=== PATIENT | female | born 1940 | race Caucasian/White ===

== ENCOUNTER 2022-12-08 15:44 | Outpatient (REF) | payer OTHER, SELFPAY ==
[2022-12-08 16:48] LABS: Percent Iron Saturation 8.2 %
[2022-12-08 16:51] LABS: Anion Gap 8.8; BUN Creatinine Ratio 16.9; Calcium 8.9 mg/dL (8.5-10.1); Carbon Dioxide 30.7 mmol/L (21.0-32.0); Chloride 104 mmol/L (98-107); Estimated GFR (African America 48 (>=60); Estimated GFR (Non-African Ame 39 (>=60); Glucose 118 mg/dL (74-106); Potassium 4.5 mmol/L (3.5-5.1); Sodium 139 mmol/L (136-145)
== END 2022-12-08 15:45 | disposition home or self-care (01) ==
LOC: LAB 15:44
PROVIDERS: PCP Family Medicine; Visit Provider Family Medicine
DX: D64.9 Anemia, unspecified (principal); D75.89 Other specified diseases of blood and blood-forming organs; I50.9 Heart failure, unspecified
CPT/HCPCS: 36415; 80048; 82607; 82728; 82746; 83540; 83550; 83880

== ENCOUNTER 2024-01-16 13:39 | Outpatient (REF) | payer OTHER, SELFPAY ==
[2024-01-16 14:14] LABS: Hematocrit 34.1 % (36.0-48.0); Hemoglobin 9.8 g/dL (12.0-16.0)
[2024-01-16 15:00] LABS: Anion Gap 9.5; BUN Creatinine Ratio 18.5; Calcium 8.8 mg/dL (8.5-10.1); Chloride 101 mmol/L (98-107); Estimated GFR (African America 35 (>=60); Estimated GFR (Non-African Ame 29 (>=60); Glucose 113 mg/dL (74-106); Potassium 4.5 mmol/L (3.5-5.1); Sodium 141 mmol/L (136-145)
== END 2024-01-16 13:40 | disposition home or self-care (01) ==
LOC: LAB 13:39
PROVIDERS: PCP Family Medicine; Visit Provider Family Medicine
DX: Z79.899 Other long term (current) drug therapy (principal); D64.9 Anemia, unspecified
CPT/HCPCS: 36415; 80048; 85014; 85018

== ENCOUNTER 2025-04-17 14:32 | Outpatient (REF) | payer OTHER, SELFPAY ==
[2025-04-17 15:18] LABS: Glucose Urine UA NEGATIVE (NEGATIVE)
--- OUTSIDE RECORDS SUMMARY | 2025-04-17 17:32 | XMS_ITS | CCD ---
Author Organization [facility] Inform ion [facility] Care Team Providers Care Assistive Technology Trainer Name Role Phone Justyna Hanson Primary Care Provider Ayse Morton Attending Provider Montana Tobar Attending Provider Justyna Hanson Attending Provider [phone] Justyna Hanson Unavailable Unavailable Unavailable Unavailable Aliza Funes Unavailable Justyna Hanson Unavailable Montana Tobar Unavailable Tori Wheatley Unavailable Justyna Hanson Unavailable DO Jusytna Hanson Primary Care Provider MD Tori Wheatley Attending Provider DR FLORENTIN LARIOS Consulting Unavailable ALIZA FUNES Admitting Unavailable ALIZA FUNES Attending Unavailable DR JUSTYNA HANSON Primary Care Unavailable ALIZA FUNES Consulting Unavailable DO Justyna Hanson Primary Care Provider DO Justyna Hanson Attending Provider Margarito Allen Unavailable Dr. Tressa Jackson Attending Martha Jackson, Dr. Allan Referring Martha Hanson, Dr. Justyna Randolph Primary Care Martha Jackson, Dr. Allan Attending Alycea sean Jackson, Dr. Allan Referring Alycea sean Hanson, Dr. Justyna Randolph Primary Care UnavailDO Margarito Cardoso Attending Provider [phone] DO Justyna Hanson Primary Care Provider DO Justyna Hanson Attending Provider [phone] NON STAFF Primary Care Provider UnavailJustyna Tai DO Primary Care Provider [phone] NON STAFF Primary Care Provider Unavailrupesh e DO Justyna Hanson Attending Provider DO Justyna Hanson Primary Care Provider DO Justyna Hanson Primary Care Provider [phone] DO Justyna Hanson Attending Provider TRESSA JACKSON Referring Unavailable JUSTYNA HANSON Primary Care Unavailable DO Myrna Silverman Attending Provider NO FAMILY, PHYSICIAN Primary Care Provider Unava ilable Justyna Hanson DO Primary Care Provider Justyna Hanson DO Attending Provider Justyna Hanson DO Attending Provider Justyna Hanson DO Primary Care Provider Randall Dalal PA-C Emergency Provider Marin Whitman DO Admit Provider [phone] Marin Whitman DO Attending Provider [phone] Justyna Hanson DO Primary Care Provider Justyna Hanson DO Primary Care Provider TRESSA JACKSON Attending Unavailable TRESSA JACKSON Referring Unavailable JUSTYNA HANSON Primary Care Unavailable TRESSA JACKSON Attending Unavailable TRESSA JACKSON Referring Unavailable JUSTYNA HANSON Primary Care Unavailable Justyna Hanson DO Primary Care Provider [phone] Clarisa Rashid Attending Provider Justyna Hanson DO Attending Provider [phone] Georgette SANDY, [place] Unavailable [phone] Justyna Hanson Primary Care Unavailable Justyna Hanson Attending Unavailable Justyna Hanson Admitting Unavailable Justyna Hanson Primary Care Unavailable Marin Whitman Admitting Unavailable Marin Whitman Attending Unavailable Justyna Hanson Attending Unavailable Girasif, Justyna Admitting Unavailable Girasif, Justyna Admitting Unavailable Girvin, Justyna Primary Care Unavailable Girasif, Justyna Attending Unavailable Girasif, Justyna Admitting Unavailable Girvin, Justyna Attending Unavailable Girvin, Justyna Primary Care Unavailable Girvin, Justyna Attending Unavailable Girvin, Justyna Admitting Unavailable Girvin, Justyna Primary Care Unavailable Girvin, Justyna Attending Unavailable Girvin, Justyna Admitting Unavailable Girvin Justyna HOOVER Primary Care Provider Kevin GÓMEZCClarisa Attending Provider [phone] CLARISA GARY Referring Unavailable GIRVIN, JUSTYNA Gomez Primary Care Unavailable CLARISA GARY Referring Unavailable GIRVIN, JUSTYNA Gomez Primary Care Unavailable LAKESHA KIM Attending Unavailable CLARISA GARY Referring Unavailable GIRVIN, JUSTYNA Gomez Primary Care Unavailable CLARISA GARY Referring Unavailable GIRVIN, JUSTYNA Gomez Primary Care Unavailable LAKESHA KIM Attending Unavailable CLARISA GARY Referring Unavailable GIRVIN, JUSTYNA Gomez Primary Care Unavailable GIRASIF, JUSTYNA C Referring Unavailable GIRVIN, JUSTYNA C Primary Care Unavailable KEYON PALOMINO Attending Unavailable GIRVIN, JUSTYNA C Referring Unavailable GIRVIN, JUSTYNA C Primary Care Unavailable KEYON PALOMINO Referring Unavailable GIRVIN, JUSTYNA C Primary Care Unavailable CLARISA GARY Referring Unavailable GIRVIN, JUSTYNA Gomez Primary Care Unavailable CLARISA GARY Referring Unavailable GIRVIN, JUSTYNA Gomez Primary Care Unavailable CLARISA GARY Referring Unavailable GIRVIN, JUSTYNA Gomez Primary Care Unavailable CLARISA GARY Attending Unavailable CLARISA GARY Referring Unavailable GIRVIN, JUSTYNA Gomez Primary Care Unavailable CLARISA GARY Referring Unavailable GIRVIN, JUSTYNA Gomez Primary Care Unavailable Unavailable Unavailable Unavailable Allergies Allergy ClassificationReported Allergen(s)Allergy TypeDate of OnsetReaction(s) Facility (20 sources)Ibuprofen; Translations: [ibuprofen]Drug Kccfkta47-64-0606WjvfeOur Lady Of Mercy Hospital (20 sources)Simvastatin; Translations: [simvastatin]Drug Aoeyqkw64-80-9067 FluMercy Health Perrysburg HospitalComment on above:nausea and flushing (20 sources)Iodinated Contrast Media; Translations: [IODINATED CONTRAST MEDIA] Allergy to vbybhlgzv56-15-6812KnfiwxijexaKassqtpqe [facility] (4 sources)Contrast mediaAllergy to substance (finding)[facility] 600 DO Work Phone: (4 sources)Ibuprofen; Translations: [Ibuprofen TABS]Drug AllergyCass [facility] 600 DO Work Phone: (8 sources)Niacin; Translations: [Niaspan TBCR]Drug Xxainam44-97-0572CpirdBDSt. Elizabeths Medical Center 600 DO Work Phone: (20 sources)Contrast mediaPropensity to adverse reactionsshock/deathMulticare Auburn Medical Center SeroMatch Other (20 sources)FenofibrateDrug Bxdctio97-21-5209fekdbtoOhioHealth Hardin Memorial Hospital (20 sources)IbprofenPropensity to adverse reactionsMetroHealth Main Campus Medical Center SeroMatch Other (3 sources)Hmg-Coa Reductase Inhibitors (Statins); Translations: [Statins] Allergy to drug (finding)Hives, FlushingWinona Community [facility]-Farzad 250 DO Work Phone: (1 source)FenofibrateDrug AllergyThe [facility] (1 source)Iodine (And Iodine Containting Drugs)Drug allergy (disorder)[facility] (6 sources)HMG-CoA reductase inhibitor; Translations: [MUJDIGP-GFK-FPY REDUCTASE INHIBITORS]Drug Xqwknbbtwhd80-07-6242FioknLicking Memorial Hospital Work Phone: (2 sources)Niacin; Translations: [NIACIN]Drug Thvcumi44-58-6822[facility] (15 sources)Contrast media; Translations: [CONTRAST DYE]Drug Apzntaz40-71-4031 Other: See CommentsHolzer Health System (15 sources)Fenofibrate; Translations: [FENOFIBRATE MICRONIZED]Drug Allergy 60-35-7388Vpucz: See [facility] (5 sources)Doxycycline; Translations: [doxycycline]Drug Eruumtq24-24-6051DxgfThe Metrohealth SystemComment on above:possibly related to Doxycycline, see workload message from 11/22/24 (1 source)FenofibrateDrug Auvwdlq82-64-9104RgfqvkzwfOhiohealth Southeastern Medical Center Repository Medications Current Medications MedicationDrug Class(es)DatesSig (Normalized)Sig (Original)25 g x 1 needle (9 sources)Start: g x 1 needle Active 0 .Route .MEDSUPPLY 4 0 June 12, 2024 1:00am As directedStart: g x 1 needle Active 0 .ROUTE .MEDSUPPLY 4 June 12, 2024 1:00am As directed3 ml syringe (9 sources)Start: ml syringe Active 0 .Route .MEDSUPPLY June 12, 2024 1:00am8 hr acetaminophen 650 mg extended release oral tablet (8 sources)Start: 02-32-3839Lfuqzcoggpkkq (Arthritis Pain Relief (Acetam)) 650 mg tablet extended release Active 1300 MG PO Bedtime August 28, 2024 12:00am Complies with drug therapyacetaminophen 325 mg / oxyCODONE hydrochloride 5 mg oral tablet (15 sources)Opioid AgonistStart: 99-92-7857pwib 1 tablet by mouth every four hours as neededPercocet 5-325 MG 1 tablet as needed Orally up to every 4 hrs for 7 days Feb, ActiveStart: 50-31-8359vmggalpen 0.83 mg/ml inhalation solution (20 sources)beta2-Adrenergic AgonistStart: 09-19-2023 End: 89-90-1143quxi 1 puff(s) by inhalation every four hours as needed for wheezingAlbuterol Sulfate (Proair Hfa) 90 mcg/actuation HFA aerosol inhaler Active 2 PUFF INHALATION Every 4 hours as needed for Shortness Of Breath Or Wheezing 8.5 11 December 19, 2023 2:10pm Complies with drug therapyStart: 01-16-2020 End: 04-12-9804amkl 1 dose by inhalation three times daily as needed for wheezingAlbuterol Sulfate 2.5 mg /3 mL (0.083 %) solution for nebulization Active 2.5 MG INHALATION Three times daily as needed for shortness of breath or wheezing 75 11 June 12, 2024 2:09pm USE 1 VIAL IN NEBULIZER THREE TIMES DAILY Complies with drug therapyStart: 08-30-2282idwi 1 puff(s) by inhalation every four to six hoursAlbuterol Sulfate (Proair Hfa) 90 mcg/actuation Hfa Aerosol Inhaler Active 1 PUFF INHALATION EVERY 4-6 HOURS October 04, 2017 6:54am Start: 10-04-2017 End: 62-70-2660uwhj 1 puff(s) by inhalation every four to six hours as needed for wheezingAlbuterol Sulfate (Proair Hfa) 90 mcg/actuation Hfa Aerosol Inhaler Discontinued 1 PUFF INHALATION EVERY 4-6 HOURS as needed for Shortness Of Breath Or Wheezing October 04, 2017 12:00am September 19, 2023 11:37amalbuterol HFA (PROAIR HFA) 90 mcg/actuation inhaler Inhale 2 Puffs as instructed. Activetake 3 mL by inhalation every four to six hours as needed for wheezingalbuterol 2.5 mg /3 mL (0.083 %) nebulizer solution Inhale 3 mL (2.5 mg). EVERY 4-6 HOURS NEEDEDFOR WHEEZING Activealbuterol (ProAir HFA) 90 mcg/actuation inhaler Inhale if needed. ActiveAlbuterol Sulfate (2.5 MG/3ML) 0.083% 1 vial per nebulizer qid Active Albuterol Sulfate (2.5 MG/3ML) 0.083% 1 vial per nebulizer qid ActiveAlbuterol Sulfate (2.5 MG/3ML) 0.083% Inhalation Nebulization Solution USE 1 UNIT DOSE EVERY 4-6 HOURS NEEDED FOR WHEEZING . Quantity: 0 Refills: 0 Ordered: 19-Feb-2021 DO ActiveProAir HFA 108 (90 Base) MCG/ACT AERS INHALE PUFFS PRN Quantity: 0 Refills: 0 Ordered: 19-Feb-2021 DO ActiveAlbuterol Sulfate (2.5 MG/3ML) 0.083% USE 1 VIAL IN NEBULIZER THREE TIMES DAILY ActiveProAir HFA 108 (90 Base) MCG/ACT 2 inhalations Inhalation every 4 hrs PRN ActiveBalsam Sandrita- Deridder Oil (Venelex) ointment (6 sources)Start: 98-05-2448Nggrrb Melber-Deridder Oil (Venelex) ointment Active 1 APPLIC TOPICAL Twice daily as needed for wound healing 60 1 September 07, 2024 12:00am a prior auth will not be done for this medication, pt will need topay amaral if ins does not cover Complies with drug therapyStart: 53-02-8886Ogova: 04-70-1143Oiqzzx Sandrita-Deridder Oil (Venelex) ointment Active 1 APPLIC TOPICAL Twice daily as needed for wound healing September 07, 2024 12:00am a prior auth will not be done for this medication, pt will need to pay amaral if ins does not coverCalcium 500 + D3 500-15 MG-MCG (9 sources)Start: 87-49-7656grxi 1 tablet by mouth twice dailyStart: 12-01-2022 take 1 tablet by mouth twice dailyCalcium 500 + D3 500-15 MG-MCG 1 tablet Orally Twice a day for 30 days Nov, Activecalcium carbonate 1500 mg / cholecalciferol 800 unt oral tablet (20 sources)Vitamin DStart: 46-80-8497esly 1 tablet by mouth once dailyCalcium Carbonate-Vitamin D3 600 mg-20 mcg (800 unit) tablet Active 1 TAB PO Daily December 19, 2023 1:55pm Complies with drug therapyStart: 09-19-2023 End: 28-57-7775drbp 1 tablet by mouth every twelve hoursCalcium Carbonate- Vitamin D3 600 mg-20 mcg (800 unit) tablet Discontinued 1 TAB PO Every 12 hours September 19, 2023 12:00am December 19, 2023 1:58pmStart: 25-95-0794vwzr 1 tablet by mouth every twelve hoursCaltrate 600+D 600-400 MG-UNIT (14 sources)Start: 20-94-2959cwjw 1 tablet by mouth every twelve hoursStart: 07-06-0458mthy 1 tablet by mouth every twelve hoursCaltrate 600+D 600-400 MG- UNIT 1 tablet Orally every 12 hrs for 30 days *corrected calcium/vit d script Nov, Activecefdinir 300 mg oral capsule (2 sources)Cephalosporin AntibacterialStart: 11-93-0527gxlu 2 capsules by mouth once daily at mealtimeCefdinir 300 MG 2 capsules Orally qd with food for 10 days May, ActiveCyanocobalamin 1000 MCG/ML (20 sources)Start: 41-42-1150uxqc 1 mL by mouth every monthStart: 10-81-1560yrhp 1 mL by mouth every monthCyanocobalamin 1000 MCG/ML 1 ml Orally once a month for 30 day(s) Oct, ActiveStart: 99-36-1892Msxwc: 08-49-0471xqct 1 mL by mouth every monthCyanocobalamin 1000 MCG/ML 1 ml Orally once a month Oct, Activedabigatran etexilate 75 mg oral capsule (20 sources)Start: 10-04-2017 End: 93-89-3933ieps 1 capsule by mouth twice dailyDabigatran Etexilate (Pradaxa) 75 mg capsule Active 75 MG PO Twice daily January 16, 2020 12:00am Complies with drug therapydexamethasone 1 mg oral tablet (7 sources)CorticosteroidStart: 07-86-2950Naflmangpdvwb 1 MG 1 tablet Orally as directed Apr, Activedocusate sodium 100 mg oral capsule (15 sources)Start: 58-89-9215rcdl 1 capsule by mouth every twenty-four hours Colace 100 MG 1 capsule Orally Once a day for 30 day(s) prn Apr, Active enalapril maleate 10 mg / hydroCHLOROthiazide 25 mg oral tablet (14 sources)Thiazide Diuretic, Angiotensin Converting Enzyme Inhibitortake 1 tablet by mouth once dailyenalapril-hydrochlorothiazide (VASERETIC) 10-25 mg per tablet Take 1 tablet by mouth once daily. Activeergocalciferol 1.25 mg oral capsule (20 sources)Provitamin D2 CompoundStart: 34-62-2572tiwa 1 capsule by mouth every weekErgocalciferol 58599 UNIT 1 capsule Orally Once a Week for 90 day(s) Mar, Activetake 1 capsule by mouth every week, then take 1 capsule by mouth two times weeklyergocalciferol, vitamin D2, (VITAMIN D) 50,000 unit capsule Take 50,000 Units by mouth once each week. 2 times per week Activeferrous sulfate 325 mg oral tablet (20 sources)Start: 29-83-4701barn 1 tablet by mouth every other dayFerrous Sulfate 325 mg (65 mg iron) tablet Active 325 MG PO .QOD December 19, 2023 2:35pm Complies with drug therapyStart: 09-19-2023 End: 52-63-9059Xelelkq Sulfate 325 mg (65 mg iron) tablet Discontinued 325 MG PO Every 48 hours September 19, 2023 12:00am December 19, 2023 2:36pm FStart: 50-63-3241qgca 1 tablet by mouth every other dayFerrous Sulfate 325 (65 Fe) MG 1 tablet Orally QOD Jan, ActiveStart: 03-69-6636uudq 1 tablet by mouth every other dayFerrous Sulfate 325 (65 Fe) MG 1 tablet Orally QOD Jan, ActiveStart: 15-17-5473cdnv 1 tablet by mouth twice dailyferrous sulfate 325 mg (65 mg iron) tablet Take 1 tablet by mouth twice daily. 60 tablet 0 11/26/2014 Activetake 1 tablet by mouth every other dayFerrous Sulfate 325 (65 Fe) MG 1 tablet Orally QOD for 30 days Activetake 1 tablet by mouth every other day Ferrous Sulfate 325 (65 Fe) MG 1 tablet Orally QOD Active Nkzbuyetqqc-Lojipzpwz-Dwxqsihs (20 sources)Anticholinergic, Corticosteroid, beta2-Adrenergic AgonistStart: 98-87-4088sqym 1 puff(s) by mouth once fmvfiMoshcrbdzew-Ouzohpjdp-Cypfnjes (Trelegy Ellipta) 100-62.5-25 mcg blister with device Active 1 INH INHALATION Daily January 16, 2020 1:27pm INHALE 1 PUFF ONCE DAILY. RINSE MOUTH AFTER EACH USEStart: 01-16-2020 End: 96-60-5950odpl 1 puff(s) by mouth once yofqgYdchbjknjki-Pbabljtnp-Wvpykuxg (Trelegy Ellipta) 100-62.5-25 mcg blister with device Discontinued 1INH INHALATION Daily January 16, 2020 12:00am December 01, 2020 6:48am INHALE 1 PUFF ONCE DAILY. RINSE MOUTH AFTER EACH USEStart: 01-16-2020 End: 41-11-5761wakn 1 puff(s) by mouth once kwvzvEwmfhletnei-Rhgxhtyga-Dvhnljib (Trelegy Ellipta) 100-62.5-25 mcg blister with device Discontinued 1INH INHALATION Daily January 15, 2020 11:00pm December 01, 2020 5:48am INHALE 1 PUFF ONCE DAILY. RINSE MOUTH AFTER EACH USEStart: 11-30-2019 End: 29-94-0567Dnenwtdkyzh-Umeclidin-Vilanter (Trelegy Ellipta) 100-62.5-25 mcg Blister With Device Discontinued 1INH INHALATION Daily November 30, 2019 12:20pm January 16, 2020 1:28pmStart: 11-30-2019 End: 62-16-1112Yrtexdkjwbm-Umeclidin-Vilanter (Trelegy Ellipta) 100-62.5-25 mcg Blister With Device Discontinued 1INH INHALATION Daily November 30, 2019 12:00am January 16, 2020 2:28pmStart: 11-30-2019 End: 66-33-8519Cxdyrruwbin-Umeclidin-Vilanter (Trelegy Ellipta) 100-62.5-25 mcg Blister With Device Discontinued 1INH INHALATION Daily November 29, 2019 11:00pm January 16, 2020 1:28pmStart: 87-86-0599wlhi 1 puff(s) by inhalation once dailyTrelegy Ellipta 100-62.5-25 MCG/INH 1 puff Inhalation Once a day Apr, Not-TakingStart: 66-69-9778xctfyzltrg 40 mg oral tablet (20 sources)Loop DiureticStart: 04-03-2024 End: 37-25-5246oftj 1 tablet by mouth twice dailyFurosemide (Lasix) 40 mg tablet Active 40 MG PO Twice daily 60 30 2 February 25, 2025 2:24pm Complies with drug therapyStart: 09-19-2023 End: 01-11-1741Uzanihgeym (Lasix) 40 mg tablet Discontinued 40 MG PO .COMPLEX as needed September 19, 2023 1:51pm December 19, 2023 2:36pm 40 mg orally 2 tablet in am 1 at night; PRN;Start: 05-13-2021 End: 41-61-2903Pyzluuvwin (Lasix) 40 mg tablet Discontinued 40 MG PO .COMPLEX September 19, 2023 1:51pm December 19, 2023 2:36pm 40 mg orally 2 tablet in am 1 at night; PRN;Start: 01-23-2020 End: 78-94-7394zotl 1 tablet by mouth once daily in the morningFurosemide 80 mg Tablet Discontinued 80 MG PO Every morning 30 30 0 January 23, 2020 12:00am December 01, 2020 6:51amStart: 01-16-2020 End: 58-62-6655rxel 1 tablet by mouth once dailyFurosemide (Lasix) 40 mg tablet Discontinued 40 MG PO Daily December 19, 2023 2:34pm March 12:05pm Start: 96-61-4530Rzelg 40 MG 2 tablet in am 1 at night Orally Jan, ActiveStart: 11-30-2019 End: 32-72-1249golk 1 tablet by mouth twice dailyFurosemide (Lasix) 40 mg Tablet Discontinued 40 MG PO Twice daily November 30, 2019 12:00am 2019 12:49pmStart: 10-04-2017 End: 58-36-7516lplc 10 mg by mouth once daily as needed for edemaFurosemide 20 mg Tablet Discontinued 10 MG PO Daily as needed for Edema October 04, 2017 12:00am 2019 1:21pmStart: 10-04-2017 End: 32-18-9402rndk 10 mg by mouth once dailyFurosemide Discontinued 10 MG PO Daily October 04, 2017 12:00am November 30, 2019 1:21pmhydroCHLOROthiazide 50 mg oral tablet (14 sources)Thiazide Diuretictake 1 tablet by mouth once daily hydrochlorothiazide (HYDRODIURIL, ESIDRIX) 50 mg tablet Take 50 mg by mouth once daily. ActivehydroCHLOROthiazide 50 mg / triamterene 75 mg oral tablet (20 sources)Potassium-sparing Diuretic, Thiazide DiureticStart: 37-13-9007pnbd 1 tablet by mouth once dailyTriamterene-Hydrochlorothiazid 75-50 mg Tablet Active 1 TAB PO Daily December 01, 2020 12:00am Complies with drug therapyStart: 01-16-2020 End: 68-66-0359amtw 1 tablet by mouth once dailyTriamterene-Hydrochlorothiazid (Maxzide) 75-50 mg tablet Discontinued 1 TAB PO Daily January 12:00am January 23, 2020 12:49pmStart: 10-04-2017 End: 27-32-5060ydoz 1 tablet by mouth once daily in the morningTriamterene- Hydrochlorothiazid 75-50 mg Tablet Discontinued 1 TAB PO Every morning October 04, 2017 12:00am November 30, 2019 1:23pminositol 100 mg / niacin 400 mg oral capsule (4 sources)Nicotinic AcidStart: 46-07-9987Blhwmk (Inositol Niacinate) (Niacin Flush Free) 400 mg niacin (500 mg) capsule Active CAP PO September 19, 2023 12:00am2 ml iron-dextran complex 50 mg/ml injection (1 source)iron dextran complex (Infed) 50 mg/mL injection Infuse 2 mL (100 mg) into a venous catheter 1 (one)time per week. Activelevothyroxine sodium 0.025 mg oral tablet (20 sources)l-ThyroxineStart: 60-46-1336ymwn 1 tablet by mouth once daily Levothyroxine (Synthroid) 25 mcg tablet Active 25 MCG PO Daily June 12, 2024 1:55pm Complies with drug therapyStart: 04-30-2024 End: 38-78-0678Dumltgwaohwty (Synthroid) 25 mcg tablet Discontinued 0 .ROUTE .COMPLEX 90 3 April 30, 2024 9:08am June 12, 2024 1:55pm TAKE 1 TABLET DAILYStart: 12-19-2023 End: 53-46-2370lvck 1 tablet by mouth once dailyLevothyroxine (Synthroid) 25 mcg tablet Discontinued 25 MCG PO Daily December 19, 2023 2:10pm April 30, 2024 9:08amStart: 06-23-2023 End: 59-80-0424Jmqqrgiwndwtx (Synthroid) 25 mcg tablet Discontinued 0 .ROUTE .COMPLEX 90 3 June 23, 2023 11:07am December 19, 2023 2:12pm TAKE 1 TABLET DAILYStart: 11-30-2019 End: 08-56-8128vbzp 1 tablet by mouth once dailyLevothyroxine (Synthroid) 25 mcg Tablet Discontinued 25 MCG PO Daily November 30, 2019 12:00am June 23, 2023 11:08amSynthroid 25 MCG TAKE 1 TABLET DAILY ActiveMagnesium (20 sources)Start: 43-29-7207hyhy 2 tablets by mouth once dailyMagnesium 250 mg Tablet Active 500 MG PO Daily December 01, 2020 12:00am Complies with drug therapy Start: 40-73-9670uely 2 tablets by mouth once dailyStart: 34-28-9509gqne 2 tablets by mouth once dailyMagnesium 250 mg Tablet Active 500 MG PO Daily December 01, 2020 12:00amStart: 60-87-0071ziuf 2 tablets by mouth once dailyMagnesium 250 mg Tablet Active 500 MG PO Daily November 30, 2020 11:00pmStart: 12-01-2020 take 500 mg by mouth once dailyMagnesium Active 500 MG PO Daily December 01, 2020 12:00amStart: 08-79-5756wzry 500 mg by mouth once dailyMagnesium Active 500 MG PO Daily November 30, 2020 11:00pm24 hr metoprolol succinate 50 mg extended release oral tablet (20 sources)beta-Adrenergic BlockerStart: 09-19-2023 End: 90-21-8445gwga 1 tablet by mouth once dailyMetoprolol Succinate 50 mg tablet extended release 24 hr Active 50 MG PO Daily 90 July 03, 2024 3:15pm Complies with drug therapyStart: 37-83-9921qwgx 1 tablet by mouth every twenty-four hoursMetoprolol Succinate ER 50 MG 1 tablet Orally Once a day Feb, ActiveStart: 01-16-2020 End: 08-64-7533gkrq 1 tablet by mouth once dailyMetoprolol Succinate (Toprol Xl) 25 mg tablet extended release 24 hr Discontinued 25 MG PO Daily January 16, 2020 12:00am September 19, 2023 11:36am TAKE 1 TABLET BY MOUTH ONCE DAILYStart: 12-03-2019 End: 84-72-9445ipqv 1 capsule by mouth once dailyMetoprolol Succinate 25 mg capsule,sprinkle,ER 24hr Discontinued 25 MG PO Daily 30 December 03, 2019 12:00am January 16, 2020 2:30pmStart: 10-04-2017 End: 48-48-5377Vdmixgmkwp Tartrate 25 mg Tablet Discontinued 12.5 MG PO Twice daily October 04, 2017 12:00am November 30, 2019 1:22pmStart: 10-04-2017 End: 23-71-5230kosf 12.5 mg by mouth twice dailyMetoprolol Tartrate Discontinued 12.5 MG PO Twice daily October 04, 2017 12:00am November 30, 2019 1:22pmtake 1 tablet by mouth twice dailymetoprolol tartrate, short acting, (LOPRESSOR) 100 mg tablet Take 100 mg by mouth twice daily. Activetake 1 tablet by mouth once dailymetoprolol tartrate (Lopressor) 25 mg tablet Take 1 tablet (25 mg) by mouth once daily. MsmklpVinsbvbm-Vuc-Ub-Lycopen-Lutein (Complete Mv Adult 50 Plus) 0.4 mg-300 mcg- 250 mcg tablet (10 sources)Start: 85-20-5162ltkm 1 tablet by mouth once daily Kviymkhg-Bzc-Ly-Lycopen-Lutein (Complete Mv Adult 50 Plus) 0.4 mg-300 mcg- 250 mcg tablet Active 1 TAB PO Daily June 12, 2024 1:00am Complies with drug therapyStart: 40-96-7104tvvs 1 tablet by mouth once dailyStart: 98-12-0992vmpr 1 tablet by mouth once xpknfIrvykpnf-Cnd-Gy-Lycopen-Lutein (Complete Mv Adult 50 Plus) 0.4 mg-300 mcg- 250 mcg tablet Active 1 TAB PO Daily June 12, 2024 1:00amStart: 93-33-1997mksc 1 tablet by mouth once daily Qryeqyhr-Kmh-Cx-Lycopen-Lutein (Complete Mv Adult 50 Plus) 0.4 mg-300 mcg- 250 mcg tablet Active 1 TAB PO Daily June 12, 2024 12:00amMULTIVITAMIN ORAL (13 sources)MULTIVITAMIN ORAL Take by mouth. ActiveNebulizer - (20 sources)Start: 02-06-3121Lzqub: 89-37-0895Gxlwp: 06-81-0891Plbbgqxug - as directed Aug, Activeniacin 500 mg oral tablet (20 sources)Nicotinic AcidStart: 80-42-4303rvbo 1 tablet by mouth once daily at bedtimeNiacin 500 mg tablet Active 500 MG PO Daily at bedtime December 27, 2023 12:00am Complies with drugtherapyStart: 12-01-2020 End: 55-28-9445Aemzrc 500 mg Tablet Discontinued 250 MG PO Daily December 01, 2020 12:00am September 19, 2023 11:39amStart: 12-01-2020 End: 62-44-2280udvw 250 mg by mouth once dailyNiacin Discontinued 250 MG PO Daily December 01, 2020 12:00am September 19, 2023 11:39amStart: 01-16-2020 End: 67-89-1681Psztxp 50 mg Tablet Discontinued 0 MG PO Daily January 16, 2020 12:00am December 01, 2020 6:44amStart: 73-99-8492btes 1 capsule by mouth once daily at bedtimeNiacin Flush Free 500 MG 1 capsule Orally qhs Oct, Activetake 1 tablet by mouth once dailyniacin 500 mg ER tablet Take 1 tablet (500 mg) by mouth once daily. ActiveNIACIN ORAL Take by mouth. Activetake 1 tablet by mouth once dailyNiacin ER 500 MG Oral Tablet Extended Release Take 1 tablet daily Quantity: 0 Refills: 0 Ordered: 19-Feb-2021 DO ActiveNiacin Flush Free 500 MG (20 sources)Start: 02-63-2145csoy 1 capsule by mouth once daily at bedtimeStart: 22-71-5799Cpeel: 44-90-2816rnrz 1 capsule by mouth once daily at bedtimeNiacin Flush Free 500 MG 1 capsule Orally qhs Oct, Activeomeprazole 40 mg delayed release oral capsule (20 sources)Proton Pump InhibitorStart: 82-53-1377icnb 1 capsule by mouth once daily 30 minutes before mealtimeOmeprazole 40 mg capsule,delayed release(DR/EC) Active 40 MG PO .COMPLEX February 25, 2025 2:06pm 40 mg orally TAKE 1 CAPSULE DAILY 30 MINUTES BEFORE A MEAL; Complies with drug therapyStart: 10-05-2024 End: 40-91-4014Ihlkyivite 40 mg capsule,delayed release(DR/EC) Discontinued 0 .ROUTE .COMPLEX 90 October 05, 2024 11:20am February 25, 2025 2:07pm TAKE 1 CAPSULE DAILY 30 MINUTES BEFORE A MEALStart: 12-19-2023 End: 72-06-9122rqym 1 capsule by mouth once daily 30 minutes before mealtime Omeprazole 40 mg capsule,delayed release(DR/EC) Discontinued 40 MG PO .COMPLEX December 19, 2023 2:11pm October 05, 2024 11:20am 40 mg orally TAKE 1 CAPSULE DAILY 30 MINUTES BEFORE A MEAL;Start: 12-01-2023 End: 28-59-8433Foubowshqi 40 mg capsule,delayed release(DR/EC) Discontinued 0 .ROUTE .COMPLEX 90 3 November 3048:16am December 19, 2023 2:12pm TAKE 1 CAPSULE DAILY 30 MINUTES BEFORE A MEALStart: 10-04-2017 End: 49-85-2914jggy 1 capsule by mouth once dailyOmeprazole 40 mg Capsule,Delayed Release(Dr/Ec) Discontinued 40 MG PO Daily October 04, 2017 12:00am December 01, 2023 8:16amOxygen 2 liters (20 sources)Start: 26-40-8579Ogudh: 82-27-3014Imnxz: 56-67-2869Dcvaqs 2 liters as night only Feb, Activemicroencapsulated potassium chloride 20 meq extended release oral tablet (20 sources)Start: 30-81-6838Eickipyks Chloride (Klor-Con M20) 20 mEq tablet,ER particles/crystals Active 20 MEQ PO Daily February 25, 2025 2:07pm Complies with drug therapyStart: 01-01-2025 End: 55-62-8533Bkoyzaxki Chloride (Klor-Con M20) 20 mEq tablet,ER particles/crystals Discontinued 0 .ROUTE .COMPLEX 90 3 January 01, 2025 12:43pm February 25, 2025 2:08pm TAKE 1 TABLET DAILYStart: 08-28-2024 End: 49-19-0662Jijahapco Chloride (Klor-Con M20) 20 mEq tablet,ER particles/crystals Discontinued 20 MEQ PO Daily August 28, 2024 12:00am January 01, 2025 12:43pmStart: 08-22-2024 End: 64-71-8604Uscdunngp Chloride (Klor-Con M20) 20 mEq tablet,ER particles/crystals Discontinued 20 MEQ PO Twice daily 30 0 August 22, 2024 4:20pm August 28, 2024 5:10pmStart: 29-98-1207jshz 1 tablet by mouth every twenty-four hoursPotassium Chloride ER 20 MEQ 1 tablet with food Orally Once a day Jan, ActiveStart: 01-16-2020 End: 44-11-9032zidw 1 tablet by mouth once dailyPotassium Chloride (Klor-Con M20) 20 mEq tablet,ER particles/crystals Discontinued 20 MEQ PO Daily 30 0 August 12, 2023 9:36am August 22, 2024 4:22pm TAKE 1 TABLET BY MOUTH ONCE DAILY Start: 12-03-2019 End: 01-05-4556phts 1 tablet by mouth once dailyPotassium Chloride 20 mEq tablet extended release Discontinued 20 MEQ PO Daily 30 4 December 03, 201912:00am January 16, 2020 2:31pmPradaxa [address] Jackson (20 sources)take 1 capsule by mouth twice dailytake 1 capsule by mouth twice dailyPradaxa [address] Jackson 1 capsules Orally Twice a day ActiveProAir HFA 108 (90 Base) MCG/ACT (20 sources)ProAir HFA 108 (90 Base) MCG/ACT 2 inhalations Inhalation every 4 hrs PRN Activepsyllium 3400 mg powder for oral suspension (7 sources)Start: 89-11-3503Slnrdein Husk (Metamucil Fiber Singles) 3.4 gram Powder In Packet Active 1 PACKET PO Daily 30 30 0 August 31, 2024 12:00am Complies with drug therapysertraline 100 mg oral tablet (20 sources)Serotonin Reuptake InhibitorStart: 06-12-2024 End: 13-66-6469cqal 1 tablet by mouth once dailySertraline 100 mg tablet Active 100 MG PO Daily 90 3 July 03, 2024 3:15pm Complies with drug therapyStart: 03-27-2024 End: 91-43-5625Hjmmyeotof 100 mg tablet Discontinued 0 .ROUTE .COMPLEX 90 March 27, 2024 9:51am June 12, 2024 1:55pm TAKE 1 TABLET DAILYStart: 09-19-2023 End: 21-48-5542hgzt 1 tablet by mouth once dailySertraline 100 mg tablet Discontinued 100 MG PO Daily September 19, 2023 12:00am March 27, 2024 9:52am Start: 57-80-0368Fhzocaeiwh HCl - 50 MG Oral Tablet Quantity: 90 Refills: 0 Ordered: 23-Jan-2022 DO Start : 23-Jan-2022 ActiveStart: 01-23-2020 End: 98-85-1293isah 1 tablet by mouth once daily in the morningSertraline 25 mg Tablet Discontinued 25 MG PO Every morning 30 30 0 January 23, 2020 12:00am September 19, 2023 11:35amtake 1 tablet by mouth once dailysertraline (Zoloft) 50 mg tablet Take 1 tablet (50 mg) by mouth once daily. Activetake 1 tablet by mouth every twenty-four hoursSertraline HCl 100 MG 1 tablet Orally Once a day Active Sertraline HCl 50 MG TAKE 1 TABLET DAILY for 90 ActiveSertraline HCl 50 MG TAKE 1 TABLET DAILY ActiveSertraline HCl 50 MG TAKE 1 TABLET DAILY for 90 days Active Sertraline HCl 25 MG TAKE 1 TABLET DAILY for 90 Activespironolactone 25 mg oral tablet (20 sources)Aldosterone AntagonistStart: 06-12-2024 End: 46-88-2184fvih 1 tablet by mouth twice dailySpironolactone 25 mg tablet Active 25 MG PO Twice daily 180 3 July 03, 2024 3:15pm Complies with drug therapyStart: 03-27-2024 End: 70-80-8608Yxvqvjvavhzblb 25 mg tablet Discontinued 0 .ROUTE .COMPLEX 180 1 March 27, 2024 1:56pm June 12, 2024 1:55pm TAKE 1 TABLET TWICE A DAY Start: 01-23-2020 End: 95-37-1246wreo 1 tablet by mouth twice dailySpironolactone 25 mg Tablet Discontinued 25 MG PO Twice daily 60 30 0 January 23, 2020 12:00am March 27, 2024 1:58pmStart: 10-04-2017 End: 18-94-6872fwhb 1 tablet by mouth once dailySpironolactone 25 mg Tablet Discontinued 25 MG PO Daily October 04, 2017 12:00am January 16, 2020 2:34pm Syringe 22G X 1 3 ML (20 sources)Start: 82-14-1343Tbunv: 37-22-7646Odurwgk 22G X 1 3 ML as directed Syringe and Needle for B12 Oct, ActiveStart: 09-95-8264Ewslx: 10-31-2019 Syringe 22G X 1 3 ML as directed Oct, Activevitamin b12 1 mg/ml injectable solution (20 sources)Vitamin J67Rsqxp: 01-16-2020 End: 06-05-3254vpdtkd 1 mL by intramuscular injection every monthCyanocobalamin (Vitamin B-12) 1,000 mcg/mL solution Active 1000 MCG IM every month 1 June 12, 2024 2:12pm INJECT 1 ML ONCE EVERY MONTH Complies with drug therapyStart: 38-36-5834bratht 1 mL by intramuscular injection every monthCyanocobalamin (Vitamin B-12) Active 1000 MCG IM every month January 16, 2020 12:00am INJECT 1 ML ONCE EVERY MONTH Completed/Discontinued Medications MedicationDrug Class(es)DatesSig (Normalized)Sig (Original)albuterol 0.833 mg/ml / ipratropium bromide 0.167 mg/ml inhalation solution (20 sources)Anticholinergic, beta2-Adrenergic AgonistStart: 09-19-2023 End: 26-48-9214zbgw 1 mL by inhalation four times daily as needed for wheezing Ipratropium-Albuterol 0.5 mg-3 mg(2.5 mg base)/3 mL solution for nebulization Discontinued 3 ML INHALATION Four times daily as needed for shortness of breath or wheezing 90 11 June 12, 2024 2:09pm August 01, 2024 11:51amStart: 17-16-2683urbg 3 mL by inhalation four times daily as neededIpratropium- Albuterol 0.5-2.5 (3) MG/3ML 3 ml Inhalation qid May, Not-Taking/PRN Start: 46-66-1315Xcyounklq Sulfate (Proair Hfa) 90 mcg/actuation Hfa Aerosol Inhaler (20 sources)Start: 10-04-2017 End: 88-12-3954eyrq 1 puff(s) by inhalation every four to six hours as needed for wheezingAlbuterol Sulfate (Proair Hfa) 90 mcg/actuation Hfa Aerosol Inhaler Discontinued 1 PUFF INHALATION EVERY 4-6 HOURS as needed for Shortness Of Breath Or Wheezing October 04, 2017 12:00am September 19, 2023 11:37amStart: 10-04-2017 End: 93-60-0408rmam 1 puff(s) by inhalation every four to six hours as needed for wheezingAlbuterol Sulfate (Proair Hfa) 90 mcg/actuation Hfa Aerosol Inhaler Discontinued 1 PUFF INHALATION EVERY 4-6 HOURS as needed for Shortness Of Breath Or Wheezing October 03, 2017 11:00pm September 19, 2023 10:37amStart: 10-04-2017 End: 99-75-2146yoae 1 puff(s) by inhalation every four to six hoursAlbuterol Sulfate (Proair Hfa) 90 mcg/actuation Hfa Aerosol Inhaler Discontinued 1 PUFF INHALATION EVERY 4-6 HOURS October 04, 2017 12:00am September 19, 2023 11:37amStart: 75-02-3748klsl 1 puff(s) by inhalation every four to six hoursAlbuterol Sulfate (Proair Hfa) 90 mcg/actuation Hfa Aerosol Inhaler Active 1 PUFF INHALATION EVERY 4-6 HOURS October 04, 2017 12:00amStart: 01-84-1221cfln 1 puff(s) by inhalation every four to six hoursAlbuterol Sulfate (Proair Hfa) 90 mcg/actuation Hfa Aerosol Inhaler Active 1 PUFF INHALATION EVERY 4-6 HOURS October 03, 2017 11:00pm allopurinol 300 mg oral tablet (20 sources)Xanthine Oxidase InhibitorStart: 01-16-2020 End: 81-97-8050lnmt 1 tablet by mouth once dailyAllopurinol 300 mg Tablet Discontinued 300 MG PO Daily December 01, 2020 12:00am August 12, 2023 9:35am Start: 10-04-2017 End: 33-82-2588mrjx 1 tablet by mouth once dailyAllopurinol 100 mg Tablet Discontinued 100 MG PO Daily October 04, 2017 12:00am January 16, 2020 2:24pm amiodarone hydrochloride 200 mg oral tablet (20 sources)AntiarrhythmicStart: 10-04-2017 End: 42-00-1047Hupmscxpey (Pacerone) 200 mg Tablet Discontinued 100 MG PO Daily October 04, 2017 12:00am September 19, 2023 1:50pmStart: 06-60-8740cfij 1 tablet by mouth every twenty-four hoursAmiodarone HCl 200 MG 1 tablet Orally Once a day Mar, Activeamoxicillin 500 mg / clavulanate 125 mg oral tablet (20 sources)Penicillin-class AntibacterialStart: 08-31-2024 End: 79-17-5151oltl 1 tablet by mouth twice dailyAmoxicillin-Pot Clavulanate (Augmentin) 500-125 mg tablet Discontinued 1 TAB PO Twice daily 8 0 August 31, 2024 12:00am September 12, 2024 2:12pmStart: 01-16-2020 End: 91-50-9089jlmt 1 tablet by mouth every twelve hoursAmoxicillin-Pot Clavulanate (Augmentin) 875-125 mg tablet Discontinued 1 TAB PO Q12H January 12:00am January 23, 2020 12:49pm TAKE 1 TABLET BY MOUTH EVERY 12 HOURSazithromycin 250 mg oral tablet (4 sources)Macrolide AntimicrobialStart: 12-07-2024 End: 27-80-0965Exxhkohjymas 250 mg tablet Discontinued 0 PO .COMPLEX 6 0 December 07, 2024 12:00am January 11, 2025 10:11am For 250 mg dose pack: take 500 mg today (day 1), then 250 mg for 4 days (days 2-5) POcefTRIAXone (20 sources)Cephalosporin AntibacterialStart: 21-28-4279Rqear: 04-19-2014 Rocephin 500 mg Apr, 1 grmcephalexin 500 mg oral capsule (20 sources)Cephalosporin AntibacterialStart: 11-16-2023 End: 78-87-9848pcdl 1 capsule by mouth three times dailyCephalexin 500 mg capsule Discontinued 500 MG PO Three times daily 21 7 0 November 16, 2023 4:20pm December 09, 2023 10:10amStart: 37-73-9036otuk 1 capsule by mouth every eight hoursCephalexin 500 MG 1 capsule Orally tid for 7 days Feb, Not-Taking Start: 01-16-2020 End: 94-77-3245vuea 1 capsule by mouth three times dailyCephalexin (Keflex) 500 mg capsule Discontinued 500 MG PO Three times daily January 16, 2020 12:00am January 23, 2020 12:49pm TAKE 1 CAPSULE BY MOUTH THREE TIMES DAILY FOR 7 DAYSStart: 20-00-9588ttso 1 capsule by mouth three times dailyKeflex 500 MG 1 capsule Orally tid for 10 days Dec, ActiveStart: 14-96-7861aadkxjhuvhhe 10 mg oral lozenge (9 sources)Azole AntifungalStart: 08-22-2024 End: 21-13-1029mibi 10 mg by mouth five times dailyClotrimazole 10 mg bonilla Discontinued 10 MG PO Five times daily 35 7 1 August 22, 2024 12:00am August 28, 2024 5:08pmdoxycycline hyclate 100 mg oral capsule (20 sources)Tetracycline-class DrugStart: 09-26-2024 End: 48-58-9024jplb 1 capsule by mouth twice dailyDoxycycline Hyclate 100 mg capsule Discontinued 100 MG PO Twice daily 20 10 0 November 15, 2024 12:39pm November 27, 2024 10:50amStart: 04-23-2024 End: 42-45-3655tqwa 1 capsule by mouth twice dailyDoxycycline Hyclate 100 mg capsule Discontinued 100 MG PO Twice daily 20 10 0 August 01, 2024 11:50am August 28, 2024 5:08pmStart: 01-16-2024 End: 26-86-8158sets 1 capsule by mouth twice dailyDoxycycline Hyclate 100 mg capsule Discontinued 100 MG PO Twice daily 20 10 0 February 17, 2024 11:15am March 09, 2024 9:32amStart: 12-09-2023 End: 46-74-4810evmo 1 capsule by mouth twice dailyDoxycycline Hyclate 100 mg capsule Discontinued 100 MG PO Twice daily 20 10 December 09, 2023 10:11am December 27, 2023 9:35amStart: 12-12-2020 End: 57-90-9954oykt 1 capsule by mouth twice dailyDoxycycline Hyclate 100 mg capsule Discontinued 100 MG PO Twice daily 20 10 December 22, 2020 12:00am September 02, 2023 9:50amStart: 01-16-2020 End: 82-55-3336glof 1 capsule by mouth twice dailyDoxycycline Hyclate (Vibramycin) 100 mg capsule Discontinued 100 MG PO Twice daily January 15 12:00am January 23, 2020 12:49pm TAKE 1 CAPSULE BY MOUTH TWICE DAILY FOR 10 DAYSdronedarone 400 mg oral tablet (2 sources)Antiarrhythmic End: 77-58-0769bhql 1 tablet by mouth twice daily at mealtimedronedarone (MULTAQ) 400 mg tab Take 400 mg by mouth twice daily with meals. 09/20/2024 Discontinued (Discontinued by another Health Care Provider)Fluticasone Propion-Salmeterol (20 sources)Corticosteroid, beta2-Adrenergic AgonistStart: 10-04-2017 End: 95-82-2850Ehwnjwblavn Propion-Salmeterol (Advair Diskus) 250-50 mcg/dose Blister With Device Discontinued 1 INH INHALATION Q12H October 04, 2017 6:54am November 30, 2019 12:21pmStart: 10-04-2017 End: 56-28-5195Sdckhgaphgd Propion-Salmeterol (Advair Diskus) 250-50 mcg/dose Blister With Device Discontinued 1 INH INHALATION Q12H October 04, 2017 12:00am November 30, 2019 1:21pmStart: 10-04-2017 End: 29-17-9856Qxohycyveug Propion-Salmeterol (Advair Diskus) 250-50 mcg/dose Blister With Device Discontinued 1 INH INHALATION Q12H October 03, 2017 11:00pm November 30, 2019 12:21pmtake 1 puff(s) by inhalation twice dailyfluticasone- salmeterol (ADVAIR DISKUS) 250-50 mcg/dose dsdv Inhale 1 Puff as instructed twice daily. Active5 ml iron sucrose 20 mg/ml injection (5 sources)Parenteral Iron ReplacementStart: 11-12-2024 End: 78-87-9984402 mg, INTRAVENOUS, ONCE, 1 dose, On Tue11/12/24 at 1230, Please conduct a 30 minute post dose observation.Start: 11-01-2024 End: 93-03-9285784 mg, INTRAVENOUS, ONCE, 1 dose, On Catrina 11/01/24 at 1430, Please conduct a 30 minute post dose observation.Start: 10-18-2024 End: 47-14-1863096 mg, INTRAVENOUS, ONCE, 1 dose, On Catrina 10/18/24 at 1530, Please conduct a 30 minute post dose observation.Start: 10-11-2024 End: 98-83-2389466 mg, INTRAVENOUS, ONCE, 1 dose, On Tue10/11/24 at 1500, Please conduct a 30 minute post dose observation.Start: 10-05-2024 End: 15-22-5195755 mg, INTRAVENOUS, ONCE, 1 dose, On Tue10/05/24 at 1400, Please conduct a 30 minute post dose observation.levoFLOXacin 750 mg oral tablet (20 sources)Quinolone AntimicrobialStart: 12-31-2024 End: 66-32-4308anzt 1 tablet by mouth every other dayLevofloxacin 750 mg tablet Discontinued 750 MG PO .COMPLEX 5 10 0 January 11, 2025 10:14am February 25, 2025 2:17pm 750 mg orally every other day;Start: 26-25-6336dvdf 1 tablet by mouth every twenty-four hoursLevaquin 500 MG 1 tablet Orally Once a day Apr, ActiveStart: 01-23-2020 End: 95-94-2541Fwqrnjhdwptq 750 mg Tablet Discontinued 750 MG PO Every 48 hours 3 5 0 January 23, 2020 12:00amJuly 2020 6:44amLORazepam 0.5 mg oral tablet (20 sources)BenzodiazepineStart: 77-57-7590Zujhi: 02-25-2017 End: 54-12-2158ghkf 1 tablet by mouth once daily as needed for anxietyLorazepam (Ativan) 0.5 mg tablet Discontinued 0.5 MG PO Daily as needed for Anxiety 30 30 0 September 19, 2023 2:11pm December 19, 2023 2:36pm Anxiety Anxiety disorder, unspecified TAKE 1 TABLET BY MOUTHONCE DAILYStart: 45-19-8839Xlcach 0.5 MG 1 tablet Orally one to two times a day as needed for anxiety Feb, Active magnesium gluconate 550 mg oral tablet (20 sources)Start: 01-16-2020 End: 80-32-3722Rvmchdusa 30 mg Tablet Discontinued 0 MG PO Daily January 16, 2020 12:00am December 01, 2020 6:40ammagnesium oxide 400 mg oral tablet (20 sources)Start: 10-04-2017 End: 55-98-9793xdcm 2 tablets by mouth twice dailyMagnesium Oxide 400 mg Tablet Discontinued 800 MG PO Twice daily October 04, 2017 12:00am January 16, 2020 2:34pmStart: 10-04-2017 End: 37-45-3021uycl 800 mg by mouth twice dailyMagnesium Oxide Discontinued 800 MG PO Twice daily October 04, 2017 12:00am January 16, 2020 2:34pmtake 1 capsule by mouth once dailymagnesium oxide 500 mg capsule Take 1 capsule (500 mg) by mouth once daily. Activetake 1 tablet by mouth once daily in the morning Magnesium Oxide 400 MG 1 tablet by mouth qd am ActivemethylPREDNISolone (20 sources)CorticosteroidStart: 28-35-8401Uoacm: 33-39-8233GQNU-MEDROL 41 - 125 mg Apr, 125 mgStart: 58-34-9259Gwqnv: 37-32-7526EBDW-MEDROL 41 - 125 mg Apr, 125 mgnystatin 100 unt/mg topical powder (20 sources)Polyene AntifungalStart: 01-16-2020 End: 41-88-3618Rntnvgxt (Nystop) 100,000 unit/gram powder Discontinued 1 APPLIC TOPICAL Twice daily 60 1 December 19, 2023 2:11pm December 27, 2023 9:40am USE TWICE DAILY EXTERNALLYStart: 51-68-4559Qcxtaegw 205583 UNIT/GM 1 application Externally Twice a day Dec, ActiveStart: 11-83-8258kltprtethl protein A microsphere (Optison) injection 0.7 mL (2 sources)Start: 03-11-2023 End: 35-74-9157fbxayhrtee protein A microsphere (Optison) injection 0.7 mL predniSONE 20 mg oral tablet (20 sources)Start: 12-07-2024 End: 66-80-3705npog 1 tablet by mouth once daily at mealtimePrednisone 20 mg tablet Discontinued 0 PO Daily 18 9 0 December 07, 2024 12:37pm January 110:12am 20 MG 3 a day x3 days, then take 2 a day x3 days and then 1 a day x3 days with food or milk. orally daily;Start: 04-23-2024 End: 02-07-1197xguu 1 tablet by mouth once daily at mealtimePrednisone 20 mg tablet Discontinued 0 PO Daily 18 9 0 April 23, 2024 11:49am June 12, 2024 1:43pm 20 MG 3 a day x3 days, then take 2 a day x3 days and then 1 a day x3 days with food or milk. orally daily;Start: 01-16-2024 End: 18-76-4965velv 1 tablet by mouth once daily at mealtimePrednisone 20 mg tablet Discontinued 0 PO Daily 18 9 0 February 17, 2024 11:15am March 09, 2024 9:33am 20 MG 3 a day x3 days, then take 2 a day x3 days and then 1 a day x3 days with food or milk. orally daily;Start: 12-09-2023 End: 60-47-1914sfhk 1 tablet by mouth once daily at mealtimePrednisone 20 mg tablet Discontinued 0 PO Daily 18 9 0 December 09, 2023 10:11am December 19, 2023 1:57pm 20 MG 3 a day x3 days, then take 2 a day x3 days and then 1 a day x3 days with food or milk. orally daily;Start: 09-02-2023 End: 69-08-6308zqox 1 tablet by mouth once daily at mealtimePrednisone 20 mg tablet Discontinued 0 PO Daily 18 9 0 September 02, 2023 12:00am September 19, 2023 1:53pm 20 MG 3 a day x3 days, then take 2 a day x3 days and then 1 a day x3 days with food or milk. orally daily;Start: 26-48-0316Cgoec: 11-30-2019 End: 52-94-4537Rezlmnqpsr 20 mg Tablet Discontinued 20 MG PO As Directed November 30, 2019 12:00am January 16, 2020 2:32pmStart: 33-13-1677mjqhsvRCCF 20 MG take 3 tablets Orally x3 days, then 2 tabs x3 days then 1 tab a day x3 days with food or milk for 9 days Dec, Activesemaglutide (5 sources)Start: 09-12-2024 End: 71-45-8783xmmdpa 1 mL by subcutaneous injection every weeksemaglutide Discontinued 0.25 ML SUBCUT .once weekly September 12, 2024 12:00am February 25, 2025 1:56pmStart: 02-70-8849nysohv 1 mL by subcutaneous injection every week Start: 93-47-8772botznu 1 mL by subcutaneous injection every weeksemaglutide Active 0.25 ML SUBCUT .once weekly September 12, 2024 12:00amtraMADol hydrochloride 50 mg oral tablet (20 sources)Opioid AgonistStart: 11-30-2019 End: 99-15-3415ltkc 1 tablet by mouth twice dailyTramadol 50 mg Tablet Discontinued 50 MG PO Twice daily November 30, 2019 12:00am January 16, 2020 2:32pmTriamcinolone (20 sources)CorticosteroidStart: 70-14-2999Tpgsb: 39-98-6427Blssfxc -40 mg Dec, 40 mgVitamin D 14135 UNIT (20 sources)take 1 capsule by mouth onceVitamin D 30500 UNIT 1 capsule Orally Not-Takingtake 1 capsule by mouth onceVitamin D 86084 UNIT 1 capsule Orally Active Problems Active Problems Problem ClassificationProblemDateDocumented DateEpisodic/Chronic Administrative/social admission (20 sources)Advance directive discussed with patient; Translations: [Other specified counseling]59-00-3293SwpsekydZsdoodp disorders (20 sources)Anxiety; Translations: [Anxiety disorder, unspecified]Onset: 11-10-2021 Resolved: 42-35-5177TosvcpkNdtigc (20 sources)Asthma; Translations: [Unspecified asthma, uncomplicated]Onset: 11-10-2021 Resolved: 95-13-0821HaxuwjfQicpefc dysrhythmias (20 sources)Paroxysmal atrial fibrillation; Translations: [Permanent atrial fibrillation]Onset: 04-29-2021 Resolved: 35-11-9441DovewnlAebtczm kidney disease (20 sources)Chronic kidney disease stage 4; Translations: [Chronic kidney disease stage 3A ]Onset: 04-28-2021 Resolved: 47-10-4255EjbevyjElnekms kidney disease (15 sources)Chronic kidney disease; Translations: [Chronic kidney disease, stage 3b]Onset: 04-29-2021 Resolved: 97-67-8430Aqlapst obstructive pulmonary disease and bronchiectasis (20 sources)Chronic obstructive lung disease; Translations: [Chronic obstructive pulmonary disease, unspecified]20-16-0653AppdsaaHrfppsh ulcer of skin (15 sources)Pressure ulcer of unspecified site, unspecified stage; Translations: [Pressure injury of skin]Onset: 393992-27-8726QdvmfaeWsvmuhuexa heart failure; nonhypertensive (20 sources)Acute right-sided heart failure; Translations: [Congestive heart failure]Onset: 971941-99-9080TcvuaaoAcgwdkxhtp and other anemia (20 sources)Anemia; Translations: [Anemia in chronic kidney disease]Chronic Deficiency and other anemia (6 sources)Anemia in chronic kidney diseaseOnset: 04-29-2021 Resolved: 08-13-2527JqlwwtmIrvwpcofzr and other anemia (20 sources)Iron deficiency anemia; Translations: [Iron deficiency anemia, unspecified]87-11-9066JibvxfznHqpriivxry and other anemia (20 sources)Anemia; Translations: [Anemia, unspecified]Onset: 11-12-2014 58-58-2100OuybybquKvyirzgwgl and other anemia (8 sources)Chronic anemia; Translations: [Anemia, unspecified]11-93-3091Smwrndcn Diabetes mellitus without complication (20 sources)Hyperglycemia, unspecified; Translations: [Hyperglycemia]Onset: 11-10-2021 Resolved: 23-82-7489KxcezwwyHjulvzdtq of lipid metabolism (20 sources)Hyperlipidemia; Translations: [Hyperlipidemia, unspecified]Onset: 11-10-2021 Resolved: 67-07-0634AufzhzdB Codes: Fall (14 sources)Fall; Translations: [Unspecified fall, initial encounter]06-12-2024 EpisodicEsophageal disorders (20 sources)Gastroesophageal reflux disease; Translations: [Gastro-esophageal reflux disease without esophagitis]Onset: 11-10-2021 Resolved: 25-51-9590GufpdxaBiuqdvbsu hypertension (20 sources)Benign essential hypertension; Translations: [Benign essential hypertension]Onset: 449511-87-5917LpaxfptSlwdf and electrolyte disorders (20 sources)Hypokalemia; Translations: [Hypervolemia]Onset: 04-29-2021 Resolved: 04-42-0204NlckxwimAojnorsn of lower limb (3 sources)Displaced bicondylar fracture of right tibia, initial encounter for closed fracture; Translations: [Displaced bicondylar fracture of right tibia, subsequent encounter for closed fracture with routinehealing]Episodic Gastrointestinal hemorrhage (1 source)Acute gastrointestinal hemorrhage; Translations: [Hemorrhage of gastrointestinal tract, unspecified]EpisodicGenitourinary symptoms and ill- defined conditions (20 sources)Incontinence; Translations: [Unspecified urinary incontinence]Onset: 11-10-2021 Resolved: 56-60-9602JoicdkmJryyokldubwhg symptoms and ill-defined conditions (3 sources)Unspecified abnormal findings in urine; Translations: [Hematuria, unspecified]EpisodicGout and other crystal arthropathies (20 sources)Gout; Translations: [Gout, unspecified]Onset: 11-10-2021 Resolved: 13-66-2803QovtonqYrzqwrxirlqc with complications and secondary hypertension (20 sources)Chronic kidney disease due to hypertension; Translations: [Hypertensive chronic kidney disease withstage 1 through stage 4 chronic kidney disease, or unspecified chronic kidney disease]ChronicImmunizations and screening for infectious disease (20 sources)Patient encounter status; Translations: [Other specified vaccination]25-45-0269UuggnvfdKjhdonp and fatigue (5 sources)Fatigue; Translations: [Other malaise and fatigue]Onset: 04-28-2021 Resolved: 64-48-7614VlwymjsvRuhe disorders (20 sources)Depressive disorder; Translations: [Major depressive disorder, single episode, unspecified]ChronicMycoses (3 sources)Dermatophytosis; Translations: [Dermatophytosis, unspecified]Onset: 605657-31-2403NiwntmgjYzxywahcwpk deficiencies (20 sources)Vitamin D deficiency; Translations: [Vitamin D deficiency, unspecified]Onset: 11-03-2021 Resolved: 67-47-9573LcgeudeTrlbqubdhld deficiencies (14 sources)Iron deficiency; Translations: [Iron deficiency]Onset: 08-28-2024 24-31-3905YpcfsjbdCvnc wounds of extremities (19 sources)Laceration without foreign body, right lower leg, initial encounter; Translations: [Laceration without foreign body, right lower leg, subsequent encounter]EpisodicOsteoarthritis (20 sources)Arthritis; Translations: [Unspecified osteoarthritis, unspecified site]ChronicOther aftercare (9 sources)Drug therapy finding; Translations: [Long-term (current) use of other medications]Onset: 914114-27-2442AtjfogrdNanim aftercare (3 sources)Other skilled nursing (current) drug therapy; Translations: [Other skilled nursing (current) drug therapy]Onset: 77-28-8411BwvmctbcGumyg and unspecified benign neoplasm (1 source)Melanocytic nevi, unspecifiedEpisodicOther diseases of kidney and ureters (1 source)Anemia of renal disease; Translations: [Anemia of renal disease] ChronicOther diseases of kidney and ureters (20 sources)Hyperparathyroidism due to renal insufficiency; Translations: [Secondary hyperparathyroidism of renal origin]ChronicOther diseases of kidney and ureters (3 sources)Secondary hyperparathyroidism of renal originOnset: 04-29-2021 Resolved: 43-05-7692FsopffoJsblr diseases of veins and lymphatics (20 sources)Peripheral venous insufficiency; Translations: [Venous insufficiency (chronic) (peripheral)]EpisodicOther gastrointestinal disorders (20 sources)Constipation; Translations: [Constipation, unspecified]EpisodicOther gastrointestinal disorders (20 sources)Dysphagia; Translations: [Dysphagia, unspecified]86-76-8627Eugfbvrv Other gastrointestinal disorders (5 sources)Dysphagia, unspecified; Translations: [Dysphagia, unspecified] 26-63-2354PnggjhdeHsdqi hematologic conditions (20 sources)Macrocytosis; Translations: [Other specified diseases of blood and blood-forming organs]09-40-2452GwarsvuEdwwd hematologic conditions (16 sources)Other specified diseases of blood and blood-forming organs; Translations: [Other specified diseasesof blood and blood-forming organs]Onset: 07-09-2021 Resolved: 70-99-1515XmsoopyLliaz injuries and conditions due to external causes (9 sources)Injury of lower extremity; Translations: [Unspecified open wound, right lower leg, initial encounter]79-43-3264FxsiaxfpLlmdu injuries and conditions due to external causes (2 sources)At risk for falls ; Translations: [History of falling]Onset: 107910-69-8536WnqfpdmrKmhmu injuries and conditions due to external causes (2 sources)History of falling; Translations: [History of falling]Onset: 84-97-8245ByonprmtHbrnd lower respiratory disease (20 sources)Dyspnea; Translations: [Shortness of breath]Onset: 03-11-2023 13-71-3759LfvghmqrDnaxt lower respiratory disease (10 sources)Difficulty breathing; Translations: [Other respiratory abnormalities]Onset: 903781-70-8513OqimqtupSsroz lower respiratory disease (6 sources)Shortness of breath; Translations: [Shortness of breath]Onset: 524920-41-6992AxjvbxmvHpvzz lower respiratory disease (2 sources)Cough; Translations: [Acute cough]54-60-7808LnwcgcysXipfs nervous system disorders (8 sources)Neuropathy; Translations: [Polyneuropathy, unspecified]ChronicOther nervous system disorders (1 source)Polyneuropathy, unspecifiedChronicOther non-traumatic joint disorders (1 source)Pain in left kneeEpisodicOther non-traumatic joint disorders (2 sources)Pain in right kneeEpisodicOther non-traumatic joint disorders (2 sources)Pain in unspecified jointEpisodicOther non-traumatic joint disorders (15 sources)Multiple joint pain; Translations: [Pain in unspecified joint] 56-73-9633TsrztvhdKuaty nutritional; endocrine; and metabolic disorders (20 sources)Morbid obesity; Translations: [Morbid obesity]95-57-6101EutpkboPmmll nutritional; endocrine; and metabolic disorders (15 sources)Body mass index 40+ - severely obese; Translations: [Body Mass Index 50.0-59.9, adult]Onset: 565536-77-6513MvgtfipQaxci nutritional; endocrine; and metabolic disorders (3 sources)Body mass index (BMI) 50.0-59.9, adult; Translations: [Body Mass Index 50.0-59.9, adult]Onset: 964225-91-8028DvbgwcoLclxl nutritional; endocrine; and metabolic disorders (2 sources)Body mass index (BMI) 45.0-49.9, adult; Translations: [Body mass index (BMI) 45.0-49.9, adult (Multi)]Onset: 28-84-5579NbnfgmkRtztw nutritional; endocrine; and metabolic disorders (2 sources)Morbid (severe) obesity due to excess calories; Translations: [Morbid (severe) obesity due to excess calories (Multi)]Onset: 53-54-1962QacmqpkXqetk nutritional; endocrine; and metabolic disorders (1 source)Abnormal weight gainEpisodicOther skin disorders (6 sources)Other seborrheic keratosis; Translations: [Other seborrheic keratosis]EpisodicOther skin disorders (15 sources)Seborrheic keratosis; Translations: [Other seborrheic keratosis] 89-82-9022MmjyfgxoMlkht skin disorders (15 sources)Cutaneous horn; Translations: [Other specified epidermal thickening] 14-82-7154PofutsonIzkmarg on above:right handOther skin disorders (5 sources)Other specified epidermal thickening; Translations: [Other specified dermatoses]64-46-6921VdpoqlcvXoqghslcak and visceral atherosclerosis (20 sources)Peripheral vascular disease; Translations: [Peripheral vascular disease, unspecified]68-12-2363BqadesxDprqlzfje heart disease (20 sources)Pulmonary hypertension; Translations: [Other chronic pulmonary heart diseases]Onset: 04-29-2021 Resolved: 72-50-4972UombcbpAencbtjp codes; unclassified (20 sources)Obstructive sleep apnea syndrome; Translations: [Obstructive sleep apnea (adult) (pediatric)]10-23-8137AdgwegnGhuefaji codes; unclassified (20 sources)Sleep apnea; Translations: [Unspecified sleep apnea]Onset: 625635-30-4763BbtfalwGghcnblh codes; unclassified (20 sources)Idiopathic sleep related non-obstructive alveolar hypoventilation; Translations: [Idiopathic sleep related nonobstructive alveolar hypoventilation] ChronicResidual codes; unclassified (2 sources)Obstructive sleep apnea (adult) (pediatric); Translations: [Obstructive sleep apnea (adult) (pediatric)]Onset: 01-95-3201OwqzcjjFmwitfzd codes; unclassified (13 sources)Edema; Translations: [Edema]65-29-5871AyzmjfkyMjymljgt codes; unclassified (6 sources)Edema, unspecified; Translations: [Edema]46-11-5871UnqggjvzOtbflcmof and history of mental health and substance abuse codes (8 sources)Ex-smoker; Translations: [Personal history of tobacco use]Onset: 172303-18-2144LptjrukwRlhzxem on above:quit 1985 1 ppd;Skin and subcutaneous tissue infections (20 sources)Cellulitis of lower limb; Translations: [Erysipelas]01-16-2020 EpisodicComment on above:right lower limbThyroid disorders (20 sources)Hypothyroidism; Translations: [Hypothyroidism, unspecified]Onset: 11-10-2021 Resolved: 92-80-2732EvmqbloBdychpcdldor (3 sources)A [facility] screening has identified you as FRAIL or AT RISK FOR FRAILTY. This puts you at a higher risk for infection, illness, falls, and other injuries. Here are four ways to help you reduce your risk of frailty: 1. IDENTIFY EARLY SIGNS OF FRAILTY Discuss contributing factors and concerns with your doctor 2. BE ACTIVE Walking and light strengthening exercises will help reduce weakness 3. EAT WELL Aim for three healthy meals a day that are high in protein 4. THINK POSITIVE Keep your mind active by being sociable and continuing to learn References: Stay Strong: Four Ways to Beat the Frailty Risk https://www.[facility].org/health/pnnyyxht-mca-hgngpxhiqi/digw-lbmkpz-liit- hqiy-pp-xcad-the-fra yuwo-mkdp14-41ycaf21-16-0756Ycrgdrrqkaxm (1 source)Drug therapy icqbocq89-59-3776Rxrxgxhmarlk (2 sources)Permanent atrial fibrillation; Translations: [Permanent atrial fibrillation (Multi)]Onset: 72-48-0049Jzbkxpn tract infections (5 sources)Cystitis; Translations: [Cystitis, unspecified without hematuria] Onset: 999680-93-1184Nszbanbp Past or Other Problems Problem ClassificationProblemDateDocumented DateEpisodic/ChronicDeficiency and other anemia (11 sources)Anemia, unspecified; Translations: [Anemia, unspecified]Onset: 04-28-2021 Resolved: 08-49-3393TuufahtgSclvjdydcf and other anemia (5 sources)Iron deficiency anemia, unspecified; Translations: [Iron deficiency anemia, unspecified iron deficiency anemia type]Onset: 11-12-2014 Resolved: 73-39-2526SxvsdamhMtlrxgyrnr and other anemia (1 source)Other iron deficiency anemias; Translations: [Other iron deficiency anemia]Onset: 78-03-6160LefdhyadRhnqreqe of upper limb (7 sources)Unspecified fracture of the lower end of left radius, initial encounter for closed fracture; Translations: [Unspecified fracture of the lower end of left radius, subsequent encounter for closed fracture with routine healing]Onset: 03-05-2021 Resolved: 18-90-2828FjqtwnduGvslw aftercare (2 sources)manager terminal (current) use of anticoagulants; Translations: [manager terminal (current) use of anticoagulants]Onset: 81-24-6831IadigchwQcqld gastrointestinal disorders (1 source)Change in bowel habitOnset: 11-10-2021 Resolved: 82-59-2476XbyvvlekNaazt lower respiratory disease (1 source)WheezingOnset: 11-10-2021 Resolved: 89-47-1367HoiigcegMozja lower respiratory disease (1 source)Dyspnea on exertion; Translations: [Other forms of dyspnea]11-23-2023 EpisodicOther lower respiratory disease (2 sources)Other abnormalities of breathing; Translations: [Other abnormalities of breathing]Onset: 68-52-1389XavcvhyiPthar lower respiratory disease (2 sources)Other forms of dyspnea; Translations: [Other forms of dyspnea]Onset: 63-00-6616ZklzkcurTzmmr non-traumatic joint disorders (1 source)Pain in left wrist; Translations: [Acute pain of left wrist M25.532] Onset: 03-05-2021 Resolved: 12-79-7800FczkryyxKnecdjdze (except that caused by tuberculosis or sexually transmitted disease) (1 source)Pneumonia, unspecified organismOnset: 04-28-2021 Resolved: 46-79-1925MsfefqhzApcsrlbmwsgu (6 sources)Cough R05.9Onset: 04-13-2021 Resolved: 13-15-6271Gesdykhkqedb (2 sources)Chronic cough R05.3Unclassified (2 sources)Onset: 11-23-2023 Resolved: Viral infection (1 source)COVID-19Onset: 04-28-2021 Resolved: 04-28-2021 Results Test NameValueInterpretationReference RangeFacilityCBC W Auto Differential panel (Bld)on 31-67-3779Dwlqjwfuh (Bld) [#/Vol]0.05 10*3/uLNormal<0.11CBlanchard [facility] HospitalComment on above:Order Comment: Specimen Type: BLOOD SPECIMENOrdering Facility: [facility] Address:[address] [place], [place] [address]Performed By: #### 65002-0 ####[facility] LABCLIA [id number] [place], [place] [address]Begpflpjd/100 WBC (Bld)0.4 % NormalSelect Medical [facility] Rehabilitation [facility] on above:Order Comment: Specimen Type: BLOOD SPECIMENOrdering Facility: [facility] Address:[address] [place], [place] [address]Performed By: #### 00619-6 ####[facility] LABCLIA [id number] [place] [address] Differential cell count method Nom (Bld)AutoNormalCBlanchard Valley Health System [facility] Comment on above:Order Comment: Specimen Type: BLOOD SPECIMENOrdering Facility: [facility] Address:[address] [place] [address] Performed By: #### 82927-3 ####[facility] LABIA [id number] [place], [place] [address]Auedqtximnl (Bld) [#/Vol]0.20 10*3/uLNormal<0.46[facility] on above:Order Comment: Specimen Type: BLOOD SPECIMENOrdering Facility: [facility] Address:[address] [place], [place] [address]Performed By: #### 35556-7 ####[facility] LABIA [id number] [place], [place] [address]Ttizbwwxlod/100 WBC (Bld)1.6 %NormalSelect Medical [facility] Rehabilitation Hospital on above:Order Comment: Specimen Type: BLOOD SPECIMENOrdering Facility: [facility] Address:[address] [place], [place] [address]Performed By: #### 30757-8 ####[facility] LABIA [id number] [place], [place] [address]Akuslbfjoxn distribution width (RBC) [Ratio]16.9 %High11.5-15.0[facility] on above:Order Comment: Specimen Type: BLOOD SPECIMENOrdering Facility: [facility] Address:[address] [place], [place] [address]Performed By: #### 00007- 8 ####[facility] LABIA [id number] [place], [place] [address]Pgxqpuunzj (Bld) [Volume fraction]37.8 %Iqzrvz65.0-46.0 [facility] on above:Order Comment: Specimen Type: BLOOD SPECIMENOrdering Facility: [facility] Address:[address] [place], [place] [address]Performed By: #### 64588-8 ####[facility] LABIA [id number] [place], [place] [address]Tmsgkkejiq (Bld) [Mass/Vol]11.4 g/dLLow11.5-15.5CChillicothe Hospital on above:Order Comment: Specimen Type: BLOOD SPECIMENOrdering Facility: [facility] Address:[address] [place], [place] [address]Performed By: #### 17153- 8 ####[facility] LABCLIA [id number] [place], [place] [address]Dplakgvv granulocytes (Bld) [#/Vol]0.09 10*3/uLNormal <0.10[facility] on above:Order Comment: Specimen Type: BLOOD SPECIMENOrdering Facility: [facility] Address:[address] [place], [place] [address]Performed By: #### 75969-1 ####[facility] LABCLIA [id number] [place], [place] [address]Tzvyjssn granulocytes/100 WBC (Bld)0.7 %[facility] on above: Order Comment: Specimen Type: BLOOD SPECIMENOrdering Facility: [facility] Address:[address] [place], [place] [address]Performed By: #### 10486- 8 ####[facility] LABCLIA [id number] [place], [place] [address]Wzmywaufquw (Bld) [#/Vol]3.38 10*3/uLNormal1.00-4.00 [facility] on above:Order Comment: Specimen Type: BLOOD SPECIMENOrdering Facility: [facility] Address:[address] [place], [place] [address]Performed By: #### 91181-7 ####[facility] LABIA [id number] [place], [place] [address]Wdhtjdeoets/100 WBC (Bld)27.2 %NormalSelect Medical [facility] Rehabilitation Hospital on above:Order Comment: Specimen Type: BLOOD SPECIMENOrdering Facility: [facility] Address:[address] [place], [place] [address]Performed By: #### 25528-6 ####[facility] LABCLIA [id number] [place], [place] [address]ZDT (RBC) [Entitic mass]31.0 rkVwftez93.0-34.0[facility] on above:Order Comment: Specimen Type: BLOOD SPECIMENOrdering Facility: [facility] Address:[address] [place], [place] [address]Performed By: #### 67272-4 ####[facility] LABCLIA [id number] [place], [place] [address]VODW (RBC) [Mass/Vol]30.2 g/dLLow30.5-36.0[facility] on above:Order Comment: Specimen Type: BLOOD SPECIMENOrdering Facility: [facility] Address:[address] [place], [place] [address]Performed By: #### 81827- 8 ####[facility] LABCLIA [id number] [place], [place] [address]OCW (RBC) [Entitic vol]102.7 vTYjwj53.0-100.0[facility] on above:Order Comment: Specimen Type: BLOOD SPECIMENOrdering Facility: [facility] Address:[address] [place], [place] [address]Performed By: #### 47359-6 ####[facility] LABIA [id number] [place], [place] [address]Ymleqgqjo (Bld) [#/Vol]0.95 10*3/uLHigh<0.87[facility] on above:Order Comment: Specimen Type: BLOOD SPECIMENOrdering Facility: [facility] Address:[address] [place], [place] [address]Performed By: #### 91462- 8 ####[facility] LABIA [id number] [place], [place] [address]Gwnfipfmj/100 WBC (Bld)7.7 %NormalSelect Medical [facility] on above:Order Comment: Specimen Type: BLOOD SPECIMENOrdering Facility: [facility] Address:[address] [place], [place] [address]Performed By: #### 59562-7 ####[facility] LABCLIA [id number] [place], [place] [address]Rkolbxdhkfg (Bld) [#/Vol]7.74 10*3/uLHigh1.45-7.50[facility] on above:Order Comment: Specimen Type: BLOOD SPECIMENOrdering Facility: [facility] Address:[address] [place], [place] [address]Performed By: #### 61656-6 ####[facility] LABCLIA [id number] [place], [place] [address]Dbjikdcppcm/100 WBC (Bld)62.4 %NormalSelect Medical [facility] Rehabilitation Hospital on above:Order Comment: Specimen Type: BLOOD SPECIMENOrdering Facility: [facility] Address:[address] [place], [place] [address]Performed By: #### 48365-4 ####[facility] LABCLIA [id number] [place], [place] [address]Rthimcnoi RBC (Bld) [#/Vol] 10*3/uLNormal<0.01[facility] on above:Order Comment: Specimen Type: BLOOD SPECIMENOrdering Facility: [facility] Address:[address] [place], [place] [address]Performed By: #### 10968-1 ####[facility] LABCLIA [id number] [place], [place] [address]Mqsopfdsp RBC/100 WBC (Bld) [Ratio]0.0 /100 WBCNormal [facility] on above:Order Comment: Specimen Type: BLOOD SPECIMENOrdering Facility: [facility] Address:[address] [place], [place] [address]Performed By: #### 11241-0 ####[facility] LABCLIA [id number] [place], [place] [address]Vxqvzqug mean volume (Bld) [Entitic vol]9.3 fLNormal9.0-12.7CChillicothe Hospital on above:Order Comment: Specimen Type: BLOOD SPECIMENOrdering Facility: [facility] Address:[address] [place] [address] Performed By: #### 45784-8 ####[facility] LABCLIA [id number] [place], [place] [address]Oxpgwwtkj (Bld) [#/Vol]209 10*3/uPJncnhw557-039TpswtbvvcSelect Medical [facility] Rehabilitation Hospital on above:Order Comment: Specimen Type: BLOOD SPECIMENOrdering Facility: [facility] Address:[address] [place], [place] [address]Performed By: #### 42524-1 ####[facility] LABCLIA [id number] [place], [place] [address]WCG (Bld) [#/Vol]3.68 10*6/uLLow3.90-5.20[facility] on above:Order Comment: Specimen Type: BLOOD SPECIMENOrdering Facility: [facility] Address:[address] [place], [place] [address]Performed By: #### 03897-9 ####[facility] LABCLIA [id number] [place], [place] [address]WUF (Bld) [#/Vol]12.41 10*3/uL High3.70-11.00[facility] on above:Order Comment: Specimen Type: BLOOD SPECIMENOrdering Facility: [facility] Address:[address] [place], [place] [address]Performed By: #### 05012-0 ####[facility] LABCLIA [id number] [place] [address] CNOVSPon [id number] (SP) Office ([place]) SHANTA FERRER ([id number]) 1940 F Date Time Provider Department 03/11/25 1:00 PM LAKESHA KIM During your visit today, we recorded the following information about you: Temperature Pulse Respiration Blood pressure 97 degrees 96/minute 18/minute 111/80 Lakesha Kim APRN.OPERATIONS STAFF SPECIALIST SECURITY 03/11/2025 2:25 PM Signed PATIENT NAME: Shanta Ferrer CLINIC NO.: [id number] ATTENDING PHYSICIAN: Keyon Palomino MD DATE OF SERVICE: March 11, 2025 (Lopez) Some of the elements of this note have been copied from the previous progress note dated: January 09, 2025 (Lopez). All the information has been reviewed carefully. CHIEF COMPLAINT: Anemia HPI: Shanta Ferrer is a 84 year old year old female with PMH of CKD, A,fib, COPD, Depression, CHF, venous stasis referred to us for anemia. FOBT- negative (08/28/24) Lives at home with daughter. Recently hospitalized with hemorrhoidal bleeding in first week of September 2024. Recd 2 units PRBC and 3 iron infusions. Light brown colored stools. EGD/colonoscopy- 5 yrs ago. Doing well. C/o fatigue. Not taking PO iron. Intolerant to PO iron. Constipation and sick stomach. Stopped iron supplements 2-3 weeks ago. 10/18/2024: Patient with a history of iron deficiency anemia, currently managed with iron infusions, presents for follow-up. She is currently undergoing a series of five iron infusions and has completed two so far. She reports that the infusions initially improve her energy levels, but she experiences fatigue by the end of the week. Her hemoglobin has improved to 10.3 g/dL. She denies any known bleeding. She reports mild constipation, which she manages by drinking prune juice daily. She denies any blood in her stools. - Doing well. - Started IV iron and tolerating infusions well. - Received Venofor 200 mg on 10/05/2024 and 10/11/2024 12/26/24: -finished 5 doses of IV venofer on 11/12/24. 01/09/25: She received an iron infusion in November, approximately eight weeks ago. Recent labs show an increase in hemoglobin from 10.3 g/dL to 11.3 g/dL. MCV remains slightly elevated. Serum creatinine is 1.76 mg/dL, a slight increase from previous labs on October 18. Patient reports a slight improvement in energy levels post-infusion, with no increase in dyspnea. She experiences variable days of well-being, which may be influenced by her COPD. She is currently experiencing nausea, attributed to not eating and being rushed prior to the appointment. She recently completed a course of strong antibiotics. Updated Visit, March 11, 2025: The patient is an 84-year-old female with iron deficiency anemia presenting for routine follow-up. Since her last visit, the patient was treated for a urinary tract infection by her PCP, Dr. De La O. She completed a course of antibiotics, which she took every other day as prescribed, but continues to experience persistent lower abdominal pain. She reports a history of frequent antibiotic use. She also reports a yeast infection with symptoms of pruritus and irritation in the perineal area. She denies fever, chills, hematuria, gastrointestinal bleeding, or changes in appetite or bowel habits. Denies fatigue and sob. Current Outpatient Medications Medication Sig MULTIVITAMIN ORAL Take by mouth. NIACIN ORAL Take by mouth. ferrous sulfate 325 mg (65 mg iron) tablet Take 1 tablet by mouth twice daily. ergocalciferol, vitamin D2, (VITAMIN D) 50,000 unit capsule Take 50,000 Units by mouth once each week. 2 times per week albuterol HFA (PROAIR HFA) 90 mcg/actuation inhaler Inhale 2 Puffs as instructed. albuterol (PROVENTIL) 2.5 mg /3 mL (0.083 %) nebulizer solution Use 2.5 mg via nebulizer three times daily. fluticasone-salmeterol (ADVAIR DISKUS) 250-50 mcg/dose dsdv Inhale 1 Puff as instructed twice daily. hydrochlorothiazide (HYDRODIURIL, ESIDRIX) 50 mg tablet Take 50 mg by mouth once daily. enalapril-hydrochlorothiazide (VASERETIC) 10-25 mg per tablet Take 1 tablet by mouth once daily. metoprolol tartrate, short acting, (LOPRESSOR) 100 mg tablet Take 100 mg by mouth twice daily. allopurinol (ZYLOPRIM) 100 mg tablet Take 100 mg by mouth once daily. dabigatran etexilate (PRADAXA) 75 mg cap Take 75 mg by mouth twice daily. Omeprazole 40 mg capsule Take 40 mg by mouth once daily. No current facility-administered medications for this visit. ALLERGIES Allergen Reactions Contrast Dye Other: See Comments shock/ Ibuprofen Hives Tricor [Fenofibrate* Other: See Comments upset stomach PAST MEDICAL HISTORY Diagnosis Date Arthritis Atrial fibrillation (HCC) CKD (chronic kidney disease) stage III GERD (gastroesophageal reflux disease) Gout Hyperglycemia Hyperlipidemia Hypertension Hypothyroidism Iron deficiency anemia Vitamin D deficiency PAST SURGICAL HISTORY Procedure Laterality Fred (more content not included)...NormalHolzer Medical Center – JacksonPNon 15-01-2003ZLAURtltbmwtl (NCCAP) SHANTA FERRER ([id number]) 1940 F Date Time Provider Department 03/11/25 LAKESHA KIM NCCAP During your visit today, we recorded the following information about you: Grace Iraheta 03/11/2025 1:26 PM Signed Radha Henning RN 03/13/2025 8:17 AM Signed Pt informed of normal Iron labs. RTC, as previously scheduled. Denies questions, needs or concerns at this time. Radha Henning RN Allergies As of Date: 03/11/2025 Noted Allergy Reaction CONTRAST DYE 11/11/2014 14 - Other: See Comments Comments: shock/ IBUPROFEN 11/11/2014 4 - Hives TRICOR (FENOFIBRATE MICRONIZED) 11/11/2014 14 - Other: See Comments Comments: upset stomach Date Reviewed: 03/11/2025 Reviewed by: Mackenzie Dahl MA - Fully Assessed Reason for Visit: Results [95] Cmt: Iron results Prescriptions as of 03/13/2025 - MULTIVITAMIN ORAL Take by mouth. - NIACIN ORAL Take by mouth. - ferrous sulfate 325 mg (65 mg iron) tablet Take 1 tablet by mouth twice daily. - ergocalciferol, vitamin D2, (VITAMIN D) 50,000 unit capsule Take 50,000 Units by mouth once each week. 2 times per week - albuterol HFA (PROAIR HFA) 90 mcg/actuation inhaler Inhale 2 Puffs as instructed. - albuterol (PROVENTIL) 2.5 mg /3 mL (0.083 %) nebulizer solution Use 2.5 mg via nebulizer three times daily. - fluticasone-salmeterol (ADVAIR DISKUS) 250-50 mcg/dose dsdv Inhale 1 Puff as instructed twice daily. - hydrochlorothiazide (HYDRODIURIL, ESIDRIX) 50 mg tablet Take 50 mg by mouth once daily. - enalapril-hydrochlorothiazide (VASERETIC) 10-25 mg per tablet Take 1 tablet by mouth once daily. - metoprolol tartrate, short acting, (LOPRESSOR) 100 mg tablet Take 100 mg by mouth twice daily. - allopurinol (ZYLOPRIM) 100 mg tablet Take 100 mg by mouth once daily. - dabigatran etexilate (PRADAXA) 75 mg cap Take 75 mg by mouth twice daily. - Omeprazole 40 mg capsule Take 40 mg by mouth once daily. Problem List As Of Date 03/11/2025 Noted Resolved Anemia [D64.9] 11/12/2014 Encounter Status:Closed by RADHA HENNING on 03/13/25NormalCBlanchard Valley Health System [facility] HospitalComprehensive metabolic 2000 panelon 91-47-8746Ehkdbax [Mass/Vol]3.3 g/dLLow3.9-4.9CChillicothe Hospital on above:Order Comment: Specimen Type: BLOOD SPECIMENOrdering Facility: [facility] Address:[address] [place], [place] [address]Performed By: #### 13175-4 ####[facility] LABCLIA [id number] [place] [address] ALP [Catalytic activity/Vol]106 U/VJtafrg66-185GhlauegvqSelect Medical [facility] on above:Order Comment: Specimen Type: BLOOD SPECIMENOrdering Facility: [facility] Address:[address] [place], [place] [address] Performed By: #### 90657-1 ####[facility] LABCLIA [id number] [place], [place] [address]ZSE [Catalytic activity/Vol]13 U/LNormal7-38[facility] on above:Order Comment: Specimen Type: BLOOD SPECIMENOrdering Facility: [facility] Address:[address] [place], [place] [address]Performed By: #### 62735-1 ####[facility] LABCLIA [id number] [place] [address] Anion gap [Moles/Vol]17 mmol/LHigh8-15[facility] on above:Order Comment: Specimen Type: BLOOD SPECIMENOrdering Facility: [facility] Address:[address] [place], [place] [address]Performed By: #### 96443-3 ####[facility] LABCLIA [id number] [place], [place] [address]KVU [Catalytic activity/Vol]15 U/GWsfrqc29-28 [facility] on above:Order Comment: Specimen Type: BLOOD SPECIMENOrdering Facility: [facility] Address:[address] [place], [place] [address]Performed By: #### 37197-4 ####[facility] LABIA [id number] [place], [place] [address]Desdbjycv [Mass/Vol]0.5 mg/dLNormal0.2-1.3CChillicothe Hospital on above:Order Comment: Specimen Type: BLOOD SPECIMENOrdering Facility: [facility] Address:[address] [place], [place] [address]Performed By: #### 78247- 8 ####[facility] LABCLIA [id number] [place], [place] [address]Xreeslr [Mass/Vol]9.4 mg/dLNormal8.5-10.2CChillicothe Hospital on above:Order Comment: Specimen Type: BLOOD SPECIMENOrdering Facility: [facility] Address:[address] [place], [place] [address]Performed By: #### 70461-7 ####[facility] LABCLIA [id number] [place], [place] [address]Ywinbyed [Moles/Vol]97 mmol/L Cev89-973HorwewmpySelect Medical OhioHealth Rehabilitation Hospital on above:Order Comment: Specimen Type: BLOOD SPECIMENOrdering Facility: [facility] Address:[address] [place], [place] [address]Performed By: #### 62686-5 ####[facility] LABCLIA [id number] [place] [address] CO2 [Moles/Vol]25 mmol/UVxtatn99-04DmtibctmdSelect Medical [facility] Rehabilitation Hospital on above: Order Comment: Specimen Type: BLOOD SPECIMENOrdering Facility: [facility] Address:[address] [place], [place] [address]Performed By: #### 48340- 8 ####[facility] LABCLIA [id number] [place], [place] [address]Ewxybaglqe [Mass/Vol]1.59 mg/dLHigh0.58-0.96[facility] on above:Order Comment: Specimen Type: BLOOD SPECIMENOrdering Facility: [facility] Address:[address] [place], [place] [address]Performed By: #### 58056-8 ####[facility] LABCLIA [id number] [place], [place] [address]tDXUnf SerPlBld CKD-EPI 625715 mL/min/1.73m???Low>=60[facility] on above: Order Comment: Specimen Type: BLOOD SPECIMENOrdering Facility: [facility] Address:[address] [facility] CENTERKhari [place], [place] [address]Nkkcva Comment: Estimated Glomerular Filtration Rate (eGFR) is calculated using the 2020 CKD-EPI cre atinine equation. This equation utilizes serum creatinine, sex, and age as parameters. The creatinine assay has traceable calibration to isotope dilution- mass spectrometry. Refer to KDIGO guidelines for clinical interpretation. In patients with unstable renal function, e.g. those with acute kidney injury, the eGFR may not accurately reflect actual GFR.Performed By: #### 24940-5 ####[facility] LABCLIA [id number] [place], [place] [address]Empzgqr [Mass/Vol]122 mg/kMChpk64-54WphuymwfgSelect Medical [facility] Rehabilitation Hospital on above:Order Comment: Specimen Type: BLOOD SPECIMENOrdering Facility: [facility] Address:[address] [place] [address]Tzqoyl Comment: The [place] Diabetes Association (ADA) provides guidance for cutoff values for fasting glucose and random glucose. The ADA defines fasting as no caloric intake for at least 8 hours. Fasting plasma glucose results between 100 to 125 mg/dL indicate increased risk for diabetes (prediab etes). Fasting plasma glucose results greater than or equal to 126 mg/dL meet the criteria for diagnosis of diabetes. In the absence of unequivocal hyperglycemia, results should be confirmed by repeat testing. In a patient with classic symptoms of hyperglycemia or hyperglycemic crisis, random plasma glucose results greater than or equal to 200 mg/dL meet the criteria for diagnosis of diabetes. Reference: Standards of Medical Care in Diabetes 2016, [place] Diabetes Association. Diabetes Care. 2016.39(Suppl 1).Performed By: #### 88715-9 ####[facility] LABCLIA [id number] [place], [place] [address]Ukebtaxkd [Moles/Vol]4.2 mmol/LNormal3.7-5.1CChillicothe Hospital on above:Order Comment: Specimen Type: BLOOD SPECIMENOrdering Facility: [facility] Address:[address] [place], [place] [address]Dmzxivdgl By: #### 97071-6 ####[facility] LABCLIA [id number] [place], [place] [address]Jdvtfjl [Mass/Vol]6.8 g/dLNormal6.3-8.0[facility] on above:Order Comment: Specimen Type: BLOOD SPECIMENOrdering Facility: [facility] Address:[address] [place], [place] [address]Performed By: #### 57407- 8 ####[facility] LABCLIA [id number] [place], [place] [address]Jnmvci [Moles/Vol]139 mmol/EXmawmh698-347KkezgthmwSelect Medical [facility]Health Rehabilitation Hospital on above:Order Comment: Specimen Type: BLOOD SPECIMENOrdering Facility: [facility] Address:[address] [place], [place] [address]Performed By: #### 94025-3 ####[facility] LABCLIA [id number] [place], [place] [address]Qgxy nitrogen [Mass/Vol]29 mg/dLHigh7-21[facility] on above:Order Comment: Specimen Type: BLOOD SPECIMENOrdering Facility: [facility] Address:[address] [place], [place] [address]Performed By: #### 38932-3 ####[facility] LABCLIA [id number] [place] [address] Ferritin SerPl-mCncon 48-92-3122Jglfggcp [Mass/Vol]192.0 ng/xOJwpmdm93.7-205.1 [facility] on above:Order Comment: Specimen Type: BLOOD SPECIMENOrdering Facility: [facility] Address:[address] [place], [place] [address]Performed By: #### 2132-9, 54161-5, 2284-8, 2276-4 ####[facility] LABCLIA [id number] [address] OF AMERICAFolate SerPl-mCncon 35-66-3335Jaqspn [Mass/Vol]ng/mL Normal>4.7CChillicothe Hospital on above:Order Comment: Specimen Type: BLOOD SPECIMENOrdering Facility: [facility] Address:[address] [place], [place] [address]Result Comment: A result of > 20 ng/mL is not necessarily indicative of a pathologic or treatable condition: it reflects a limitation of the test methodology. Assay reference range: 4.8 to 24.2 ng/mL. Suitable for detection of folate deficiency. Reference: Folate III (Folate III) [package insert V 1.0 [place]]. [facility], [place], [place]: March 2015.Performed By: #### 2132-9, 75182-7, 4-8, 6-4 ####[facility] LABCLIA [id number] [address] [place] AMERICAIron and Iron binding capacity panelon 31-93-0962Xwle [Mass/Vol]57 ug/mLCpbwwd46-529CaijkazdgSelect Medical [facility]Health Rehabilitation Hospital on above:Order Comment: Specimen Type: BLOOD SPECIMENOrdering Facility: [facility] Address:[address] [place] [address] Performed By: #### 2132-9, 97730-8, 4-8, 2275-4 ####[facility] LABCLIA [id number] VILLE [id number] [place] Iron binding capacity [Mass/Vol]285 ug/aBPcfguf697-215XunhxhicgGalion Community Hospital Comment on above:Order Comment: Specimen Type: BLOOD SPECIMENOrdering Facility: [facility] Address:[address] [place] [address] Performed By: #### 2132-9, 09578-6, 4-8, 6-4 ####[facility] LABCLIA [id number] VIL[place] [address] [place] Iron/TIBC [Molar ratio]20.0 %Ulyhts00.0-57.0[facility] on above:Order Comment: Specimen Type: BLOOD SPECIMENOrdering Facility: [facility] Address:[address] [place], [place] [address]Performed By: #### 2132-9, 75925-6, 2284-8, 2276-4 ####[facility] LABCLIA [id number] [address] JOSEPH'S HEALTHVit B12 SerPl-mCncon 95-20-8562Ljlongjqf (Vitamin B12) [Mass/Vol]1114 pg/sSHmjprn715-4966Xffritcyx Clinic ClevelandComment on above:Order Comment: Specimen Type: BLOOD SPECIMENOrdering Facility: [facility] Address:[address] [place], [place] [address]Performed By: #### 2132-9, 26549-7, 2284-8, 2276-4 ####[facility] LABCLIA [id number] [address] OF [facility] GLENBEIGHCNPNon 98-12-0290BNQWNtbwbcfmt (HEMASA) SHANTA FERRER ([id number]) 1940 F Date Time Provider Department 03/04/25 RADHA HENNING HEMASA During your visit today, we recorded the following information about you: Radha Henning RN 03/04/2025 9:42 AM Signed Labs pended for RTC : please review and delete, if some are not needed at this time. Radha Henning RN Allergies As of Date: 03/04/2025 Noted Allergy Reaction CONTRAST DYE 11/11/2014 14 - Other: See Comments Comments: shock/ IBUPROFEN 11/11/2014 4 - Hives TRICOR (FENOFIBRATE MICRONIZED) 11/11/2014 14 - Other: See Comments Comments: upset stomach Date Reviewed: 11/12/2024 Reviewed by: Delia Alfaro RN - Fully Assessed Reason for Visit: Lab Orders [1688] Primary Visit Diagnosis:Other iron deficiency anemia [D50.8] Order(s):COMPLETE BLOOD COUNT AND DIFFERENTIAL [SQCBCDIF] Order #: [id number] FUTURE COMPREHENSIVE METABOLIC PANEL [SQCMP] Order #: [id number] FUTURE IRON AND TIBC [SQIRON] Order #: [id number] FUTURE FERRITIN [SQFERR] Order #: [id number] FUTURE VITAMIN B12 [SQB12] Order #: [id number] FUTURE FOLATE, SERUM [SQSERFOL] Order #: [id number] FUTURE Prescriptions as of 03/04/2025 - MULTIVITAMIN ORAL Take by mouth. - NIACIN ORAL Take by mouth. - ferrous sulfate 325 mg (65 mg iron) tablet Take 1 tablet by mouth twice daily. - ergocalciferol, vitamin D2, (VITAMIN D) 50,000 unit capsule Take 50,000 Units by mouth once each week. 2 times per week - albuterol HFA (PROAIR HFA) 90 mcg/actuation inhaler Inhale 2 Puffs as instructed. - albuterol (PROVENTIL) 2.5 mg /3 mL (0.083 %) nebulizer solution Use 2.5 mg via nebulizer three times daily. - fluticasone-salmeterol (ADVAIR DISKUS) 250-50 mcg/dose dsdv Inhale 1 Puff as instructed twice daily. - hydrochlorothiazide (HYDRODIURIL, ESIDRIX) 50 mg tablet Take 50 mg by mouth once daily. - enalapril-hydrochlorothiazide (VASERETIC) 10-25 mg per tablet Take 1 tablet by mouth once daily. - metoprolol tartrate, short acting, (LOPRESSOR) 100 mg tablet Take 100 mg by mouth twice daily. - allopurinol (ZYLOPRIM) 100 mg tablet Take 100 mg by mouth once daily. - dabigatran etexilate (PRADAXA) 75 mg cap Take 75 mg by mouth twice daily. - Omeprazole 40 mg capsule Take 40 mg by mouth once daily. Problem List As Of Date 03/04/2025 Noted Resolved Anemia [D64.9] 11/12/2014 Encounter Status:Closed by LAKESHA KIM on 03/04/25NoUniversity Hospitals [facility] Metabolic Panelon 55-21-0055HSR/1.73 sq M.predicted MDRD (S/P/Bld) [Vol rate/Area]26.211 mL/min/{1.73_m2}NormalThe Bets[facility] Hospital Physician GroupComment on above:Performed By: #### PACO DE JESUSNO, BMP #### [facility] [address] [place] [address] USACalcium [Mass/volume] in Serum or PlasmaOrdered By: Justyna Hanson on 17-36-8864Akmsxwl [Mass/Vol]8.6 mg/dL8.6-10.3FClinton Memorial HospitalComment on above:Result Comment: PERFORMED BY: [place] [address] PATHOLOGIST FOREST AIDE JORGE BURGESS M.D.Performed By: #### PACO DE JESUSNO, BMP #### [facility] [address] [place] [address] USACarbon dioxide, total [Moles/volume] in Serum or Plasma Ordered By: Justyna Hanson on 45-92-6061US0 [Moles/Vol]33.2 mmol/LHigh21.0-31.0 [facility] CenterComment on above:Performed By: #### MGMONICA, BMP #### [facility] [address] [place] [address] USAChloride [Moles/volume] in Serum or PlasmaOrdered By: Justyna Hanson on 44-73-9874Esddhnzd [Moles/Vol]99 mmol/L93-777PjoqoevfuOhiohealth Southeastern Medical CenterComment on above:Performed By: #### MG, CBCNO, BMP #### [facility] [address] [place] [id number] USACreatinine [Mass/volume] in Serum or PlasmaOrdered By: Justyna Hanson on 45-65-8347Wwqruvdocc [Mass/Vol]1.87 mg/dLHigh0.60-1.20[facility] Medical CenterComment on above:Performed By: #### MG, CBCNO, BMP #### [facility] [address] [place] [address] USAGlomerular filtration rate [Volume Rate/Area] in Serum, Plasma or Blood by CreatinineOrdered By: Justyna Hanson on 04-42-3240Tdxpaljjsh filtration rate [Volume Rate/Area] in Serum, Plasma or Blood by Vbzbfcsznh59.211 mL/MinOhiohealth Southeastern Medical CenterGlucose [Mass/volume] in Serum or Plasma Ordered By: Justyna Hanson on 36-16-0580Xjzibef [Mass/Vol]123 mg/gTKxqi43-457 [facility] CenterComment on above:ADA recommended reference rangeRandom Glucose Reference Range is dependent on time and content of last meal. Glucose of more than 200 mg/dL in a nonstressed, ambulatory subject supports the diagnosisof Diabetes Mellitus.Result Comment: Random Glucose Reference Range is dependent on time and content of last meal. Glucose of more than 200 mg/dL in a nonstressed, ambulatory subject supports the diagnosis of Diabetes Mellitus. ADA recommended reference rangePerformed By: #### MONICA DE JESUS, BMP #### [facility] [address] [place] [address] USANo Panel InformationOrdered By: Justyna Hanson on 01-14-2025 Pharmacy Creatinine Clearance (ChemN/[facility] HospitalPotassium [Moles/volume] in Serum or PlasmaOrdered By: Justyna Hanson on 01-14-2025 Potassium [Moles/Vol]4.6 mmol/L3.5-5.1FClinton Memorial HospitalComment on above:Performed By: #### MONICA DE JESUS, BMP #### [place] [id number] USASerum or plasma anion gap determinationOrdered By: Justyna Hanson on 07-35-4703Mltgp gap [Moles/Vol]11.4 mmol/L6.0-15.0[facility] Medical CenterComment on above:Performed By: #### MONICA DE JESUS, BMP #### [facility] [address] [place] [address] USASodium [Moles/volume] in Serum or PlasmaOrdered By: Justyna Hanson on 26-87-2288Degoyh [Moles/Vol]139 mmol/L874-178ApxfdivmsOhiohealth Southeastern Medical CenterComment on above:Performed By: #### MONICA DE JESUS, BMP #### [facility] [address] [place] [address] USAUrea nitrogen [Mass/volume] in Serum or PlasmaOrdered By: Justyna Hanson on 48-25-2737Kxhk nitrogen [Mass/Vol]33 mg/dLHigh7-25[facility] Medical CenterComment on above:Performed By: #### MG, CBCNO, BMP #### [facility] [address] [place] [id number] USAAppearance of UrineOrdered By: Justyna Hanson on 01-09-2025 Appearance (U)ClearCleKettering Health DaytonComment on above:Order Comment: Name Collection Type:: VoidedPerformed By: #### MG, CBCNO, BMP #### [facility] [address] [place] [address] USABacteria [Presence] in Urine by AutomatedOrdered By: Justyna Hanson on 68-52-9351Ccxbaeqb Auto Ql (U)Rare [HPF]None SeenOhiohealth Southeastern Medical CenterBasophils Auto (Bld) [#/Vol]Ordered By: Clarisa Gary on 20-20-0837Hsrkblyla (Bld) [#/Vol]0.03 10*3/uL<0.11[facility] Medical CenterBasophils/100 WBC Auto (Bld)Ordered By: Clarisa Gary on 01-09-2025 Basophils/100 WBC (Bld)0.5 %[facility] Medical CenterBilirubin Test strip Ql (U)Ordered By: Justyna Hanson on 05-03-7038Myvnnckfu Ql (U)Negative NegativeOhiohealth Southeastern Medical CenterBlood manual differential comment interpretation narrativeOrdered By: Clarisa Gary on 35-18-0026Yhdnla differential comment Dale (Bld) [Interp]AutoOhiohealth Southeastern Medical CenterCBC W Auto Differential panel (Bld)on 44-48-6859Kewdqherm (Bld) [#/Vol]0.03 10*3/uL Normal<0.11CChillicothe Hospital on above:Order Comment: Specimen Type: BLOOD SPECIMENOrdering Facility: [facility] Address:[address] [place] [address]Imsplefwi By: #### 87629-5 ####[facility] LABCLIA [id number] [place] [address] Basophils/100 WBC (Bld)0.5 %NormalSelect Medical [facility]Health Rehabilitation Hospital on above: Order Comment: Specimen Type: BLOOD SPECIMENOrdering Facility: [facility] Address:[address] [place], [place] [address]Performed By: #### 92173- 8 ####[facility] LABCLIA [id number] [place], [place] [address]Cmxyrhtpvlvo cell count method Nom (Bld)AutoNormal [facility] on above:Order Comment: Specimen Type: BLOOD SPECIMENOrdering Facility: [facility] Address:[address] [place], [place] [address]Performed By: #### 37069-0 ####[facility] LABCLIA [id number] [place], [place] [address]Hmhnmtaelzf (Bld) [#/Vol]0.10 10*3/uLNormal<0.46[facility] on above: Order Comment: Specimen Type: BLOOD SPECIMENOrdering Facility: [facility] Address:[address] [place], [place] [address]Performed By: #### 92280- 8 ####[facility] LABCLIA [id number] [place], [place] [address]Rnhwqksgzgd/100 WBC (Bld)1.5 %NormalSelect Medical [facility]Health Rehabilitation Hospital on above:Order Comment: Specimen Type: BLOOD SPECIMENOrdering Facility: [facility] Address:[address] [place], [place] [address]Performed By: #### 40421-0 ####[facility] LABIA [id number] [place], [place] [address]Kqbrimbhixt distribution width (RBC) [Ratio]16.3 %High11.5-15.0[facility] on above:Order Comment: Specimen Type: BLOOD SPECIMENOrdering Facility: [facility] Address:[address] [place], [place] [address]Performed By: #### 77123- 8 ####[facility] LABCLIA [id number] [place], [place] [address]Ffkwrlsctb (Bld) [Volume fraction]36.4 %Fhknmj55.0-46.0 [facility] on above:Order Comment: Specimen Type: BLOOD SPECIMENOrdering Facility: [facility] Address:[address] [place], [place] [address]Performed By: #### 02734-8 ####[facility] LABCLIA [id number] [place], [place] [address]Cjntrluauo (Bld) [Mass/Vol]11.3 g/dLLow11.5-15.5CChillicothe Hospital on above:Order Comment: Specimen Type: BLOOD SPECIMENOrdering Facility: [facility] Address:[address] [place], [place] [address]Performed By: #### 26656- 8 ####[facility] LABCLIA [id number] [place], [place] [address]Lbsaylqa granulocytes (Bld) [#/Vol]0.03 10*3/uLNormal <0.10[facility] on above:Order Comment: Specimen Type: BLOOD SPECIMENOrdering Facility: [facility] Address:[address] [place], [place] [address]Performed By: #### 76977-7 ####[facility] LABCLIA [id number] [place], [place] [address]Hmlqffoe granulocytes/100 WBC (Bld)0.5 %NormalSelect Medical [facility]Health Rehabilitation Hospital on above: Order Comment: Specimen Type: BLOOD SPECIMENOrdering Facility: [facility] Address:[address] [place], [place] [address]Performed By: #### 21924- 8 ####[facility] LABCLIA [id number] [place], [place] [address]Avcdlpnhtjf (Bld) [#/Vol]1.98 10*3/uLNormal1.00-4.00 [facility] on above:Order Comment: Specimen Type: BLOOD SPECIMENOrdering Facility: [facility] Address:[address] [place], [place] [address]Performed By: #### 20584-3 ####[facility] LABCLIA [id number] [place], [place] [address]Splrxqybycf/100 WBC (Bld)29.8 %NormalSelect Medical [facility]Health Rehabilitation Hospital on above:Order Comment: Specimen Type: BLOOD SPECIMENOrdering Facility: [facility] Address:[address] [place], [place] [address]Performed By: #### 34587-5 ####[facility] LABCLIA [id number] [place], [place] [address]PLH (RBC) [Entitic mass]31.2 gtBgnwtk67.0-34.0[facility] on above:Order Comment: Specimen Type: BLOOD SPECIMENOrdering Facility: [facility] Address:[address] [place], [place] [address]Performed By: #### 85650-2 ####[facility] LABCLIA [id number] [place], [place] [address]WZAH (RBC) [Mass/Vol]31.0 g/dOKoxxok33.5-36.0[facility] on above: Order Comment: Specimen Type: BLOOD SPECIMENOrdering Facility: [facility] Address:[address] [place], [place] [address]Performed By: #### 80654- 8 ####[facility] LABCLIA [id number] [place], [place] [address]VRT (RBC) [Entitic vol]100.6 aESvoj76.0-100.0[facility] Medical [facility] on above:Order Comment: Specimen Type: BLOOD SPECIMENOrdering Facility: [facility] Address:[address] [place], [place] [address]Performed By: #### 27368-3 ####[facility] LABCLIA [id number] [place], [place] [address]Xvhfscflm (Bld) [#/Vol]0.61 10*3/uLNormal<0.87[facility] on above:Order Comment: Specimen Type: BLOOD SPECIMENOrdering Facility: [facility] Address:[address] [place], [place] [address]Performed By: #### 12661- 8 ####[facility] LABCLIA [id number] [place], [place] [address]Tgfbjlmwl/100 WBC (Bld)9.2 %NormalSelect Medical [facility] on above:Order Comment: Specimen Type: BLOOD SPECIMENOrdering Facility: [facility] Address:[address] [place], [place] [address]Performed By: #### 87491-7 ####[facility] LABIA [id number] [place], [place] [address]Saexrmhulvm (Bld) [#/Vol]3.89 10*3/uLNormal1.45-7.50[facility] on above:Order Comment: Specimen Type: BLOOD SPECIMENOrdering Facility: [facility] Address:[address] [place], [place] [address]Performed By: #### 33105-1 ####[facility] LABCLIA [id number] [place], [place] [address]Ibbjyjuykbk/100 WBC (Bld)58.5 %NormalSelect Medical [facility] on above:Order Comment: Specimen Type: BLOOD SPECIMENOrdering Facility: [facility] Address:[address] [place], [place] [address]Performed By: #### 45118-2 ####[facility] LABIA [id number] [place], [place] [address]Iihvyihct RBC (Bld) [#/Vol]0.03 10*3/uLHigh<0.01[facility] on above:Order Comment: Specimen Type: BLOOD SPECIMENOrdering Facility: [facility] Address:[address] [place], [place] [address]Performed By: #### 43362-6 ####[facility] LABCLIA [id number] [place], [place] [address]Cezmfxvyl RBC/100 WBC (Bld) [Ratio]0.5 /100 WBCNormal [facility] on above:Order Comment: Specimen Type: BLOOD SPECIMENOrdering Facility: [facility] Address:[address] [place], [place] [address]Performed By: #### 76500-6 ####[facility] LABCLIA [id number] [place], [place] [address]Onqwoqbp mean volume (Bld) [Entitic vol]8.5 fLLow9.0-12.7CChillicothe Hospital on above:Order Comment: Specimen Type: BLOOD SPECIMENOrdering Facility: [facility] Address:[address] [place], [place] [address]Performed By: #### 75794-5 ####[facility] LABCLIA [id number] [place], [place] [address]Sjsycornr (Bld) [#/Vol]153 10*3/nAFcvpgv672-487WnaxnwazwSelect Medical [facility] on above:Order Comment: Specimen Type: BLOOD SPECIMENOrdering Facility: [facility] Address:[address] [place], [place] [address]Performed By: #### 20687-8 ####[facility] LABCLIA [id number] [place], [place] [address]NGT (Bld) [#/Vol]3.62 10*6/uLLow3.90-5.20[facility] on above:Order Comment: Specimen Type: BLOOD SPECIMENOrdering Facility: [facility] Address:[address] [place], [place] [address]Bdnfbwqsr By: #### 64984- 8 ####[facility] LABCLIA [id number] [place], [place] [address]XNM (Bld) [#/Vol]6.64 10*3/uLNormal3.70-11.00Galion Community HospitalComment on above:Order Comment: Specimen Type: BLOOD SPECIMENOrdering Facility: [facility] Address:[address] [place], [place] [address]Tkscngdyq By: #### 32023-4 ####[facility] LABCLIA [id number] [place], [place] [address]VEHEKGlx 01-83-2478PKFQWINaylz (SP) Office (HEMASA) SHANTA FERRER ([id number]) 1940 F Date Time Provider Department 01/09/25 3:00 PM LAKESHA KIM During your visit today, we recorded the following information about you: Temperature Pulse Respiration Blood pressure 97.7 degrees 101/minute 16/minute 112/55 Height 1.6 m Lakesha Kim APRN.OPERATIONS STAFF SPECIALIST SECURITY 01/09/2025 4:26 PM Signed PATIENT NAME: Shanta Ferrre CLINIC NO.: [id number] ATTENDING PHYSICIAN: Keyon Palomino MD DATE OF SERVICE: January 09, 2025 (Lopez) Some of the elements of this note have been copied from the previous progress note dated December 26, 2024. All the information has been reviewed carefully. CHIEF COMPLAINT: Anemia HPI: Shanta Ferrer is a 84 year old year old female with PMH of CKD, A,fib, COPD, Depression, CHF, venous stasis referred to us for anemia. FOBT- negative (08/28/24) Lives at home with daughter. Recently hospitalized with hemorrhoidal bleeding in first week of September 2024. Recd 2 units PRBC and 3 iron infusions. Light brown colored stools. EGD/colonoscopy- 5 yrs ago. Doing well. C/o fatigue. Not taking PO iron. Intolerant to PO iron. Constipation and sick stomach. Stopped iron supplements 2-3 weeks ago. 10/18/2024: Patient with a history of iron deficiency anemia, currently managed with iron infusions, presents for follow-up. She is currently undergoing a series of five iron infusions and has completed two so far. She reports that the infusions initially improve her energy levels, but she experiences fatigue by the end of the week. Her hemoglobin has improved to 10.3 g/dL. She denies any known bleeding. She reports mild constipation, which she manages by drinking prune juice daily. She denies any blood in her stools. - Doing well. - Started IV iron and tolerating infusions well. - Received Venofor 200 mg on 10/05/2024 and 10/11/2024 12/26/24: -finished 5 doses of IV venofer on 11/12/24. 01/09/25: She received an iron infusion in November, approximately eight weeks ago. Recent labs show an increase in hemoglobin from 10.3 g/dL to 11.3 g/dL. MCV remains slightly elevated. Serum creatinine is 1.76 mg/dL, a slight increase from previous labs on October 18. Patient reports a slight improvement in energy levels post-infusion, with no increase in dyspnea. She experiences variable days of well-being, which may be influenced by her COPD. She is currently experiencing nausea, attributed to not eating and being rushed prior to the appointment. She recently completed a course of strong antibiotics. Current Outpatient Medications Medication Sig MULTIVITAMIN ORAL Take by mouth. NIACIN ORAL Take by mouth. ferrous sulfate 325 mg (65 mg iron) tablet Take 1 tablet by mouth twice daily. ergocalciferol, vitamin D2, (VITAMIN D) 50,000 unit capsule Take 50,000 Units by mouth once each week. 2 times per week albuterol HFA (PROAIR HFA) 90 mcg/actuation inhaler Inhale 2 Puffs as instructed. albuterol (PROVENTIL) 2.5 mg /3 mL (0.083 %) nebulizer solution Use 2.5 mg via nebulizer three times daily. fluticasone-salmeterol (ADVAIR DISKUS) 250-50 mcg/dose dsdv Inhale 1 Puff as instructed twice daily. hydrochlorothiazide (HYDRODIURIL, ESIDRIX) 50 mg tablet Take 50 mg by mouth once daily. enalapril-hydrochlorothiazide (VASERETIC) 10-25 mg per tablet Take 1 tablet by mouth once daily. metoprolol tartrate, short acting, (LOPRESSOR) 100 mg tablet Take 100 mg by mouth twice daily. allopurinol (ZYLOPRIM) 100 mg tablet Take 100 mg by mouth once daily. dabigatran etexilate (PRADAXA) 75 mg cap Take 75 mg by mouth twice daily. Omeprazole 40 mg capsule Take 40 mg by mouth once daily. No current facility-administered medications for this visit. ALLERGIES Allergen Reactions Contrast Dye Other: See Comments shock/ Ibuprofen Hives Tricor [Fenofibrate* Other: See Comments upset stomach PAST MEDICAL HISTORY Diagnosis Date Arthritis Atrial fibrillation (HCC) CKD (chronic kidney disease) stage III GERD (gastroesophageal reflux disease) Gout Hyperglycemia Hyperlipidemia Hypertension Hypothyroidism Iron deficiency anemia Vitamin D deficiency PAST SURGICAL HISTORY Procedure Laterality Date COLONOSCOPY HYSTERECTOMY HX KNEE SURGERY HX TONSILLECTOMY HX FAMILY HISTORY Problem Relation Age of Onset Heart Mother Heart Father Stroke Mother Cancer Father Social History Tobacco Use Smoking status: Former Current packs/day: 0.00 Types: Cigarettes Quit date: 07/22/2004 Years since quittin.4 Smokeless tobacco: Never Substance Use Topics Alcohol use: No Drug use: No REVIEW OF SYSTEMS General: No weight loss, malaise or fevers. No night sweats. HEENT: Negative for headaches, No changes in hearing or vision, no nose bleeds or other nasal problems. Respiratory: Negative for cough, wheezing and shortness (more content not included)...NormalGalion Community HospitalCNPNon 40-16-5153SHIDTkgdnisuk ([facility]) SHANTA FERRER ([id number]) 1940 F Date Time Provider Department 01/09/25 LAKESHA KIM During your visit today, we recorded the following information about you: Yoan Rivera 01/09/2025 3:08 PM Signed Radha Henning RN 01/11/2025 8:34 AM Signed JR: Please review and advise RTC KVNG Selby Jaimee, APRN.OPERATIONS STAFF SPECIALIST SECURITY 01/11/2025 8:53 AM Signed Hi, iron studies are normal, no iron needed at this time. Please have patient come back in 8 weeks for office visit and labs. Thanks Radha Henning RN 01/11/2025 8:58 AM Signed VM left with results and need to schedule 8 week lab/RTC. Encouraged to call to schedule. PSS: Please verify pt calls to schedule KVNG Selby Jodi 01/14/2025 11:06 AM Signed Spoke to patient and scheduled labs 1245, Lakesha 1pm and possible treatment 130 on TuesdayMarch 11 Allergies As of Date: 01/09/2025 Noted Allergy Reaction CONTRAST DYE 11/11/2014 14 - Other: See Comments Comments: shock/ IBUPROFEN 11/11/2014 4 - Hives TRICOR (FENOFIBRATE MICRONIZED) 11/11/2014 14 - Other: See Comments Comments: upset stomach Date Reviewed: 11/12/2024 Reviewed by: Delia Alfaro, RN - Fully Assessed Reason for Visit: Results [95] Prescriptions as of 01/15/2025 - MULTIVITAMIN ORAL Take by mouth. - NIACIN ORAL Take by mouth. - ferrous sulfate 325 mg (65 mg iron) tablet Take 1 tablet by mouth twice daily. - ergocalciferol, vitamin D2, (VITAMIN D) 50,000 unit capsule Take 50,000 Units by mouth once each week. 2 times per week - albuterol HFA (PROAIR HFA) 90 mcg/actuation inhaler Inhale 2 Puffs as instructed. - albuterol (PROVENTIL) 2.5 mg /3 mL (0.083 %) nebulizer solution Use 2.5 mg via nebulizer three times daily. - fluticasone-salmeterol (ADVAIR DISKUS) 250-50 mcg/dose dsdv Inhale 1 Puff as instructed twice daily. - hydrochlorothiazide (HYDRODIURIL, ESIDRIX) 50 mg tablet Take 50 mg by mouth once daily. - enalapril-hydrochlorothiazide (VASERETIC) 10-25 mg per tablet Take 1 tablet by mouth once daily. - metoprolol tartrate, short acting, (LOPRESSOR) 100 mg tablet Take 100 mg by mouth twice daily. - allopurinol (ZYLOPRIM) 100 mg tablet Take 100 mg by mouth once daily. - dabigatran etexilate (PRADAXA) 75 mg cap Take 75 mg by mouth twice daily. - Omeprazole 40 mg capsule Take 40 mg by mouth once daily. Problem List As Of Date 01/09/2025 Noted Resolved Anemia [D64.9] 11/12/2014 Encounter Status:Closed by MAGALYS LOPEZ on 01/15/25NormalCBlanchard Valley Health System Blanchard Valley HospitalColor of Urine by AutoOrdered By: Justyna Hanson on 12-61-7628Gwqcv (U) [facility] HospitalComment on above:Order Comment: Name Collection Type:: VoidedPerformed By: #### MG, CBCNO, BMP #### [facility] [address] [place] [address] USAComprehensive metabolic 2000 panelon 01-75-9484Zapyygv [Mass/Vol]3.4 g/dLLow3.9-4.9CBlanchard Valley Health System Blanchard Valley HospitalCommunson healthcare [facility] on above:Order Comment: Specimen Type: BLOOD SPECIMENOrdering Facility: [facility] Address:[address] [place], [place] [address]Performed By: #### 09702- 8 ####[facility] LABCLIA [id number] [place], [place] [address]TJI [Catalytic activity/Vol]119 U/IEdyeqy01-277KirxrmfejGalion Community HospitalCommunson healthcare manistee hospital on above:Order Comment: Specimen Type: BLOOD SPECIMENOrdering Facility: [facility] Address:[address] [place] [address]Xqbrccreg By: #### 23569-7 ####[facility] LABCLIA [id number] [facility]ENTERIVESVETERANS HEALTH [facility]MINIST[facility]ATION [facility] [place], [place] [address]WAA [Catalytic activity/Vol]8 U/LNormal7-38[facility] on above:Order Comment: Specimen Type: BLOOD SPECIMENOrdering Facility: [facility] Address:[address] [place], [place] [address]Performed By: #### 59744- 8 ####[facility] LABCLIA [id number] [facility] RICHELLE CHANDLERVETERANS HEALTH ADMINISTRATION [facility] [place], [place] [address]Weclf gap [Moles/Vol]12 mmol/LNormal8-15[facility] on above:Order Comment: Specimen Type: BLOOD SPECIMENOrdering Facility: [facility] Address:[address] [place], [place] [address]Performed By: #### 36771-4 ####[facility] LABCLIA [id number] [facility] CENTEROSCARVETERANS HEALTH ADMINISTRATION [facility] [place], [place] [address]MKT [Catalytic activity/Vol]17 U/MVgdjwx15-02BzsteqtrkSelect Medical [facility] on above:Order Comment: Specimen Type: BLOOD SPECIMENOrdering Facility: [facility] Address:[address] [place], [place] [address]Performed By: #### 06714-8 ####[facility] LABCLIA [id number] [facility] CENTEROSCARVETERANS HEALTH ADMINISTRATION [facility] [place] [address] Bilirubin [Mass/Vol]0.5 mg/dLNormal0.2-1.3CChillicothe Hospital on above:Order Comment: Specimen Type: BLOOD SPECIMENOrdering Facility: [facility] Address:[address] [place], [place] [address]Performed By: #### 06253-8 ####[facility] LABCLIA [id number] [facility] CENTEROSCARVETERANS HEALTH ADMINISTRATION [facility] [place], [place] [address]Mxavmdq [Mass/Vol]9.2 mg/dLNormal8.5-10.2CChillicothe Hospital on above:Order Comment: Specimen Type: BLOOD SPECIMENOrdering Facility: [facility] Address:[address] [place], [place] [address]Performed By: #### 67567-7 ####[facility] LABCLIA [id number] [place], [place] [address]Ufwvuxfx [Moles/Vol]99 mmol/XCnxznk34-079DwzypmkwzSelect Medical [facility] on above:Order Comment: Specimen Type: BLOOD SPECIMENOrdering Facility: [facility] Address:[address] [place], [place] [address]Performed By: #### 77408- 8 ####[facility] LABCLIA [id number] [place], [place] [address]KR8 [Moles/Vol]29 mmol/FNijxqg78-58BolufiahrGalion Community HospitalCommunson healthcare [facility]istee hospital on above:Order Comment: Specimen Type: BLOOD SPECIMENOrdering Facility: [facility] Address:[address] [place], [place] [address]Performed By: #### 15313-0 ####[facility] LABCLIA [id number] [place], [place] [address]Ximncsoumv [Mass/Vol]1.76 mg/dL High0.58-0.96[facility] on above:Order Comment: Specimen Type: BLOOD SPECIMENOrdering Facility: [facility] Address:[address] [place], [place] [address]Performed By: #### 99480-4 ####[facility] LABIA [id number] [place] [address] eGFRcr SerPlBld CKD-EPI 665243 mL/min/1.73m???Low>=60[facility] Comment on above:Order Comment: Specimen Type: BLOOD SPECIMENOrdering Facility: [facility] Address:[address] [place], [place] [address]Result Comment: Estimated Glomerular Filtration Rate (eGFR) is calculated using the 2020 CKD-EPI creatinine equation. This equation utilizes serum creatinine, sex, and age as parameters. The creatinine assay has traceable calibration to isotope dilution-mass spectrometry. Refer to KDIGO guidelines for clinical interpretation. In patients with unstable renal function, e.g. those with acute kidney injury, the eGFR may not accurately reflect actual GFR.Performed By: #### 90490-4 ####[facility] LABIA [id number] [place], [place] [address]Kzohpsf [Mass/Vol]121 mg/jVTotb82-43ZrefduprjSelect Medical [facility] on above:Order Comment: Specimen Type: BLOOD SPECIMENOrdering Facility: [facility] Address:[address] [place], [place] [address]Result Comment: The [place] Diabetes Association (ADA) provides guidance for cutoff values for fasting glucose and random glucose. The ADA defines fasting as no caloric intake for at least 8 hours. Fasting plasma glucose results between 100 to 125 mg/dL indicate increased risk for diabetes (prediab etes). Fasting plasma glucose results greater than or equal to 126 mg/dL meet the criteria for diagnosis of diabetes. In the absence of unequivocal hyperglycemia, results should be confirmed by repeat testing. In a patient with classic symptoms of hyperglycemia or hyperglycemic crisis, random plasma glucose results greater than or equal to 200 mg/dL meet the criteria for diagnosis of diabetes. Reference: Standards of Medical Care in Diabetes 2016, [place] Diabetes Association. Diabetes Care. 2016.39(Suppl 1).Performed By: #### 86426-7 ####[facility] LABCLIA [id number] [place], [place] [address]Vfmblhmvo [Moles/Vol]4.6 mmol/LNormal3.7-5.1CChillicothe Hospital on above:Order Comment: Specimen Type: BLOOD SPECIMENOrdering Facility: [facility] Address:[address] [place], [place] [address]Performed By: #### 39779-6 ####[facility] LABCLIA [id number] [place], [place] [address]Mcjfdsr [Mass/Vol]6.2 g/dLLow6.3-8.0[facility] on above:Order Comment: Specimen Type: BLOOD SPECIMENOrdering Facility: [facility] Address:[address] [place], [place] [address]Performed By: #### 45214- 8 ####[facility] LABCLIA [id number] [place], [place] [address]Ruvvrx [Moles/Vol]140 mmol/FEuwfpv893-852XsfgucsgvGalion Community HospitalComment on above:Order Comment: Specimen Type: BLOOD SPECIMENOrdering Facility: [facility] Address:[address] [place], [place] [address]Performed By: #### 71287-9 ####[facility] LABCLIA [id number] [place], [place] [address]Ktlm nitrogen [Mass/Vol]25 mg/dLHigh7-21Galion Community HospitalComment on above:Order Comment: Specimen Type: BLOOD SPECIMENOrdering Facility: [facility] Address:[address] [place], [place] [address]Performed By: #### 42488-6 ####[facility] LABCLIA [id number] [place] [address] Dipstick and Microscopicon 55-65-7291Bcjaasnl,UrineRareNormalNone SeenThe [facility] Physician GroupComment on above:Order Comment: Name Collection Type:: VoidedPerformed By: #### MG, CBCNO, BMP #### [place] [address] USABilirubin,UrineNegativeNormalNegativeThe [facility] Physician GroupComment on above:Order Comment: Name Collection Type:: Voided Performed By: #### MG, CBCNO, BMP #### [place] [address] USABudding Yeast,UrineRareNormalNone SeenThe [facility] Physician GroupComment on above:Order Comment: Name Collection Type:: Voided Result Comment: PERFORMED BY: [place] [address] PATHOLOGIST FOREST AIDE JORGE BURGESS M.D.Performed By: #### MG, CBCNO, BMP #### [place] [address] USAGlucose Ql (U)NormalNormalNormBrown Memorial HospitalSt. [facility] Physician GroupComment on above:Order Comment: Name Collection Type:: VoidedPerformed By: #### MG, CBCNO, BMP #### [place] [address] USAHyaline Casts,Pemld95-79Qbgkdu2-2Vok [facility] Physician GroupComment on above:Order Comment: Name Collection Type:: VoidedPerformed By: #### MG, CBCNO, BMP #### [place] [address] USAMucus,UrineRareNormalTampa General Hospital Physician GroupComment on above:Order Comment: Name Collection Type:: VoidedPerformed By: #### MG, CBCNO, BMP #### [place] [address] USANitrite,UrineNegativeNormalNegativeTampa General Hospital Physician GroupComment on above:Order Comment: Name Collection Type:: VoidedPerformed By: #### MG, CBCNO, BMP #### [place] [address] USAOccult Blood,UrineNegativeNormalNegativeTampa General Hospital Physician GroupComment on above:Order Comment: Name Collection Type:: Voided Result Comment: PERFORMED BY: [place] [address] PATHOLOGIST FOREST AIDE JORGE BURGESS M.D.Performed By: #### MG, CBCNO, BMP #### [place] [address] USAProtein,UrineNegativeNormalNegativeTampa General Hospital Physician GroupComment on above:Order Comment: Name Collection Type:: VoidedPerformed By: #### MG, CBCNO, BMP #### [place] [address] USARBC,Iizkm6-0Mztphz5-7Vwb [facility] Physician GroupComment on above:Order Comment: Name Collection Type:: VoidedPerformed By: #### MG, CBCNO, BMP #### [place] [address] USASpecificy Putnam,Urine1.083Mvrnge6.001-1.030The [facility] Physician GroupComment on above:Order Comment: Name Collection Type:: Voided Performed By: #### MG, CBCNO, BMP #### [facility] [address] [place] [address] USASquamous Epithelial Cell,Ogglx4-5Lgzbpp1-3Ghy [facility] Physician GroupComment on above:Order Comment: Name Collection Type:: Voided Performed By: #### MG, CBCNO, BMP #### [facility] [address] [place] [address] USAUrobilinogen,UrineNormalNormalNormalThe [facility] Physician GroupComment on above:Order Comment: Name Collection Type:: Voided Performed By: #### MG, CBCNO, BMP #### [facility] [address] [place] [address] USAWBC,Qvyjb4-3Rinxcz3-3Bmd [facility] Physician GroupComment on above:Order Comment: Name Collection Type:: VoidedPerformed By: #### MG, CBCNO, BMP #### [facility] [address] [place] [address] USAEosinophils/100 WBC Auto (Bld)Ordered By: Clarisa Gary on 64-18-1649Rordnxuwzmc/100 WBC (Bld)1.5 %[facility] Epithelial cells.squamous [#/area] in Urine sediment by Automated countOrdered By: Justyna Hanson on 98-27-1594Afvdfcbdnf cells.squamous Auto (Urine sed) [#/Area]3-4 [HPF]High0-2FClinton Memorial HospitalErythrocyte distribution width Auto (RBC) [Ratio]Ordered By: Clarisa Gary on 01-09-2025 Erythrocyte distribution width (RBC) [Ratio]16.3 %High11.5-15.0[facility] Medical CenterErythrocytes [#/area] in Urine sediment by Automated countOrdered By: Justyna Hanson on 64-55-1421WXM Auto (Urine sed) [#/Area]1-2 [HPF]0-4FClinton Memorial HospitalFerritin SerPl-mCncon 01-09-2025 Ferritin [Mass/Vol]160.0 ng/pZFoxifv45.7-205.1CBlanchard Valley Health System [facility] HospitalCommunson healthcare [facility] on above:Order Comment: Specimen Type: BLOOD SPECIMENOrdering Facility: [facility] Address:[address] [place] [address] Performed By: #### 59192-7, 2276-4 ####[facility] LABCLIA [id number] DAVID BYRNE [id number] [place] [address] [place] Glomerular filtration rate [Volume Rate/Area] in Serum, Plasma or Blood by CreatinineOrdered By: Clarisa Gary on 04-72-4025Zhuqzjrakc filtration rate [Volume Rate/Area] in Serum, Plasma or Blood by Xmuwdwwbcw44 mL/min/1.73m???Low >=60[facility] Medical CenterComment on above:Estimated Glomerular Filtration Rate (eGFR) is calculated using the 2020 CKD-EPI creatinine equation. This equation utilizes serum creatinine, sex, and age as parameters. The creatinine assay has traceable calibration to isotope dilution-mass spectrometry. Refer to KDIGO guidelines for clinical interpretation. In patients with unstable renal function, e.g. those with acute kidney injury, the eGFRmay not accurately reflect actual GFR.Glucose [Mass/volume] in Urine by Test strip Ordered By: Justyna Hanson on 02-29-2561Fofhuqq Test strip (U) [Mass/Vol]Normal mg/dLNormalOhiohealth Southeastern Medical CenterHematocrit Auto (Bld) [Volume fraction]Ordered By: Clarisa Gary on 31-73-0608Iowddwrekh (Bld) [Volume fraction]36.4 %36.0-46.0[facility] Medical CenterHemoglobin Test strip Ql (U)Ordered By: Justyna Hanson on 63-65-0961Enarzirtiw Ql (U)NegativeNegative [facility] Medical CenterHemoglobin [Mass/volume] in BloodOrdered By: Clarisa Gary on 78-40-9864Cyirfqywya (Bld) [Mass/Vol]11.3 g/dLLow11.5-15.5 [facility] Medical CenterHyaline casts [#/area] in Urine sediment by Automated countOrdered By: Justyna Hanson on 47-99-2312Jqazlmp casts Auto (Urine sed) [#/Area]20-49 [LPF]High0-8[facility] Medical CenterIron and Iron binding capacity panelon 07-30-5543Qgmk [Mass/Vol]53 ug/mDDpdevs08-113CxysvpnvhSelect Medical [facility] on above:Order Comment: Specimen Type: BLOOD SPECIMENOrdering Facility: [facility] Address:[address] [place], [place] [address]Performed By: #### 57952-5, 6-4 ####[facility] LABCLIA [id number] [place] [address] [place] [facility] GLENBEIGHIron binding capacity [Mass/Vol]247 ug/wIXttljf620-540YwalmwxovSelect Medical [facility]Health Rehabilitation Hospital on above:Order Comment: Specimen Type: BLOOD SPECIMENOrdering Facility: [facility] Address:[address] [place], [place] [address]Performed By: #### 22819-4, 6-4 ####[facility] LABCLIA [id number] [place] [address] [place] AMERICAIron/TIBC [Molar ratio]21.5 %Ossdsm43.0-57.0[facility] on above:Order Comment: Specimen Type: BLOOD SPECIMENOrdering Facility: [facility] Address:[address] [place], [place] [address]Performed By: #### 89525-0, 6-4 ####[facility] LABIA [id number] [place] [address] [place] Iron binding capacity [Mass/volume] in Serum or PlasmaOrdered By: Clarisa Gary on 95-22-0700Wcps binding capacity [Mass/Vol]247 ug/vI882-526ScklodqlcOhiohealth Southeastern Medical CenterIron saturation [Mass Fraction] in Serum or PlasmaOrdered By: Clarisa Gary on 28-12-7973Vrsj saturation [Mass fraction]21.5 %15.0-57.0 [facility] CenterKetones [Presence] in Urine by Test strip Ordered By: Justyna Hanson on 67-81-3050Pymbssy Ql (U)NegativeNegativeOhiohealth Southeastern Medical CenterComment on above:Order Comment: Name Collection Type:: VoidedPerformed By: #### MG, CBCNO, BMP #### [facility] [address] [id number] USALaboratory - Chemistry and Chemistry - challengeOrdered By: Clarisa Gary on 44-84-6951Fkljxgs [Mass/Vol]3.4 g/dLLow3.9-4.9[facility] Medical CenterALP [Catalytic activity/Vol]119 U/E42-271VzvmjztkmOhiohealth Southeastern Medical CenterALT [Catalytic activity/Vol]8 U/L7-38[facility] CenterAST [Catalytic activity/Vol]17 U/P41-55PsfqufvmmOhiohealth Southeastern Medical CenterBilirubin [Mass/Vol]0.5 mg/dL0.2-1.3FClinton Memorial Hospital Calcium [Mass/Vol]9.2 mg/dL8.5-10.2FClinton Memorial HospitalChloride [Moles/Vol]99 mmol/V87-154WwqnvtmtgOhiohealth Southeastern Medical CenterCO2 [Moles/Vol]29 mmol/U05-21GcjvzkkuoOhiohealth Southeastern Medical CenterCreatinine [Mass/Vol]1.76 mg/dLHigh 0.58-0.96[facility] Medical CenterFerritin [Mass/Vol]160.0 ng/mL 14.7-205.1FClinton Memorial HospitalGlucose [Mass/Vol]121 mg/uITray34-73 [facility] CenterComment on above:The [place] Diabetes Association (ADA) provides guidance for cutoff values for fasting glucose and random glucose. The ADA defines fasting as no caloric intake for at least 8 hours. Fasting plasma glucose results between 100 to 125 mg/dL indicate increased risk for diabetes (prediabetes).Fasting plasma glucose results greater than or equal to 126 mg/dL meet the criteria for diagnosis of diabetes. In the absence of unequivocal hyperglycemia, results should be confirmed by repeat testing. In a patient with classic symptoms of hyperglycemia or hyperglycemic crisis, random plasma glucose resultsgreater than or equal to 200 mg/dL meet the criteria for diagnosis of diabetes.Reference: Standardsof Medical Care in Diabetes 2016, [place] Diabetes Association. Diabetes Care. 2016.39(Suppl 1). Iron [Mass/Vol]53 ug/kL15-179XevkcnbnwOhiohealth Southeastern Medical CenterPotassium [Moles/Vol]4.6 mmol/L3.7-5.1FUniversity Hospitals Geneva Medical Centerodium [Moles/Vol] 140 mmol/D075-999FgpxkrpkpOhiohealth Southeastern Medical CenterUrea nitrogen [Mass/Vol]25 mg/dLHigh7-21[facility] CenterLaboratory - Hematology and Cell countsOrdered By: Clarisa Gary on 30-92-6589Sowvbdxywmn (Bld) [#/Vol]0.10 10*3/uL<0.46[facility] Medical CenterImmature granulocytes (Bld) [#/Vol] 0.03 10*3/uL<0.10[facility] Medical CenterImalture granulocytes/100 WBC (Bld)0.5 %[facility] CenterLeukocyte esterase [Presence] in Urine by Test stripOrdered By: Justyna Hanson on 74-72-6505Wuqaxdkyx esterase Test strip Ql (U)2+HighNegativeOhiohealth Southeastern Medical CenterComment on above: Order Comment: Name Collection Type:: VoidedPerformed By: #### MG, CBCNO, BMP #### [facility] [address] [place] [address] USALeukocytes [#/area] in Urine sediment by Automated count Ordered By: Justyna Hanson on 49-50-7892YZO Auto (Urine sed) [#/Area]3-4 [HPF]0-4 [facility] CenterLeukocytes [#/volume] corrected for nucleated erythrocytes in Blood by Automated counOrdered By: Clarisa Gary on 01-09-2025 WBC corrected for nucl RBC Auto (Bld) [#/Vol]6.64 k/uL3.70-11.00[facility] Medical CenterLymphocytes Auto (Bld) [#/Vol]Ordered By: Clarisa Gary on 36-99-9304Gfhacjpirtk (Bld) [#/Vol]1.98 10*3/uL1.00-4.00[facility] Medical CenterLymphocytes/100 WBC Auto (Bld)Ordered By: Clarisa Gary on 91-64-5560Uyvsmufduxf/100 WBC (Bld)29.8 %[facility] Auto (RBC) [Entitic mass]Ordered By: Clarisa Gary on 40-24-8911UZH (RBC) [Entitic mass]31.2 pg26.0-34.0[facility] DaytonHC Auto (RBC) [Mass/Vol]Ordered By: Clarisa Gary on 60-14-2493VYNZ (RBC) [Mass/Vol]31.0 g/dL 30.5-36.0[facility] Medical CenterMCV Auto (RBC) [Entitic vol]Ordered By: Clarisa Gary on 03-88-0559VDF (RBC) [Entitic vol]100.6 lBSpay90.0-100.0 [facility] CenterMonocytes Auto (Bld) [#/Vol]Ordered By: Clarisa Gary on 30-58-0257Uajruqwtj (Bld) [#/Vol]0.61 10*3/uL<0.87[facility] Medical CenterMonocytes/100 WBC Auto (Bld)Ordered By: Clarisa Gary on 16-31-6938Dyncspajk/100 WBC (Bld)9.2 %[facility] CenterMucus [Presence] in Urine by AutomatedOrdered By: Justyna Hanson on 02-65-8461Ibsxi Auto Ql (U)Rare [LPF][facility] Medical CenterNeutrophils Auto (Bld) [#/Vol] Ordered By: Clarisa Gary on 21-94-3470Dmlekcjkooj (Bld) [#/Vol]3.89 10*3/uL 1.45-7.50[facility] Medical CenterNeutrophils/100 WBC Auto (Bld)Ordered By: Clarisa Gary on 54-48-8752Rrymwwffque/100 WBC (Bld)58.5 %[facility] Medical CenterNitrite Test strip Ql (U)Ordered By: Justyna Hanson on 51-66-8761Zlyqyhs Ql (U)NegativeNegativeOhiohealth Southeastern Medical Center Nucleated RBC Auto (Bld) [#/Vol]Ordered By: Clarisa Gary on 01-09-2025 Nucleated RBC (Bld) [#/Vol]0.03 10*3/uLHigh<0.01[facility] Medical CenterNucleated erythrocytes [Presence] in Blood by Automated countOrdered By: Clarisa Gary on 80-03-8658Rsczidlga RBC Auto Ql (Bld)0.5 /100{WBC}[facility] Medical CenterPlatelet mean volume Auto (Bld) [Entitic vol]Ordered By: Clarisa Gary on 52-54-0820Ortrzvan mean volume (Bld) [Entitic vol]8.5 fLLow 9.0-12.7FClinton Memorial HospitalPlatelets Auto (Bld) [#/Vol]Ordered By: Clarisa Gary on 51-74-2143Zwznoliwp (Bld) [#/Vol]153 10*3/cO784-015OfsxawsmyOhiohealth Southeastern Medical CenterProtein Test strip (U) [Mass/Vol]Ordered By: Justyna Hanson on 89-93-0240Egzfvbj (U) [Mass/Vol]NegativeNegativeOhiohealth Southeastern Medical CenterProtein [Mass/volume] in Serum or PlasmaOrdered By: Clarisa Gary on 63-66-6234Alllhzm [Mass/Vol]6.2 g/dLLow6.3-8.0[facility] RBC Auto (Bld) [#/Vol]Ordered By: Clarisa Gary on 15-02-5962WNE (Bld) [#/Vol] 3.62 10*6/uLLow3.90-5.20Mercy Memorial Hospitalerum or plasma anion gap determinationOrdered By: Clarisa Gary on 46-49-1693Ztzpb gap [Moles/Vol]12 mmol/L8-15Mercy Memorial Hospitalpecific gravity Test strip (U) [Rel density]Ordered By: Justyna Hanson on 85-83-2001Zzfrmdoq gravity (U) [Rel density]1.0151.001-1.030[facility] Medical CenterUrine Cultureon 45-26-6692Ujzdswhv identified Cx Nom (U)50,000 colonies/ml mixed bacterial skin contaminants 2 Days PERFORMED BY: [facility] [address] [place] [address] PATHOLOGIST FOREST AIDE JORGE BURGESS M.D.NormalThe [facility] Physician GroupComment on above: Performed By: #### MG, CBCNO, BMP #### [facility] [address] [place] [address] USAUrine cultureOrdered By: Justyna Hanson on 01-09-2025 Bacteria identified Cx Nom (U)2 DaysOhiohealth Southeastern Medical Center Urobilinogen Test strip (U) [Mass/Vol]Ordered By: Justyna Hanson on 01-09-2025 Urobilinogen (U) [Mass/Vol]Normal mg/dLNormalOhiohealth Southeastern Medical Center Yeast.budding [Presence] in Urine by Computer assisted methodOrdered By: Justyna Hanson on 79-55-8930Uiasx.budding Computer assisted Ql (U)Rare [HPF][facility] HospitalpH of Urine by Test stripOrdered By: Justyna Hanson on 98-32-1504gN (U)5.5 [pH]5.0-9.0[facility] Comment on above:Order Comment: Name Collection Type:: VoidedPerformed By: #### MG, CBCNO, BMP #### [facility] [address] [place] [address] USAAppearance of UrineOrdered By: Justyna Hanson on 12-28-2024 Appearance (U)CloudyAbnormalCleKettering Health DaytonComment on above:Order Comment: Name Collection Type:: VoidedPerformed By: #### CUU, ADDONUAPLUS #### [facility] [address] [id number] USABacteria [Presence] in Urine by AutomatedOrdered By: Justyna Hanson on 03-72-1423Ajzuhnww Auto Ql (U)1+ [HPF][facility] HospitalBilirubin Test strip Ql (U)Ordered By: Justyna Hanson on 12-28-2024 Bilirubin Ql (U)NegativeNegativeOhiohealth Southeastern Medical CenterColor of Urine by AutoOrdered By: Justyna Hanson on 23-73-8784Niwhr (U)Light-yellowYellow [facility] Medical CenterComment on above:Order Comment: Name Collection Type:: VoidedPerformed By: #### CUU, ADDONUAPLUS #### [facility] [address] [id number] USADipstick and Microscopicon 93-88-0881Tnvohtxu,Urine1+ [HPF]NormalNone SeenThe [facility] Physician GroupComment on above:Order Comment: Name Collection Type:: VoidedPerformed By: #### CUU, ADDONUAPLUS #### [place] [address] USABilirubin,UrineNegativeNormalNegativeThe [facility] Physician GroupComment on above:Order Comment: Name Collection Type:: Voided Performed By: #### CUU, ADDONUAPLUS #### [place] [address] USAGlucose Ql (U)NormalNormalNormalThe [facility] Physician GroupComment on above:Order Comment: Name Collection Type:: VoidedPerformed By: #### CUU, ADDONUAPLUS #### [place] [address] USAHyaline Casts,Onhhb4-38Aqpuut7-9Vcb [facility] Physician GroupComment on above:Order Comment: Name Collection Type:: VoidedPerformed By: #### CUU, ADDONUAPLUS #### [place] [address] USAMucus,UrineRareNormalThe [facility] Physician GroupComment on above:Order Comment: Name Collection Type:: VoidedResult Comment: PERFORMED BY: [place] [address] PATHOLOGIST FOREST AIDE JORGE BURGESS M.D.Performed By: #### CUU, ADDONUAPLUS #### [place] [address] USANitrite,UrinePositiveNormalNegativeThe [facility] Physician GroupComment on above:Order Comment: Name Collection Type:: VoidedPerformed By: #### CUU, ADDONUAPLUS #### [place] [address] USAOccult Blood,UrineTraceNormalNegativeThe [facility] Physician GroupComment on above:Order Comment: Name Collection Type:: Voided Result Comment: PERFORMED BY: [place] [address] PATHOLOGIST FOREST AIDE JORGE BURGESS M.D.Performed By: #### CUU, ADDONUAPLUS #### [place] [address] USAProtein,UrineNegativeNormalNegativeTampa General Hospital Physician GroupComment on above:Order Comment: Name Collection Type:: VoidedPerformed By: #### CUU, ADDONUAPLUS #### [place] [address] USARBC,Uqneu9-7Ellfkv8-8Yjh [facility] Physician GroupComment on above:Order Comment: Name Collection Type:: VoidedPerformed By: #### CUU, ADDONUAPLUS #### [place] [address] USARenal Epithelial Cells,Aknfo9-6Egleim5-4Tru [facility] Physician GroupComment on above:Order Comment: Name Collection Type:: Voided Performed By: #### CUU, ADDONUAPLUS #### [place] [address] USASpecificy [place],Urine1.542Wllysc7.001-1.030The [facility] Physician GroupComment on above:Order Comment: Name Collection Type:: Voided Performed By: #### CUU, ADDONUAPLUS #### [place] [address] USASquamous Epithelial Cell,Zyxnm7-1Coxgfu6-0Alz [facility] Physician GroupComment on above:Order Comment: Name Collection Type:: Voided Performed By: #### CUU, ADDONUAPLUS #### [place] [address] USAUrobilinogen,UrineNormalNormalNormalThe [facility] Physician GroupComment on above:Order Comment: Name Collection Type:: Voided Performed By: #### CUU, ADDONUAPLUS #### [place] [address] USAWBC CLUMP, UrineManyNormalNone SeenThe [facility] Physician GroupComment on above:Order Comment: Name Collection Type:: VoidedPerformed By: #### CUU, ADDONUAPLUS #### [facility] [address] [place] [address] USAWBC,UrineInnumerableNormal0-4The [facility] Physician Group Comment on above:Order Comment: Name Collection Type:: VoidedPerformed By: #### CUU, ADDONUAPLUS #### [facility] [address] [id number] USAEpithelial cells.renal [#/area] in Urine by Computer assisted methodOrdered By: Justyna Hanson on 20-15-2920Ekkhkumlil cells.renal Computer assisted (U) [#/Area]1-2 [HPF]High0-1FClinton Memorial Hospital Epithelial cells.squamous [#/area] in Urine sediment by Automated countOrdered By: Justyna Hanson on 80-64-4193Cqyitvypst cells.squamous Auto (Urine sed) [#/Area]3-4 [HPF]High0-2FClinton Memorial HospitalErythrocytes [#/area] in Urine sediment by Automated countOrdered By: Justyna Hanson on 86-14-5013RTT Auto (Urine sed) [#/Area]5-9 [HPF]High04FClinton Memorial Hospital Glucose [Mass/volume] in Urine by Test stripOrdered By: Justyna Hanson on 74-85-1260Syothjh Test strip (U) [Mass/Vol]Normal mg/dLNormAvita Health System Bucyrus HospitalHemoglobin Test strip Ql (U)Ordered By: Justyna Hanson on 12-28-2024 Hemoglobin Ql (U)TraceHighNegDelaware County HospitalHyaline casts [#/area] in Urine sediment by Automated countOrdered By: Justyna Hanson on 00-91-7057Nsjzhgr casts Auto (Urine sed) [#/Area]9-19 [LPF]High08[facility] Medical CenterKetones [Presence] in Urine by Test stripOrdered By: Justyna Hanson on 26-54-4682Kxglqsn Ql (U)NegativeNegDelaware County HospitalComment on above:Order Comment: Name Collection Type:: Voided Performed By: #### CUU, ADDONUAPLUS #### [facility] [address] [id number] USALeukocyte clumps [Presence] in Urine by AutomatedOrdered By: Justyna Hanson on 45-68-0465Sgkvbzdnq clumps Auto Ql (U)Many [LPF]HighNone SeenOhiohealth Southeastern Medical CenterLeukocyte esterase [Presence] in Urine by Test stripOrdered By: Justyna Hanson on 26-47-1361Yvqoypfah esterase Test strip Ql (U)4+HighNegDelaware County HospitalComment on above:Order Comment: Name Collection Type:: VoidedPerformed By: #### CUU, ADDONUAPLUS #### [facility] [address] [id number] USALeukocytes [#/area] in Urine sediment by Automated count Ordered By: Justyna Hanson on 45-35-7373OPG Auto (Urine sed) [#/Area]Innumerable [HPF]High0-4FClinton Memorial HospitalMucus [Presence] in Urine by AutomatedOrdered By: Justyna Hanson on 44-67-1313Xnbrc Auto Ql (U)Rare [LPF] [facility] Medical CenterNitrite Test strip Ql (U)Ordered By: Justyna Hanson on 26-61-2437Zykwmfb Ql (U)PositiveHighNegDelaware County HospitalProtein Test strip (U) [Mass/Vol]Ordered By: Justyna Hanson on 12-28-2024 Protein (U) [Mass/Vol]NegativeNegMercy Health Springfield Regional Medical Centerpecific gravity Test strip (U) [Rel density]Ordered By: Justyna Hanson on 12-28-2024 Specific gravity (U) [Rel density]1.0111.001-1.030[facility] Medical CenterUrine Cultureon 40-76-5908Bozvhasl identified Cx Nom (U)ORGANISM: Pseudomonas aeruginosa (O:PSEAER) [place] Count >100,000 ORGANISM: Escherichia coli (O:ESCCOL) [place] Count 30,000 Aerobic HARSHAD Charge (NMIC56) SUSCEPTIBILITY ORGANISM: O:PSEAER ANTIBIOTIC INTERPRETATION HARSHAD Amikacin S <16 Aztreonam I <4 Cefepime S <2 Ceftazidime I 4 Ceftazidime/Avibactam S <4 Ceftolozane/Tazobactam S <2 Ciprofloxacin I 1 Gentamicin S <2 Levofloxacin I 2 Meropenem S <1 Piperacillin/Tazobactam I <8 Tobramycin S <2 Aerobic HARSHAD Charge (NMIC56) SUSCEPTIBILITY ORGANISM: O:ESCCOL ANTIBIOTIC INTERPRETATION HARSHAD Amikacin S <16 Amoxacillin/K Clavulanate S <8 Ampicillin S <8 Ampicillin/Sulbactam S <4 Aztreonam S <4 Cefazolin S <2 Cefepime S <2 Ceftazidime S <1 Ceftazidime/Avibactam S <4 Ceftolozane/Tazobactam S <2 Ceftriaxone S <1 Cefuroxime S <4 Ciprofloxacin S <0.25 Ertapenem S <0.5 Gentamicin S <2 Levofloxacin S <0.5 Meropenem S <1 Meropenem/Vaborbactam S <2 Nitrofurantoin S <32 Piperacillin/Tazobactam S <8 Tetracycline S <4 Tigecycline S <2 Tobramycin S <2 Trimethoprim/Sulfamethoxazole S <0.5 S = SUSCEPTIBLE I = INTERMEDIATE R = RESISTANT BLANK = DATA NOT AVAILABLE, OR DRUG NOT ADVISABLE OR TESTED R* = RESISTANCE DUE TO EXTENDED SPECTRUM BETA-LACTAMASES ESBL = EXTENDED SPECTRUM BETA-LACTAMASE TFG = THYMIDINE-DEPENDENT STRAIN KUN = BETA-LACTAMASE POSITIVE IB = INDUCIBLE BETA-LACTAMASE. APPEARS IN PLACE OF 'S' WITH SPECIES KNOWN TO POSSESS INDUCIBLE BETA-LACTAMASES. POTENTIALLY THEY MAY BECOME RESISTANT TO ALL B-LACTAM DRUGS. PERFORMED BY: [facility] [address] [place] [address] PATHOLOGIST FOREST AIDE JORGE BURGESS M.D.[facility] Physician GroupComment on above: Performed By: #### SITA DÍAZ #### [facility] [address] [place] [address] USAUrine cultureOrdered By: Justyna Hanson on 12-28-2024 Bacteria identified Cx Nom (U)Pseudomonas aeruginosaAbnoGreene Memorial HospitalBacteria identified Cx Nom (U)Escherichia coliAbnoGreene Memorial HospitalUrobilinogen Test strip (U) [Mass/Vol]Ordered By: Justyna Hanson on 50-92-9101Kgzngvdehqgt (U) [Mass/Vol]Normal mg/dLNormAvita Health System Bucyrus HospitalpH of Urine by Test stripOrdered By: Justyna Hanson on 09-32-8477uH (U)6.5 [pH]5.0-9.0[facility] Medical CenterComment on above:Order Comment: Name Collection Type:: VoidedPerformed By: #### CUU, ADDONUAPLUS #### [facility] [address] [place] [address] USABasophils Auto (Bld) [#/Vol]on 67-25-1054Ypgpyzjio (Bld) [#/Vol]10*3/uL<0.11[facility] Medical CenterBasophils/100 WBC Auto (Bld) on 44-50-1576Iyqcvnrbr/100 WBC (Bld)0.3 %[facility] Medical CenterBlood manual differential comment interpretation narrativeon 34-89-9407Vpdcwv differential comment Dale (Bld) [Interp]AutoOhiohealth Southeastern Medical CenterCB W Auto Differential panel (Bld)on 64-40-7234Doebozstr (Bld) [#/Vol]10*3/uLNormal <0.11CChillicothe Hospital on above:Order Comment: Specimen Type: BLOOD SPECIMENOrdering Facility: [facility] Address:[address] [place], [place] [address]Performed By: #### 09505-8 ####[facility] LABCLIA [id number] [place] [address] Basophils/100 WBC (Bld)0.3 %NormalGalion Community HospitalCommunson healthcare manistee hospital on above: Order Comment: Specimen Type: BLOOD SPECIMENOrdering Facility: [facility] Address:[address] [place], [place] [address]Performed By: #### 42110- 8 ####[facility] LABCLIA [id number] [place], [place] [address]Bckxoytkxrjc cell count method Nom (Bld)AutoNormal [facility] on above:Order Comment: Specimen Type: BLOOD SPECIMENOrdering Facility: [facility] Address:[address] [place], [place] [address]Performed By: #### 84695-4 ####[facility] LABIA [id number] [place], [place] [address]Kzducxnqchz (Bld) [#/Vol]0.19 10*3/uLNormal<0.46[facility] on above: Order Comment: Specimen Type: BLOOD SPECIMENOrdering Facility: [facility] Address:[address] [place], [place] [address]Performed By: #### 30366- 8 ####[facility] LABIA [id number] [place], [place] [address]Lwqtfknnzlr/100 WBC (Bld)2.6 %NormalSelect Medical [facility]Health Rehabilitation Hospital on above:Order Comment: Specimen Type: BLOOD SPECIMENOrdering Facility: [facility] Address:[address] [place], [place] [address]Performed By: #### 26223-9 ####[facility] LABIA [id number] [place], [place] [address]Togkseszcju distribution width (RBC) [Ratio]21.9 %High11.5-15.0[facility] on above:Order Comment: Specimen Type: BLOOD SPECIMENOrdering Facility: [facility] Address:[address] [place], [place] [address]Performed By: #### 88818- 8 ####[facility] LABIA [id number] [place], [place] [address]Xxbflhfzgs (Bld) [Volume fraction]34.1 %Low36.0-46.0 [facility] on above:Order Comment: Specimen Type: BLOOD SPECIMENOrdering Facility: [facility] Address:[address] [place], [place] [address]Performed By: #### 04883-7 ####[facility] LABIA [id number] [place], [place] [address]Vbwomqwxld (Bld) [Mass/Vol]10.3 g/dLLow11.5-15.5CChillicothe Hospital on above:Order Comment: Specimen Type: BLOOD SPECIMENOrdering Facility: [facility] Address:[address] [place], [place] [address]Performed By: #### 17768- 8 ####[facility] LABIA [id number] [place], [place] [address]Uhgluino granulocytes (Bld) [#/Vol]0.03 10*3/uLNormal <0.10[facility] on above:Order Comment: Specimen Type: BLOOD SPECIMENOrdering Facility: [facility] Address:[address] [place], [place] [address]Performed By: #### 57796-7 ####[facility] LABIA [id number] [place], [place] [address]Wpsfxwer granulocytes/100 WBC (Bld)0.4 %NormalSelect Medical [facility]Health Rehabilitation Hospital on above: Order Comment: Specimen Type: BLOOD SPECIMENOrdering Facility: [facility] Address:[address] [place], [place] [address]Performed By: #### 94845- 8 ####[facility] LABIA [id number] [place], [place] [address]Eyciybsjlkm (Bld) [#/Vol]1.87 10*3/uLNormal1.00-4.00 [facility] on above:Order Comment: Specimen Type: BLOOD SPECIMENOrdering Facility: [facility] Address:[address] [place], [place] [address]Performed By: #### 17811-6 ####[facility] LABIA [id number] [place], [place] [address]Naooygtcrpf/100 WBC (Bld)26.0 %NormalSelect Medical [facility]Health Rehabilitation Hospital on above:Order Comment: Specimen Type: BLOOD SPECIMENOrdering Facility: [facility] Address:[address] [place], [place] [address]Performed By: #### 26131-3 ####[facility] LABCLIA [id number] [place], [place] [address]CAV (RBC) [Entitic mass]27.3 ijHgxxux54.0-34.0[facility] on above:Order Comment: Specimen Type: BLOOD SPECIMENOrdering Facility: [facility] Address:[address] [place], [place] [address]Performed By: #### 26381-3 ####[facility] LABIA [id number] [place], [place] [address]PRPG (RBC) [Mass/Vol]30.2 g/dLLow30.5-36.0[facility] on above:Order Comment: Specimen Type: BLOOD SPECIMENOrdering Facility: [facility] Address:[address] [place], [place] [address]Performed By: #### 18194- 8 ####[facility] LABIA [id number] [place], [place] [address]IIW (RBC) [Entitic vol]90.5 iALkvuly81.0-100.0[facility] on above:Order Comment: Specimen Type: BLOOD SPECIMENOrdering Facility: [facility] Address:[address] [place], [place] [address]Performed By: #### 57123-5 ####[facility] LABIA [id number] [place], [place] [address]Bkarqxyox (Bld) [#/Vol]0.54 10*3/uLNormal<0.87[facility] on above:Order Comment: Specimen Type: BLOOD SPECIMENOrdering Facility: [facility] Address:[address] [place], [place] [address]Performed By: #### 61458- 8 ####[facility] LABCLIA [id number] [place], [place] [address]Aqpfxumro/100 WBC (Bld)7.5 %NormalSelect Medical [facility] on above:Order Comment: Specimen Type: BLOOD SPECIMENOrdering Facility: [facility] Address:[address] [place], [place] [address]Performed By: #### 85998-1 ####[facility] LABCLIA [id number] [place], [place] [address]Tomsikbbemw (Bld) [#/Vol]4.53 10*3/uLNormal1.45-7.50[facility] on above:Order Comment: Specimen Type: BLOOD SPECIMENOrdering Facility: [facility] Address:[address] [place], [place] [address]Performed By: #### 83440-4 ####[facility] LABCLIA [id number] [place], [place] [address]Tpkjzssngup/100 WBC (Bld)63.2 %NormalSelect Medical [facility] on above:Order Comment: Specimen Type: BLOOD SPECIMENOrdering Facility: [facility] Address:[address] [place], [place] [address]Performed By: #### 82661-4 ####[facility] LABCLIA [id number] [place], [place] [address]Lthfgjifq RBC (Bld) [#/Vol] 10*3/uLNormal<0.01[facility] on above:Order Comment: Specimen Type: BLOOD SPECIMENOrdering Facility: [facility] Address:[address] [place], [place] [address]Performed By: #### 82510-2 ####[facility] LABCLIA [id number] [place], [place] [address]Lffmbyxvl RBC/100 WBC (Bld) [Ratio]0.0 /100 WBCNormal [facility] on above:Order Comment: Specimen Type: BLOOD SPECIMENOrdering Facility: [facility] Address:[address] [place], [place] [address]Performed By: #### 25192-8 ####[facility] LABCLIA [id number] [place], [place] [address]Nyknnbbs mean volume (Bld) [Entitic vol]9.0 fLNormal9.0-12.7CChillicothe Hospital on above:Order Comment: Specimen Type: BLOOD SPECIMENOrdering Facility: [facility] Address:[address] [place] [address] Performed By: #### 15091-6 ####[facility] LABCLIA [id number] [place], [place] [address]Ydkvddden (Bld) [#/Vol]182 10*3/jGYkjimw666-170HgobjnxwzSelect Medical [facility] on above:Order Comment: Specimen Type: BLOOD SPECIMENOrdering Facility: [facility] Address:[address] [place], [place] [address]Performed By: #### 84065-9 ####[facility] LABCLIA [id number] [place], [place] [address]DYF (Bld) [#/Vol]3.77 10*6/uLLow3.90-5.20[facility] on above:Order Comment: Specimen Type: BLOOD SPECIMENOrdering Facility: [facility] Address:[address] [place], [place] [address]Performed By: #### 54357-5 ####[facility] LABCLIA [id number] [place], [place] [address]YOM (Bld) [#/Vol]7.18 10*3/uL Normal3.70-11.00[facility] on above:Order Comment: Specimen Type: BLOOD SPECIMENOrdering Facility: [facility] Address:[address] [place], [place] [address]Vqpfwvpsw By: #### 72337-4 ####[facility] LABCLIA [id number] [place], [place] [address]GKYESXpm 24-20-3161QVLZLLJrugp (SP) Office (HEMASA) SHANTA FERRER ([id number]) 1940 F Date Time Provider Department 10/18/24 4:00 PM CLARISA GARY During your visit today, we recorded the following information about you: Temperature Pulse Respiration Blood pressure 97.6 degrees 74/minute 18/minute 109/69 Weight 123.7 kg Clarisa Gary APRN.OPERATIONS STAFF SPECIALIST SECURITY 10/18/2024 8:28 PM Signed PATIENT NAME: Shanta Ferrer CLINIC NO.: [id number] ATTENDING PHYSICIAN: Keyon Palomino MD DATE OF SERVICE: October 18, [address] Justyna Hanson [address] [facility] [phone] thank you for referring Shanta Ferrer for an opinion regarding Anemia. Some of the elements of this note have been copied from the previous progress note dated 09/20/2024. All the information has been reviewed carefully. CHIEF COMPLAINT: Anemia HPI: Shanta Ferrer is a 84 year old year old female with PMH of CKD, A,fib, COPD, Depression, CHF, venous stasis referred to us for anemia. FOBT- negative (08/28/24) Lives at home with daughter. Recently hospitalized with hemorrhoidal bleeding in first week of September 2024. Recd 2 units PRBC and 3 iron infusions. Light brown colored stools. EGD/colonoscopy- 5 yrs ago. Doing well. C/o fatigue. Not taking PO iron. Intolerant to PO iron. Constipation and sick stomach. Stopped iron supplements 2-3 weeks ago. 10/18/2024: Patient with a history of iron deficiency anemia, currently managed with iron infusions, presents for follow-up. She is currently undergoing a series of five iron infusions and has completed two so far. She reports that the infusions initially improve her energy levels, but she experiences fatigue by the end of the week. Her hemoglobin has improved to 10.3 g/dL. She denies any known bleeding. She reports mild constipation, which she manages by drinking prune juice daily. She denies any blood in her stools. - Doing well. - Started IV iron and tolerating infusions well. - Received Venofor 200 mg on 10/05/2024 and 10/11/2024 Current Outpatient Medications Medication Sig MULTIVITAMIN ORAL Take by mouth. NIACIN ORAL Take by mouth. ferrous sulfate 325 mg (65 mg iron) tablet Take 1 tablet by mouth twice daily. ergocalciferol, vitamin D2, (VITAMIN D) 50,000 unit capsule Take 50,000 Units by mouth once each week. 2 times per week albuterol HFA (PROAIR HFA) 90 mcg/actuation inhaler Inhale 2 Puffs as instructed. albuterol (PROVENTIL) 2.5 mg /3 mL (0.083 %) nebulizer solution Use 2.5 mg via nebulizer three times daily. fluticasone-salmeterol (ADVAIR DISKUS) 250-50 mcg/dose dsdv Inhale 1 Puff as instructed twice daily. hydrochlorothiazide (HYDRODIURIL, ESIDRIX) 50 mg tablet Take 50 mg by mouth once daily. enalapril-hydrochlorothiazide (VASERETIC) 10-25 mg per tablet Take 1 tablet by mouth once daily. metoprolol tartrate, short acting, (LOPRESSOR) 100 mg tablet Take 100 mg by mouth twice daily. allopurinol (ZYLOPRIM) 100 mg tablet Take 100 mg by mouth once daily. dabigatran etexilate (PRADAXA) 75 mg cap Take 75 mg by mouth twice daily. Omeprazole 40 mg capsule Take 40 mg by mouth once daily. No current facility-administered medications for this visit. ALLERGIES Allergen Reactions Contrast Dye Other: See Comments shock/ Ibuprofen Hives Tricor [Fenofibrate* Other: See Comments upset stomach PAST MEDICAL HISTORY Diagnosis Date Arthritis Atrial fibrillation (HCC) CKD (chronic kidney disease) stage III GERD (gastroesophageal reflux disease) Gout Hyperglycemia Hyperlipidemia Hypertension Hypothyroidism Iron deficiency anemia Vitamin D deficiency PAST SURGICAL HISTORY Procedure Laterality Date COLONOSCOPY HYSTERECTOMY HX KNEE SURGERY HX TONSILLECTOMY HX FAMILY HISTORY Problem Relation Age of Onset Heart Mother Heart Father Stroke Mother Cancer Father Social History Tobacco Use Smoking status: Former Current packs/day: 0.00 Types: Cigarettes Quit date: 07/22/2004 Years since quittin.2 Smokeless tobacco: Never Substance Use Topics Alcohol use: No Drug use: No REVIEW OF SYSTEMS General: No weight loss, malaise or fevers. No night sweats. HEENT: Negative for headaches, No changes in hearing or vision, no nose bleeds or other nasal problems. Respiratory: Negative for cough, wheezing and shortness of breath. Cardiovascular: Negative for chest pain, leg swelling and palpitations. GI: Negative for abdominal discomfort, blood in stools or black stools and change in bowel habits. : Negative for dysuria, frequency and incontinence. Musculoskeletal: Negative for joint pain or swelling, back pain, and muscle pain. Skin: Negative for lesions, rash, and itching. Hematology/Lymphology: Negative for prolonged bleeding, bruising easily, and swollen nodes. Neuro: Negative for numbness or tingling of hands/feet. (more content not included)...NormalGalion Community HospitalComprehensive metabolic 2000 panelon 50-87-9513Jrqczcw [Mass/Vol]3.3 g/dLLow3.9-4.9CChillicothe Hospital on above:Order Comment: Specimen Type: BLOOD SPECIMENOrdering Facility: [facility] Address:[address] [place] [address] Performed By: #### 52633-0 ####[facility] LABCLIA [id number] [place], [place] [address]KHQ [Catalytic activity/Vol]130 U/LIckx71-838RqqmnbjnpSelect Medical [facility] on above:Order Comment: Specimen Type: BLOOD SPECIMENOrdering Facility: [facility] Address:[address] [address]Performed By: #### 68201-9 ####[facility] LABCLIA [id number] [place] [address] ALT [Catalytic activity/Vol]5 U/LLow7-38[facility] on above:Order Comment: Specimen Type: BLOOD SPECIMENOrdering Facility: [facility] Address:[address] [place], [place] [address]Performed By: #### 01359-1 ####[facility] LABCLIA [id number] [place], [place] [address]Fvhcn gap [Moles/Vol]11 mmol/LNormal8-15[facility] on above:Order Comment: Specimen Type: BLOOD SPECIMENOrdering Facility: [facility] Address:[address] [place], [place] [address]Performed By: #### 67341-2 ####[facility] LABCLIA [id number] [place], [place] [address]YNI [Catalytic activity/Vol]14 U/SGhqjay20-39VoyjxndsuSelect Medical [facility] on above:Order Comment: Specimen Type: BLOOD SPECIMENOrdering Facility: [facility] Address:[address] [place], [place] [address]Performed By: #### 61584-6 ####[facility] LABCLIA [id number] [place] [address] Bilirubin [Mass/Vol]0.4 mg/dLNormal0.2-1.3CChillicothe Hospital on above:Order Comment: Specimen Type: BLOOD SPECIMENOrdering Facility: [facility] Address:[address] [place], [place] [address]Performed By: #### 10909-4 ####[facility] LABCLIA [id number] [place], [place] [address]Prckoda [Mass/Vol]9.1 mg/dLNormal8.5-10.2CChillicothe Hospital on above:Order Comment: Specimen Type: BLOOD SPECIMENOrdering Facility: [facility] Address:[address] [place], [place] [address]Performed By: #### 61133-4 ####[facility] LABCLIA [id number] [place], [place] [address]Cpipkzhr [Moles/Vol]102 mmol/HKcwzpd53-791UxuclnwzvSelect Medical [facility] on above: Order Comment: Specimen Type: BLOOD SPECIMENOrdering Facility: [facility] Address:[address] [place], [place] [address]Performed By: #### 45266- 8 ####[facility] LABCLIA [id number] [place], [place] [address]RF3 [Moles/Vol]25 mmol/PJjrqkw68-94YnwbpgfvbSelect Medical [facility] on above:Order Comment: Specimen Type: BLOOD SPECIMENOrdering Facility: [facility] Address:[address] [place], [place] [address]Performed By: #### 18346-2 ####[facility] LABCLIA [id number] [place], [place] [address]Mfaxhlhieo [Mass/Vol]1.68 mg/dL High0.58-0.96[facility] on above:Order Comment: Specimen Type: BLOOD SPECIMENOrdering Facility: [facility] Address:[address] [place], [place] [address]Performed By: #### 69269-6 ####[facility] LABCLIA [id number] [place] [address] Creatinine and Glomerular filtration rate.predicted panel (S/P/Bld)30 mL/min/1.73m???Low>=60[facility] on above:Order Comment: Specimen Type: BLOOD SPECIMENOrdering Facility: [facility] Address:[address] [place], [place] [address]Result Comment: Estimated Glomerular Filtration Rate (eGFR) is calculated using the 2020 CKD-EPI creatinine equation. This equation utilizes serum creatinine, sex, and age as parameters. The creatinine assay has traceable calibration to isotope dilution-mass spectrometry. Refer to KDIGO guidelines for clinical interpretation. In patients with unstable renal function, e.g. those with acute kidney injury, the eGFR may not accurately reflect actual GFR.Performed By: #### 69777-6 ####[facility] LABCLIA [id number] [place] [address] Glucose [Mass/Vol]122 mg/hQSsyu51-62PyajpteleSelect Medical [facility] on above: Order Comment: Specimen Type: BLOOD SPECIMENOrdering Facility: [facility] Address:[address] [place], [place] [address]Result Comment: The [place] Diabetes Association (ADA) provides guidance for cutoff values for fast ing glucose and random glucose. The ADA defines fasting as no caloric intake for at least 8 hours. Fasting plasma glucose results between 100 to 125 mg/dL indicate increased risk for diabetes (prediabetes). Fasting plasma glucose results greater than or equal to 126 mg/dL meet the criteria for diagnosis of diabetes. In the absence of unequivocal hyperglycemia, results should be confirmed by repeat testing. In a patient with classic symptoms of hyperglycemia or hyperglycemic crisis, random plasma glucose results greater than or equal to 200 mg/dL meet the criteria for diagnosis of diabetes. Reference: Standards of Medical Care in Diabetes 2016, [place] [employer]. Diabetes Care. 2016.39(Suppl 1).Performed By: #### 86019-5 ####[facility] LABCLIA [id number] [place], [place] [address]Curoxxfpk [Moles/Vol]4.6 mmol/LNormal3.7-5.1CChillicothe Hospital on above:Order Comment: Specimen Type: BLOOD SPECIMENOrdering Facility: [facility] Address:[address] [place], [place] [address]Eqeklqboq By: #### 74481-9 ####[facility] LABIA [id number] [place], [place] [address]Ljjyxam [Mass/Vol]6.2 g/dLLow6.3-8.0[facility] on above:Order Comment: Specimen Type: BLOOD SPECIMENOrdering Facility: [facility] Address:[address] [place], [place] [address]Performed By: #### 74852- 8 ####[facility] LABCLIA [id number] [place], [place] [address]Jtrwji [Moles/Vol]138 mmol/YDqyovp254-598XpvlctgprSelect Medical [facility] on above:Order Comment: Specimen Type: BLOOD SPECIMENOrdering Facility: [facility] Address:[address] [place], [place] [address]Performed By: #### 54299-2 ####[facility] LABCLIA [id number] [place], [place] [address]Rnkd nitrogen [Mass/Vol]38 mg/dLHigh7-21[facility] on above:Order Comment: Specimen Type: BLOOD SPECIMENOrdering Facility: [facility] Address:[address] [place], [place] [address]Performed By: #### 09015-0 ####[facility] LABCLIA [id number] [place] [address] Eosinophils/100 WBC Auto (Bld)on 38-40-2664Qvhmszavtox/100 WBC (Bld)2.6 % [facility] CenterErythrocyte distribution width Auto (RBC) [Ratio]on 14-45-4289Lyqchzhytph distribution width (RBC) [Ratio]21.9 %High 11.5-15.0[facility] CenterHematocrit Auto (Bld) [Volume fraction]on 30-85-0387Ogcrzdcjcy (Bld) [Volume fraction]34.1 %Low36.0-46.0 [facility] CenterHemoglobin [Mass/volume] in Bloodon 10-18-2024 Hemoglobin (Bld) [Mass/Vol]10.3 g/dLLow11.5-15.5FClinton Memorial HospitalLaboratory - Chemistry and Chemistry - challengeon 80-66-3272Bndmpup [Mass/Vol]3.3 g/dLLow3.9-4.9[facility] CenterALP [Catalytic activity/Vol]130 U/IWvzu73-606OlvnghkfbOhiohealth Southeastern Medical CenterALT [Catalytic activity/Vol]5 U/LLow7-38[facility] CenterAST [Catalytic activity/Vol]14 U/X12-85MrwofikqeOhiohealth Southeastern Medical CenterBilirubin [Mass/Vol]0.4 mg/dL0.2-1.3FClinton Memorial HospitalCalcium [Mass/Vol]9.1 mg/dL 8.5-10.2FClinton Memorial HospitalChloride [Moles/Vol]102 mmol/L98-107 [facility] CenterCO2 [Moles/Vol]25 mmol/W72-56ZshskrvpzOhiohealth Southeastern Medical CenterCreatinine [Mass/Vol]1.68 mg/dLHigh0.58-0.96[facility] CenterGlucose [Mass/Vol]122 mg/dYXvph60-08LxwigewsgOhiohealth Southeastern Medical CenterComment on above:The [place] Diabetes Association (ADA) provides guidance for cutoff values for fasting glucose andrandom glucose. The ADA defines fasting as no caloric intake for at least 8 hours. Fasting plasma glucose results between 100 to 125 mg/dL indicate increased risk for diabetes (prediabetes).Fasting plasma glucose results greater than or equal to 126 mg/dL meet the criteria for diagnosis of diabetes. In the absence of unequivocal hyperglycemia, results should be confirmed by repeat testing. In a patient with classic symptoms of hyperglycemia or hyperglycemic crisis, random plasma glucose resultsgreater than or equal to 200 mg/dL meet the criteria for diagnosis of diabetes.Reference: Standardsof Medical Care in Diabetes 2016, [place] Diabetes Association. Diabetes Care. 2016.39(Suppl 1).Potassium [Moles/Vol]4.6 mmol/L 3.7-5.1FUniversity Hospitals Geneva Medical Centerodium [Moles/Vol]138 mmol/C191-895 [facility] CenterUrea nitrogen [Mass/Vol]38 mg/dLHigh7-21 [facility] CenterLaboratory - Hematology and Cell countson 63-40-8698Ffassloyujd (Bld) [#/Vol]0.19 10*3/uL<0.46[facility] CenterImmature granulocytes (Bld) [#/Vol]0.03 10*3/uL<0.10[facility] CenterImmature granulocytes/100 WBC (Bld)0.4 %[facility] CenterLeukocytes [#/volume] corrected for nucleated erythrocytes in Blood by Automated counon 93-84-5789RXU corrected for nucl RBC Auto (Bld) [#/Vol]7.18 k/uL3.70-11.00[facility] CenterLymphocytes Auto (Bld) [#/Vol]on 10-11-1620Rebxvrohsev (Bld) [#/Vol]1.87 10*3/uL1.00-4.00[facility] CenterLymphocytes/100 WBC Auto (Bld)on 89-76-7303Nnqnmazuwny/100 WBC (Bld)26.0 %[facility]tering [facility] DaytonH Auto (RBC) [Entitic mass]on 23-21-5925FMU (RBC) [Entitic mass]27.3 pg26.0-34.0[facility] Medical CenterMCHC Auto (RBC) [Mass/Vol]on 50-32-0565LWQQ (RBC) [Mass/Vol]30.2 g/dLLow 30.5-36.0[facility] CenterMCV Auto (RBC) [Entitic vol]on 48-13-9088IDI (RBC) [Entitic vol]90.5 fL80.0-100.0[facility] CenterMonocytes Auto (Bld) [#/Vol]on 28-23-2696Tjuronmzl (Bld) [#/Vol]0.54 10*3/uL<0.87[facility] CenterMonocytes/100 WBC Auto (Bld)on 18-97-4454Xylpfpcqd/100 WBC (Bld)7.5 %[facility] Neutrophils Auto (Bld) [#/Vol]on 83-60-6814Kvarwkprtvc (Bld) [#/Vol]4.53 10*3/uL 1.45-7.50[facility] CenterNeutrophils/100 WBC Auto (Bld)on 27-42-9662Cbljgrdnrrc/100 WBC (Bld)63.2 %[facility] CenterNo Panel Informationon 58-10-2287Hcqpivhoo GFR (CKD-EPI)30 mL/min/1.73m???Low>=60 [facility] CenterComment on above:Estimated Glomerular Filtration Rate (eGFR) is calculated using the 2020 CKD-EPI creatinine equation. This equation utilizes serum creatinine, sex, and age as parameters. The creatinine assay has traceable calibration to isotope dilution-mass spectrometry. Refer to KDIGO guidelines for clinical interpretation. In patients with unstable renal function, e.g. those with acute kidney injury, the eGFRmay not accurately reflect actual GFR.Nucleated RBC Auto (Bld) [#/Vol]on 10-18-2024 Nucleated RBC (Bld) [#/Vol]10*3/uL<0.01[facility] Nucleated erythrocytes [Presence] in Blood by Automated counton 10-18-2024 Nucleated RBC Auto Ql (Bld)0.0 /100{WBC}[facility] Platelet mean volume Auto (Bld) [Entitic vol]on 52-75-3558Czufrxeh mean volume (Bld) [Entitic vol]9.0 fL9.0-12.7FClinton Memorial HospitalPlatelets Auto (Bld) [#/Vol]on 58-62-4717Ubzrplrem (Bld) [#/Vol]182 10*3/dJ035-392DgbzsnbjkOhiohealth Southeastern Medical CenterProtein [Mass/volume] in Serum or Plasmaon 10-18-2024 Protein [Mass/Vol]6.2 g/dLLow6.3-8.0[facility] CenterRBC Auto (Bld) [#/Vol]on 37-79-1724WZE (Bld) [#/Vol]3.77 10*6/uLLow3.90-5.20[facility] Hospitalerum or plasma anion gap determinationon 53-44-9965Wpmld gap [Moles/Vol]11 mmol/L8-15[facility] Medical CenterCNPNon 10-15-2024 CNPNTelephone (HEMASA) SHANTA [id number]) 1940 F Date Time Provider Department 10/15/24 CLARISA GARY During your visit today, we recorded the following information about you: Lashell Armenta MA 10/15/2024 3:57 PM Signed Lab orders needed for 10/18. Lashell Armenta MA Allergies As of Date: 10/15/2024 Noted Allergy Reaction CONTRAST DYE 11/11/2014 14 - Other: See Comments Comments: shock/ IBUPROFEN 11/11/2014 4 - Hives TRICOR (FENOFIBRATE MICRONIZED) 11/11/2014 14 - Other: See Comments Comments: upset stomach Date Reviewed: 10/11/2024 Reviewed by: Yoan Tirado RN - Fully Assessed Reason for Visit: Lab Orders [1688] Primary Visit Diagnosis:Other iron deficiency anemia [D50.8] Order(s):COMPLETE BLOOD COUNT AND DIFFERENTIAL [SQCBCDIF] Order #: [id number] FUTURE COMPREHENSIVE METABOLIC PANEL [SQCMP] Order #: [id number] FUTURE Prescriptions as of 10/15/2024 - MULTIVITAMIN ORAL Take by mouth. - NIACIN ORAL Take by mouth. - ferrous sulfate 325 mg (65 mg iron) tablet Take 1 tablet by mouth twice daily. - ergocalciferol, vitamin D2, (VITAMIN D) 50,000 unit capsule Take 50,000 Units by mouth once each week. 2 times per week - albuterol HFA (PROAIR HFA) 90 mcg/actuation inhaler Inhale 2 Puffs as instructed. - albuterol (PROVENTIL) 2.5 mg /3 mL (0.083 %) nebulizer solution Use 2.5 mg via nebulizer three times daily. - fluticasone-salmeterol (ADVAIR DISKUS) 250-50 mcg/dose dsdv Inhale 1 Puff as instructed twice daily. - hydrochlorothiazide (HYDRODIURIL, ESIDRIX) 50 mg tablet Take 50 mg by mouth once daily. - enalapril-hydrochlorothiazide (VASERETIC) 10-25 mg per tablet Take 1 tablet by mouth once daily. - metoprolol tartrate, short acting, (LOPRESSOR) 100 mg tablet Take 100 mg by mouth twice daily. - allopurinol (ZYLOPRIM) 100 mg tablet Take 100 mg by mouth once daily. - dabigatran etexilate (PRADAXA) 75 mg cap Take 75 mg by mouth twice daily. - Omeprazole 40 mg capsule Take 40 mg by mouth once daily. Problem List As Of Date 10/15/2024 Noted Resolved Anemia [D64.9] 11/12/2014 Encounter Status:Closed by CLARISA GARY on 10/15/24NoC[facility] 27-62-5662TASIFfiwummjz (HEMASA) SHANTA FERRER ([id number]) 1940 F Date Time Provider Department 09/21/24 KEYON PALOMINO HEMASA During your visit today, we recorded the following information about you: Keyon Palomino MD 09/21/2024 11:38 AM Signed Please order iron infusion in the [place] for ANTHONY and schedule it. Thank you Glendy Cruz RPh 09/21/2024 2:17 PM Signed Venofer x 5 doses pended and routed in separate encounter. PSS please schedule accordingly Thank you Cain Cruz, LuluD, Yoan Smith 09/24/2024 11:37 AM Signed Patient has been scheduled to start Venofer on Tuesday, 10/05. She will make additional appts at this visit due to her transportation. Yoan Rivera Allergies As of Date: 09/21/2024 Noted Allergy Reaction CONTRAST DYE 11/11/2014 14 - Other: See Comments Comments: shock/ IBUPROFEN 11/11/2014 4 - Hives TRICOR (FENOFIBRATE MICRONIZED) 11/11/2014 14 - Other: See Comments Comments: upset stomach Date Reviewed: 09/20/2024 Reviewed by: Mackenzie Dahl MA - Fully Assessed Reason for Visit: Treatment Planning [881] Cmt: Venofer x 5 Prescriptions as of 09/24/2024 - MULTIVITAMIN ORAL Take by mouth. - NIACIN ORAL Take by mouth. - ferrous sulfate 325 mg (65 mg iron) tablet Take 1 tablet by mouth twice daily. - ergocalciferol, vitamin D2, (VITAMIN D) 50,000 unit capsule Take 50,000 Units by mouth once each week. 2 times per week - albuterol HFA (PROAIR HFA) 90 mcg/actuation inhaler Inhale 2 Puffs as instructed. - albuterol (PROVENTIL) 2.5 mg /3 mL (0.083 %) nebulizer solution Use 2.5 mg via nebulizer three times daily. - fluticasone-salmeterol (ADVAIR DISKUS) 250-50 mcg/dose dsdv Inhale 1 Puff as instructed twice daily. - hydrochlorothiazide (HYDRODIURIL, ESIDRIX) 50 mg tablet Take 50 mg by mouth once daily. - enalapril-hydrochlorothiazide (VASERETIC) 10-25 mg per tablet Take 1 tablet by mouth once daily. - metoprolol tartrate, short acting, (LOPRESSOR) 100 mg tablet Take 100 mg by mouth twice daily. - allopurinol (ZYLOPRIM) 100 mg tablet Take 100 mg by mouth once daily. - dabigatran etexilate (PRADAXA) 75 mg cap Take 75 mg by mouth twice daily. - Omeprazole 40 mg capsule Take 40 mg by mouth once daily. Problem List As Of Date 09/21/2024 Noted Resolved Anemia [D64.9] 11/12/2014 Encounter Status:Closed by YOAN RIVERA on 09/24/24NormalCCorey Hospital W Auto Differential panel (Bld)on 25-34-3633Vjzpmfudy (Bld) [#/Vol] 0.03 10*3/uLNIAdena Health SystemBasophils/100 WBC (Bld)0.5 %[facility] Differential cell count method Nom (Bld)AutoClevelatrium health waxhaw ClinicEosinophils (Bld) [#/Vol]0.17 10*3/uLNINFHolzer Health SystemEosinophils/100 WBC (Bld)2.8 %[facility] SystemErythrocyte distribution width (RBC) [Ratio]24.3 %High11.5 - 15.0 % [facility] SystemHematocrit (Bld) [Volume fraction]33.6 %Low36.0 - 46.0 % [facility] SystemHemoglobin (Bld) [Mass/Vol]9.3 g/dLLow11.5 - 15.5 g/dLHolzer Health SystemImmature granulocytes (Bld) [#/Vol]0.03 10*3/uLNINFHolzer Health System Immature granulocytes/100 WBC (Bld)0.5 %[facility] SystemInterpretation and review of laboratory resultsAbnormalClevelatrium health waxhaw ClinicLymphocytes (Bld) [#/Vol] 2.08 10*3/uLHolzer Health SystemLymphocytes/100 WBC (Bld)33.7 %[facility] HospitalH (RBC) [Entitic mass]24.4 pgLow26.0 - 34.0 pgCProMedica Defiance Regional HospitalHC (RBC) [Mass/Vol]27.7 g/dLLow30.5 - 36.0 g/dLFostoria City HospitalV (RBC) [Entitic vol] 88.2 fL80.0 - 100.0 fLCparkview health bryan hospital ClinicMonocytes (Bld) [#/Vol]0.54 10*3/uLNINF [facility] SystemMonocytes/100 WBC (Bld)8.8 %[facility] SystemNeutrophils (Bld) [#/Vol]3.32 10*3/uLHolzer Health SystemNeutrophils/100 WBC (Bld)53.7 %[facility] SystemNucleated RBC (Bld) [#/Vol]NINFClevelMcKitrick HospitalNucleated RBC/100 WBC (Bld) [Ratio]0 %/100 WBCHolzer Health SystemPlatelet mean volume (Bld) [Entitic vol]9.9 fL9.0 - 12.7 fLCparkview health bryan hospital ClinicPlatelets (Bld) [#/Vol]213 10*3/uLHolzer Health SystemRBC (Bld) [#/Vol]3.81 10*6/uLLow3.90 - 5.20 m/uLHolzer Health SystemWBC (Bld) [#/Vol]6.17 10*3/uLGrant Hospital ClinicBasophils (Bld) [#/Vol]0.03 10*3/uLNormal<0.11CChillicothe Hospital on above:Order Comment: Specimen Type: BLOOD SPECIMENOrdering Facility: [facility] Address:[address] [place], [place] [address]Performed By: #### 51692-8 ####[facility] LABCLIA [id number] [place], [place] [address]Adjuyuvmx/100 WBC (Bld)0.5 %NormalSelect Medical OhioHealth Rehabilitation Hospital on above:Order Comment: Specimen Type: BLOOD SPECIMENOrdering Facility: [facility] Address:[address] [place], [place] [address]Performed By: #### 26031-2 ####[facility] LABCLIA [id number] [place], [place] [address]Kirgatjnhsbt cell count method Nom (Bld)AutoNormalCChillicothe Hospital on above:Order Comment: Specimen Type: BLOOD SPECIMENOrdering Facility: [facility] Address:[address] [place], [place] [address]Performed By: #### 93871-4 ####[facility] LABCLIA [id number] [place], [place] [address]Dwtvowlixxq (Bld) [#/Vol]0.17 10*3/uLNormal<0.46[facility] on above:Order Comment: Specimen Type: BLOOD SPECIMENOrdering Facility: [facility] Address:[address] [place], [place] [address]Performed By: #### 80830-5 ####[facility] LABCLIA [id number] [place], [place] [address]Senojjnehyk/100 WBC (Bld)2.8 %NormalSelect Medical OhioHealth Rehabilitation Hospital on above:Order Comment: Specimen Type: BLOOD SPECIMENOrdering Facility: [facility] Address:[address] [place], [place] [address]Performed By: #### 50079-6 ####[facility] LABCLIA [id number] [place], [place] [address]Guiuzzmcwsf distribution width (RBC) [Ratio]24.3 %High 11.5-15.0[facility] on above:Order Comment: Specimen Type: BLOOD SPECIMENOrdering Facility: [facility] Address:[address] [place], [place] [address]Performed By: #### 14919-4 ####[facility] LABIA [id number] [place] [address] Hematocrit (Bld) [Volume fraction]33.6 %Low36.0-46.0[facility] Comment on above:Order Comment: Specimen Type: BLOOD SPECIMENOrdering Facility: [facility] Address:[address] [place] [address] Performed By: #### 46000-7 ####[facility] LABIA [id number] [place], [place] [address]Csceivdcur (Bld) [Mass/Vol]9.3 g/dLLow11.5-15.5CChillicothe Hospital on above:Order Comment: Specimen Type: BLOOD SPECIMENOrdering Facility: [facility] Address:[address] [place], [place] [address]Performed By: #### 06592-3 ####[facility] LABIA [id number] [place], [place] [address]Atpedfzi granulocytes (Bld) [#/Vol]0.03 10*3/uLNormal <0.10[facility] on above:Order Comment: Specimen Type: BLOOD SPECIMENOrdering Facility: [facility] Address:[address] [place], [place] [address]Performed By: #### 76105-8 ####[facility] LABIA [id number] [place], [place] [address]Trafedld granulocytes/100 WBC (Bld)0.5 %NormalSelect Medical OhioHealth Rehabilitation Hospital on above: Order Comment: Specimen Type: BLOOD SPECIMENOrdering Facility: [facility] Address:[address] [place], [place] [address]Performed By: #### 34171- 8 ####[facility] LABCLIA [id number] [place], [place] [address]Ckhhrbevrtg (Bld) [#/Vol]2.08 10*3/uLNormal1.00-4.00 [facility] on above:Order Comment: Specimen Type: BLOOD SPECIMENOrdering Facility: [facility] Address:[address] [place], [place] [address]Performed By: #### 81247-6 ####[facility] LABIA [id number] [place], [place] [address]Iwzgvrevqvu/100 WBC (Bld)33.7 %NormalSelect Medical OhioHealth Rehabilitation Hospital on above:Order Comment: Specimen Type: BLOOD SPECIMENOrdering Facility: [facility] Address:[address] [place], [place] [address]Performed By: #### 18058-5 ####[facility] LABIA [id number] [place], [place] [address]STM (RBC) [Entitic mass]24.4 pgLow26.0-34.0[facility] on above:Order Comment: Specimen Type: BLOOD SPECIMENOrdering Facility: [facility] Address:[address] [place], [place] [address]Performed By: #### 08570-0 ####[facility] LABIA [id number] [place], [place] [address]RVOB (RBC) [Mass/Vol]27.7 g/dLLow30.5-36.0[facility] on above:Order Comment: Specimen Type: BLOOD SPECIMENOrdering Facility: [facility] Address:[address] [place], [place] [address]Performed By: #### 49747- 8 ####[facility] LABCLIA [id number] [place], [place] [address]TCG (RBC) [Entitic vol]88.2 zGQbecfc41.0-100.0[facility] on above:Order Comment: Specimen Type: BLOOD SPECIMENOrdering Facility: [facility] Address:[address] [place], [place] [address]Performed By: #### 79065-1 ####[facility] LABCLIA [id number] [place], [place] [address]Rzqlkxotb (Bld) [#/Vol]0.54 10*3/uLNormal<0.87[facility] on above:Order Comment: Specimen Type: BLOOD SPECIMENOrdering Facility: [facility] Address:[address] [place], [place] [address]Performed By: #### 80579- 8 ####[facility] LABCLIA [id number] [place], [place] [address]Tosrdcsnc/100 WBC (Bld)8.8 %NormalSelect Medical OhioHealth Rehabilitation Hospital on above:Order Comment: Specimen Type: BLOOD SPECIMENOrdering Facility: [facility] Address:[address] [place], [place] [address]Performed By: #### 22413-1 ####[facility] LABCLIA [id number] [place], [place] [address]Mxclwbitbdb (Bld) [#/Vol]3.32 10*3/uLNormal1.45-7.50[facility] on above:Order Comment: Specimen Type: BLOOD SPECIMENOrdering Facility: [facility] Address:[address] [place], [place] [address]Performed By: #### 42416-0 ####[facility] LABCLIA [id number] [place], [place] [address]Yqqlhjptybo/100 WBC (Bld)53.7 %NormalSelect Medical OhioHealth Rehabilitation Hospital on above:Order Comment: Specimen Type: BLOOD SPECIMENOrdering Facility: [facility] Address:[address] [place], [place] [address]Performed By: #### 40496-0 ####[facility] LABCLIA [id number] [place], [place] [address]Ckpeyybma RBC (Bld) [#/Vol] 10*3/uLNormal<0.01[facility] on above:Order Comment: Specimen Type: BLOOD SPECIMENOrdering Facility: [facility] Address:[address] [place], [place] [address]Performed By: #### 00691-0 ####[facility] LABCLIA [id number] [place], [place] [address]Dgznnzqid RBC/100 WBC (Bld) [Ratio]0.0 /100 WBCNormal [facility] on above:Order Comment: Specimen Type: BLOOD SPECIMENOrdering Facility: [facility] Address:[address] [place], [place] [address]Performed By: #### 31663-5 ####[facility] LABCLIA [id number] [place], [place] [address]Kjayyriv mean volume (Bld) [Entitic vol]9.9 fLNormal9.0-12.7CChillicothe Hospital on above:Order Comment: Specimen Type: BLOOD SPECIMENOrdering Facility: [facility] Address:[address] [place] [address] Performed By: #### 17570-2 ####[facility] LABCLIA [id number] [place], [place] [address]Kkyftvxqv (Bld) [#/Vol]213 10*3/zGKjxjzb338-541QcurukfybSelect Medical [facility]Health Rehabilitation Hospital on above:Order Comment: Specimen Type: BLOOD SPECIMENOrdering Facility: [facility] Address:[address] [place], [place] [address]Performed By: #### 13660-8 ####[facility] LABCLIA [id number] [place], [place] [address]AZQ (Bld) [#/Vol]3.81 10*6/uLLow3.90-5.20[facility] on above:Order Comment: Specimen Type: BLOOD SPECIMENOrdering Facility: [facility] Address:[address] [place], [place] [address]Performed By: #### 68262-2 ####[facility] LABCLIA [id number] [place], [place] [address]JAH (Bld) [#/Vol]6.17 10*3/uL Normal3.70-11.00[facility] on above:Order Comment: Specimen Type: BLOOD SPECIMENOrdering Facility: [facility] Address:[address] [place], [place] [address]Performed By: #### 36889-1 ####[facility] LABCLIA [id number] [place], [place] [address]ZTBCWTio [id number] (SP) Office ([place]) HANNA FERRERKAYLEIGH Soni ([id number]) 1940 F Date Time Provider Department 09/20/24 11:00 AM KEYON PALOMINO During your visit today, we recorded the following information about you: Temperature Pulse Respiration Blood pressure 97.2 degrees 109/minute 18/minute 125/81 Weight 123.7 kg Keyon Palomino MD 09/20/2024 11:57 AM Signed PATIENT NAME: Shanta Ferrer CLINIC NO.: [id number] ATTENDING PHYSICIAN: Keyon Palomino MD DATE OF SERVICE: September 20, [address] Justyna Hanson [address] [facility] [id number] thank you for referring Shanta Nae Ferrer for an opinion regarding Anemia . CHIEF COMPLAINT: Anemia HPI: Shanta Ferrer is a 84 year old year old female with PMH of CKD, A,fib, COPD, Depression, CHF, venous stasis referred to us for anemia. FOBT- negative (08/28/24) Live at home with daughter. Recently hospitalized with hemorrhoidal bleeding in first week of September 2024. Recd 2 units PRBC and 3 iron infusions. Light brown colored stools. EGD/colonoscopy- 5 yrs ago. Doing well. C/o fatigue. Not taking PO iron. Intolerant to PO iron. Constipation and sick stomach. Stopped iron supplements 2-3 weeks ago. Current Outpatient Medications Medication Sig MULTIVITAMIN ORAL Take by mouth. NIACIN ORAL Take by mouth. ferrous sulfate 325 mg (65 mg iron) tablet Take 1 tablet by mouth twice daily. ergocalciferol, vitamin D2, (VITAMIN D) 50,000 unit capsule Take 50,000 Units by mouth once each week. 2 times per week albuterol HFA (PROAIR HFA) 90 mcg/actuation inhaler Inhale 2 Puffs as instructed. albuterol (PROVENTIL) 2.5 mg /3 mL (0.083 %) nebulizer solution Use 2.5 mg via nebulizer three times daily. fluticasone-salmeterol (ADVAIR DISKUS) 250-50 mcg/dose dsdv Inhale 1 Puff as instructed twice daily. hydrochlorothiazide (HYDRODIURIL, ESIDRIX) 50 mg tablet Take 50 mg by mouth once daily. enalapril-hydrochlorothiazide (VASERETIC) 10-25 mg per tablet Take 1 tablet by mouth once daily. metoprolol tartrate, short acting, (LOPRESSOR) 100 mg tablet Take 100 mg by mouth twice daily. allopurinol (ZYLOPRIM) 100 mg tablet Take 100 mg by mouth once daily. dabigatran etexilate (PRADAXA) 75 mg cap Take 75 mg by mouth twice daily. Omeprazole 40 mg capsule Take 40 mg by mouth once daily. No current facility-administered medications for this visit. ALLERGIES Allergen Reactions Contrast Dye Other: See Comments shock/ Ibuprofen Hives Tricor [Fenofibrate* Other: See Comments upset stomach PAST MEDICAL HISTORY Diagnosis Date Arthritis Atrial fibrillation (HCC) CKD (chronic kidney disease) stage III GERD (gastroesophageal reflux disease) Gout Hyperglycemia Hyperlipidemia Hypertension Hypothyroidism Iron deficiency anemia Vitamin D deficiency PAST SURGICAL HISTORY Procedure Laterality Date COLONOSCOPY HYSTERECTOMY HX KNEE SURGERY HX TONSILLECTOMY HX FAMILY HISTORY Problem Relation Age of Onset Heart Mother Heart Father Stroke Mother Cancer Father Social History Tobacco Use Smoking status: Former Current packs/day: 0.00 Types: Cigarettes Quit date: 07/22/2004 Years since quittin.1 Smokeless tobacco: Never Substance Use Topics Alcohol use: No Drug use: No REVIEW OF SYSTEMS GENERAL: No weight loss, malaise or fevers. No night sweats. HEENT: Negative for headaches, No changes in hearing or vision, no nose bleeds or other nasal problems. RESPIRATORY: Negative for cough, wheezing and shortness of breath CARDIOVASCULAR: Negative for chest pain, leg swelling and palpitations GI: Negative for abdominal discomfort, blood in stools or black stools and change in bowel habits : Negative for dysuria, frequency and incontinence MUSCULOSKELETAL: Negative for joint pain or swelling, back pain, and muscle pain. SKIN: Negative for lesions, rash, and itching. HEMATOLOGY/LYMPHOLOGY Negative for prolonged bleeding, bruising easily, and swollen nodes. NEURO: Negative for numbness or tingling of hands/feet. No weakness. PHYSICAL EXAMINATION: BP 125/81 Pulse 109 Temp 36.2 ?C (97.2 ?F) (Temporal) Resp 18 Wt 123.7 kg (272 lb 11.3 oz) SpO2 97% BMI 48.32 kg/m? There were no vitals taken for this visit. Last 3 Encounter Wt Readings: Date: Wt: 04/29/2015 143.3 kg (316 lb) 01/28/2015 149.7 kg (330 lb) 11/26/2014 151 kg (333 lb) General appearance:ECOG PERFORMANCE STATUS: 2- Ambulatory and capable of all selfcare; unable to carry out work activities. Up and about > 50% of waking hrs. Patient in NAD. Skin: Skin color, texture, turgor normal. No rashes or lesions. Eyes: Anicteric sclera. Pupils are equally round and reactive to light. Extraocular movements are intact. Breast: No palpable breast masses. No nipple change or discharge. Lymph Nodes: No cervical, supraclavicul (more content not included)...Normal [facility] Hospitalprehenformerly [facility] metabolic 2000 panelOrdered By: Hardik Lopez on [id number] [Mass/Vol]3.3 g/dLLow3.9 - 4.9 g/dLHolzer Health System ALP [Catalytic activity/Vol]144 U/LHigh34 - 123 U/LCleveland ClinicALT [Catalytic activity/Vol]6 U/LLow7 - 38 U/LCleveland ClinicAnion gap [Moles/Vol] 12 mmol/L8 - 15 mmol/LCleveland ClinicAST [Catalytic activity/Vol]15 U/L13 - 35 U/LCleveland ClinicBilirubin [Mass/Vol]0.7 mg/dL0.2 - 1.3 mg/dLHolzer Health System Calcium [Mass/Vol]9.2 mg/dL8.5 - 10.2 mg/dLHolzer Health SystemChloride [Moles/Vol] 97 mmol/LLow98 - 107 mmol/LCleveland ClinicCO2 [Moles/Vol]27 mmol/L22 - 30 mmol/LCleveland ClinicCreatinine [Mass/Vol]1.48 mg/dLHigh0.58 - 0.96 mg/dL [facility] Health SystemGFR/1.73 sq M.predicted among non-blacks MDRD (S/P/Bld) [Vol rate/Area]35 mL/min/{1.73_m2}Low- PINFCleveland ClinicComment on above:Estimated Glomerular Filtration Rate (eGFR) is calculated using the 2020 CKD-EPI creatinine equation. This equation utilizes serum creatinine, sex, and age as parameters. The creatinine assay has traceable calibration to isotope dilution- mass spectrometry. Refer to KDIGO guidelines for clinical interpretation. In patients with unstable renal function, e.g. those with acute kidney injury, the eGFRmay not accurately reflect actual GFR.Glucose [Mass/Vol]111 mg/lHJmjf87 - 99 mg/dLHolzer Health SystemComment on above:The [place] Diabetes Association (ADA) provides guidance for cutoff values for fasting glucose andrandom glucose. The ADA defines fasting as no caloric intake for at least 8 hours. Fasting plasma gl ucose results between 100 to 125 mg/dL indicate increased risk for diabetes (prediabetes). Fasting plasma glucose results greater than or equal to 126 mg/dL meet the criteria for diagnosis of diabetes. In the absence of unequivocal hyperglycemia, results should be confirmed by repeat testing. In a patient with classic symptoms of hyperglycemia or hyperglycemic crisis, random plasma glucose results greater than or equal to 200 mg/dL meet the criteria for diagnosis of diabetes. Reference: Standards of Medical Care in Diabetes 2016, [place] [employer] Association. Diabetes Care. 2016.39(Suppl 1). Interpretation and review of laboratory resultsAbnormalCleveland ClinicPotassium [Moles/Vol]4.1 mmol/L3.7 - 5.1 mmol/LCparkview health bryan hospital ClinicProtein [Mass/Vol]6.5 g/dL 6.3 - 8.0 g/dLAroma Park ClinicSodium [Moles/Vol]136 mmol/L136 - 144 mmol/L Holzer Health SystemUrea nitrogen [Mass/Vol]31 mg/dLHigh7 - 21 mg/dLCommunity Regional Medical Centerprehensive metabolic 2000 panelon 88-97-7922Hcnaqzo [Mass/Vol]3.3 g/dLLow3.9-4.9CChillicothe Hospital on above:Order Comment: Specimen Type: BLOOD SPECIMENOrdering Facility: [facility] Address:[address] [place], [place] [address]Performed By: #### 36086- 8 ####[facility] LABCLIA [id number] [place], [place] [address]CXE [Catalytic activity/Vol]144 U/ZEmpr26-478NtpnhamhlSelect Medical [facility]Health Rehabilitation Hospital on above:Order Comment: Specimen Type: BLOOD SPECIMENOrdering Facility: [facility] Address:[address] [place], [place] [address]Performed By: #### 93994-6 ####[facility] LABCLIA [id number] [place], [place] [address]QRX [Catalytic activity/Vol]6 U/LLow7-38[facility] on above:Order Comment: Specimen Type: BLOOD SPECIMENOrdering Facility: [facility] Address:[address] [place], [place] [address]Performed By: #### 45971- 8 ####[facility] LABCLIA [id number] [place], [place] [address]Jvcyc gap [Moles/Vol]12 mmol/LNormal8-15[facility] on above:Order Comment: Specimen Type: BLOOD SPECIMENOrdering Facility: [facility] Address:[address] [place], [place] [address]Performed By: #### 21580-6 ####[facility] LABCLIA [id number] [facility] RICHELLEOSCARVETERANS HEALTH ADMINISTRATION [facility] [place] [address]BFQ [Catalytic activity/Vol]15 U/VYasnyk58-69VanwrgfesSelect Medical [facility]Health Rehabilitation Hospital on above:Order Comment: Specimen Type: BLOOD SPECIMENOrdering Facility: [facility] Address:[address] [place], [place] [address]Performed By: #### 82184-8 ####[facility] LABCLIA [id number] [facility] [place] [place] [address] Bilirubin [Mass/Vol]0.7 mg/dLNormal0.2-1.3CChillicothe Hospital on above:Order Comment: Specimen Type: BLOOD SPECIMENOrdering Facility: [facility] Address:[address] [place], [place] [address]Performed By: #### 37258-9 ####[facility] LABCLIA [id number] [facility] CENTEROSCARVETERANS HEALTH ADMINISTRATION [facility] [place]JA[place], [place] [address]Ryuyxlu [Mass/Vol]9.2 mg/dLNormal8.5-10.2CChillicothe Hospital on above:Order Comment: Specimen Type: BLOOD SPECIMENOrdering Facility: [facility] Address:[address] [place], [place] [address]Performed By: #### 11834-3 ####[facility] LABCLIA [id number] [facility] CENTEROSCARGEORGIANA MEDICAL CENTERDaphneSHARPS [place], [place] [address]Zayufpcd [Moles/Vol]97 mmol/CDqo29-771EqkxvhcvaSelect Medical [facility]Health Rehabilitation Hospital on above:Order Comment: Specimen Type: BLOOD SPECIMENOrdering Facility: [facility] Address:[address] [place], [place] [address]Performed By: #### 44264- 8 ####[facility] LABCLIA [id number] [place], [place] [address]SN3 [Moles/Vol]27 mmol/JTmvosm61-07FvhlgcepzSelect Medical [facility] Rehabilitation Hospital on above:Order Comment: Specimen Type: BLOOD SPECIMENOrdering Facility: [facility] Address:[address] [place], [place] [address]Performed By: #### 88319-0 ####[facility] LABCLIA [id number] [place], [place] [address]Wyffkiorrr [Mass/Vol]1.48 mg/dL High0.58-0.96[facility] on above:Order Comment: Specimen Type: BLOOD SPECIMENOrdering Facility: [facility] Address:[address] [place], [place] [address]Performed By: #### 92715-3 ####[facility] LABCLIA [id number] [place] [address] Creatinine and Glomerular filtration rate.predicted panel (S/P/Bld)35 mL/min/1.73m???Low>=60[facility] on above:Order Comment: Specimen Type: BLOOD SPECIMENOrdering Facility: [facility] Address:[address] [place], [place] [address]Result Comment: Estimated Glomerular Filtration Rate (eGFR) is calculated using the 2020 CKD-EPI creatinine equation. This equation utilizes serum creatinine, sex, and age as parameters. The creatinine assay has traceable calibration to isotope dilution-mass spectrometry. Refer to KDIGO guidelines for clinical interpretation. In patients with unstable renal function, e.g. those with acute kidney injury, the eGFR may not accurately reflect actual GFR.Performed By: #### 21435-5 ####[facility] LABCLIA [id number] [place] [address] Glucose [Mass/Vol]111 mg/oBAkkw18-57ElvyjvugfSelect Medical [facility] Rehabilitation Hospital on above: Order Comment: Specimen Type: BLOOD SPECIMENOrdering Facility: [facility] Address:[address] [place], [place] [address]Result Comment: The [place] Diabetes Association (ADA) provides guidance for cutoff values for fast ing glucose and random glucose. The ADA defines fasting as no caloric intake for at least 8 hours. Fasting plasma glucose results between 100 to 125 mg/dL indicate increased risk for diabetes (prediabetes). Fasting plasma glucose results greater than or equal to 126 mg/dL meet the criteria for diagnosis of diabetes. In the absence of unequivocal hyperglycemia, results should be confirmed by repeat testing. In a patient with classic symptoms of hyperglycemia or hyperglycemic crisis, random plasma glucose results greater than or equal to 200 mg/dL meet the criteria for diagnosis of diabetes. Reference: Standards of Medical Care in Diabetes 2016, [place] Diabetes Association. Diabetes Care. 2016.39(Suppl 1).Performed By: #### 38859-1 ####[facility] LABCLIA [id number] [place], [place] [address]Oqsypgtsl [Moles/Vol]4.1 mmol/LNormal3.7-5.1CChillicothe Hospital on above:Order Comment: Specimen Type: BLOOD SPECIMENOrdering Facility: [facility] Address:[address] [place], [place] [address]Performed By: #### 64492-4 ####[facility] LABIA [id number] [place], [place] [address]Zdzosfq [Mass/Vol]6.5 g/dLNormal6.3-8.0[facility] on above:Order Comment: Specimen Type: BLOOD SPECIMENOrdering Facility: [facility] Address:[address] [place], [place] [address]Performed By: #### 14236- 8 ####[facility] LABCLIA [id number] [place], [place] [address]Lyaxja [Moles/Vol]136 mmol/TXciumf444-466YiniettdpSelect Medical [facility]Health Rehabilitation Hospital on above:Order Comment: Specimen Type: BLOOD SPECIMENOrdering Facility: [facility] Address:[address] [place], [place] [address]Performed By: #### 52006-8 ####[facility] LABIA [id number] [place], [place] [address]Icjw nitrogen [Mass/Vol]31 mg/dLHigh7-21[facility] on above:Order Comment: Specimen Type: BLOOD SPECIMENOrdering Facility: [facility] Address:[address] [place], [place] [address]Performed By: #### 58527-5 ####[facility] LABCLIA [id number] [place] [address] EPO SerPl-aCncon 76-82-1760Fmrzqoyfkuiuua (EPO) Qn41.5 mIU/mLHigh2.6-18.5 [facility] on above:Order Comment: Specimen Type: BLOOD SPECIMENOrdering Facility: [facility] Address:[address] [place], [place] [address]Performed By: #### 37465-5 ####[facility] LABIA [id number] [place] [address] [place] AMERICAFOLATE, SERUMon 87-11-2537Cbieec [Mass/Vol]13.3 ng/mL4.7 - PINF ng/mL [facility] SystemFerritin SerPl-mCncon 66-60-3668Nkluudtm [Mass/Vol]60.9 ng/mL Dyqyjl25.7-205.1CChillicothe Hospital on above:Order Comment: Specimen Type: BLOOD SPECIMENOrdering Facility: [facility] Address:[address] [place], [place] [address]Performed By: #### 2276-4, 19221-9, 4542-7 ####[facility] LABIA [id number] [place] [address] [place] AMERICAFolate SerPl-mCncon 09-20-2024 Folate [Mass/Vol]13.3 ng/mLNormal>4.7CChillicothe Hospital on above: Order Comment: Specimen Type: BLOOD SPECIMENOrdering Facility: [facility] Address:[address] [place], [place] [address]Performed By: #### 2132- 9, 2284-8, 2885-2 ####[facility] LABCLIA [id number] [address] [place] [address] [place] OF AMERICAHaptoglob SerPl-mCnc on 52-17-9052Yvaqeqmsuga [Mass/Vol]100 mg/jDKbitss41-358BixclmudnSelect Medical [facility] on above:Order Comment: Specimen Type: BLOOD SPECIMENOrdering Facility: [facility] Address:[address] [place], [place] [address]Performed By: #### 2276-4, 16105-1, 454-7 ####[facility] LABIA [id number] [address] [address] [place] OF AMERICAIron and Iron binding capacity panelon 96-94-6498Gpec [Mass/Vol]37 ug/pSMhw19-093PogzppihuSelect Medical [facility]Health Rehabilitation Hospital on above:Order Comment: Specimen Type: BLOOD SPECIMENOrdering Facility: [facility] Address:[address] [place], [place] [address]Performed By: #### 2276-4, 67721-4, 4541-7 ####[facility] LABIA [id number] [address] [address] [place] STATES OF AMERICAIron binding capacity [Mass/Vol] 298 ug/mJKqmpth641-208KxqjqgmywSelect Medical [facility] on above:Order Comment: Specimen Type: BLOOD SPECIMENOrdering Facility: [facility] Address:[address] [place], [place] [address]Performed By: #### 2276-4, 87346-6, 454-7 ####[facility] LABIA [id number] [address] [address] [place] OF AMERICAIron/TIBC [Molar ratio]12.4 %Low 15.0-57.0[facility] on above:Order Comment: Specimen Type: BLOOD SPECIMENOrdering Facility: [facility] Address:[address] [place], [place] [address]Performed By: #### 2276-4, 09436-3, 4542-7 ####[facility] LABIA [id number] [place] [address] [place] AMERICAKAPPA/HOPPER,FREE,SERon 09-20-2024 Immunoglobulin light chains.kappa.free (S) [Mass/Vol]75.9 mg/LHigh3.3-19.4 [facility] on above:Order Comment: Specimen Type: BLOOD SPECIMENOrdering Facility: [facility] Address:[address] [place], [place] [address]Result Comment: Rarely, increased serum free light chains levels may not be detected or accurately quantified due to prozone phenomenon or in high viscosity samples using this immunoturbidimetric assay. Correlation with other laboratory results and clinical findings is recommended. The Hooker Free Light Chain was performed using the Binding Site Optilite immunoturbidimetric method. Result obtained with different assay methods or kits cannot be used interchangeably.Performed By: #### KLFRS ####[facility] LABIA [id number] [place] [address] [place] AMERICAImmunoglobulin light chains.kappa/Immunoglobulin light chains.lambda (S) [Mass ratio]1.44Cpdg7.26-1.65[facility] on above:Order Comment: Specimen Type: BLOOD SPECIMENOrdering Facility: [facility] Address:[address] [place] [address] Performed By: #### KLFRS ####[facility] [id number] [place] [address] [place] AMERICAImmunoglobulin light chains.lambda.free [Mass/Vol]43.8 mg/LHigh5.7-26.3CChillicothe Hospital on above:Order Comment: Specimen Type: BLOOD SPECIMENOrdering Facility: [facility] Address:[address] [place], [place] [address]Result Comment: Rarely, increased serum free light chains levels may not be detected or accurately quantified due to prozone phenomenon or in high viscosity samples using this immunoturbidimetric assay. Correlation with other laboratory results and clinical findings is recommended. The Lambda Free Light Chain was performed using the Binding Site Optilite immunoturbidimetric method. Result obtained with different assay methods or kits cannot be used interchangeably.Performed By: #### KLFRS ####[facility] LABCLIA [id number] [address] Panel Informationon 86-36-4514Bhwjjpuycqiegf and review of laboratory resultsNormalCleveland Salem City HospitalPROTEIN ELECTROPHORESIS SERUM (P)on 92-90-7594Cayiaxy [Mass/Vol]2.99 g/dLLow3.43-5.41 [facility] HospitalComment on above:Order Comment: Specimen Type: BLOOD SPECIMENOrdering Facility: [facility] Address:[address] [place], [place] [address]Performed By: #### [id number] ####[facility] LABIA [id number] [address] STATES OF [facility] GLENBEIGHAlpha 1 globulin Elph [Mass/Vol]0.42 g/dLNormal0.18-0.43[facility] HospitalComment on above:Order Comment: Specimen Type: BLOOD SPECIMENOrdering Facility: [facility] Address:[address] [place], [place] [address]Performed By: #### [id number] ####[facility] LABIA [id number] [place] [address] [place] Alpha 2 globulin Elph [Mass/Vol]0.66 g/dLNormal0.42-0.98[facility] on above:Order Comment: Specimen Type: BLOOD SPECIMENOrdering Facility: [facility] Address:[address] [place], [place] [address]Performed By: #### [id number] ####[facility] LABIA [id number] [place] [address] [place] Beta globulin Elph [Mass/Vol]0.80 g/dLNormal0.61-1.17[facility] Comment on above:Order Comment: Specimen Type: BLOOD SPECIMENOrdering Facility: [facility] Address:[address] [place] [address] Performed By: #### [id number] ####[facility] LABCLIA [id number] [place] [address] [place] Gamma globulin Elph [Mass/Vol]1.14 g/dLNormal0.53-1.51[facility] Comment on above:Order Comment: Specimen Type: BLOOD SPECIMENOrdering Facility: [facility] Address:[address] [place] [address] Performed By: #### [id number] ####[facility] LABCLIA [id number] [place] [address] [place] M-PROTEIN LOCATIONNormalCBlanchard Valley Health System [facility]anchard Valley HospitalComment on above:Order Comment: Specimen Type: BLOOD SPECIMENOrdering Facility: [facility] Address:[address] [place], [place] [address]Result Comment: Not Applicable.Performed By: #### [id number] ####[facility] LABCLIA [id number] [place] [address] [place] Protein Fractions [Interp]No definitive M protein is identified on protein electrophoresis.NormalNo definitive M protein is identified on protein electrophoresis.[facility] HospitalComment on above:Order Comment: Specimen Type: BLOOD SPECIMENOrdering Facility: [facility] Address:[address] [place], [place] [address]Performed By: #### [id number] ####[facility] LABCLIA [id number] [place] [address] [place] AMERICAProtein.monoclonal Elph [Mass/Vol]0.00 g/dLNormal<=0.00[facility] HospitalCommunson healthcare [facility]ist[facility] on above:Order Comment: Specimen Type: BLOOD SPECIMENOrdering Facility: [facility] Address:[address] [place], [place] [address]Performed By: #### [id number] ####[facility] LABCLIA [id number] [place] [id number] [place] [facility] STAFF REVIEW Reviewed by Patt Salazar M.D., Ph.DNormalSelect Medical [facility] on above:Order Comment: Specimen Type: BLOOD SPECIMENOrdering Facility: [facility] Address:[address] [place] [address] Performed By: #### [id number] ####[facility] [id number] [place] [id number] [place] Prot SerPl-mCncon 08-16-5091Dbwbpte [Mass/Vol]6.0 g/dLLow6.3-8.0[facility] on above:Order Comment: Specimen Type: BLOOD SPECIMENOrdering Facility: [facility] Address:[address] [place], [place] [address]Performed By: #### 2132-9, 2284-8, 2885-2 ####[facility]ITALIA [id number] [place] [id number] [place] OF AMERICAVITAMIN B12on 41-78-0117Qniewsuug (Vitamin B12) [Mass/Vol]1059 pg/mL232 - 1245 pg/mLCAdena Pike Medical CenterVit B12 SerPl-mCncon 59-52-9772Hnuwyoman (Vitamin B12) [Mass/Vol]1059 pg/qIAdnqkx240-9855HyecgwlssChillicothe Hospital on above:Order Comment: Specimen Type: BLOOD SPECIMENOrdering Facility: [facility] Address:[address] [place], [place] [address]Performed By: #### 2132-9, 2284-8, 2885-2 ####[facility] LABIA [id number] [place] [id number] [place] AMERICAAlanine aminotransferase [Enzymatic activity/volume] in Serum or PlasmaOrdered By: Justyna Hanson on 75-44-0198AVF [Catalytic activity/Vol]Alanine aminotransferase [Enzymatic activity/volume] in Serum or Plasma7-[facility] Medical CenterAlbumin [Mass/volume] in Serum or Plasma by Bromocresol green (BCG) dye binding methoOrdered By: Justyna Hanson on 71-87-1177Lmyrnmz BCG dye [Mass/Vol] Albumin [Mass/volume] in Serum or Plasma by Bromocresol green (BCG) dye binding methoLow3.5-5.7FClinton Memorial HospitalAlkaline phosphatase [Enzymatic activity/volume] in Serum or PlasmaOrdered By: Justyna Hanson on 96-83-6375QFY [Catalytic activity/Vol]Alkaline phosphatase [Enzymatic activity/volume] in Serum or CsygvrMtjq45-581NpzogemtnOhiohealth Southeastern Medical CenterAnisocytosis LM Ql (Bld)Ordered By: Justyna Hanson on 34-90-7542Pormabwlcflx Ql (Bld)Anisocytosis [Presence] in Blood by Light microscopyOhiohealth Southeastern Medical Center Aspartate aminotransferase [Enzymatic activity/volume] in Serum or PlasmaOrdered By: Justyna Hanson on 74-06-1888KTC [Catalytic activity/Vol]Aspartate aminotransferase [Enzymatic activity/volume] in Serum or Voioar26-00RjdrtmcldOhiohealth Southeastern Medical CenterBasophils Auto (Bld) [#/Vol]Ordered By: Justyna Hanson on 83-74-1277Trrnfjmuu (Bld) [#/Vol]Automated basophil count0.0-0.2FClinton Memorial HospitalBasophils/100 WBC Auto (Bld)Ordered By: Justyna Hanson on 89-79-3171Rvhukyrlm/100 WBC (Bld)Automated basophil %.[facility] Medical CenterBilirubin.total [Mass/volume] in Serum or PlasmaOrdered By: Justyna Hanson on 73-42-0259Lgmycacyy [Mass/Vol]Bilirubin.total [Mass/volume] in Serum or Plasma0.3-1.0[facility] Medical CenterCalcium [Mass/volume] in Serum or PlasmaOrdered By: Justyna Hanson on 30-11-7290Qpihdnp [Mass/Vol]Calcium [Mass/volume] in Serum or Plasma8.6-10.3FClinton Memorial HospitalCarbon dioxide, total [Moles/volume] in Serum or PlasmaOrdered By: Justyna Hanson on 18-21-4584UF9 [Moles/Vol]Carbon dioxide, total [Moles/volume] in Serum or Plasma 21.0-31.0[facility] Medical CenterChloride [Moles/volume] in Serum or PlasmaOrdered By: Justyna Hanson on 54-41-1588Wcioegwz [Moles/Vol]Chloride [Moles/volume] in Serum or Flpiiz08-792SphbqjnobOhiohealth Southeastern Medical Center Comprehensive Metabolic Panelon 09-87-6213Fevymwn [Mass/Vol]3.2 g/dLLow3.5-5.7 [facility] Physician GroupComment on above:Performed By: #### CMP, SCAN CBC #### [facility] [address] [place] [address] USAAlbumin/Globulin [Mass ratio]1.1 {ratio}NormalThe [facility] Physician [facility] HospitalComment on above:Performed By: #### CMP, SCAN CBC #### [place] [address] USAALP [Catalytic activity/Vol]138 U/QRmmp76-865Bwo [facility] Physician GroupComment on above:Result Comment: PERFORMED BY: [place] [address] PATHOLOGIST FOREST AIDE ANNEILESE MELENDEZ M.D.Performed By: #### CMP, SCAN CBC #### [place] [address] USAALT [Catalytic activity/Vol]7 U/LNormal7-52The [facility] Physician GroupComment on above:Performed By: #### CMP, SCAN CBC #### [facility] [address] [place] [address] USAAnion gap [Moles/Vol]13.5 mmol/LNormal6.0-15.0The [facility] Physician GroupComment on above:Performed By: #### CMP, SCAN CBC #### [facility] [address] [place] [address] USAAST [Catalytic activity/Vol]13 U/RMkewwl52-73Ltn [facility] Physician GroupComment on above:Performed By: #### CMP, SCAN CBC #### [place] [address] USABilirubin [Mass/Vol]0.6 mg/dLNormal0.3-1.0The [facility] Physician GroupComment on above:Performed By: #### CMP, SCAN CBC #### [facility] [address] [place] [address] USACalcium [Mass/Vol]9.1 mg/dLNormal8.6-10.3The [facility] Physician GroupComment on above:Performed By: #### CMP, SCAN CBC #### [facility] [address] [place] [address] USAChloride [Moles/Vol]101 mmol/GQzjzpd92-257Lgo [facility] Physician GroupComment on above:Performed By: #### CMP, SCAN CBC #### [facility] [address] [place] [address] USACO2 [Moles/Vol]30.1 mmol/JPiybuj45.0-31.0The [facility] Physician GroupComment on above:Performed By: #### CMP, SCAN CBC #### [facility] [address] [place] [address] USACreatinine [Mass/Vol]1.76 mg/dLHigh0.60-1.20The [facility] Physician GroupComment on above:Performed By: #### CMP, SCAN CBC #### [facility] [address] [place] [address] USAEstimated GFR28.189 mL/MinNoAtrium Health Physician [facility] HospitalComment on above:Performed By: #### CMP, SCAN CBC #### [facility] [address] [place] [address] USAGlobulin (S) [Mass/Vol]2.8 g/dLNormHCA Florida Trinity Hospital Physician GroupComment on above:Performed By: #### CMP, SCAN CBC #### [facility] [address] [place] [address] USAGlucose [Mass/Vol]109 mg/dNVdzj84-780Tgm [facility] Physician GroupComment on above:Result Comment: Random Glucose Reference Range is dependent on time and content of last meal. Glucose of more than 200 mg/dL in a nonstressed, ambulatory subject supports the diagnosis of Diabetes Mellitus. ADA recommended reference rangePerformed By: #### CMP, SCAN CBC #### [facility] [address] [place] [id number] USAPotassium [Moles/Vol]4.6 mmol/LNormal3.5-5.1The [facility] Physician GroupComment on above:Performed By: #### CMP, SCAN CBC #### [facility] [address] [place] [address] USAProtein [Mass/Vol]6.0 g/dLLow6.4-8.9The [facility] Physician GroupComment on above:Performed By: #### CMP, SCAN CBC #### [facility] [address] [place] [address] USASodium [Moles/Vol]140 mmol/XCbyocd571-595Ugk [facility] Physician GroupComment on above:Performed By: #### CMP, SCAN CBC #### [facility] [address] [place] [address] USAUrea nitrogen [Mass/Vol]31 mg/dLHigh7-25The [facility] Physician GroupComment on above:Performed By: #### CMP, SCAN CBC #### [facility] [address] [place] [id number] USACreatinine [Mass/volume] in Serum or PlasmaOrdered By: Justyna Hanson on 84-62-1137Oceyietgpc [Mass/Vol]Creatinine [Mass/volume] in Serum or PlasmaHigh0.60-1.20[facility] Medical CenterEosinophils Auto (Bld) [#/Vol]Ordered By: Justyna Hanson on 73-02-8656Xdldzkbcgcn (Bld) [#/Vol]Automated eosinophil count0.0-0.45[facility] Medical CenterEosinophils/100 WBC Auto (Bld)Ordered By: Justyna Hanson on 08-42-1530Owvtenhufnz/100 WBC (Bld) Automated eosinophil %.[facility] Medical CenterErythrocyte distribution width Auto (RBC) [Ratio]Ordered By: Justyna Hanson on 43-05-6168Aipzalnykbx distribution width (RBC) [Ratio]Erythrocyte distribution width [Ratio] by Automated ygdiyOuif29.9-15.3FClinton Memorial HospitalErythrocyte morphology finding [Identifier] in BloodOrdered By: Justyna Hanson on 09-10-2024 RBC morphology finding Nom (Bld)RBC morphologyOhiohealth Southeastern Medical Center Globulin Calc (S) [Mass/Vol]Ordered By: Justyna Hanson on 70-43-8585Xdzoiqqj (S) [Mass/Vol]Serum globulin measurement by calculation (mass/volume)[facility] Medical CenterGlucose [Mass/volume] in Serum or PlasmaOrdered By: Justyna Hanson on 94-84-8304Xzmgxnm [Mass/Vol]Glucose [Mass/volume] in Serum or Plasma Qflw22-425KlwkvmambOhiohealth Southeastern Medical CenterComment on above:ADA recommended reference rangeRandom Glucose Reference Range is dependent on time and content of last meal. Glucose of more than 200 mg/dL in a nonstressed, ambulatory subject supports the diagnosisof Diabetes Mellitus.Hematocrit Auto (Bld) [Volume fraction]Ordered By: Justyna Hanson on 48-67-6912Utlxuftsvt (Bld) [Volume fraction]Hematocrit [Volume Fraction] of Blood by Automated roceoSjq81.0-46.4 [facility] CenterHemoglobin [Mass/volume] in BloodOrdered By: Justyna Hanson on 77-62-1915Rdmngdbgnp (Bld) [Mass/Vol]Hemoglobin [Mass/volume] in QeuphJoj23.8-15.4FClinton Memorial HospitalHypochromia LM Ql (Bld) Ordered By: Justyna Hanson on 30-70-3745Aujyvtfeqyb Ql (Bld)Hypochromia [Presence] in Blood by Light microscopyOhiohealth Southeastern Medical CenterLeukocytes [#/volume] corrected for nucleated erythrocytes in Blood by Automated coun Ordered By: Justyna Hanson on 23-93-9113XJI corrected for nucl RBC Auto (Bld) [#/Vol]Leukocytes [#/volume] corrected for nucleated erythrocytes in Blood by Automated coun3.8-11.6FClinton Memorial HospitalLymphocytes Auto (Bld) [#/Vol]Ordered By: Justyna Hanson on 92-35-8187Kktojlngfxb (Bld) [#/Vol] Lymphocytes [#/volume] in Blood by Automated count1.00-4.8[facility] Medical CenterLymphocytes/100 WBC Auto (Bld)Ordered By: Justyna Hanson on 65-47-7678Nfcfxrnwhka/100 WBC (Bld)Lymphocytes/100 leukocytes in Blood by Automated count.[facility] Medical CenterMCH Auto (RBC) [Entitic mass] Ordered By: Justyna Hanson on 66-04-2048JCP (RBC) [Entitic mass]MCH [Entitic mass] by Automated gydyeRzq22.7-34.3FClinton Memorial HospitalMCHC Auto (RBC) [Mass/Vol]Ordered By: Justyna Hanson on 33-81-5303HEAN (RBC) [Mass/Vol]MCHC [Mass/volume] by Automated xnrxzBak67.0-35.0[facility] CenterMCV Auto (RBC) [Entitic vol]Ordered By: Justyna Hanson on 09-42-4115IQE (RBC) [Entitic vol]MCV [Entitic volume] by Automated ccmsi48-695RgdskoiwiOhiohealth Southeastern Medical CenterMicrocytes LM Ql (Bld)Ordered By: Justyna Hanson on 09-10-2024 Microcytes Ql (Bld)Microcytes [Presence] in Blood by Light microscopyOhiohealth Southeastern Medical CenterMonocytes Auto (Bld) [#/Vol]Ordered By: Justyna Hanson on 06-99-8609Ssmmjcsfa (Bld) [#/Vol]Automated blood monocyte count0.0-0.8[facility] Medical CenterMonocytes/100 WBC Auto (Bld)Ordered By: Justyna Hanson on 44-86-2360Ahcalgpvk/100 WBC (Bld)Automated monocyte %.[facility] Medical CenterNeutrophils Auto (Bld) [#/Vol]Ordered By: Justyna Hanson on 09-10-2024 Neutrophils (Bld) [#/Vol]Neutrophils [#/volume] in Blood by Automated count 1.8-7.7FClinton Memorial HospitalNeutrophils/100 WBC Auto (Bld)Ordered By: Justyna Hanson on 00-65-8054Lgplrsemeox/100 WBC (Bld)Automated neutrophil %. [facility] CenterNo Panel InformationOrdered By: Justyna Hanson on 59-47-2608Qldfsheot GFR (CKD-EPI)28.189 mL/MinOhiohealth Southeastern Medical Center Pharmacy Creatinine Clearance (ChemN/AFClinton Memorial HospitalNucleated erythrocytes [Presence] in Blood by Automated countOrdered By: Justyna Hanson on 01-22-2941Zumgfavcj RBC Auto Ql (Bld)Nucleated erythrocytes [Presence] in Blood by Automated count0-0.5FClinton Memorial HospitalPlatelet adequacy [Presence] in Blood by Light microscopyOrdered By: Justyna Hanson on 09-10-2024 Platelets LM Ql (Bld)Platelet adequacy [Presence] in Blood by Light microscopy NormalOhiohealth Southeastern Medical CenterPlatelet mean volume Auto (Bld) [Entitic vol]Ordered By: Justyna Hanson on 53-39-4582Blmeneki mean volume (Bld) [Entitic vol]Platelet mean volume [Entitic volume] in Blood by Automated count6.3-10.7 [facility] Medical CenterPlatelet morphology finding [Identifier] in BloodOrdered By: Justyna Hanson on 42-55-9046Aimjtwks morphology finding Nom (Bld) Platelet morphology finding [Identifier] in BloodNormalOhiohealth Southeastern Medical CenterPlatelets Auto (Bld) [#/Vol]Ordered By: Justyna Hanson on 09-10-2024 Platelets (Bld) [#/Vol]Platelets [#/volume] in Blood by Automated pahsf240-459 [facility] Medical CenterPoikilocytosis [Presence] in Blood by Light microscopyOrdered By: Justyna Hanson on 59-58-6204Tuqlyiujwutgmd LM Ql (Bld) Poikilocytosis [Presence] in Blood by Light microscopyOhiohealth Southeastern Medical CenterPotassium [Moles/volume] in Serum or PlasmaOrdered By: Justyna Hanson on 26-57-7535Dgumwusud [Moles/Vol]Potassium [Moles/volume] in Serum or Plasma 3.5-5.1FClinton Memorial HospitalProtein [Mass/volume] in Serum or Plasma Ordered By: Justyna Hanson on 28-88-5412Hknrgux [Mass/Vol]Protein [Mass/volume] in Serum or PlasmaLow6.4-8.9[facility] Medical CenterRBC Auto (Bld) [#/Vol]Ordered By: Justyna Hanson on 00-02-8034YDA (Bld) [#/Vol]Erythrocytes [#/volume] in Blood by Automated count3.60-5.00[facility] Scan and CBCon 00-37-3697Bpxcnafuhktv Ql (Bld)MarkedNoAtrium Health Physician GroupComment on above:Performed By: #### CMP, SCAN CBC #### [facility] [address] [place] [address] USABasophils (Bld) [#/Vol]0.0 10*3/uLNormal0.0-0.2The [facility] Physician GroupComment on above:Performed By: #### CMP, SCAN CBC #### [place] [address] USABasophils/100 WBC (Bld)0.7 %Normal.The [facility] Physician GroupComment on above:Performed By: #### CMP, SCAN CBC #### [place] [address] USAEosinophils (Bld) [#/Vol]0.2 10*3/uLNormal0.0-0.45The [facility] Physician GroupComment on above:Performed By: #### CMP, SCAN CBC #### [place] [address] USAEosinophils/100 WBC (Bld)2.9 %Normal.The [facility] Physician GroupComment on above:Performed By: #### CMP, SCAN CBC #### [place] [address] USAErythrocyte distribution width (RBC) [Ratio]27.6 %High 11.9-15.3The [facility] Physician GroupComment on above:Performed By: #### CMP, SCAN CBC #### [place] [address] USAHematocrit (Bld) [Volume fraction]30.9 %Low34.0-46.4The [facility] Physician GroupComment on above:Performed By: #### CMP, SCAN CBC #### [place] [address] USAHemoglobin (Bld) [Mass/Vol]9.2 g/dLLow11.8-15.4The [facility] Physician GroupComment on above:Performed By: #### CMP, SCAN CBC #### [place] [address] USAHypochromasiaSlightBaptist Health Doctors Hospital Physician [facility] Comment on above:Performed By: #### CMP, SCAN CBC #### [facility] [address] [place] [address] USALymphocytes (Bld) [#/Vol]1.7 10*3/uLNormal1.00-4.8The [facility] Physician GroupComment on above:Performed By: #### CMP, SCAN CBC #### [place] [address] USALymphocytes/100 WBC (Bld)28.1 %Normal.The [facility] Physician GroupComment on above:Performed By: #### CMP, SCAN CBC #### [place] [address] USAMCH (RBC) [Entitic mass]24.2 pgLow24.7-34.3The [facility] Physician GroupComment on above:Performed By: #### CMP, SCAN CBC #### [place] [address] USAMCV (RBC) [Entitic vol]80.8 lKJpkibw23-586Fin [facility] Physician GroupComment on above:Performed By: #### CMP, SCAN CBC #### [place] [address] USAMean Corpuscular HGB Conc29.9 g/dLLow32.0-35.0The [facility] Physician GroupComment on above:Performed By: #### CMP, SCAN CBC #### [place] [address] USAMicrocytosisModerateNoAtrium Health Physician [facility] Comment on above:Performed By: #### CMP, SCAN CBC #### [facility] [address] [place] [address] USAMonocytes (Bld) [#/Vol]0.4 10*3/uLNormal0.0-0.8The [facility] Physician GroupComment on above:Performed By: #### CMP, SCAN CBC #### [place] [address] USAMonocytes/100 WBC (Bld)7.0 %Normal.The [facility] Physician GroupComment on above:Performed By: #### CMP, SCAN CBC #### [place] [address] USANeutrophils (Bld) [#/Vol]3.7 10*3/uLNormal1.8-7.7The [facility] Physician GroupComment on above:Performed By: #### CMP, SCAN CBC #### [place] [address] USANeutrophils/100 WBC (Bld)61.3 %Normal.The [facility] Physician GroupComment on above:Performed By: #### CMP, SCAN CBC #### [place] [address] USANRBC%0.2 /100{WBC}Normal0-0.5The [facility] Comment on above:Performed By: #### CMP, SCAN CBC #### [place] [address] USAPlatelet EstimateNormalNormalNormHCA Florida Trinity Hospital Physician GroupComment on above:Performed By: #### CMP, SCAN CBC #### [place] [address] USAPlatelet mean volume (Bld) [Entitic vol]9.0 fLNormal 6.3-10.7The [facility] Physician GroupComment on above:Performed By: #### CMP, SCAN CBC #### [place] [address] USAPlatelet MorphologyNormalNormalNormHCA Florida Trinity Hospital Physician GroupComment on above:Result Comment: PERFORMED BY: [place] [address] PATHOLOGIST FOREST AIDE ANNELIESE MELENDEZ M.D.Performed By: #### CMP, SCAN CBC #### [place] [address] USAPlatelets (Bld) [#/Vol]216 10*3/iBKpqmck347-483Zrt [facility] Physician GroupComment on above:Performed By: #### CMP, SCAN CBC #### [facility] [address] [place] [address] USAPoikilocytosisSlightNoAtrium Health Physician [facility] Comment on above:Performed By: #### CMP, SCAN CBC #### [facility] [address] [place] [address] USARBC (Bld) [#/Vol]3.83 10*6/uLNormal3.60-5.00The [facility] Physician [facility] HospitalComment on above:Performed By: #### CMP, SCAN CBC #### [facility] [address] [place] [address] USAStomatocytesModerateNoAtrium Health Physician Group Comment on above:Performed By: #### CMP, SCAN CBC #### [facility] [address] [place] [address] USAWBC (Bld) [#/Vol]6.0 10*3/uLNormal3.8-11.6The [facility] Physician [facility] HospitalComment on above:Performed By: #### CMP, SCAN CBC #### [facility] [address] [place] [address] USASerum or plasma albumin/globulin mass ratioOrdered By: Justyna Hanson on 89-84-7932Yeeowbm/Globulin [Mass ratio]Serum or plasma albumin/globulin mass ratioMercy Memorial Hospitalerum or plasma anion gap determinationOrdered By: Justyna Hanson on 08-69-7992Akcrg gap [Moles/Vol]Serum or plasma anion gap determination6.0-15.0Mercy Memorial Hospitalodium [Moles/volume] in Serum or PlasmaOrdered By: Justyna Hanson on 95-99-8647Jmznbf [Moles/Vol]Sodium [Moles/volume] in Serum or Bqdlnk958-147 [facility] Memorial Hospitaltomatocytes [Presence] in Blood by Light microscopyOrdered By: Justyna Hanson on 94-24-1395Asqihunuzrop LM Ql (Bld)Red blood cell stomatocyte detectionOhiohealth Southeastern Medical CenterUrea nitrogen [Mass/volume] in Serum or PlasmaOrdered By: Justyna Hanson on 65-79-1412Gtpt nitrogen [Mass/Vol]Urea nitrogen [Mass/volume] in Serum or PlasmaHigh7-25 [facility] Medical CenterWBC Auto (Bld) [#/Vol]Ordered By: Justyna Hanson on 10-79-0276AVS (Bld) [#/Vol]Leukocytes [#/volume] in Blood by Automated count 3.8-11.6FClinton Memorial HospitalBasic Metabolic Panelon 45-27-3965Ophpw gap [Moles/Vol]12.4 mmol/LNormal6.0-15.0The [facility] Physician GroupComment on above:Performed By: #### MG, CBCNO, BMP #### [facility] [address] [place] [address] USACalcium [Mass/Vol]8.4 mg/dLLow8.6-10.3The [facility] Physician GroupComment on above:Performed By: #### MG, CBCNO, BMP #### [facility] [address] [place] [address] USAChloride [Moles/Vol]101 mmol/OOoukwy50-550Dct [facility] Physician GroupComment on above:Performed By: #### MG, CBCNO, BMP #### [facility] [address] [place] [address] USACO2 [Moles/Vol]27.9 mmol/MGcyrid08.0-31.0The [facility] Physician GroupComment on above:Performed By: #### MG, CBCNO, BMP #### [facility] [address] [place] [address] USACreatinine [Mass/Vol]1.80 mg/dLHigh0.60-1.20The [facility] Physician GroupComment on above:Performed By: #### MG, CBCNO, BMP #### [facility] [address] [place] [address] USACreatinine Clr Calc Lunzkbjb54.96NormBrown Memorial Hospitale [facility] Physician GroupComment on above:Performed By: #### MG, CBCNO, BMP #### [facility] [address] [place] [address] USAEstimated GFR27.439 mL/MinNoPremier Health Miami Valley Hospitale [facility] Physician GroupComment on above:Performed By: #### MG, CBCNO, BMP #### [facility] [address] [place] [id number] USAGlucose [Mass/Vol]98 mg/uAQeyrdr24-491Bqi [facility] Physician GroupComment on above:Result Comment: Random Glucose Reference Range is dependent on time and content of last meal. Glucose of more than 200 mg/dL in a nonstressed, ambulatory subject supports the diagnosis of Diabetes Mellitus. ADA recommended reference rangePerformed By: #### MG CBCNO, BMP #### [facility] [address] [place] [address] USAPotassium [Moles/Vol]4.3 mmol/LNormal3.5-5.1The [facility] Physician GroupComment on above:Performed By: #### MGMONICA, BMP #### [facility] [address] [place] [address] USASodium [Moles/Vol]137 mmol/SOapoop798-435Mnd [facility] Physician GroupComment on above:Performed By: #### MGMONICA, BMP #### [facility] [address] [place] [address] USAUrea nitrogen [Mass/Vol]34 mg/dLHigh7-25The [facility] Physician GroupComment on above:Performed By: #### MGMONICA, BMP #### [facility] [address] [place] [id number] USACalcium [Mass/volume] in Serum or PlasmaOrdered By: Marin Whitman on 31-39-0099Ofdzglc [Mass/Vol]Calcium [Mass/volume] in Serum or Plasma Low8.6-10.3FClinton Memorial HospitalCarbon dioxide, total [Moles/volume] in Serum or PlasmaOrdered By: Marin Whitman on 46-59-2142EJ1 [Moles/Vol]Carbon dioxide, total [Moles/volume] in Serum or Ibxoge65.0-31.0[facility] Medical CenterChloride [Moles/volume] in Serum or PlasmaOrdered By: Marin Whitman on 09-65-6907Mtwkywau [Moles/Vol]Chloride [Moles/volume] in Serum or Plasma 98-107[facility] Medical CenterCreatinine [Mass/volume] in Serum or PlasmaOrdered By: Marin Whitman on 02-36-2602Rgqjehwsil [Mass/Vol]Creatinine [Mass/volume] in Serum or PlasmaHigh0.60-1.20[facility] Erythrocyte distribution width Auto (RBC) [Ratio]Ordered By: Marin Whitman on 10-81-3763Muovszqwdlq distribution width (RBC) [Ratio]Erythrocyte distribution width [Ratio] by Automated fgqqiDnko46.9-15.3FClinton Memorial Hospital Glucose [Mass/volume] in Serum or PlasmaOrdered By: Marin Whitman on 08-31-2024 Glucose [Mass/Vol]Glucose [Mass/volume] in Serum or Scpnik80-583LvjycfknzOhiohealth Southeastern Medical CenterComment on above:ADA recommended reference rangeRandom Glucose Reference Range is dependent on time and content of last meal. Glucose of more than 200 mg/dL in a nonstressed, ambulatory subject supports the diagnosisof Diabetes Mellitus.Hematocrit Auto (Bld) [Volume fraction]Ordered By: Marin Whitman on 45-69-4155Tqktbdxuei (Bld) [Volume fraction]Hematocrit [Volume Fraction] of Blood by Automated yjkxxRit58.0-46.4FClinton Memorial HospitalHemoglobin [Mass/volume] in BloodOrdered By: Marin Whitman on 08-31-2024 Hemoglobin (Bld) [Mass/Vol]Hemoglobin [Mass/volume] in WhmqeEfn33.8-15.4 [facility] Medical CenterHemogram CBC Without Diffon 08-31-2024 Erythrocyte distribution width (RBC) [Ratio]22.3 %High11.9-15.3The [facility] Physician GroupComment on above:Performed By: #### MG, CBCNO, BMP #### [facility] [address] [place] [id number] USAHematocrit (Bld) [Volume fraction]25.2 %Low34.0-46.4The [facility] Physician GroupComment on above:Performed By: #### MG, CBCNO, BMP #### [facility] [address] [place] [id number] USAHemoglobin (Bld) [Mass/Vol]7.7 g/dLLow11.8-15.4The [facility] Physician GroupComment on above:Performed By: #### MG, CBCNO, BMP #### [address]H (RBC) [Entitic mass]22.2 pgLow24.7-34.3The [facility] Physician GroupComment on above:Performed By: #### MG, CBCNO, BMP #### [address] (RBC) [Entitic vol]73.2 xZZib61-433Xwq [facility] Physician GroupComment on above:Performed By: #### MG, CBCNO, BMP #### [place] [address] USAMean Corpuscular HGB Conc30.3 g/dLLow32.0-35.0The [facility] Physician GroupComment on above:Performed By: #### MG, CBCNO, BMP #### [place] [address] USAPlatelet mean volume (Bld) [Entitic vol]7.5 fLNormal 6.3-10.7The [facility] Physician GroupComment on above:Result Comment: PERFORMED BY: [place] [address] PATHOLOGIST FOREST AIDE ANNELIESE MELENDEZ M.D.Performed By: #### MG, CBCNO, BMP #### [place] [address] USAPlatelets (Bld) [#/Vol]293 10*3/mMIikcco514-103Qzi [facility] Physician GroupComment on above:Performed By: #### MG, CBCNO, BMP #### [place] [address] USARBC (Bld) [#/Vol]3.45 10*6/uLLow3.60-5.00The [facility] Physician GroupComment on above:Performed By: #### MG, CBCNO, BMP #### [place] [address] USAWBC (Bld) [#/Vol]9.2 10*3/uLNormal3.8-11.6The [facility] Physician GroupComment on above:Performed By: #### MG, CBCNO, BMP #### [facility] [address] [place], [place] [address] USAIron [Mass/volume] in Serum or PlasmaOrdered By: Marin Whitman on 54-16-0948Lpcb [Mass/Vol]Iron [Mass/volume] in Serum or PlasmaLow 50-212Ohio[facility] Medical CenterIron and TIBC Profileon 08-31-2024% Iron Fruqzmwfdl94.3 %Etb10-95Ocr [facility] Physician GroupComment on above:Order Comment: Comment add onPerformed By: #### MG, CBCNO, BMP #### [facility] [address] [place] [address] USAIron [Mass/Vol]43 ug/fCIkn21-939Hwa [facility] Physician GroupComment on above:Order Comment: Comment add onPerformed By: #### MG, CBCNO, BMP #### [facility] [address] [place], [place] [address] USATotal Iron Binding Zhrgyflc750 ug/wPXyuvtt151-736Qkr [facility] Physician GroupComment on above:Order Comment: Comment add onPerformed By: #### MG, CBCNO, BMP #### [facility] [address] [place], [place] [address] USATransferrin [Mass/Vol]201 mg/qFUzp354-700Bxl [facility] Physician GroupComment on above:Order Comment: Comment add onResult Comment: PERFORMED BY: [place] [address] PATHOLOGIST FOREST AIDE ANNELIESE MELENDEZ M.D.Performed By: #### MG, CBCNO, BMP #### [facility] [address] [place] [address] USALeukocytes [#/volume] corrected for nucleated erythrocytes in Blood by Automated counOrdered By: Marin Whitman on 55-52-8890YRE corrected for nucl RBC Auto (Bld) [#/Vol]Leukocytes [#/volume] corrected for nucleated erythrocytes in Blood by Automated coun3.8-11.6FClinton Memorial Hospital MCH Auto (RBC) [Entitic mass]Ordered By: Marin Whitman on 88-13-7173CYV (RBC) [Entitic mass]MCH [Entitic mass] by Automated lfwqhBni63.7-34.3FClinton Memorial HospitalMCHC Auto (RBC) [Mass/Vol]Ordered By: Marin Whitman on 29-30-7063VQQX (RBC) [Mass/Vol]MCHC [Mass/volume] by Automated hsyowVpb73.0-35.0 [facility] CenterMCV Auto (RBC) [Entitic vol]Ordered By: Marin Whitman on 63-14-3626NMG (RBC) [Entitic vol]MCV [Entitic volume] by Automated twmtbYfa57-663HztrrulzjOhiohealth Southeastern Medical CenterMagnesiumon 01-75-2541Usndfaetr [Mass/Vol]1.7 mg/dLLow1.9-2.7The [facility] Physician GroupComment on above: Result Comment: PERFORMED BY: [place] [address] PATHOLOGIST FOREST AIDE ANNELIESE MELENDEZ M.D.Performed By: #### MG, CBCNO, BMP #### [place] [address] USAMagnesium [Mass/volume] in Serum or PlasmaOrdered By: Marin Whitman on 55-05-2209Yiqqyvsei [Mass/Vol]Magnesium [Mass/volume] in Serum or PlasmaLow1.9-2.7FClinton Memorial HospitalNo Panel InformationOrdered By: Marin Whitman on 19-27-3432Uyivvholg GFR (CKD-EPI)27.439 mL/MinOhiohealth Southeastern Medical CenterPharmacy Creatinine Clearance (Chem29.96[facility] Medical CenterPlatelet mean volume Auto (Bld) [Entitic vol]Ordered By: Marin Whitman on 18-75-6647Nzjwsztu mean volume (Bld) [Entitic vol]Platelet mean volume [Entitic volume] in Blood by Automated count6.3-10.7FClinton Memorial HospitalPlatelets Auto (Bld) [#/Vol]Ordered By: Marin Whitman on 08-31-2024 Platelets (Bld) [#/Vol]Platelets [#/volume] in Blood by Automated ctdix291-062 [facility] CenterPotassium [Moles/volume] in Serum or Plasma Ordered By: Marin Whitman on 52-73-0165Tjryykgjx [Moles/Vol]Potassium [Moles/volume] in Serum or Plasma3.5-5.1FClinton Memorial HospitalRBC Auto (Bld) [#/Vol]Ordered By: Marin Whitman on 87-24-3822TNO (Bld) [#/Vol] Erythrocytes [#/volume] in Blood by Automated countLow3.60-5.00Mercy Memorial Hospitalerum or plasma anion gap determinationOrdered By: Marin Whitman on 63-60-1856Xdwsf gap [Moles/Vol]Serum or plasma anion gap determination 6.0-15.0Mercy Memorial Hospitalerum or plasma iron binding capacity measurement (mass/volume)Ordered By: Marin Whitman on 43-26-6287Okoh binding capacity [Mass/Vol]Iron binding capacity [Mass/volume] in Serum or Uewknt339-912 [facility] Memorial Hospitalerum or plasma iron saturation measurement (mass fraction)Ordered By: Marin Whitman on 35-03-2632Majo saturation [Mass fraction]Iron saturation [Mass Fraction] in Serum or CuhhlqEed99-65VgtniutihMercy Memorial Hospitalodium [Moles/volume] in Serum or PlasmaOrdered By: Marin Whitman on 55-42-0663Fdpjqf [Moles/Vol]Sodium [Moles/volume] in Serum or Plasma 136-145Ohio[facility] Medical CenterTransferrin [Mass/volume] in Serum or PlasmaOrdered By: Marin Whitman on 34-23-7007Dmmlpphdgqk [Mass/Vol]Transferrin [Mass/volume] in Serum or XayswlYsl920-614YzmxrgufkOhiohealth Southeastern Medical CenterUrea nitrogen [Mass/volume] in Serum or PlasmaOrdered By: Marin Whitman on 08-31-2024 Urea nitrogen [Mass/Vol]Urea nitrogen [Mass/volume] in Serum or PlasmaHigh7-25 [facility] CenterBasic Metabolic Panelon 93-59-2695Cposq gap [Moles/Vol]10.9 mmol/LNormal6.0-15.0The [facility] Physician GroupComment on above:Performed By: #### MONICA DE JESUS, BMP #### [facility] [address] [place] [address] USACalcium [Mass/Vol]8.7 mg/dLNormal8.6-10.3The [facility] Physician GroupComment on above:Performed By: #### MONICA DE JESUS, BMP #### [facility] [address] [place] [address] USAChloride [Moles/Vol]101 mmol/CKlhygw47-577Rnx [facility] Physician GroupComment on above:Performed By: #### MONICA DE JESUS, BMP #### [facility] [address] [place] [address] USACO2 [Moles/Vol]28.4 mmol/ZYbmqtb44.0-31.0The [facility] Physician GroupComment on above:Performed By: #### MONICA DE JESUS, BMP #### [facility] [address] [place] [address] USACreatinine [Mass/Vol]1.57 mg/dLHigh0.60-1.20The [facility] Physician GroupComment on above:Performed By: #### MONICA DE JESUS, BMP #### [facility] [address] [place] [address] USACreatinine Clr Calc Pqerpzkw14.89NormHCA Florida Trinity Hospital Physician GroupComment on above:Performed By: #### MONICA DE JESUS, BMP #### [facility] [address] [place] [address] USAEstimated GFR32.331 mL/MinNoAtrium Health Physician GroupComment on above:Performed By: #### MONICA DE JESUS, BMP #### [facility] [address] [place] [address] USAGlucose [Mass/Vol]88 mg/cSNvgpqu72-640Oyn [facility] Physician GroupComment on above:Result Comment: Random Glucose Reference Range is dependent on time and content of last meal. Glucose of more than 200 mg/dL in a nonstressed, ambulatory subject supports the diagnosis of Diabetes Mellitus. ADA recommended reference rangePerformed By: #### MG CBCNO, BMP #### [facility] [address] [place] [address] USAPotassium [Moles/Vol]4.3 mmol/LNormal3.5-5.1The [facility] Physician GroupComment on above:Result Comment: Hemolysis is present at a level that could interfere with the result. Contact lab if redraw is requiredPerformed By: #### MG CBCNO, BMP #### [facility] [address] [place] [address] USASodium [Moles/Vol]136 mmol/SEirwib439-551Wqx [facility] Physician GroupComment on above:Performed By: #### MG CBCNO, BMP #### [place] [address] USAUrea nitrogen [Mass/Vol]36 mg/dLHigh7-25The [facility] Physician GroupComment on above:Performed By: #### MG CBCNO, BMP #### [place] [address] USAHemogram CBC Without Diffon 27-32-3605Kejvojggvto distribution width (RBC) [Ratio]21.8 %High11.9-15.3The [facility] Physician Group Comment on above:Performed By: #### MG CBCNO, BMP #### [place] [address] USAHematocrit (Bld) [Volume fraction]23.2 %Low34.0-46.4The [facility] Physician GroupComment on above:Performed By: #### MG CBCNO, BMP #### [place] [address] USAHemoglobin (Bld) [Mass/Vol]7.0 g/dLLow11.8-15.4The [facility] Physician GroupComment on above:Performed By: #### MG, CBCNO, BMP #### [place] [address] USAMCH (RBC) [Entitic mass]21.7 pgLow24.7-34.3The [facility] Physician GroupComment on above:Performed By: #### MG, CBCNO, BMP #### [place] [address] USAMCV (RBC) [Entitic vol]72.0 nEZos34-039Mmw [facility] Physician GroupComment on above:Performed By: #### MG, CBCNO, BMP #### [place] [address] USAMean Corpuscular HGB Conc30.1 g/dLLow32.0-35.0The [facility] Physician GroupComment on above:Performed By: #### MG, CBCNO, BMP #### [place] [address] USAPlatelet mean volume (Bld) [Entitic vol]7.6 fLNormal 6.3-10.7The [facility] Physician GroupComment on above:Result Comment: PERFORMED BY: [place] [address] PATHOLOGIST FOREST AIDE ANNELIESE MELENDEZ M.D.Performed By: #### MG, CBCNO, BMP #### [place] [address] USAPlatelets (Bld) [#/Vol]305 10*3/mWRzzfet954-790Ine [facility] Physician GroupComment on above:Performed By: #### MG, CBCNO, BMP #### [place] [address] USARBC (Bld) [#/Vol]3.21 10*6/uLLow3.60-5.00The [facility] Physician GroupComment on above:Performed By: #### MG, CBCNO, BMP #### [place] [address] USAWBC (Bld) [#/Vol]7.5 10*3/uLNormal3.8-11.6The [facility] Physician GroupComment on above:Performed By: #### MG, CBCNO, BMP #### [place] [address] USAMagnesiumon 87-97-6049Iuawbtezr [Mass/Vol]1.9 mg/dLNormal 1.9-2.7The [facility] Physician GroupComment on above:Result Comment: PERFORMED BY: [place] [address] PATHOLOGIST FOREST AIDE ANNELIESE MELENDEZ M.D.Performed By: #### MG, CBCNO, BMP #### [facility] [address] [place] [address] USAAppearance of UrineOrdered By: Marin Whitman on 08-29-2024 Appearance (U)Urine appearanceCleKettering Health DaytonBacteria [Presence] in Urine by AutomatedOrdered By: Marin Whitman on 89-31-5971Pjyuizbq Auto Ql (U)Bacteria [Presence] in Urine by AutomatedHighNone [facility] Medical CenterBasic Metabolic Panelon 76-69-6539Qygnj gap [Moles/Vol] 11.1 mmol/LNormal6.0-15.0The [facility] Physician GroupComment on above:Performed By: #### MG, CBCNO, BMP #### [facility] [address] [place] [address] USACalcium [Mass/Vol]8.9 mg/dLNormal8.6-10.3The [facility] Physician GroupComment on above:Performed By: #### MG, CBCNO, BMP #### [facility] [address] [place] [address] USAChloride [Moles/Vol]104 mmol/HBophsq30-177Ysk [facility] Physician GroupComment on above:Performed By: #### MG, CBCNO, BMP #### [facility] [address] [place] [address] USACO2 [Moles/Vol]26.6 mmol/NPdlcgy97.0-31.0The [facility] Physician GroupComment on above:Performed By: #### MG, CBCNO, BMP #### [facility] [address] [place] [address] USACreatinine [Mass/Vol]1.55 mg/dLHigh0.60-1.20The [facility] Physician GroupComment on above:Performed By: #### MGPACONO, BMP #### [facility] [address] [place] [address] USACreatinine Clr Calc Joidnvnf96.31NormHCA Florida Trinity Hospital Physician GroupComment on above:Performed By: #### MONICA DE JESUS, BMP #### [facility] [address] [place] [address] USAEstimated GFR32.832 mL/MinNormHCA Florida Trinity Hospital Physician GroupComment on above:Performed By: #### MGPACONO, BMP #### [place] [address] USAGlucose [Mass/Vol]98 mg/vIVucfyo23-788Olp [facility] Physician GroupComment on above:Result Comment: Random Glucose Reference Range is dependent on time and content of last meal. Glucose of more than 200 mg/dL in a nonstressed, ambulatory subject supports the diagnosis of Diabetes Mellitus. ADA recommended reference rangePerformed By: #### MONICA DE JESUS, BMP #### [place] [address] USAPotassium [Moles/Vol]4.7 mmol/LNormal3.5-5.1The [facility] Physician GroupComment on above:Performed By: #### MGMONICA, BMP #### [place] [address] USASodium [Moles/Vol]137 mmol/IDagdcc711-328Fgv [facility] Physician GroupComment on above:Performed By: #### MGMONICA, BMP #### [place] [address] USAUrea nitrogen [Mass/Vol]39 mg/dLHigh7-25The [facility] Physician GroupComment on above:Performed By: #### MGPACONO, BMP #### [place] [address] USABasophils Auto (Bld) [#/Vol]Ordered By: Marin Whitman on 40-86-7745Ooxjfydyv (Bld) [#/Vol]Automated basophil count0.0-0.2FClinton Memorial HospitalBasophils/100 WBC Auto (Bld)Ordered By: Marin Whitman on 14-55-4846Rggjsseln/100 WBC (Bld)Automated basophil %.[facility] Medical CenterBilirubin Test strip Ql (U)Ordered By: Marin Whitman on 08-29-2024 Bilirubin Ql (U)Bilirubin.total [Presence] in Urine by Test stripNegative [facility] Medical CenterColor Auto (U)Ordered By: Marin Whitman on 68-13-3015Buqam (U)Color of Urine by AutoYellowOhiohealth Southeastern Medical Center Complete Blood Count Auto Diffon 62-96-3610Hatheriac (Bld) [#/Vol]0.0 10*3/uL Normal0.0-0.2The [facility] Physician GroupComment on above:Performed By: #### MG, CBCNO, BMP #### [facility] [address] [place] [address] USABasophils/100 WBC (Bld)0.4 %Normal.The [facility] Physician GroupComment on above:Performed By: #### MG, CBCNO, BMP #### [facility] [address] [place] [address] USAEosinophils (Bld) [#/Vol]0.1 10*3/uLNormal0.0-0.45The [facility] Physician GroupComment on above:Performed By: #### MG, CBCNO, BMP #### [facility] [address] [place] [id number] USAEosinophils/100 WBC (Bld)0.6 %Normal.The [facility] Physician GroupComment on above:Performed By: #### MG, CBCNO, BMP #### [facility] [address] [place] [id number] USAErythrocyte distribution width (RBC) [Ratio]21.5 %High 11.9-15.3The [facility] Physician GroupComment on above:Performed By: #### MG, CBCNO, BMP #### [facility] [address] [place] [address] USAHematocrit (Bld) [Volume fraction]23.6 %Low34.0-46.4The [facility] Physician GroupComment on above:Performed By: #### MG, CBCNO, BMP #### [place] [address] USAHemoglobin (Bld) [Mass/Vol]7.1 g/dLLow11.8-15.4The [facility] Physician GroupComment on above:Performed By: #### MG, CBCNO, BMP #### [place] [address] USALymphocytes (Bld) [#/Vol]2.1 10*3/uLNormal1.00-4.8The [facility] Physician GroupComment on above:Performed By: #### MG, CBCNO, BMP #### [place] [address] USALymphocytes/100 WBC (Bld)20.1 %Normal.The [facility] Physician GroupComment on above:Performed By: #### MG, CBCNO, BMP #### [place] [address] USAMCH (RBC) [Entitic mass]21.7 pgLow24.7-34.3The [facility] Physician GroupComment on above:Performed By: #### MG, CBCNO, BMP #### [place] [address] USAMCV (RBC) [Entitic vol]71.6 tECst20-480Nuq [facility] Physician GroupComment on above:Performed By: #### MG, CBCNO, BMP #### [place] [address] USAMean Corpuscular HGB Conc30.2 g/dLLow32.0-35.0The [facility] Physician GroupComment on above:Performed By: #### MG, CBCNO, BMP #### [place] [address] USAMonocytes (Bld) [#/Vol]0.9 10*3/uLHigh0.0-0.8The [facility] Physician GroupComment on above:Performed By: #### MG, CBCNO, BMP #### [facility] [address] [place] [address] USAMonocytes/100 WBC (Bld)8.8 %Normal.The [facility] Physician GroupComment on above:Performed By: #### MG, CBCNO, BMP #### [facility] [address] [place] [address] USANeutrophils (Bld) [#/Vol]7.2 10*3/uLNormal1.8-7.7The [facility] Physician GroupComment on above:Performed By: #### MG, CBCNO, BMP #### [facility] [address] [place] [address] USANeutrophils/100 WBC (Bld)70.1 %Normal.The [facility] Physician GroupComment on above:Performed By: #### MG, CBCNO, BMP #### [facility] [address] [place] [address] USANRBC%0.9 /100{WBC}High0-0.5The [facility]ician Group Comment on above:Performed By: #### MG, CBCNO, BMP #### [facility] [address] [place] [address] USAPlatelet mean volume (Bld) [Entitic vol]7.4 fLNormal 6.3-10.7The [facility] Physician GroupComment on above:Performed By: #### MG, CBCNO, BMP #### [facility] [address] [place] [address] USAPlatelets (Bld) [#/Vol]350 10*3/rCQmpgjh031-384Yvx [facility] Physician GroupComment on above:Performed By: #### MG, CBCNO, BMP #### [facility] [address] [place] [address] USARBC (Bld) [#/Vol]3.29 10*6/uLLow3.60-5.00The [facility] Physician GroupComment on above:Performed By: #### MG, CBCNO, BMP #### [facility] [address] [place] [address] USAWBC (Bld) [#/Vol]10.3 10*3/uLNormal3.8-11.6The [facility] Physician GroupComment on above:Performed By: #### MG, CBCNO, BMP #### [facility] [address] [place] [address] USADipstick and Microscopicon 51-63-0530Nzftstkpfl (U)Clear NormalClearThe [facility] Physician GroupComment on above:Order Comment: Name Collection Type:: Clean-Voided MidstreamPerformed By: #### MG, CBCNO, BMP #### [facility] [address] [place] [address] USABacteria,Urine1+HighNone SeenThe [facility] Physician Group Comment on above:Order Comment: Name Collection Type:: Clean-Voided Midstream Performed By: #### MG, CBCNO, BMP #### [place] [address] USABilirubin,UrineNegativeNormalNegativeTampa General Hospital Physician GroupComment on above:Order Comment: Name Collection Type:: Clean- Voided MidstreamPerformed By: #### MG, CBCNO, BMP #### [place] [address] USAColor (U)Light-YellowNormalYellowTampa General Hospital Physician GroupComment on above:Order Comment: Name Collection Type:: Clean-Voided MidstreamPerformed By: #### MG, CBCNO, BMP #### [facility] [address] [place] [address] USAGlucose Ql (U)NormalNormalNormalThSt. Luke's Boise Medical Center Physician GroupComment on above:Order Comment: Name Collection Type:: Clean-Voided MidstreamPerformed By: #### MG, CBCNO, BMP #### [place] [address] USAHyaline Casts,Vqkav5-7Gvalzd9-9Ceq [facility] Physician GroupComment on above:Order Comment: Name Collection Type:: Clean-Voided MidstreamResult Comment: PERFORMED BY: [place] [address] PATHOLOGIST FOREST AIDE ANNELIESE MELENDEZ M.D.Performed By: #### MG, CBCNO, BMP #### [place] [address] USAKetones Ql (U)NegativeNormalNegativeThe [facility] Physician GroupComment on above:Order Comment: Name Collection Type:: Clean- Voided MidstreamPerformed By: #### MG, CBCNO, BMP #### [place] [address] USALeukocyte esterase Test strip Ql (U)4+HighNegativeThe [facility] Physician GroupComment on above:Order Comment: Name Collection Type:: Clean-Voided MidstreamPerformed By: #### MG, CBCNO, BMP #### [place] [address] USANitrite,UrinePositiveHighNegativeThe [facility] Physician GroupComment on above:Order Comment: Name Collection Type:: Clean-Voided MidstreamPerformed By: #### MG, CBCNO, BMP #### [place] [address] USAOccult Blood,UrineNegativeNormalNegativeThe [facility] Physician GroupComment on above:Order Comment: Name Collection Type:: Clean- Voided MidstreamResult Comment: PERFORMED BY: [place] [address] PATHOLOGIST FOREST AIDE ANNELIESE MELENDEZ M.D.Performed By: #### MG, CBCNO, BMP #### [place] [address] USApH (U)6.5 [pH]Normal5.0-9.0The [facility]ician [facility] Comment on above:Order Comment: Name Collection Type:: Clean-Voided Midstream Performed By: #### MG, CBCNO, BMP #### [place] [address] USAProtein,UrineNegativeNormalNegativeThe [facility] Physician GroupComment on above:Order Comment: Name Collection Type:: Clean-Voided MidstreamPerformed By: #### MG, CBCNO, BMP #### [address] [place] [address] USARBC,Eezip2-3Ejvslg5-1Egy [facility] Physician GroupComment on above:Order Comment: Name Collection Type:: Clean-Voided MidstreamPerformed By: #### MG, CBCNO, BMP #### [facility] [address] [place] [address] USASpecificy [place],Urine1.112Pwnuiq5.001-1.030The [facility] Physician GroupComment on above:Order Comment: Name Collection Type:: Clean- Voided MidstreamPerformed By: #### MG, CBCNO, BMP #### [place] [address] USASquamous Epithelial Cell,Qfswf3-4Aptzvm4-6Npq [facility] Physician GroupComment on above:Order Comment: Name Collection Type:: Clean- Voided MidstreamPerformed By: #### MG, CBCNO, BMP #### [facility] [address] [place] [address] USAUrobilinogen,UrineNormalNormalNormalThe [facility] Physician GroupComment on above:Order Comment: Name Collection Type:: Clean- Voided MidstreamPerformed By: #### MG, CBCNO, BMP #### [place] [address] USAWBC,Nxzvm91-34Cxgr3-5Rqd [facility] Physician GroupComment on above:Order Comment: Name Collection Type:: Clean-Voided MidstreamPerformed By: #### MG, CBCNO, BMP #### [place] [address] USAEosinophils Auto (Bld) [#/Vol]Ordered By: Marin Whitman on 85-41-7825Nihbsanpumy (Bld) [#/Vol]Automated eosinophil count0.0-0.45[facility] Medical CenterEosinophils/100 WBC Auto (Bld)Ordered By: Marin Whitman on 87-10-4607Ugothilcssq/100 WBC (Bld)Automated eosinophil %.[facility] Medical CenterEpithelial cells.squamous [#/area] in Urine sediment by Automated countOrdered By: Marin Whitman on 10-49-7183Irvoflnetw cells.squamous Auto (Urine sed) [#/Area]Epithelial cells.squamous [#/area] in Urine sediment by Automated count02FClinton Memorial HospitalErythrocytes [#/area] in Urine sediment by Automated countOrdered By: Marin Whitman on 74-48-5948JDV Auto (Urine sed) [#/Area]Erythrocytes [#/area] in Urine sediment by Automated count0-4FClinton Memorial HospitalGlucose [Mass/volume] in Urine by Test stripOrdered By: Marin Whitman on 32-38-0715Tmqtfyg Test strip (U) [Mass/Vol]Glucose [Mass/volume] in Urine by Test stripMercy Health Defiance HospitalHemoglobin Test strip Ql (U)Ordered By: Marni Whitman on 59-52-4477Rwncoglcoz Ql (U)Hemoglobin [Presence] in Urine by Test stripNegDelaware County Hospital Hyaline casts [#/area] in Urine sediment by Automated countOrdered By: Marin Whitman on 38-92-7052Qdnwhzz casts Auto (Urine sed) [#/Area]Hyaline casts [#/area] in Urine sediment by Automated count0-[address] [place], [place] [address]Ketones Test strip Ql (U)Ordered By: Marin Whitman on 64-67-0361Wdeptrd Ql (U)Ketones [Presence] in Urine by Test stripAultman Alliance Community HospitalLeukocyte esterase [Presence] in Urine by Test stripOrdered By: Marin Whitman on 90-03-2544Dwuafjgwn esterase Test strip Ql (U)Leukocyte esterase [Presence] in Urine by Test stripWetzel County HospitalNegDelaware County Hospital Leukocytes [#/area] in Urine sediment by Automated countOrdered By: Marin Whitman on 08-85-7524NIK Auto (Urine sed) [#/Area]Leukocytes [#/area] in Urine sediment by Automated countHigh04FClinton Memorial HospitalLymphocytes Auto (Bld) [#/Vol]Ordered By: Marin Whitman on 52-81-1124Nzkiyuswrnl (Bld) [#/Vol] Lymphocytes [#/volume] in Blood by Automated count1.00-4.8[facility] Medical CenterLymphocytes/100 WBC Auto (Bld)Ordered By: Marin Whitman on 65-14-6558Iyiantdrblg/100 WBC (Bld)Lymphocytes/100 leukocytes in Blood by Automated count.[facility] Medical CenterMagnesiumon 38-83-0842Sohihcfyu [Mass/Vol]2.3 mg/dLNormal1.9-2.7The [facility] Physician GroupComment on above: Result Comment: PERFORMED BY: [facility] [address] [place] [address] PATHOLOGIST FOREST AIDE ANNELIESE MELENDEZ M.D.Performed By: #### MG, CBCNO, BMP #### [place] [address] USAMonocytes Auto (Bld) [#/Vol]Ordered By: Marin Whitman on 64-37-6233Lkqlfroid (Bld) [#/Vol]Automated blood monocyte countHigh0.0-0.8 [facility] CenterMonocytes/100 WBC Auto (Bld)Ordered By: Marin Whitman on 11-23-6751Jatzaerqj/100 WBC (Bld)Automated monocyte %.[facility] Medical CenterNeutrophils Auto (Bld) [#/Vol]Ordered By: Marni Whitman on 10-92-3890Nwkstibfxzb (Bld) [#/Vol]Neutrophils [#/volume] in Blood by Automated count1.8-7.7FClinton Memorial HospitalNeutrophils/100 WBC Auto (Bld) Ordered By: Marin Whitman on 15-00-1178Dhsoatmrxqy/100 WBC (Bld)Automated neutrophil %.[facility] Medical CenterNitrite Test strip Ql (U)Ordered By: Marin Whitman on 12-55-0374Nyknoyl Ql (U)Nitrite [Presence] in Urine by Test stripHighNegativeOhiohealth Southeastern Medical CenterNucleated erythrocytes [Presence] in Blood by Automated countOrdered By: Marin Whitman on 08-29-2024 Nucleated RBC Auto Ql (Bld)Nucleated erythrocytes [Presence] in Blood by Automated countHigh0-0.5FClinton Memorial HospitalProtein Test strip (U) [Mass/Vol]Ordered By: Marin Whitman on 52-13-6618Eluhjpr (U) [Mass/Vol]Protein [Mass/volume] in Urine by Test stripNegativeOhiohealth Southeastern Medical Center Reticulocyte Counton 79-68-8158Hvvujbylvjlj Number0.093 10*6/uLHigh0.024-0.084 The [facility] Physician GroupComment on above:Result Comment: PERFORMED BY: [facility] [address] [facility] [address] PATHOLOGIST FOREST AIDE ANNELIESE MELENDEZ M.D.Performed By: #### MG, CBCNO, BMP #### [facility] [address] [place] [address] USAReticulocyte Percent2.8 %High0.5-1.5The [facility] Physician GroupComment on above:Performed By: #### MG, CBCNO, BMP #### [facility] [address] [place] [address] USAReticulocytes [#/volume] in BloodOrdered By: Marin Whitman on 76-84-9455Ozqgupvlglove (Bld) [#/Vol]Absolute reticulocyte countHigh 0.024-0.084Ohio[facility]heastern Medical CenterReticulocytes/100 RBC Auto (Bld) Ordered By: Marin Whitman on 25-20-6514Rzlgvjijqumax/100 RBC (Bld)Reticulocyte % autoHigh0.5-1.5FUniversity Hospitals Geneva Medical Centerpecific gravity Test strip (U) [Rel density]Ordered By: Marin Whitman on 90-97-3989Wjfhwiuk gravity (U) [Rel density]Specific gravity of Urine by Test strip1.001-1.030[facility] Medical CenterUrine Cultureon 76-91-4677Hsxcnsbl identified Cx Nom (U)ORGANISM: Proteus mirabilis (O:PROMIR) [place] Count >100,000 Aerobic HARSHAD Charge (NMIC56) SUSCEPTIBILITY ORGANISM: O:PROMIR ANTIBIOTIC INTERPRETATION HARSHAD Amikacin S <16 Amoxacillin/K Clavulanate S <8 Ampicillin S <8 Ampicillin/Sulbactam S <4 Aztreonam S <4 Cefazolin S <2 Cefepime S <2 Ceftazidime S <1 Ceftazidime/Avibactam S <4 Ceftolozane/Tazobactam S <2 Ceftriaxone S <1 Cefuroxime S <4 Ciprofloxacin S <0.25 Ertapenem S <0.5 Gentamicin S <2 Levofloxacin S <0.5 Meropenem S <1 Meropenem/Vaborbactam S <2 Piperacillin/Tazobactam S <8 Tobramycin S <2 Trimethoprim/Sulfamethoxazole S <0.5 S = SUSCEPTIBLE I = INTERMEDIATE R = RESISTANT BLANK = DATA NOT AVAILABLE, OR DRUG NOT ADVISABLE OR TESTED R* = RESISTANCE DUE TO EXTENDED SPECTRUM BETA-LACTAMASES ESBL = EXTENDED SPECTRUM BETA-LACTAMASE TFG = THYMIDINE-DEPENDENT STRAIN KUN = BETA-LACTAMASE POSITIVE IB = INDUCIBLE BETA-LACTAMASE. APPEARS IN PLACE OF 'S' WITH SPECIES KNOWN TO POSSESS INDUCIBLE BETA-LACTAMASES. POTENTIALLY THEY MAY BECOME RESISTANT TO ALL B-LACTAM DRUGS. PERFORMED BY: [place] [address] PATHOLOGIST FOREST AIDE ANNELIESE MLEENDEZ M.D.[facility] Physician GroupComment on above: Performed By: #### MG, CBCNO, BMP #### [facility] [address] [place] [address] USAUrine cultureOrdered By: Marin Whitman on 08-29-2024 Bacteria identified Cx Nom (U)AbnormalOhiohealth Southeastern Medical Center Urobilinogen Test strip (U) [Mass/Vol]Ordered By: Marin Whitman on 08-29-2024 Urobilinogen (U) [Mass/Vol]Urobilinogen [Mass/volume] in Urine by Test strip [facility] HospitalWBC Auto (Bld) [#/Vol]Ordered By: Marin Whitman on 92-73-5878YMC (Bld) [#/Vol]Leukocytes [#/volume] in Blood by Automated count3.8-11.6FClinton Memorial HospitalpH Test strip (U)Ordered By: Marin Whitman on 47-40-3269sO (U)pH of Urine by Test strip5.0-9.0[facility] Medical CenterABO/Rh Retypeon 35-97-5505VQK/RH Recheck ResultPositive NormalThe [facility] Physician GroupComment on above:Result Comment: PERFORMED BY: [facility] [address] [place] [address] PATHOLOGIST FOREST AIDE ANNELIESE MELENDEZ M.D.Alanine aminotransferase [Enzymatic activity/volume] in Serum or PlasmaOrdered By: Randall Dalal on 87-66-4724UQD [Catalytic activity/Vol]Alanine aminotransferase [Enzymatic activity/volume] in Serum or PlasmaLow7-52[facility] Medical CenterAlbumin [Mass/volume] in Serum or Plasma by Bromocresol green (BCG) dye binding methoOrdered By: Randall Dalal on 65-43-5357Nvxrhdu BCG dye [Mass/Vol]Albumin [Mass/volume] in Serum or Plasma by Bromocresol green (BCG) dye binding methoLow3.5-5.7FClinton Memorial HospitalAlkaline phosphatase [Enzymatic activity/volume] in Serum or PlasmaOrdered By: Randall Dalal on 23-18-4956ROH [Catalytic activity/Vol]Alkaline phosphatase [Enzymatic activity/volume] in Serum or BmkrdsMxmm03-614UlzjyuykuOhiohealth Southeastern Medical CenterAnisocytosis LM Ql (Bld)Ordered By: Randall Dalal on 08-28-2024 Anisocytosis Ql (Bld)Anisocytosis [Presence] in Blood by Light microscopy [facility] CenterAspartate aminotransferase [Enzymatic activity/volume] in Serum or PlasmaOrdered By: Randall Dalal on 83-58-9276LPW [Catalytic activity/Vol]Aspartate aminotransferase [Enzymatic activity/volume] in Serum or Aozqpb35-48MxhbkyqkoOhiohealth Southeastern Medical CenterBasophils Auto (Bld) [#/Vol]Ordered By: Randall Dalal on 24-46-9650Erjmfhfmk (Bld) [#/Vol]Automated basophil countOhiohealth Southeastern Medical CenterBasophils/100 WBC Auto (Bld) Ordered By: Randall Dalal on 01-77-6516Dfiutlkgc/100 WBC (Bld)Automated basophil %[facility] Medical CenterBasophils/100 WBC Manual cnt (Bld)Ordered By: Randall Dalal on 23-70-3437Yadfkzmyl/100 WBC (Bld)Basophils/100 leukocytes in Blood by Manual count0-2FClinton Memorial HospitalBilirubin.total [Mass/volume] in Serum or PlasmaOrdered By: Randall Dalal on 73-93-4968Baccitcaq [Mass/Vol]Bilirubin.total [Mass/volume] in Serum or Plasma0.3-1.0[facility] Medical CenterBlood Cultureon 33-07-2499Couoflnh identified Cx Nom (Bld)NO GROWTH 5 DAYS PERFORMED BY: [place] [address] PATHOLOGIST FOREST AIDE ANNELIESE MELENDEZ M.D.[facility] Physician GroupComment on above: Performed By: #### MG, CBCNO, BMP #### [facility] [address] [place] [address] USABacteria identified Cx Nom (Bld)NO GROWTH 5 DAYS PERFORMED BY: [place] [address] PATHOLOGIST FOREST AIDE ANNELIESE MELENDEZ M.D.[facility] Physician GroupComment on above: Performed By: #### MG, CBCNO, BMP #### [facility] [address] [place] [address] USACalcium [Mass/volume] in Serum or PlasmaOrdered By: Randall Dalal on 69-00-8672Vlcsbec [Mass/Vol]Calcium [Mass/volume] in Serum or Plasma 8.6-10.3FClinton Memorial HospitalCarbon dioxide, total [Moles/volume] in Serum or PlasmaOrdered By: Randall Dalal on 16-41-1320DA4 [Moles/Vol]Carbon dioxide, total [Moles/volume] in Serum or Milvxd47.0-31.0[facility] Medical CenterChloride [Moles/volume] in Serum or PlasmaOrdered By: Randall Dalal on 44-49-8790Ivqyjqjh [Moles/Vol]Chloride [Moles/volume] in Serum or Plasma 98-107[facility] Medical CenterComprehensive Metabolic Panelon 10-52-3676Ejsqjbx [Mass/Vol]3.0 g/dLLow3.5-5.7The [facility]ician [facility] Comment on above:Performed By: #### CUBLD, MG, PTT, PT, CMP, DIFF CBC #### [facility] [address] [place] [address] USAAlbumin/Globulin [Mass ratio]0.8 {ratio}NormalThe [facility] Physician GroupComment on above:Performed By: #### CUBLD, MG, PTT, PT, CMP, DIFF CBC #### [facility] [address] [place] [address] USAALP [Catalytic activity/Vol]124 U/KLbfq54-120Tvn [facility] Physician GroupComment on above:Performed By: #### CUBLD, MG, PTT, PT, CMP, DIFF CBC #### [place] [address] USAALT [Catalytic activity/Vol]6 U/LLow7-52The [facility] Physician GroupComment on above:Performed By: #### CUBLD, MG, PTT, PT, CMP, DIFF CBC #### [place] [address] USAAnion gap [Moles/Vol]13.5 mmol/LNormal6.0-15.0The [facility] Physician GroupComment on above:Performed By: #### CUBLD, MG, PTT, PT, CMP, DIFF CBC #### [place] [address] USAAST [Catalytic activity/Vol]13 U/ZUrvuhh67-60Bjd [facility] Physician GroupComment on above:Performed By: #### CUBLD, MG, PTT, PT, CMP, DIFF CBC #### [place] [address] USABilirubin [Mass/Vol]0.5 mg/dLNormal0.3-1.0The [facility] Physician GroupComment on above:Performed By: #### CUBLD, MG, PTT, PT, CMP, DIFF CBC #### [place] [id number] USACalcium [Mass/Vol]9.1 mg/dLNormal8.6-10.3The [facility] Physician GroupComment on above:Performed By: #### CUBLD, MG, PTT, PT, CMP, DIFF CBC #### [place] [address] USAChloride [Moles/Vol]103 mmol/ZRtycwu96-680Rdt [facility] Physician GroupComment on above:Performed By: #### CUBLD, MG, PTT, PT, CMP, DIFF CBC #### [place] [address] USACO2 [Moles/Vol]24.3 mmol/ABoiqal40.0-31.0The [facility] Physician GroupComment on above:Performed By: #### CUBLD, MG, PTT, PT, CMP, DIFF CBC #### [place] [address] USACreatinine [Mass/Vol]1.62 mg/dLHigh0.60-1.20The [facility] Physician GroupComment on above:Performed By: #### CUBLD, MG, PTT, PT, CMP, DIFF CBC #### [place] [address] USACreatinine Clr Calc Mgtfoqum99.71NormHCA Florida Trinity Hospital Physician GroupComment on above:Result Comment: PERFORMED BY: [place] [address] PATHOLOGIST FOREST AIDE ANNELIESE MELENDEZ M.D.Performed By: #### CUBLD, MG, PTT, PT, CMP, DIFF CBC #### [place] [address] USAEstimated GFR31.137 mL/MinNoAtrium Health Physician Walthall County General HospitalComment on above:Performed By: #### CUBLD, MG, PTT, PT, CMP, DIFF CBC #### [place] [address] USAGlobulin (S) [Mass/Vol]3.8 g/dLNoAtrium Health Physician GroupComment on above:Performed By: #### CUBLD, MG, PTT, PT, CMP, DIFF CBC #### [facility] [address] [place] [address] USAGlucose [Mass/Vol]109 mg/kDYfpx04-607Van [facility] Physician GroupComment on above:Result Comment: Random Glucose Reference Range is dependent on time and content of last meal. Glucose of more than 200 mg/dL in a nonstressed, ambulatory subject supports the diagnosis of Diabetes Mellitus. ADA recommended reference rangePerformed By: #### CUBLD, MG, PTT, PT, CMP, DIFF CBC #### [facility] [address] [place] [address] USAPotassium [Moles/Vol]4.8 mmol/LNormal3.5-5.1The [facility] Physician GroupComment on above:Performed By: #### CUBLD, MG, PTT, PT, CMP, DIFF CBC #### [place] [address] USAProtein [Mass/Vol]6.8 g/dLNormal6.4-8.9The [facility] Physician GroupComment on above:Performed By: #### CUBLD, MG, PTT, PT, CMP, DIFF CBC #### [place] [address] USASodium [Moles/Vol]136 mmol/NWawkol112-286Vus [facility] Physician GroupComment on above:Performed By: #### CUBLD, MG, PTT, PT, CMP, DIFF CBC #### [place] [address] USAUrea nitrogen [Mass/Vol]44 mg/dLHigh7-25The [facility] Physician GroupComment on above:Performed By: #### CUBLD, MG, PTT, PT, CMP, DIFF CBC #### [place] [address] USACreatinine [Mass/volume] in Serum or PlasmaOrdered By: Randall Dalal on 44-09-5703Hpktaletqm [Mass/Vol]Creatinine [Mass/volume] in Serum or PlasmaHigh0.60-1.20[facility] Medical CenterDiff and CBCon 66-50-8947Deimgonzdnrr Ql (Bld)MarkedNormalThe Firelands Physician GroupComment on above:Performed By: #### MG, CBCNO, BMP #### [place] [address] USABasophils/100 WBC (Bld)1 %Normal0-2The [facility] Physician GroupComment on above:Performed By: #### MG, CBCNO, BMP #### [place] [address] USAEosinophils/100 WBC (Bld)2 %Normal1-3The [facility] Physician GroupComment on above:Performed By: #### MG, CBCNO, BMP #### [place] [address] USAErythrocyte distribution width (RBC) [Ratio]21.8 %High 11.9-15.3The [facility] Physician GroupComment on above:Performed By: #### MG, CBCNO, BMP #### [place] [address] USAHematocrit (Bld) [Volume fraction]24.1 %Low34.0-46.4The [facility] Physician GroupComment on above:Performed By: #### MG, CBCNO, BMP #### [place] [address] USAHemoglobin (Bld) [Mass/Vol]7.0 g/dLLow11.8-15.4The [facility] Physician GroupComment on above:Performed By: #### MG, CBCNO, BMP #### [place] [address] USAHypochromasiaModerateNormHCA Florida Trinity Hospital Physician Group Comment on above:Performed By: #### MG, CBCNO, BMP #### [place] [address] USALymphocytes/100 WBC (Bld)18 %Qgyebd55-82Uoj [facility] Physician GroupComment on above:Performed By: #### MG, CBCNO, BMP #### [place] [address] USAMCH (RBC) [Entitic mass]20.5 pgLow24.7-34.3The [facility] Physician GroupComment on above:Performed By: #### MG, CBCNO, BMP #### [facility] [address] [place] [address] USAMCV (RBC) [Entitic vol]71.1 tXRje89-220Uky [facility] Physician GroupComment on above:Performed By: #### MG, CBCNO, BMP #### [facility] [address] [place] [address] USAMean Corpuscular HGB Conc28.9 g/dLLow32.0-35.0The [facility] Physician GroupComment on above:Performed By: #### MG, CBCNO, BMP #### [place] [address] USAMicrocytosisMarkedNormalThe [facility]ician Group Comment on above:Performed By: #### MG, CBCNO, BMP #### [facility] [address] [place] [address] USAMonocytes/100 WBC (Bld)20.85 %High0.00-20.00The [facility] Physician GroupComment on above:Result Comment: For adults in ED, MDW > 20.0 may be associated with a higher risk of sepsis during the first 12 hrs of hospital admissionPerformed By: #### MG, CBCNO, BMP #### [place] [address] USAMonocytes/100 WBC (Bld)4 %Normal2-11The [facility] Physician GroupComment on above:Performed By: #### MG, CBCNO, BMP #### [place] [address] USAMyelocytes2 %High0-0The [facility] Physician GroupComment on above:Performed By: #### MG, CBCNO, BMP #### [place] [address] USANucleated Red Blood Cell1 /100{WBC}High0-0The [facility] Physician GroupComment on above:Performed By: #### MG, CBCNO, BMP #### [place] [address] USAPlatelet EstimateNormalNormalNormHCA Florida Trinity Hospital Physician GroupComment on above:Performed By: #### MG, CBCNO, BMP #### [facility] [address] [place] [address] USAPlatelet mean volume (Bld) [Entitic vol]7.4 fLNormal 6.3-10.7The [facility] Physician GroupComment on above:Result Comment: PERFORMED BY: [place] [address] PATHOLOGIST FOREST AIDE ANNELIESE MELENDEZ M.D.Performed By: #### MG, CBCNO, BMP #### [facility] [address] [place] [address] USAPlatelet MorphologyNormalNormalNoAtrium Health Physician GroupComment on above:Result Comment: PERFORMED BY: [place] [address] PATHOLOGIST FOREST AIDE ANNELIESE MELENDEZ M.D.Performed By: #### MG, CBCNO, BMP #### [facility] [address] [place] [address] USAPlatelets (Bld) [#/Vol]398 10*3/rGCgnijn754-461Gmb [facility] Physician GroupComment on above:Performed By: #### MG, CBCNO, BMP #### [facility] [address] [place] [address] USAPoikilocytosisSCarteret Health Care Physician [facility] Comment on above:Performed By: #### MG, CBCNO, BMP #### [facility] [address] [place] [address] USAPolychromasiaSlightNoAtrium Health Physician [facility] Comment on above:Performed By: #### MG, CBCNO, BMP #### [facility] [address] [place] [address] USARBC (Bld) [#/Vol]3.39 10*6/uLLow3.60-5.00The [facility] Physician GroupComment on above:Performed By: #### MG, CBCNO, BMP #### [facility] [address] [place] [address] USASchistocytesSlightNoAtrium Health Physician Group Comment on above:Performed By: #### MG, CBCNO, BMP #### [facility] [address] [place], [place] [address] USASegmented neutrophils/100 WBC (Bld)75 %Qbag52-94GtrTampa General Hospital Physician GroupComment on above:Performed By: #### MG, CBCNO, BMP #### [facility] [address] [place] [address] USAStomatocytesModerateNoAtrium Health Physician Group Comment on above:Performed By: #### MG, CBCNO, BMP #### [facility] [address] [place] [address] USAWBC (Bld) [#/Vol]10.5 10*3/uLNormal3.8-11.6The [facility] Physician GroupComment on above:Performed By: #### MG, CBCNO, BMP #### [facility] [address] [place], [place] [address] USAECG 12 lead ECGon 21-00-8172KRI 12 lead ECGFAYETTE COUNTY [facility] [place] [address] [place] [address] Electrocardiograph Report Signed Patient: Shanta Ferrer MR#: [id number] 0 : 1940 Acct:[id number] Age/Sex: 84 / F ADM Date: 08/28/24 Loc: Room: [address] [place] [address] Type: ADM IN Attending Dr: Marin Whitman DO Ordering Provider: Randall Dalal PA-C Date of Service: 08/28/24 ECG/ECG 12 lead ECG: Recheck/Abnormal Lab/Rx Copies to: Test Reason : Blood Pressure : 124/63 mmHG Vent. Rate : 86 BPM Atrial Rate : 97 BPM P-R Int : * ms QRS Dur : 76 ms QT Int : 364 ms P-R-T Axes : * -35 60 degrees QTcB Int : 435 ms Atrial fibrillation Low voltage QRS Confirmed by Efren MCDANIELS DO ([id number]) on 08/28/2024 7:25:57 PM Referred By: Electronically Signed By: Efren MCDANIELS DO Transcribed By: MUS Signed By Efren Mcdaniels, 0 08/28/24 [facility] Physician GroupEosinophils Auto (Bld) [#/Vol] Ordered By: Randall Dalal on 07-33-3063Cfruchvapna (Bld) [#/Vol]Automated eosinophil countOhiohealth Southeastern Medical CenterEosinophils/100 WBC Auto (Bld) Ordered By: Randall Dalal on 27-93-2707Tyooqqmcprh/100 WBC (Bld)Automated eosinophil %[facility] Medical CenterEosinophils/100 WBC Manual cnt (Bld)Ordered By: Randall Dalal on 54-04-6349Xyvlausozzx/100 WBC (Bld) Eosinophils/100 leukocytes in Blood by Manual count1-3FClinton Memorial HospitalErythrocyte distribution width Auto (RBC) [Ratio]Ordered By: aRndall Dalal on 20-45-1511Ynrunoqcvnb distribution width (RBC) [Ratio]Erythrocyte distribution width [Ratio] by Automated jqqovIqyo79.9-15.3FClinton Memorial HospitalErythrocyte morphology finding [Identifier] in BloodOrdered By: Randall Dalal on 77-88-1022XTU morphology finding Nom (Bld)RBC morphology [facility] Medical CenterGlobulin Calc (S) [Mass/Vol]Ordered By: Randall Dalal on 67-03-9512Ldigqkbo (S) [Mass/Vol]Serum globulin measurement by calculation (mass/volume)[facility] Medical CenterGlucose [Mass/volume] in Serum or PlasmaOrdered By: Randall Dalal 61-65-5602Zvlxffq [Mass/Vol] Glucose [Mass/volume] in Serum or IaqbsuGvar13-128AynqrupswOhiohealth Southeastern Medical CenterComment on above:ADA recommended reference rangeRandom Glucose Reference Range is dependent on time and content of last meal. Glucose of more than 200 mg/dL in a nonstressed, ambulatory subject supports the diagnosisof Diabetes Mellitus.Hematocrit Auto (Bld) [Volume fraction]Ordered By: Randall Dalal on 30-94-1870Bfdrznajzw (Bld) [Volume fraction]Hematocrit [Volume Fraction] of Blood by Automated cgcwmWrm01.0-46.4FClinton Memorial HospitalHemoglobin [Mass/volume] in BloodOrdered By: Randall Dalal on 49-97-4094Vjqaswizkm (Bld) [Mass/Vol]Hemoglobin [Mass/volume] in JajeaLfq91.8-15.4FClinton Memorial HospitalHypochromia LM Ql (Bld)Ordered By: Randall Dalal on 08-28-2024 Hypochromia Ql (Bld)Hypochromia [Presence] in Blood by Light microscopyOhiohealth Southeastern Medical CenterINR in Platelet poor plasma by Coagulation assayOrdered By: Randall Dalal on 74-38-4744PWG Coag (PPP) [Relative time]INR in Platelet poor plasma by Coagulation assayOhiohealth Southeastern Medical CenterComment on above:INR Therapeutic Range A) Pre- and Peroperative OAT started two weeks before surgery. NOT HIP SURGERY: 1.5 - 2.5 HIP SURGERY: 2 - 3B) Primary and secondary prevention of venous THROMBOSIS: 2 - 3C) Active venous thrombosis, pulmonary embolismand prevention of recurrent venous thrombosis: 2 - 3D) Prevention of arterial thromboembolismincluding patients with mechanical heart valves: 3 - 4.5 Laboratory - Microbiology and Antimicrobial susceptibilityOrdered By: Randall Dalal on 11-97-1083Gctbaxwm identified Cx Nom (Bld)NO GROWTH 5 DAYSOhiohealth Southeastern Medical CenterBacteria identified Cx Nom (Bld)NO GROWTH 5 DAYSOhiohealth Southeastern Medical CenterLeukoReduced RBCon 96-88-5958CmzutGgfkmlz RBCTRANSFUSED 08/28/[address] [place] [address] Physician GroupLeukocytes [#/volume] corrected for nucleated erythrocytes in Blood by Automated counOrdered By: Randall Dalal on 37-23-3330JGV corrected for nucl RBC Auto (Bld) [#/Vol]Leukocytes [#/volume] corrected for nucleated erythrocytes in Blood by Automated coun3.8-11.6FClinton Memorial HospitalLymphocytes Auto (Bld) [#/Vol]Ordered By: Randall Dalal on 39-16-4204Usngjtttkpw (Bld) [#/Vol]Lymphocytes [#/volume] in Blood by Automated countOhiohealth Southeastern Medical CenterLymphocytes/100 WBC Auto (Bld) Ordered By: Randall Dalal on 95-36-6981Wugnjyzonce/100 WBC (Bld)Lymphocytes/100 leukocytes in Blood by Automated countOhiohealth Southeastern Medical Center Lymphocytes/100 WBC Manual cnt (Bld)Ordered By: Randall Dalal on 08-28-2024 Lymphocytes/100 WBC (Bld)Lymphocytes/100 leukocytes in Blood by Manual count 18-42K[facility]tering Health DaytonH Auto (RBC) [Entitic mass]Ordered By: Randall Dalal on 17-07-9492HOG (RBC) [Entitic mass]MCH [Entitic mass] by Automated ybvvuFhz98.7-34.3FClinton Memorial HospitalMCHC Auto (RBC) [Mass/Vol]Ordered By: Randall Dalal on 67-08-6301DLMG (RBC) [Mass/Vol]MCHC [Mass/volume] by Automated szrbgSgy46.0-35.0[facility] Medical CenterMCV Auto (RBC) [Entitic vol]Ordered By: Randall Dalal on 03-46-7283PUJ (RBC) [Entitic vol]MCV [Entitic volume] by Automated jzzgdNam46-758NawgzrujuOhiohealth Southeastern Medical CenterMagnesiumon 94-07-2496Hooulajyv [Mass/Vol]1.5 mg/dLLow1.9-2.7The [facility] Physician GroupComment on above:Result Comment: PERFORMED BY: [place] [address] PATHOLOGIST FOREST AIDE ANNELIESE MELENDEZ M.D.Performed By: #### MG, CBCNO, BMP #### [place] [address] USAMagnesium [Mass/volume] in Serum or PlasmaOrdered By: Marin Whitman on 36-90-5449Ssljwrcop [Mass/Vol]Magnesium [Mass/volume] in Serum or PlasmaLow1.9-2.7FClinton Memorial HospitalMicrocytes LM Ql (Bld) Ordered By: Randall Dalal on 87-67-3261Xduauqwlnp Ql (Bld)Microcytes [Presence] in Blood by Light microscopyOhiohealth Southeastern Medical CenterMonocyte distribution width [Entitic volume] in Blood by AutomatedOrdered By: Randall Dalal on 82-77-4886Xgkgflfr distribution width Auto (Bld) [Entitic vol]Monocyte distribution width [Entitic volume] in Blood by AutomatedHigh0.00-20.00[facility] Medical CenterComment on above:For adults in ED, MDW > 20.0 may be associated with a higher risk of sepsis during the first 12 hrs of hospital admissionMonocytes Auto (Bld) [#/Vol]Ordered By: Randall Dalal on 08-28-2024 Monocytes (Bld) [#/Vol]Automated blood monocyte countOhiohealth Southeastern Medical CenterMonocytes/100 WBC Auto (Bld)Ordered By: Randall Dalal on 08-28-2024 Monocytes/100 WBC (Bld)Automated monocyte %[facility] Monocytes/100 WBC Manual cnt (Bld)Ordered By: Randall Dalal on 08-28-2024 Monocytes/100 WBC (Bld)Monocytes/100 leukocytes in Blood by Manual count2-11 [facility] Medical CenterMyelocytes/100 WBC Manual cnt (Bld)Ordered By: Randall Dalal on 01-56-8262Nptzhgwonj/100 WBC (Bld)Myelocytes/100 leukocytes in Blood by Manual countHigh00Ohio[facility] Medical CenterNeutrophils Auto (Bld) [#/Vol]Ordered By: Randall Dalal on 81-13-6485Xsmelwyfrcg (Bld) [#/Vol] Neutrophils [#/volume] in Blood by Automated countOhiohealth Southeastern Medical CenterNeutrophils/100 WBC Auto (Bld)Ordered By: Randall Dalal on 08-28-2024 Neutrophils/100 WBC (Bld)Automated neutrophil %[facility] No Panel InformationOrdered By: Randall Dalal on 77-17-3288Lyermsjbg GFR (CKD-EPI)31.137 mL/MinOhiohealth Southeastern Medical CenterPharmacy Creatinine Clearance (Chem33.71[facility] Medical CenterNucleated RBC/100 WBC Manual cnt (Bld) [Ratio]Ordered By: Randall Dalal on 75-39-5365Kwetrcvlr RBC/100 WBC (Bld) [Ratio]Nucleated erythrocytes/100 leukocytes [Ratio] in Blood by Manual countHigh00Ohio[facility] Medical CenterNucleated erythrocytes [Presence] in Blood by Automated countOrdered By: Randall Dalal on 08-28-2024 Nucleated RBC Auto Ql (Bld)Nucleated erythrocytes [Presence] in Blood by Automated countOhiohealth Southeastern Medical CenterPartial Thromboplastin Timeon 27-95-3807uTQG Coag (Bld) [Time]35.9 xKrgaca28.1-36.5The [facility] Physician GroupComment on above:Result Comment: A hematocrit value greater than 55% may lead to inaccurate results in coagulation testing. Patients having hematocrit values >55% require a special collection tube for coagulation studies. Please contact the laboratory at [phone] for redraw instructions. PERFORMED BY: [place] [address] PATHOLOGIST FOREST AIDE ANNELIESE MELENDEZ M.D.Performed By: #### MG, CBCNO, BMP #### [place] [address] USAPlatelet adequacy [Presence] in Blood by Light microscopy Ordered By: Randall Dalal on 27-28-0728Izazpprve LM Ql (Bld)Platelet adequacy [Presence] in Blood by Light microscopyNoGreene Memorial Hospital Platelet mean volume Auto (Bld) [Entitic vol]Ordered By: Randall Dalal on 14-20-5752Fghbfqam mean volume (Bld) [Entitic vol]Platelet mean volume [Entitic volume] in Blood by Automated count6.3-10.7FClinton Memorial Hospital Platelet morphology finding [Identifier] in BloodOrdered By: Randall Dalal on 46-31-8452Wnqccnip morphology finding Nom (Bld)Platelet morphology finding [Identifier] in BloodNoGreene Memorial HospitalPlatelets Auto (Bld) [#/Vol]Ordered By: Randall Dalal on 07-06-5100Umefjrglj (Bld) [#/Vol]Platelets [#/volume] in Blood by Automated uatpj320-603SadprfaorOhiohealth Southeastern Medical Center Poikilocytosis [Presence] in Blood by Light microscopyOrdered By: Randall Dalal on 87-55-8057Lmqhgnytjpecqw LM Ql (Bld)Poikilocytosis [Presence] in Blood by Light microscopyOhiohealth Southeastern Medical CenterPolychromasia [Presence] in Blood by Light microscopyOrdered By: Randall Dalal on 07-37-2712Hgdjyefibpexr LM Ql (Bld)Polychromasia [Presence] in Blood by Light microscopyOhiohealth Southeastern Medical CenterPotassium [Moles/volume] in Serum or PlasmaOrdered By: Randall Dalal on 05-83-6456Zowxhpcxy [Moles/Vol]Potassium [Moles/volume] in Serum or Plasma3.5-5.1FClinton Memorial HospitalProtein [Mass/volume] in Serum or PlasmaOrdered By: Randall Dalal on 61-17-7527Laqmfkt [Mass/Vol]Protein [Mass/volume] in Serum or Plasma6.4-8.9[facility] Prothrombin Time INRon 47-21-5001EBE Coag (PPP) [Relative time]1.3 {INR}Normal [facility] Physician GroupComment on above:Result Comment: INR Therapeutic Range A) Pre- and Peroperative OAT started two weeks before surgery. NOT HIP SURGERY: 1.5 - 2.5 HIP SURGERY: 2 - 3 B) Primary and secondary prevention of venous THROMBOSIS: 2 - 3 C) Active venous thrombosis, pulmonary embolism and prevention of recurrent venous thrombosis: 2 - 3 D) Prevention of arterial thromboembolism including patients with mechanical heart valves: 3 - 4.5Performed By: #### CUBLD, MG, PTT, PT, CMP, DIFF CBC #### [facility] [address] [place] [address] USAPT Coag (PPP) [Time]14.5 sHigh9.0-12.9The [facility] Physician GroupComment on above:Result Comment: A hematocrit value greater than 55% may lead to inaccurate results in coagulation testing. Patients having hematocrit values >55% require a special collection tube for coagulation studies. Please contact the laboratory at [phone] for redraw instructions.Performed By: #### CUBLD, MG, PTT, PT, CMP, DIFF CBC #### [facility] [address] [place] [address] USAProthrombin time (PT)Ordered By: Randall Dalal on 95-80-6492BG Coag (PPP) [Time]Prothrombin time (PT)High9.0-12.9[facility] Medical CenterComment on above:A hematocrit value greater than 55% may lead to inaccurate results in coagulation testing. Patientshaving hematocrit values >55% require a special collection tube for coagulation studies. Please c ontact the laboratory at [phone] for redraw instructions.RBC Auto (Bld) [#/Vol]Ordered By: Randall Dalal on 72-19-7722UYF (Bld) [#/Vol]Erythrocytes [#/volume] in Blood by Automated countLow3.60-5.00Mer[facility] Memorial Hospitalchistocytes [Presence] in Blood by Light microscopyOrdered By: Randall Dalal on 83-95-4253Bcpyczpofply LM Ql (Bld)Schistocytes [Presence] in Blood by Light microscopyMercy Memorial Hospitalegmented neutrophils/100 WBC Manual cnt (Bld)Ordered By: Randall Dalal on 98-75-3303Ktbpxxqxd neutrophils/100 WBC (Bld)Manual blood segmented neutrophils/100 aqpvrzyvwlVweb41-61BimvsskepMercy Memorial Hospitalerum or plasma albumin/globulin mass ratioOrdered By: Randall Dalal on 78-35-1028Ebtvdri/Globulin [Mass ratio]Serum or plasma albumin/globulin mass ratioMercy Memorial Hospitalerum or plasma anion gap determinationOrdered By: Randall Dalal on 48-96-5620Prhyk gap [Moles/Vol]Serum or plasma anion gap determination6.0-15.0Mer[facility] Memorial Hospitalodium [Moles/volume] in Serum or PlasmaOrdered By: Randall Dalal on 43-85-1576Fvnwji [Moles/Vol]Sodium [Moles/volume] in Serum or Rgtryv785-965 [facility] Hospitaltomatocytes [Presence] in Blood by Light microscopyOrdered By: Randall Dalal on 54-59-6749Tutctrpnsxdo LM Ql (Bld)Red blood cell stomatocyte detectionMercy Memorial Hospitaltool Occult Blood (Guaiac)on 49-00-7227Fvivb Occult Blood (Guaiac)Occult Blood Negative for Occult Blood by Guaiac Methodology Reference range = Negative PERFORMED BY: [facility] [address] [place] [address] PATHOLOGIST FOREST AIDE ANNELIESE MELENDEZ M.D.NormalThe [facility] Physician GroupComment on above: Performed By: #### MG, CBCNO, BMP #### [address] [address] USAStool gastrointestinal hemoglobin detectionOrdered By: Randall Dalal on 54-99-1548Zllfldrkrf.gastrointestinal Ql (Stl)Stool gastrointestinal hemoglobin detectionOhiohealth Southeastern Medical CenterType and Screenon 12-15-2490UCW and Rh group Nom (Bld)Blood group O Rh(D) positiveNormal [facility] Physician GroupComment on above:Order Comment: Transfuse now? Y Number of units to transfuse now? 1 Transfuse now? Y Number of units to transfuse now? 1Result Comment: PERFORMED BY: [place] [address] PATHOLOGIST FOREST AIDE ANNELIESE MELENDEZ M.D.Urea nitrogen [Mass/volume] in Serum or PlasmaOrdered By: Randall Dalal on 90-72-6753Xyzj nitrogen [Mass/Vol]Urea nitrogen [Mass/volume] in Serum or Plasma74 Larson StreetWBC Auto (Bld) [#/Vol]Ordered By: Randall Dalal on 72-14-3146JET (Bld) [#/Vol] Leukocytes [#/volume] in Blood by Automated count3.8-11.6FClinton Memorial HospitalX-ray reportOrdered By: Cary Aragon on 27-78-2402Nxgho report [facility] [place] [address] [place] [address] XRay Report Signed Patient: Shanta Ferrer MR#: [id number] : 1940 Acct:[id number] Age/Sex: 84 / F ADM Date: 5 Loc: ER Room: Type: [facility] ER Attending Dr: Copies to: Randall Dalal PA-C~ Ordering Provider: Randall Dalal PA-C Date of Service: 08/28/24 XR/XR chest 1V portable: Recheck/Abnormal Lab/Rx PORTABLE AP ERECT CHEST 1522 hours CLINICAL HISTORY: Shortness of breath and decreased hemoglobin COMPARISON: 01/16/2020 Evaluation is slightly limited by large body habitus. The heart is still at least borderline prominent. No obvious developing consolidation, sizable effusion or pneumothorax is seen. Minor increase in perihilar markings is not excluded. The bony structures are osteopenic. XR/XR chest 1V portable IMPRESSION: SLIGHTLY LIMITED STUDY, WITHOUT DEFINITE INTERVAL CHANGE FROM THE PRIOR. Impression dictated by: Cary Aragon M.D.08/28/2024 6:51 PM Dictation Location: [employer] Transcribed By: PEYMAN 08/28/241850 Dictated By: Cary Aragon MD 08/28/241847 Signed By: 08/28/241850 [facility] Work Phone: XR chest 1V portableon 27-91-0267RT chest 1V portable [facility] [place] [address] XRay Report Signed Patient: Shanta Ferrer MR#: [id number] 0 : 1940 Acct:[id number] Age/Sex: 84 / F ADM Date: 08/28/24 Loc: ER Room: Type: [facility] ER Attending Dr: Copies to: Randall Dalal PA-C Ordering Provider: Randall Dalal PA-C Date of Service: 08/28/24 XR/XR chest 1V portable: Recheck/Abnormal Lab/Rx PORTABLE AP ERECT CHEST 1522 hours CLINICAL HISTORY: Shortness of breath and decreased hemoglobin COMPARISON: 01/16/2020 Evaluation is slightly limited by large body habitus. The heart is still at least borderline prominent. No obvious developing consolidation, sizable effusion or pneumothorax is seen. Minor increase in perihilar markings is not excluded. The bony structures are osteopenic. XR/XR chest 1V portable IMPRESSION: SLIGHTLY LIMITED STUDY, WITHOUT DEFINITE INTERVAL CHANGE FROM THE PRIOR. Impression dictated by: Cary Aragon M.D.08/28/2024 6:51 PM Dictation Location: [employer] Transcribed By: PEYMAN 08/28/241850 Dictated By: Cary Aragon MD 08/28/241847 Signed By: 08/28/241850NoAtrium Health Physician [facility] County General HospitalaPTT in Platelet poor plasma by Coagulation assayOrdered By: Randall Dalal on 68-42-4718yKYL Coag (PPP) [Time] Activated partial thromboplastin time (aPTT) in platelet poor plasma by coagulation a25.1-36.5FClinton Memorial HospitalComment on above:A hematocrit value greater than 55% may lead to inaccurate results in coagulation testing. Patientshaving hematocrit values >55% require a special collection tube for coagulation studies. Please contact the laboratory at [phone] for redraw instructions.A1C with Estimated Average Gluon 53-71-5563Pmtmjcf [Mass/Vol]111 mg/dLNoAtrium Health Physician Walthall County General HospitalComment on above:Result Comment: PERFORMED BY: [place] [address] PATHOLOGIST FOREST AIDE ANNELIESE MELENDEZ M.D.Performed By: #### CMP, SCAN CBC #### [facility] [address] [id number] LMAIfT9n (Bld) [Mass fraction]5.5 %Normal4.3-5.6The [facility] Physician [facility] County [facility] HospitalComment on above:Result Comment: Increased risk for diabetes: 5.7 - 6.4 diabetes: >6.4 glycemic control for adults with diabetes: <7.0Performed By: #### CMP, SCAN CBC #### [facility] [address] [id number] USAAlanine aminotransferase [Enzymatic activity/volume] in Serum or PlasmaOrdered By: Justyna Hanson on 47-28-1019CJY [Catalytic activity/Vol]Alanine aminotransferase [Enzymatic activity/volume] in Serum or Plasma7-[facility] CenterAlbumin [Mass/volume] in Serum or Plasma by Bromocresol green (BCG) dye binding methoOrdered By: Justyna Hanson on 08-66-7881Ybulvlo BCG dye [Mass/Vol]Albumin [Mass/volume] in Serum or Plasma by Bromocresol green (BCG) dye binding methoLow3.5-5.7FClinton Memorial HospitalAlkaline phosphatase [Enzymatic activity/volume] in Serum or PlasmaOrdered By: Justyna Hanson on 91-49-9471PFM [Catalytic activity/Vol]Alkaline phosphatase [Enzymatic activity/volume] in Serum or RfbfngArnd45-651WaxatfmbbOhiohealth Southeastern Medical CenterAnisocytosis LM Ql (Bld)Ordered By: Justyna Hanson on 08-27-2024 Anisocytosis Ql (Bld)Anisocytosis [Presence] in Blood by Light microscopy [facility] CenterAspartate aminotransferase [Enzymatic activity/volume] in Serum or PlasmaOrdered By: Justyna Hanson on 70-14-7790HFN [Catalytic activity/Vol]Aspartate aminotransferase [Enzymatic activity/volume] in Serum or ZukwquCev77-07LrbyyypziOhiohealth Southeastern Medical CenterBasophils Auto (Bld) [#/Vol]Ordered By: Justyna Hanson on 60-16-8886Ewojxexwm (Bld) [#/Vol]Automated basophil countOhiohealth Southeastern Medical CenterBasophils/100 WBC Auto (Bld) Ordered By: Justyna Hanson on 84-73-5159Vmgypljzh/100 WBC (Bld)Automated basophil %[facility] CenterBasophils/100 WBC Manual cnt (Bld)Ordered By: Justyna Hanson on 26-99-9444Ijiheqozi/100 WBC (Bld)Basophils/100 leukocytes in Blood by Manual count0-2FClinton Memorial HospitalBilirubin.total [Mass/volume] in Serum or PlasmaOrdered By: Justyna Hanson on 17-36-9143Qjkpdwuyq [Mass/Vol]Bilirubin.total [Mass/volume] in Serum or Plasma0.3-1.0[facility] Medical CenterBlood estimated average glucose determination by estimation from glycated hemoglobinOrdered By: Justyna Hanson on 77-98-2488Seqiakd glucose Estimated from glycated hemoglobin (Bld) [Mass/Vol]Glucose mean value [Mass/volume] in Blood Estimated from glycated hemoglobinOhiohealth Southeastern Medical CenterCalcium [Mass/volume] in Serum or PlasmaOrdered By: Justyna Hanson on 49-88-4086Ppezgsx [Mass/Vol]Calcium [Mass/volume] in Serum or PlasmaLow 8.6-10.3FClinton Memorial HospitalCarbon dioxide, total [Moles/volume] in Serum or PlasmaOrdered By: Justyna Hanson on 14-26-6954FC2 [Moles/Vol]Carbon dioxide, total [Moles/volume] in Serum or Poifgm14.0-31.0[facility] Medical CenterChloride [Moles/volume] in Serum or PlasmaOrdered By: Justyna Hanson on 89-43-5192Rclolzqg [Moles/Vol]Chloride [Moles/volume] in Serum or Plasma 98-107Ohio[facility] Medical CenterCholesterol [Mass/volume] in Serum or PlasmaOrdered By: Justyna Hanson on 86-98-6226Rszbilzejcu [Mass/Vol]Cholesterol [Mass/volume] in Serum or SjijajAlp909-701FtnvkwxvjOhiohealth Southeastern Medical Center Comment on above:Chol less than 200 mg/dl low riskChol 201-239 mg/dl borderline riskChol 240 mg/dl and greater high riskCholesterol in HDL [Mass/volume] in Serum or PlasmaOrdered By: Justyna Hanson on 83-24-1031Iguuqrgweoq in HDL [Mass/Vol]Serum or plasma high density lipoprotein (HDL) cholesterol measurement Pdd20-47HrzqfxwwlOhiohealth Southeastern Medical CenterComment on above:HDL CHOL ATP-III CLASSIFICATION Cardiovascular RiskHDL > or equal to 60 mg/dL LOWHDL < 40 mg/dL HIGHCholesterol in LDL Calc [Mass/Vol]Ordered By: Justyna Hanson on 08-27-2024 Cholesterol in LDL [Mass/Vol]Cholesterol in LDL [Mass/volume] in Serum or Plasma by calculation0-100Ohio[facility] Southeastern Medical CenterComment on above:LDL ATP III CLASSIFICATIONLDL less than 100 mg/dL OptimalLDL 100-129 mg/dL Near or above jahpjylGQG654-069 mg/dL Borderline highLDL 160-189 mg/dL HighLDL greater than 189 mg/dL Very highCholesterol in VLDL Calc [Mass/Vol]Ordered By: Justyna Hanson on 91-13-5300Ystjejrslcx in VLDL [Mass/Vol]Cholesterol in VLDL [Mass/volume] in Serum or Plasma by calculationOhiohealth Southeastern Medical CenterComprehensive Metabolic Panelon 14-28-6104Engzxgg [Mass/Vol]2.8 g/dLLow3.5-5.7The [facility] Physician GroupComment on above:Performed By: #### MG, CBCNO, BMP #### [facility] [address] [place] [address] USAAlbumin/Globulin [Mass ratio]0.9 {ratio}NormalThe [facility] Physician GroupComment on above:Performed By: #### MONICA DE JESUS, BMP #### [facility] [address] [place] [address] USAALP [Catalytic activity/Vol]117 U/RUwcb91-250Fqm [facility] Physician GroupComment on above:Performed By: #### MONICA DE JESUS, BMP #### [facility] [address] [place] [address] USAALT [Catalytic activity/Vol]7 U/LNormal7-52The [facility] Physician GroupComment on above:Performed By: #### MONICA DE JESUS, BMP #### [place] [address] USAAnion gap [Moles/Vol]13.5 mmol/LNormal6.0-15.0The [facility] Physician GroupComment on above:Performed By: #### MONICA DE JESUS, BMP #### [place] [address] USAAST [Catalytic activity/Vol]12 U/IAqv75-56Jgp [facility] Physician GroupComment on above:Performed By: #### MONICA DE JESUS, BMP #### [place] [address] USABilirubin [Mass/Vol]0.4 mg/dLNormal0.3-1.0The [facility] Physician GroupComment on above:Performed By: #### MONICA DE JESUS, BMP #### [place] [address] USACalcium [Mass/Vol]8.5 mg/dLLow8.6-10.3The [facility] Physician GroupComment on above:Performed By: #### MONICA DE JESUS, BMP #### [place] [address] USAChloride [Moles/Vol]104 mmol/EHbtonu87-232Tjt [facility] Physician GroupComment on above:Performed By: #### MONICA DE JESUS, BMP #### [facility] [address] [place] [address] USACO2 [Moles/Vol]25.2 mmol/MGgakoz65.0-31.0The [facility] Physician GroupComment on above:Performed By: #### MONICA DE JESUS, BMP #### [place] [address] USACreatinine [Mass/Vol]1.66 mg/dLHigh0.60-1.20The [facility] Physician GroupComment on above:Performed By: #### MONICA DE JESUS, BMP #### [place] [address] USAEstimated GFR30.239 mL/MinNormHCA Florida Trinity Hospital Physician GroupComment on above:Performed By: #### MONICA DE JESUS, BMP #### [place] [address] USAGlobulin (S) [Mass/Vol]3.2 g/dLNoPremier Health Miami Valley Hospitale [facility] Physician GroupComment on above:Performed By: #### MONICA DE JESUS, BMP #### [place] [address] USAGlucose [Mass/Vol]119 mg/uDYlkt98-405Fdc [facility] Physician GroupComment on above:Result Comment: Random Glucose Reference Range is dependent on time and content of last meal. Glucose of more than 200 mg/dL in a nonstressed, ambulatory subject supports the diagnosis of Diabetes Mellitus. ADA recommended reference rangePerformed By: #### MGMONICA, BMP #### [place] [address] USAPotassium [Moles/Vol]4.7 mmol/LNormal3.5-5.1The [facility] Physician GroupComment on above:Performed By: #### MG CBCNO, BMP #### [place] [address] USAProtein [Mass/Vol]6.0 g/dLLow6.4-8.9The [facility] Physician GroupComment on above:Performed By: #### MG CBCNO, BMP #### [place] [address] USASodium [Moles/Vol]138 mmol/EScpdny381-587Tbn [facility] Physician GroupComment on above:Performed By: #### MG, CBCNO, BMP #### [facility] [address] [place] [address] USAUrea nitrogen [Mass/Vol]46 mg/dLHigh7-25The [facility] Physician GroupComment on above:Performed By: #### MG, CBCNO, BMP #### [facility] [address] [place] [address] USACreatinine [Mass/volume] in Serum or PlasmaOrdered By: Justyna Hanson on 12-28-9300Lnnglkxzbg [Mass/Vol]Creatinine [Mass/volume] in Serum or PlasmaHigh0.60-1.20[facility] Medical CenterDacrocytes [Presence] in Blood by Light microscopyOrdered By: Justyna Hanson on 56-21-5383Sycdjjxuvz LM Ql (Bld)Teardrop cell detectionOhiohealth Southeastern Medical CenterDiff and CBCon 88-73-4087Zakxekidyqxc Ql (Bld)MarkedNormHCA Florida Trinity Hospital Physician GroupComment on above:Performed By: #### MG, CBCNO, BMP #### [facility] [address] [place] [address] USABasophils/100 WBC (Bld)1 %Normal0-2The [facility] Physician GroupComment on above:Performed By: #### MG, CBCNO, BMP #### [facility] [address] [place] [address] USAErythrocyte distribution width (RBC) [Ratio]21.5 %High 11.9-15.3The [facility] Physician GroupComment on above:Performed By: #### MG, CBCNO, BMP #### [facility] [address] [place] [address] USAHematocrit (Bld) [Volume fraction]22.3 %Low34.0-46.4The [facility] Physician GroupComment on above:Performed By: #### MG, CBCNO, BMP #### [facility] [address] [place] [address] USAHemoglobin (Bld) [Mass/Vol]6.4 g/dLLow11.8-15.4The [facility] Physician GroupComment on above:Performed By: #### MG, CBCNO, BMP #### [facility] [address] [place] [address] USAHypochromasiaModerateNoAtrium Health Physician [facility] Comment on above:Performed By: #### MG, CBCNO, BMP #### [facility] [address] [place] [address] USALymphocytes/100 WBC (Bld)15 %Abz16-14Ebz [facility] Physician GroupComment on above:Performed By: #### MG, CBCNO, BMP #### [facility] [address] [place] [address] USAH (RBC) [Entitic mass]20.9 pgLow24.7-34.3The [facility] Physician GroupComment on above:Performed By: #### MG, CBCNO, BMP #### [facility] [address] [place] [address] USAV (RBC) [Entitic vol]72.3 lVFwg10-355Oyu [facility] Physician GroupComment on above:Performed By: #### MG, CBCNO, BMP #### [facility] [address] [place] [address] USAMean Corpuscular HGB Conc28.8 g/dLLow32.0-35.0The [facility] Physician GroupComment on above:Performed By: #### MG, CBCNO, BMP #### [facility] [address] [place] [address] USAMicrocytosisModerateNoAtrium Health Physician [facility] Comment on above:Performed By: #### MG, CBCNO, BMP #### [facility] [address] [place] [address] USAMonocytes/100 WBC (Bld)7 %Normal2-11The [facility] Physician GroupComment on above:Performed By: #### MG, CBCNO, BMP #### [facility] [address] [place] [address] USANucleated Red Blood Cell1 /100{WBC}High0-0The [facility] Physician GroupComment on above:Performed By: #### MG, CBCNO, BMP #### [place] [address] USAOvalocytesSCarteret Health Care Physician GroupComment on above:Performed By: #### MG, CBCNO, BMP #### [facility] [address] [place] [address] USAPlatelet EstimateNormalNormHCA Florida [facility] Hospital Physician GroupComment on above:Performed By: #### MG, CBCNO, BMP #### [place] [address] USAPlatelet mean volume (Bld) [Entitic vol]8.5 fLNormal 6.3-10.7The [facility] Physician GroupComment on above:Result Comment: PERFORMED BY: [place] [address] PATHOLOGIST FOREST AIDE ANNELIESE MELENDEZ M.D.Performed By: #### MG, CBCNO, BMP #### [place] [address] USAPlatelet MorphologyNormalNormHCA Florida [facility]argo [facility] Hospital Physician GroupComment on above:Result Comment: PERFORMED BY: [place] [address] PATHOLOGIST FOREST AIDE ANNELIESE MELENDEZ M.D.Performed By: #### MG, CBCNO, BMP #### [place] [address] USAPlatelets (Bld) [#/Vol]354 10*3/pFIsecuq894-167Ese [facility] Physician GroupComment on above:Performed By: #### MG, CBCNO, BMP #### [place] [address] USAPoikilocytosisModerateNoAtrium Health Physician [facility] Comment on above:Performed By: #### MG, CBCNO, BMP #### [place] [address] USAPolychromasiaSlightBaptist Health Doctors Hospital Physician [facility] Comment on above:Performed By: #### MG, CBCNO, BMP #### [facility] [address] [place] [address] USARBC (Bld) [#/Vol]3.08 10*6/uLLow3.60-5.00The [facility] Physician GroupComment on above:Performed By: #### MG, CBCNO, BMP #### [facility] [address] [place] [address] USASegmented neutrophils/100 WBC (Bld)77 %Mrgv75-70Ryj [facility] Physician GroupComment on above:Performed By: #### MG, CBCNO, BMP #### [place] [address] USAStomatocytesModerateNoAtrium Health Physician [facility] Comment on above:Performed By: #### MG, CBCNO, BMP #### [place] [address] USATear Drop CellsSCarteret Health Care Physician [facility] Comment on above:Performed By: #### MG, CBCNO, BMP #### [place] [address] USAToxic VacuolationSCarteret Health Care Physician Group Comment on above:Performed By: #### MG, CBCNO, BMP #### [facility] [address] [place] [address] USAWBC (Bld) [#/Vol]9.8 10*3/uLNormal3.8-11.6The [facility] Physician GroupComment on above:Performed By: #### MG, CBCNO, BMP #### [facility] [address] [place] [address] USAEosinophils Auto (Bld) [#/Vol]Ordered By: Justyna Hanson on 74-95-7066Aqqdgixwlnh (Bld) [#/Vol]Automated eosinophil countOhiohealth Southeastern Medical CenterEosinophils/100 WBC Auto (Bld)Ordered By: Justyna Hanson on 88-38-3450Dpriyqlwluj/100 WBC (Bld)Automated eosinophil %[facility] Medical CenterErythrocyte distribution width Auto (RBC) [Ratio]Ordered By: Justyna Hanson on 12-32-9376Qpbxexgiaay distribution width (RBC) [Ratio]Erythrocyte distribution width [Ratio] by Automated abvrnQeed34.9-15.3FClinton Memorial HospitalErythrocyte morphology finding [Identifier] in BloodOrdered By: Justyna Hanson on 49-28-8890PKV morphology finding Nom (Bld)RBC morphology [facility] CenterFE PROon 08-27-2024% Iron SaturationNot xcsfwwscdCqnudp32-09Kkr [facility] Physician [facility] HospitalComment on above:Performed By: #### MG, CBCNO, BMP #### [facility] [address] [place] [address] USAFerritin [Mass/Vol]20.0 ng/zDDhoahd13.0-306.8The [facility] Physician GroupComment on above:Performed By: #### MG, CBCNO, BMP #### [facility] [address] [place] [address] USAIron [Mass/Vol]ug/fTNpb57-683Bba [facility] Physician Group Comment on above:Performed By: #### MG, CBCNO, BMP #### [facility] [address] [place] [address] USATotal Iron Binding Anlnvmqp338 ug/aLYtoblg840-638Hqt [facility] Physician GroupComment on above:Performed By: #### MG, CBCNO, BMP #### [facility] [address] [place] [address] USATransferrin [Mass/Vol]239 mg/fQEsglhl383-646Kdy [facility] Physician [facility] HospitalComment on above:Performed By: #### MG, CBCNO, BMP #### [facility] [address] [id number] USAFerritin [Mass/volume] in Serum or PlasmaOrdered By: Justyna Hanson on 60-58-4635Umdkstqm [Mass/Vol]Ferritin [Mass/volume] in Serum or Hjysus98.0-306.8[facility] Medical CenterFree T4 (Free Thyroxine)on 56-35-6801Gcbc T4 [Mass/Vol]0.93 ng/dLNormal0.61-1.12The [facility] Physician GroupComment on above:Performed By: #### CMP, SCAN CBC #### [facility] [address] [id number] USAGlobulin Calc (S) [Mass/Vol]Ordered By: Justyna Hanson on 49-94-7555Hdzutcla (S) [Mass/Vol]Serum globulin measurement by calculation (mass/volume)[facility] Medical CenterGlucose [Mass/volume] in Serum or PlasmaOrdered By: Justyna Hanson on 73-85-2270Ynuxdxc [Mass/Vol]Glucose [Mass/volume] in Serum or WloasdPfpp86-194ZibgbxkeoOhiohealth Southeastern Medical Center Comment on above:ADA recommended reference rangeRandom Glucose Reference Range is dependent on time and content of last meal. Glucose of more than 200 mg/dL in a nonstressed, ambulatory subject supports the diagnosisof Diabetes Mellitus. Hematocrit Auto (Bld) [Volume fraction]Ordered By: Justyna Hanson on 08-27-2024 Hematocrit (Bld) [Volume fraction]Hematocrit [Volume Fraction] of Blood by Automated uipcpTmm55.0-46.4FClinton Memorial HospitalHemoglobin A1c/Hemoglobin.total in BloodOrdered By: Justyna Hanson on 72-12-8998UqB3r (Bld) [Mass fraction]Hemoglobin A1c percentage4.3-5.6FClinton Memorial Hospital Comment on above:Increased risk for diabetes: 5.7 - 6.4diabetes: >6.4glycemic control for adults with diabetes: <7.0Hemoglobin [Mass/volume] in Blood Ordered By: Justyna Hanson on 89-92-5711Grmzfwomxi (Bld) [Mass/Vol]Hemoglobin [Mass/volume] in VdjmpFpa83.8-15.4FClinton Memorial HospitalHypochromia LM Ql (Bld)Ordered By: Justyna Hanson on 21-56-1094Gqwucvgsill Ql (Bld)Hypochromia [Presence] in Blood by Light microscopyOhiohealth Southeastern Medical CenterIron [Mass/volume] in Serum or PlasmaOrdered By: Justyna Hanson on 53-60-2444Vzfd [Mass/Vol]Iron [Mass/volume] in Serum or GndckcTeu27-781YwplhwzprOhiohealth Southeastern Medical CenterLeukocytes [#/volume] corrected for nucleated erythrocytes in Blood by Automated counOrdered By: Justyna Hanson on 67-74-1059QIU corrected for nucl RBC Auto (Bld) [#/Vol]Leukocytes [#/volume] corrected for nucleated erythrocytes in Blood by Automated coun3.8-11.6FClinton Memorial Hospital Lipid Panelon 19-28-2432Htzhdydjmyf [Mass/Vol]75 mg/qJZrs532-287Sgr [facility] Physician GroupComment on above:Result Comment: Chol less than 200 mg/dl low risk Chol 201-239 mg/dl borderline risk Chol 240 mg/dl and greater high riskPerformed By: #### MG, CBCNO, BMP #### [facility] [address] [place] [address] USACholesterol in HDL [Mass/Vol]21 mg/cSCdi44-18Zee [facility] Physician GroupComment on above:Result Comment: HDL CHOL ATP-III CLASSIFICATION Cardiovascular Risk HDL > or equal to 60 mg/dL LOW HDL < 40 mg/dL HIGHPerformed By: #### MG, CBCNO, BMP #### [facility] [address] [place] [address] USACholesterol.total/Cholesterol in HDL [Mass ratio]3.6 {ratio}Normal<5.0The [facility] Physician GroupComment on above:Performed By: #### MG, CBCNO, BMP #### [facility] [address] [place] [address] USALDL Cholesterol,Xecsganhrz62 mg/dLNormal0-100The [facility] Physician [facility] HospitalComment on above:Result Comment: LDL ATP III CLASSIFICATION LDL less than 100 mg/dL Optimal LDL 100-129 mg/dL Near or above optimal LDL 130-159 mg/dL Borderline high LDL 160-189 mg/dL High LDL greater than 189 mg/dL Very highPerformed By: #### MG, CBCNO, BMP #### [facility] [address] [place] [address] USATriglyceride w/Hiwksa640 mg/dLNormal0-149The [facility] Physician GroupComment on above:Result Comment: TRIG ATP III CLASSIFICATION TRIG less than 150 mg/dL Normal TRIG 150-199 mg/dL Borderline high TRIG 200-500 mg/dL High TRIG greater than 500 mg/dL Very high Standard traceable to the Center for Disease Conrtrol and Prevention (CDC) test method.Performed By: #### MG, CBCNO, BMP #### [facility] [address] [id number] USAVLDL OMXJLKQSNOW17 mg/dLNoAtrium Health Physician GroupComment on above:Performed By: #### MG, CBCNO, BMP #### [facility] [address] [id number] USALymphocytes Auto (Bld) [#/Vol]Ordered By: Justyna Hanson on 01-87-2236Wnvnascvpuf (Bld) [#/Vol]Lymphocytes [#/volume] in Blood by Automated countOhiohealth Southeastern Medical CenterLymphocytes/100 WBC Auto (Bld)Ordered By: Justyna Hanson on 61-94-2136Ejqtgtwkjic/100 WBC (Bld)Lymphocytes/100 leukocytes in Blood by Automated countOhiohealth Southeastern Medical CenterLymphocytes/100 WBC Manual cnt (Bld)Ordered By: Justyna Hanson on 71-91-6639Giikvzqwypf/100 WBC (Bld) Lymphocytes/100 leukocytes in Blood by Manual nuwpaBup54-41PeafozjyzKettering Health DaytonH Auto (RBC) [Entitic mass]Ordered By: Justyna Hanson on 98-54-8340DFY (RBC) [Entitic mass]MCH [Entitic mass] by Automated countLow 24.7-34.3FFostoria City HospitalHC Auto (RBC) [Mass/Vol]Ordered By: Justyna Hanson on 93-87-0994CQUU (RBC) [Mass/Vol]MCHC [Mass/volume] by Automated olowbBzm29.0-35.0[facility] Medical CenterMCV Auto (RBC) [Entitic vol] Ordered By: Justyna Hanson on 75-27-1907XSG (RBC) [Entitic vol]MCV [Entitic volume] by Automated mflujZxl85-142VuttypkujOhiohealth Southeastern Medical CenterMicrocytes LM Ql (Bld)Ordered By: Justyna Hanson on 95-60-1621Vntdoglxtk Ql (Bld)Microcytes [Presence] in Blood by Light microscopyOhiohealth Southeastern Medical Center Monocytes Auto (Bld) [#/Vol]Ordered By: Justyna Hanson on 62-35-4613Hdyodxnze (Bld) [#/Vol]Automated blood monocyte countOhiohealth Southeastern Medical Center Monocytes/100 WBC Auto (Bld)Ordered By: Justyna Hanson on 39-62-2992Mptkgjnoj/100 WBC (Bld)Automated monocyte %[facility] Medical CenterMonocytes/100 WBC Manual cnt (Bld)Ordered By: Justyna Hanson on 02-34-4263Sganwisyi/100 WBC (Bld) Monocytes/100 leukocytes in Blood by Manual count2-11[facility] Medical CenterNeutrophils Auto (Bld) [#/Vol]Ordered By: Justyna Hanson on 08-27-2024 Neutrophils (Bld) [#/Vol]Neutrophils [#/volume] in Blood by Automated count [facility] Medical CenterNeutrophils/100 WBC Auto (Bld)Ordered By: Justyna Hanson on 47-24-1025Angtaeonkzu/100 WBC (Bld)Automated neutrophil %[facility] Medical CenterNo Panel InformationOrdered By: Justyna Hanson on 41-60-8068Bmtihtttc GFR (CKD-EPI)30.239 mL/MinOhiohealth Southeastern Medical Center Pharmacy Creatinine Clearance (ChemN/[facility] HospitalNucleated RBC/100 WBC Manual cnt (Bld) [Ratio]Ordered By: Justyna Hanson on 08-27-2024 Nucleated RBC/100 WBC (Bld) [Ratio]Nucleated erythrocytes/100 leukocytes [Ratio] in Blood by Manual countHigh0-0[facility] Medical CenterNucleated erythrocytes [Presence] in Blood by Automated countOrdered By: Justyna Hanson on 90-15-5897Mouhuutjg RBC Auto Ql (Bld)Nucleated erythrocytes [Presence] in Blood by Automated countOhiohealth Southeastern Medical CenterOvalocytes [Presence] in Blood by Light microscopyOrdered By: Justyna Hanson on 33-25-5597Pfmsepfeuc LM Ql (Bld)Ovalocyte detectionOhiohealth Southeastern Medical CenterPlatelet adequacy [Presence] in Blood by Light microscopyOrdered By: Justyna Hanson on 08-27-2024 Platelets LM Ql (Bld)Platelet adequacy [Presence] in Blood by Light microscopy NormalOhiohealth Southeastern Medical CenterPlatelet mean volume Auto (Bld) [Entitic vol]Ordered By: Justyna Hanson on 73-14-3730Uatzpfbm mean volume (Bld) [Entitic vol]Platelet mean volume [Entitic volume] in Blood by Automated count6.3-10.7 [facility] CenterPlatelet morphology finding [Identifier] in BloodOrdered By: Justyna Hanson on 81-20-1752Grzlnink morphology finding Nom (Bld) Platelet morphology finding [Identifier] in BloodNormalOhiohealth Southeastern Medical CenterPlatelets Auto (Bld) [#/Vol]Ordered By: Justyna Hanson on 08-27-2024 Platelets (Bld) [#/Vol]Platelets [#/volume] in Blood by Automated -678 [facility] CenterPoikilocytosis [Presence] in Blood by Light microscopyOrdered By: Justyna Hanson on 76-70-6185Cztpiwjzizvxjc LM Ql (Bld) Poikilocytosis [Presence] in Blood by Light microscopyOhiohealth Southeastern Medical CenterPolychromasia [Presence] in Blood by Light microscopyOrdered By: Justyna Hanson on 02-67-4793Vvldqqghkzzln LM Ql (Bld)Polychromasia [Presence] in Blood by Light microscopyOhiohealth Southeastern Medical CenterPotassium [Moles/volume] in Serum or PlasmaOrdered By: Justyna Hanson on 61-27-1988Dyryzaeer [Moles/Vol] Potassium [Moles/volume] in Serum or Plasma3.5-5.1FClinton Memorial HospitalProtein [Mass/volume] in Serum or PlasmaOrdered By: Justyna Hanson on 09-43-2756Qqjtpys [Mass/Vol]Protein [Mass/volume] in Serum or PlasmaLow6.4-8.9 [facility] CenterRBC Auto (Bld) [#/Vol]Ordered By: Justyna Hanson on 94-12-2356GQM (Bld) [#/Vol]Erythrocytes [#/volume] in Blood by Automated countLow3.60-5.00Mercy [facility] Hospitalegmented neutrophils/100 WBC Manual cnt (Bld)Ordered By: Justyna Hanson on 09-69-9422Wapjkfwqa neutrophils/100 WBC (Bld)Manual blood segmented neutrophils/100 laubhtuhlgSuop73-21HqdbhqsjdMercy Memorial Hospitalerum or plasma albumin/globulin mass ratioOrdered By: Justyna Hanson on 08-80-4282Wqmxwkr/Globulin [Mass ratio]Serum or plasma albumin/globulin mass ratioMercy Memorial Hospitalerum or plasma anion gap determinationOrdered By: Justyna Hanson on 74-75-1322Zavvb gap [Moles/Vol]Serum or plasma anion gap determination6.0-15.0[facility] Hospitalerum or plasma iron binding capacity measurement (mass/volume) Ordered By: Justyna Hanson on 92-79-2603Wfcz binding capacity [Mass/Vol]Iron binding capacity [Mass/volume] in Serum or Ruifsm100-581WuabczvkzMercy Memorial Hospitalerum or plasma iron saturation measurement (mass fraction)Ordered By: Justyna Hanson on 30-14-8366Ulix saturation [Mass fraction]Iron saturation [Mass Fraction] in Serum or PlasmaOhiohealth Southeastern Medical CenterComment on above:Test not performedSerum or plasma total cholesterol/high density lipoprotein (HDL) cholesterol mass ratOrdered By: Justyna Hanson on 08-27-2024 Cholesterol.total/Cholesterol in HDL [Mass ratio]Serum or plasma total cholesterol/high density lipoprotein (HDL) cholesterol mass rat<5.0Mer[facility] Hospitalodium [Moles/volume] in Serum or PlasmaOrdered By: Justyna Hanson on 34-00-8415Azfteq [Moles/Vol]Sodium [Moles/volume] in Serum or Plasma 136-145Mer[facility] Memorial Hospitaltomatocytes [Presence] in Blood by Light microscopyOrdered By: Justyna Hanson on 02-05-5372Yvyvfqjeoret LM Ql (Bld) Red blood cell stomatocyte detectionOhiohealth Southeastern Medical CenterThyroid Stimulating Hormoneon 74-37-0347ZDU Qn2.01 m[IU]/LNormal0.45-5.33The [facility] Physician GroupComment on above:Result Comment: PERFORMED BY: [place] [address] PATHOLOGIST FOR[employer] AIDE ANNELIESE MELENDEZ M.D.Performed By: #### CMP, SCAN CBC #### [place] [address] USAThyrotropin [Units/volume] in Serum or PlasmaOrdered By: Justyna Hanson on 78-61-6358XUN QnThyrotropin [Units/volume] in Serum or Plasma 0.45-5.33[facility] CenterThyroxine (T4) free [Mass/volume] in Serum or PlasmaOrdered By: Justyna Hanson on 55-14-0259Anbp T4 [Mass/Vol]Thyroxine (T4) free [Mass/volume] in Serum or Plasma0.61-1.12[facility] CenterToxic leukocyte vacuolation detectionOrdered By: Justyna Hanson on 34-69-7228Xqchyyodj toxic vacuoles LM Ql (Bld)Toxic leukocyte vacuolation detectionOhiohealth Southeastern Medical CenterTransferrin [Mass/volume] in Serum or PlasmaOrdered By: Justyna Hanson on 10-46-4596Arlxgupjwua [Mass/Vol]Transferrin [Mass/volume] in Serum or Hazzkb926-503AubevasatOhiohealth Southeastern Medical Center Triglyceride [Mass/volume] in Serum or PlasmaOrdered By: Justyna Hanson on 40-75-4316Jrwppbruydnk [Mass/Vol]Triglyceride [Mass/volume] in Serum or Plasma 0-149[facility] CenterComment on above:TRIG ATP III CLASSIFICATIONTRIG less than 150 mg/dL NormalTRIG 150-199 mg/dL Borderline highTRIG 200-500 mg/dL High TRIG greater than 500 mg/dL Very highStandard traceable to the Center for Disease Conrtrol and Prevention (CDC) test method. Triiodothyronine (T3) Freeon 74-38-0226Myvdyydvlbwxuqyh (T3) Free3.51 pg/mL Normal2.50-3.90The [facility] Physician GroupComment on above:Result Comment: PERFORMED BY: [place] [address] PATHOLOGIST FOREST AIDE ANNELIESE MELENDEZ M.D.Performed By: #### CMP, SCAN CBC #### [place] [address] USATriiodothyronine (T3) Free [Mass/volume] in Serum or PlasmaOrdered By: Justyna Hanson on 75-25-2172Ldlj T3 [Mass/Vol]Triiodothyronine (T3) Free [Mass/volume] in Serum or Plasma2.50-3.90[facility] CenterUrate [Mass/volume] in Serum or PlasmaOrdered By: Justyna Hanson on 35-21-1368Yddjo [Mass/Vol]Urate [Mass/volume] in Serum or Plasma2.3-6.6FClinton Memorial HospitalUrea nitrogen [Mass/volume] in Serum or PlasmaOrdered By: Justyna Hanson on 72-15-2151Wycu nitrogen [Mass/Vol]Urea nitrogen [Mass/volume] in Serum or PlasmaHigh7-25[facility] CenterUric Acidon 74-43-2047Qvdir [Mass/Vol]6.3 mg/dLNormal2.3-6.6The [facility] Physician GroupComment on above:Performed By: #### MG, CBCNO, BMP #### [place] [address] USAVitamin B12on 81-18-5909Bgmodhanv (Vitamin B12) [Mass/Vol] 1078 pg/gPCvcu507-734Bwx [facility] Physician GroupComment on above:Performed By: #### CMP, SCAN CBC #### [place] [address] USAVitamin B12 ser/plasOrdered By: Justyna Hanson on 08-27-2024 Cobalamin (Vitamin B12) [Mass/Vol]Vitamin B12 ser/rztmRjcv031-548BniuetaypOhiohealth Southeastern Medical CenterWBC Auto (Bld) [#/Vol]Ordered By: Justyna Hanson on 71-21-0362SXW (Bld) [#/Vol]Leukocytes [#/volume] in Blood by Automated count 3.8-11.6FClinton Memorial HospitalB-Type Natriuretic Peptideon 04-09-2024 Natriuretic peptide B (Bld) [Mass/Vol]150.0 pg/mLHigh5-100The [facility] Physician GroupComment on above:Result Comment: PERFORMED BY: [place] [address] PATHOLOGIST FOREST AIDE ANNELIESE MELENDEZ M.D.Performed By: #### MG, CBCNO, BMP #### [place] [address] USABasic Metabolic Panelon 77-36-0195Edypy gap [Moles/Vol] 11.6 mmol/LNormal6.0-15.0The [facility] Physician GroupComment on above:Performed By: #### MG, CBCNO, BMP #### [facility] [address] [place] [address] USACalcium [Mass/Vol]8.6 mg/dLNormal8.6-10.3The [facility] Physician GroupComment on above:Result Comment: PERFORMED BY: [place] [address] PATHOLOGIST FOREST AIDE ANNELIESE MELENDEZ M.D.Performed By: #### MG CBCNADJA, BMP #### [place] [address] USAChloride [Moles/Vol]100 mmol/IFrajhk74-750Mjw [facility] Physician GroupComment on above:Performed By: #### MGMONICA, BMP #### [place] [address] USACO2 [Moles/Vol]33.8 mmol/LHigh21.0-31.0The [facility] Physician GroupComment on above:Performed By: #### MG CBCNADJA, BMP #### [place] [address] USACreatinine [Mass/Vol]1.48 mg/dLHigh0.60-1.20The [facility] Physician GroupComment on above:Performed By: #### MGMONICA, BMP #### [place] [address] USAEstimated GFR34.921 mL/MinNormalThe [facility] Physician GroupComment on above:Performed By: #### MG CBCNADJA, BMP #### [place] [address] USAGlucose [Mass/Vol]112 mg/dYVijg51-058Znf [facility] Physician GroupComment on above:Result Comment: Random Glucose Reference Range is dependent on time and content of last meal. Glucose of more than 200 mg/dL in a nonstressed, ambulatory subject supports the diagnosis of Diabetes Mellitus. ADA recommended reference rangePerformed By: #### MG CBCNO, BMP #### [place] [address] USAPotassium [Moles/Vol]4.4 mmol/LNormal3.5-5.1The [facility] Physician [facility] HospitalComment on above:Performed By: #### MG, CBCNO, BMP #### [facility] [address] [place] [address] USASodium [Moles/Vol]141 mmol/GTdmgwh057-351Vfv [facility] Physician [facility] HospitalComment on above:Performed By: #### MG, CBCNO, BMP #### [facility] [address] [place] [address] USAUrea nitrogen [Mass/Vol]24 mg/dLNormal7-25The [facility] Physician [facility] HospitalComment on above:Performed By: #### MG, CBCNO, BMP #### [facility] [address] [place] [address] USACalcium [Mass/volume] in Serum or PlasmaOrdered By: Justyna Hanson on 91-20-4741Xfffjdo [Mass/Vol]Calcium [Mass/volume] in Serum or Plasma 8.6-10.3FClinton Memorial HospitalCarbon dioxide, total [Moles/volume] in Serum or PlasmaOrdered By: Justyna Hanson on 47-44-2938VE3 [Moles/Vol]Carbon dioxide, total [Moles/volume] in Serum or OiuiskFpiv68.0-31.0[facility] CenterChloride [Moles/volume] in Serum or PlasmaOrdered By: Justyna Hanson on 35-60-4183Gogeoipv [Moles/Vol]Chloride [Moles/volume] in Serum or Plasma 98-107[facility] CenterCreatinine [Mass/volume] in Serum or PlasmaOrdered By: Justyna Hanson on 51-11-7762Xgkkldyltc [Mass/Vol]Creatinine [Mass/volume] in Serum or PlasmaHigh0.60-1.20[facility] Glucose [Mass/volume] in Serum or PlasmaOrdered By: Justyna Hanson on 04-09-2024 Glucose [Mass/Vol]Glucose [Mass/volume] in Serum or LyeajsJour58-945JvpujjoalOhiohealth Southeastern Medical CenterComment on above:ADA recommended reference rangeRandom Glucose Reference Range is dependent on time and content of last meal. Glucose of more than 200 mg/dL in a nonstressed, ambulatory subject supports the diagnosisof Diabetes Mellitus.Natriuretic peptide B [Mass/Vol]Ordered By: Justyna Hanson on 65-06-4653Halffbonmmc peptide B (Bld) [Mass/Vol]BNP ser/plasHigh5-100 [facility] CenterNo Panel InformationOrdered By: Justyna Hanson on 35-01-5366Zawbaoybf GFR (CKD-EPI)34.921 mL/MinOhiohealth Southeastern Medical Center Pharmacy Creatinine Clearance (ChemN/AFClinton Memorial HospitalPotassium [Moles/volume] in Serum or PlasmaOrdered By: Justyna Hanson on 04-09-2024 Potassium [Moles/Vol]Potassium [Moles/volume] in Serum or Plasma3.5-5.1FUniversity Hospitals Geneva Medical Centererum or plasma anion gap determinationOrdered By: Justyna Hanson on 80-01-8051Icddi gap [Moles/Vol]Serum or plasma anion gap determination6.0-15.0[facility] Hospitalodium [Moles/volume] in Serum or PlasmaOrdered By: Justyna Hanson on 58-88-6140Opycmp [Moles/Vol]Sodium [Moles/volume] in Serum or Dyuctc429-407BpmegqcecOhiohealth Southeastern Medical CenterUrea nitrogen [Mass/volume] in Serum or PlasmaOrdered By: Justyna Hanson on 04-09-2024 Urea nitrogen [Mass/Vol]Urea nitrogen [Mass/volume] in Serum or Plasma7-25 [facility] CenterEstimated glomerular filtration rate (GFR) non- Americanon 32-23-2037YEV/1.73 sq M.predicted among non-blacks MDRD (S/P/Bld) [Vol rate/Area]29 mL/min/{1.73_m2}Low>=60[facility] CenterHematocrit Auto (Bld) [Volume fraction]on 65-99-8498Fmmfhxhdwg (Bld) [Volume fraction]34.1 %Low36.0-48.0[facility] CenterHemoglobin [Mass/volume] in Bloodon 01-42-7507Fmigcbapuf (Bld) [Mass/Vol]9.8 g/dLLow 12.0-16.0[facility] CenterLaboratory - Chemistry and Chemistry - challengeon 25-15-3791Ahphmez [Mass/Vol]8.8 mg/dL8.5-10.1FClinton Memorial HospitalChloride [Moles/Vol]101 mmol/P80-713HgcwzidxcOhiohealth Southeastern Medical CenterCO2 [Moles/Vol]35.0 mmol/LHigh21.0-32.0[facility] Creatinine [Mass/Vol]1.68 mg/dLHigh0.55-1.02[facility] GFR/1.73 sq M.predicted MDRD (S/P/Bld) [Vol rate/Area]35 mL/min/{1.73_m2}Low>=60 [facility] CenterGlucose [Mass/Vol]113 mg/uDIaoa61-667YgchzgqobOhiohealth Southeastern Medical CenterPotassium [Moles/Vol]4.5 mmol/L3.5-5.1FUniversity Hospitals Geneva Medical Centerodium [Moles/Vol]141 mmol/L603-068SdkztqlttOhiohealth Southeastern Medical CenterUrea nitrogen [Mass/Vol]31.0 mg/dLHigh7.0-18.0[facility] CenterUrea nitrogen/Creatinine [Mass ratio]18.5 mg/mgMercy Memorial Hospitalerum or plasma anion gap determinationon 54-99-7090Hqmpv gap [Moles/Vol] 9.5 mmol/LFClinton Memorial HospitalCalcium [Mass/volume] in Serum or PlasmaOrdered By: Justyna Hanson on 26-99-9158Rgaiumo [Mass/Vol]9.0 mg/dL8.6-10.3 [facility] CenterCarbon dioxide, total [Moles/volume] in Serum or PlasmaOrdered By: Justyna Hanson on 12-16-1501QI4 [Moles/Vol]31.9 mmol/LHigh 21.0-31.0[facility] CenterChloride [Moles/volume] in Serum or PlasmaOrdered By: Justyna Hanson on 90-39-2858Clcqdnhu [Moles/Vol]99 mmol/L98-107 [facility] CenterCreatinine [Mass/volume] in Serum or Plasma Ordered By: Justyna Hanson on 25-38-7443Gynsrzvimn [Mass/Vol]1.54 mg/dLHigh 0.60-1.20[facility] CenterGlucose [Mass/volume] in Serum or PlasmaOrdered By: Justyna Hanson on 12-08-0328Kgsaxno [Mass/Vol]106 mg/dLHigh 70-100[facility] CenterComment on above:ADA recommended reference rangeRandom Glucose Reference Range is dependent on time and content of last meal. Glucose of more than 200 mg/dL in a nonstressed, ambulatory subject supports the diagnosisof Diabetes Mellitus.Hematocrit Auto (Bld) [Volume fraction]Ordered By: Justyna Hanson on 54-03-7529Bxpqffkofa (Bld) [Volume fraction]31.0 %Low34.0-46.4FClinton Memorial HospitalHemoglobin [Mass/volume] in BloodOrdered By: Justyna Hanson on 20-85-0458Rlegevhmrk (Bld) [Mass/Vol]9.5 g/dLLow11.8-15.4FClinton Memorial HospitalNatriuretic peptide B [Mass/Vol]Ordered By: Justyna Hanson on 33-87-7422Vaqqcyhppck peptide B (Bld) [Mass/Vol]122.0 pg/mLHigh5-100[facility] CenterNo Panel InformationOrdered By: Justyna Hanson on 54-81-6518Xafrbompo GFR (CKD-EPI)33.294 mL/MinOhiohealth Southeastern Medical CenterPharmacy Creatinine Clearance (ChemN/A [facility] CenterPotassium [Moles/volume] in Serum or Plasma Ordered By: Justyna Hanson on 96-09-7521Ladlvgmuv [Moles/Vol]4.3 mmol/L3.5-5.1 [facility] Hospitalerum or plasma anion gap determinationOrdered By: Justyna Hanson on 16-85-8172Tjsrs gap [Moles/Vol]12.4 mmol/L6.0-15.0[facility] Hospitalodium [Moles/volume] in Serum or PlasmaOrdered By: Justyna Hanson on 84-76-5054Qsqfwz [Moles/Vol]139 mmol/X368-039VyfsbsfbjOhiohealth Southeastern Medical CenterUrea nitrogen [Mass/volume] in Serum or PlasmaOrdered By: Justyna Hanson on 51-25-3390Sxuz nitrogen [Mass/Vol]26 mg/dLHigh7-25[facility] CenterCalcium [Mass/volume] in Serum or PlasmaOrdered By: Justyna Hanson on 53-58-9190Tfnuviq [Mass/Vol]8.6 mg/dL8.6-10.3FClinton Memorial HospitalCarbon dioxide, total [Moles/volume] in Serum or PlasmaOrdered By: Justyna Hanson on 91-11-1433TP3 [Moles/Vol]32.6 mmol/LHigh21.0-31.0[facility] CenterChloride [Moles/volume] in Serum or PlasmaOrdered By: Justyna Hanson on 44-54-1535Qatbjaso [Moles/Vol]99 mmol/D17-270MpbjtrwxwOhiohealth Southeastern Medical CenterCreatinine [Mass/volume] in Serum or PlasmaOrdered By: Justyna Hanson on 26-27-0857Ozivdoqoad [Mass/Vol]1.66 mg/dLHigh0.60-1.20[facility] CenterGlucose [Mass/volume] in Serum or PlasmaOrdered By: Justyna Hanson on 76-38-8529Unsoixk [Mass/Vol]118 mg/iVPiba09-738BpbxvwkczOhiohealth Southeastern Medical Center Comment on above:ADA recommended reference rangeRandom Glucose Reference Range is dependent on time and content of last meal. Glucose of more than 200 mg/dL in a nonstressed, ambulatory subject supports the diagnosisof Diabetes Mellitus. Hematocrit Auto (Bld) [Volume fraction]Ordered By: Justyna Hanson on 12-26-2023 Hematocrit (Bld) [Volume fraction]32.0 %Low34.0-46.4FClinton Memorial HospitalHemoglobin [Mass/volume] in BloodOrdered By: Justyna Hanson on 12-26-2023 Hemoglobin (Bld) [Mass/Vol]9.9 g/dLLow11.8-15.4FClinton Memorial Hospital Natriuretic peptide B [Mass/Vol]Ordered By: Justyna Hanson on 12-26-2023 Natriuretic peptide B (Bld) [Mass/Vol]154.0 pg/mLHigh5-100[facility] CenterNo Panel InformationOrdered By: Justyna Hanson on 12-26-2023 Estimated GFR (CKD-EPI)30.428 mL/MinOhiohealth Southeastern Medical CenterPharmacy Creatinine Clearance (ChemN/AFClinton Memorial HospitalPotassium [Moles/volume] in Serum or PlasmaOrdered By: Justyna Hanson on 99-41-0549Qrzsmhlqx [Moles/Vol]4.5 mmol/L3.5-5.1FUniversity Hospitals Geneva Medical Centererum or plasma anion gap determinationOrdered By: Justyna Hanson on 00-95-3017Aaqyy gap [Moles/Vol]11.9 mmol/L6.0-15.0[facility] Hospitalodium [Moles/volume] in Serum or PlasmaOrdered By: Justyna Hanson on 99-30-3302Pmictw [Moles/Vol]139 mmol/G793-870IongytstuOhiohealth Southeastern Medical CenterUrea nitrogen [Mass/volume] in Serum or PlasmaOrdered By: Justyna Hanson on 08-81-8782Gmpt nitrogen [Mass/Vol]33 mg/dLHigh7-25[facility] CenterAlanine aminotransferase [Enzymatic activity/volume] in Serum or PlasmaOrdered By: Justyna Hanson on 06-74-8417LMS [Catalytic activity/Vol]8 U/L7-52[facility] CenterAlbumin [Mass/volume] in Serum or Plasma by Bromocresol green (BCG) dye binding methoOrdered By: Justyna Hanson on 31-12-4917Hwotlxe BCG dye [Mass/Vol]3.9 g/dL3.5-5.7FClinton Memorial HospitalAlkaline phosphatase [Enzymatic activity/volume] in Serum or PlasmaOrdered By: Justyna Hanson on 80-50-6176JDG [Catalytic activity/Vol]89 U/M02-838ShcyllgitOhiohealth Southeastern Medical CenterAspartate aminotransferase [Enzymatic activity/volume] in Serum or Plasma Ordered By: Justyna Hanson on 87-14-3322HZR [Catalytic activity/Vol]12 U/AHme88-26 [facility] CenterBasophils Auto (Bld) [#/Vol]Ordered By: Justyna Hanson on 84-35-9701Hoxxigorc (Bld) [#/Vol]0.1 10*3/uL0.0-0.2FClinton Memorial HospitalBasophils/100 WBC Auto (Bld)Ordered By: Justyna Hanson on 12-12-2023 Basophils/100 WBC (Bld)0.6 %.[facility] CenterBilirubin.total [Mass/volume] in Serum or PlasmaOrdered By: Justyna Hanson on 37-24-0506Rzydfjmhf [Mass/Vol]0.4 mg/dL0.3-1.0[facility] CenterCalcium [Mass/volume] in Serum or PlasmaOrdered By: Justyna Hanson on 12-82-6297Kzplogc [Mass/Vol]9.3 mg/dL8.6-10.3FClinton Memorial HospitalCarbon dioxide, total [Moles/volume] in Serum or PlasmaOrdered By: Justyna Hanson on 23-16-1735RY8 [Moles/Vol]27.1 mmol/L21.0-31.0[facility] CenterChloride [Moles/volume] in Serum or PlasmaOrdered By: Justyna Hanson on 65-52-3812Tfmqksuk [Moles/Vol]104 mmol/G82-524EtqyadelpOhiohealth Southeastern Medical CenterCholesterol [Mass/volume] in Serum or PlasmaOrdered By: Justyna Hanson on 12-12-2023 Cholesterol [Mass/Vol]174 mg/yS081-914IjwyscytsOhiohealth Southeastern Medical CenterComment on above:Chol less than 200 mg/dl low riskChol 201-239 mg/dl borderline riskChol 240 mg/dl and greater high riskCholesterol in LDL Calc [Mass/Vol]Ordered By: Justyna Hanson on 33-22-0259Oeyiylxptwo in LDL [Mass/Vol]111 mg/dLHigh0-100 [facility] CenterComment on above:LDL ATP III CLASSIFICATIONLDL less than 100 mg/dL OptimalLDL 100-129 mg/dL Near or above mywgcruWZZ561-741 mg/dL Borderline highLDL 160-189 mg/dL HighLDL greater than 189 mg/dL Very high Cholesterol in VLDL Calc [Mass/Vol]Ordered By: Justyna Hanson on 12-12-2023 Cholesterol in VLDL [Mass/Vol]25 mg/dLOhiohealth Southeastern Medical Center Creatinine [Mass/volume] in Serum or PlasmaOrdered By: Justyna Hanson on 32-05-5351Qdiagvhtlp [Mass/Vol]1.20 mg/dL0.60-1.20[facility] CenterEosinophils Auto (Bld) [#/Vol]Ordered By: Justyna Hanson on 08-05-2024 Eosinophils (Bld) [#/Vol]0.0 10*3/uL0.0-0.45[facility] Eosinophils/100 WBC Auto (Bld)Ordered By: Justyna Hanson on 12-12-2023 Eosinophils/100 WBC (Bld)0.1 %.[facility] CenterErythrocyte distribution width Auto (RBC) [Ratio]Ordered By: Justyna Hanson on 12-12-2023 Erythrocyte distribution width (RBC) [Ratio]18.2 %High11.9-15.3FClinton Memorial HospitalFerritin [Mass/volume] in Serum or PlasmaOrdered By: Justyna Hanson on 29-61-5144Dkhokpww [Mass/Vol]16.0 ng/mL11.0-306.8[facility] CenterFolate [Mass/volume] in Serum or PlasmaOrdered By: Justyna Hanson on 46-01-7664Rxlmsg [Mass/Vol]21.7 ng/mL>5.9[facility] CenterComment on above:Folate reference range: >5.9 ng/mlThe WHO technical consultation on folate and vitamin s17qwhfuqnjrkrc has determined that folate concentrations lessthan 4 ng/ml are considered deficient.Globulin Calc (S) [Mass/Vol]Ordered By: Justyna Hanson on 99-29-4356Nivgikop (S) [Mass/Vol]2.8 g/dL [facility] CenterGlucose [Mass/volume] in Serum or PlasmaOrdered By: Justyna Hanson on 95-13-8267Yddxpij [Mass/Vol]150 mg/iBSwct12-155MenfrsaqxOhiohealth Southeastern Medical CenterComment on above:ADA recommended reference rangeRandom Glucose Reference Range is dependent on time and content of last meal. Glucose of more than 200 mg/dL in a nonstressed, ambulatory subject supports the diagnosisof Diabetes Mellitus.Glucose mean value [Mass/volume] in Blood Estimated from glycated hemoglobinOrdered By: Justyna Hanson on 97-26-0269Gwbpzyw glucose Estimated from glycated hemoglobin (Bld) [Mass/Vol]117 mg/dLOhiohealth Southeastern Medical CenterHematocrit Auto (Bld) [Volume fraction]Ordered By: Justyna Hanson on 35-49-8155Iursbcjmny (Bld) [Volume fraction]31.7 %Low34.0-46.4 [facility] CenterHemoglobin A1c percentageOrdered By: Justyna Hanson on 15-77-1473WdP4d (Bld) [Mass fraction]5.7 %High4.3-5.6FClinton Memorial HospitalComment on above:Increased risk for diabetes: 5.7 - 6.4diabetes: >6.4glycemic control for adults with diabetes: <7.0Hemoglobin [Mass/volume] in BloodOrdered By: Justyna Hanson on 12-44-1601Cfndshvxmf (Bld) [Mass/Vol]9.9 g/dLLow11.8-15.4FClinton Memorial HospitalIron [Mass/volume] in Serum or PlasmaOrdered By: Justyna Hanson on 96-59-8644Dpeb [Mass/Vol]16 ug/gAXyy52-711FxaneaspbOhiohealth Southeastern Medical CenterIron binding capacity [Mass/volume] in Serum or PlasmaOrdered By: Justyna Hanson on 12-12-2023 Iron binding capacity [Mass/Vol]497 ug/hKEpwh008-864QqwfvwdsyOhiohealth Southeastern Medical CenterIron saturation [Mass Fraction] in Serum or PlasmaOrdered By: Justyna Hanson on 14-15-5759Dwpi saturation [Mass fraction]3.2 %Uco00-41UbmyqmrnzOhiohealth Southeastern Medical CenterLeukocytes [#/volume] corrected for nucleated erythrocytes in Blood by Automated counOrdered By: Justyna Hanson on 00-24-9692OZV corrected for nucl RBC Auto (Bld) [#/Vol]8.9 10*3/uL3.8-11.6FClinton Memorial Hospital Lymphocytes Auto (Bld) [#/Vol]Ordered By: Justyna Hanson on 02-62-0204Evqwoouwcxq (Bld) [#/Vol]1.0 10*3/uL1.00-4.8[facility] CenterLymphocytes/100 WBC Auto (Bld)Ordered By: Justyna Hanson on 23-68-2764Ilbxpyespfu/100 WBC (Bld) 10.8 %.[facility] CenterMCH Auto (RBC) [Entitic mass]Ordered By: Justyna Hanson on 86-15-4107GTO (RBC) [Entitic mass]27.0 pg24.7-34.3FClinton Memorial HospitalMCHC Auto (RBC) [Mass/Vol]Ordered By: Justyna Hanson on 31-92-2268WBCX (RBC) [Mass/Vol]31.1 g/dLLow32.0-35.0[facility] CenterMCV Auto (RBC) [Entitic vol]Ordered By: Justyna Hanson on 50-18-6978XYQ (RBC) [Entitic vol]86.7 qX05-015MonrxozqdOhiohealth Southeastern Medical CenterMonocytes Auto (Bld) [#/Vol]Ordered By: Justyna Hanson on 36-55-1063Fklvatsyx (Bld) [#/Vol]0.1 10*3/uL0.0-0.8[facility] CenterMonocytes/100 WBC Auto (Bld) Ordered By: Justyna Hanson on 22-58-7236Jvtnmtxzm/100 WBC (Bld)1.6 %.[facility] CenterNatriuretic peptide B [Mass/Vol]Ordered By: Tressa Jackson on 67-90-2450Kurzgmxibug peptide B (Bld) [Mass/Vol]317.0 pg/mLHigh 5-100[facility] Medical CenterNeutrophils Auto (Bld) [#/Vol]Ordered By: Justyna Hanson on 03-14-7726Pskcgtaesjt (Bld) [#/Vol]7.7 10*3/uL1.8-7.7FClinton Memorial HospitalNeutrophils/100 WBC Auto (Bld)Ordered By: Justyna Hanson on 94-99-7386Kaamnpmrtbj/100 WBC (Bld)86.9 %.[facility] CenterNo Panel InformationOrdered By: Justyna Hanson on 90-25-4484Jrhhtubeu GFR (CKD-EPI) 44.914 mL/MinOhiohealth Southeastern Medical CenterPharmacy Creatinine Clearance (ChemN/[facility] HospitalNucleated erythrocytes [Presence] in Blood by Automated countOrdered By: Justyna Hanson on 85-37-6811Vtjimqlbl RBC Auto Ql (Bld)0.4 /100{WBC}0-0.5FClinton Memorial HospitalPlatelet mean volume Auto (Bld) [Entitic vol]Ordered By: Justyna Hanson on 01-47-4959Gvkfrfew mean volume (Bld) [Entitic vol]9.1 fL6.3-10.7FClinton Memorial Hospital Platelets Auto (Bld) [#/Vol]Ordered By: Justyna Hanson on 49-49-4508Yuhhoojjq (Bld) [#/Vol]213 10*3/vX409-647PmugxxkdkOhiohealth Southeastern Medical CenterPotassium [Moles/volume] in Serum or PlasmaOrdered By: Justyna Hanson on 52-19-9600Aarsdtwad [Moles/Vol]5.3 mmol/LHigh3.5-5.1FClinton Memorial HospitalProtein [Mass/volume] in Serum or PlasmaOrdered By: Justyna Hanson on 64-89-0074Djrbjri [Mass/Vol]6.7 g/dL6.4-8.9[facility] CenterRBC Auto (Bld) [#/Vol] Ordered By: Justyna Hansno on 36-48-0066XFN (Bld) [#/Vol]3.66 10*6/uL3.60-5.00 [facility] Hospitalerum or plasma albumin/globulin mass ratio Ordered By: Justyna Hanson on 20-46-1007Xxsnwbw/Globulin [Mass ratio]1.4 {ratio} [facility] Hospitalerum or plasma anion gap determinationOrdered By: Justyna Hanson on 56-08-2553Zfwxb gap [Moles/Vol]13.2 mmol/L6.0-15.0[facility] Hospitalerum or plasma high density lipoprotein (HDL) cholesterol measurementOrdered By: Justyna Hanson on 30-28-9629Undlgkqvngk in HDL [Mass/Vol]38 mg/aG30-29WezkgfzkcOhiohealth Southeastern Medical CenterComment on above:HDL CHOL ATP-III CLASSIFICATION Cardiovascular RiskHDL > or equal to 60 mg/dL LOWHDL < 40 mg/dL HIGHSerum or plasma total cholesterol/high density lipoprotein (HDL) cholesterol mass ratOrdered By: Justyna Hanson on 12-12-2023 Cholesterol.total/Cholesterol in HDL [Mass ratio]4.6 {ratio}<5.0[facility] Hospitalodium [Moles/volume] in Serum or PlasmaOrdered By: Justyna Hanson on 13-35-7064Drwado [Moles/Vol]139 mmol/J192-398FdghtdedrOhiohealth Southeastern Medical CenterThyrotropin [Units/volume] in Serum or PlasmaOrdered By: Justyna Hanson on 70-50-3299EZY Qn1.51 m[IU]/L0.45-5.33[facility] Thyroxine (T4) free [Mass/volume] in Serum or PlasmaOrdered By: Justyna Hanson on 06-44-0841Vsda T4 [Mass/Vol]1.28 ng/dLHigh0.61-1.12[facility] CenterTransferrin [Mass/volume] in Serum or PlasmaOrdered By: Justyna Hanson on 64-20-0094Zomqxqtzvgb [Mass/Vol]355 mg/qG528-858QgphdhvvlOhiohealth Southeastern Medical CenterTriglyceride [Mass/volume] in Serum or PlasmaOrdered By: Justyna Hanson on 09-15-1047Djlofcafrach [Mass/Vol]126 mg/dL0-149[facility] Comment on above:TRIG ATP III CLASSIFICATIONTRIG less than 150 mg/dL NormalTRIG 150-199 mg/dL Borderline highTRIG 200-500 mg/dL High TRIG greater than 500 mg/dL Very highStandard traceable to the Center for Disease Conrtrol and Prevention (CDC) test method.Triiodothyronine (T3) Free [Mass/volume] in Serum or Plasma Ordered By: Justyna Hanson on 96-75-9938Ggyb T3 [Mass/Vol]3.58 pg/mL2.50-3.90 [facility] CenterUrate [Mass/volume] in Serum or PlasmaOrdered By: Justyna Hanson on 74-25-3802Abebi [Mass/Vol]4.7 mg/dL2.3-6.6FClinton Memorial HospitalUrea nitrogen [Mass/volume] in Serum or PlasmaOrdered By: Justyna Hanson on 66-88-2717Pbeh nitrogen [Mass/Vol]29 mg/dLHigh7-25[facility] CenterVitamin B12 ser/plasOrdered By: Justyna Hanson on 12-12-2023 Cobalamin (Vitamin B12) [Mass/Vol]821 pg/wR027-825HbzzxpjqjOhiohealth Southeastern Medical CenterWBC Auto (Bld) [#/Vol]Ordered By: Justyna Hanson on 48-77-2719UUD (Bld) [#/Vol]8.9 10*3/uL3.8-11.6FClinton Memorial HospitalAlanine aminotransferase [Enzymatic activity/volume] in Serum or PlasmaOrdered By: Justyna Hanson on 71-26-8481KCM [Catalytic activity/Vol]9 U/LNormal7-52 U/[facility] HospitalAlbumin [Mass/volume] in Serum or Plasma by Bromocresol green (BCG) dye binding methoOrdered By: Justyna Hanson on 23-87-0681Nuveweo BCG dye [Mass/Vol]3.5 g/dL3.5-5.7FClinton Memorial HospitalAlkaline phosphatase [Enzymatic activity/volume] in Serum or PlasmaOrdered By: Justyna Hanson on 67-04-4362BDD [Catalytic activity/Vol]88 U/DOazdvr25-616 U/[facility] HospitalAspartate aminotransferase [Enzymatic activity/volume] in Serum or PlasmaOrdered By: Justyna Hanson on 01-96-1067VQH [Catalytic activity/Vol]15 U/WAimgyc30-32 U/[facility] HospitalBasophils Auto (Bld) [#/Vol]Ordered By: Justyna Hanson on 48-23-8825Iawfozktl (Bld) [#/Vol] 0.0 10*3/uL0.0-0.2FClinton Memorial HospitalBasophils/100 WBC Auto (Bld) Ordered By: Justyna Hanson on 14-62-5105Mghpdzrub/100 WBC (Bld)0.7 %.[facility] CenterBilirubin.total [Mass/volume] in Serum or PlasmaOrdered By: Justyna Hanson on 46-60-9411Cxozzcvdv [Mass/Vol]0.5 mg/dL0.3-1.0[facility] CenterCalcium [Mass/volume] in Serum or PlasmaOrdered By: Justyna aHnson on 15-05-6121Qdlrkrv [Mass/Vol]9.0 mg/dL8.6-10.3FClinton Memorial HospitalCarbon dioxide, total [Moles/volume] in Serum or PlasmaOrdered By: Justyna Hanson on 70-32-5221XX9 [Moles/Vol]29.3 mmol/L21.0-31.0[facility] CenterChloride [Moles/volume] in Serum or PlasmaOrdered By: Justyna Hanson on 89-08-3233Jmkhbbmh [Moles/Vol]106 mmol/ARddmry86-244 mmol/LFClinton Memorial HospitalComplete Blood Count Auto Diffon 68-40-9770Lcxchehlm (Bld) [#/Vol]0.907780207 10*3/uLNormal0.0-0.2 10*3/[employer] Other Basophils/100 WBC (Bld)0.700 %. %Un[employer] Other Eosinophils (Bld) [#/Vol]0.519995310 10*3/uLNormal0.0- 0.45 10*3/[employer] Other Eosinophils/100 WBC (Bld)2.400 %. %[employer] Other Erythrocyte distribution width (RBC) [Ratio]17.600 % High11.9-15.3 %[employer] Other Hematocrit (Bld) [Volume fraction]34.600 %Lwcqqi42.0- 46.4 %[employer] Other Hemoglobin (Bld) [Mass/Vol]11.212607 g/dLLow11.8-15.4 g/dLSahara Media Holdings IT[employer] Other Lymphocytes (Bld) [#/Vol]2.736690134 10*3/uLNormal 1.00-4.8 10*3/[employer] Other Lymphocytes/100 WBC (Bld)38.500 %. %[employer] Other MCH (RBC) [Entitic mass]29.6000 elZpglqw17.7-34.3 pg [employer] Other MCV (RBC) [Entitic vol]93.2000 sXNhrlvp39-057 fLNorth Coast Professional Corporation Other Monocytes (Bld) [#/Vol]0.775147219 10*3/uLNormal0.0- 0.8 10*3/[employer] Other Monocytes/100 WBC (Bld)9.200 %. %[employer] Other Neutrophils (Bld) [#/Vol]2.317010666 10*3/uLNormal1.8- 7.7 10*3/[employer] Other Neutrophils/100 WBC (Bld)49.200 %. %[employer] Other Platelet mean volume (Bld) [Entitic vol]8.4000 fL Normal6.3-10.7 fLUnblab Other WBC (Bld) [#/Vol]5.936182325 10*3/uLNormal3.8-11.6 10*3/[employer] Other Complete Blood Count Auto Diff5.4 10*3/uLNormal3.8- 11.6 10*3/[employer] Other Complete Blood Count Auto Diff31.7 g/dLLow32.0-35.0 g/dLUnblab Other Complete Blood Count Auto Diff0.4 /100{WBC}Normal0-0.5 /100{WBC}[employer] Other Comprehensive Metabolic Panelon 11-62-3200Ipaanvs [Mass/Vol]3.831191 g/dLNormal3.5-5.7 g/dLUnblab Other Bilirubin [Mass/Vol]0.3075956 mg/dLNormal0.3-1.0 mg/dL [employer] Other Calcium [Mass/Vol]9.1054745 mg/dLNormal8.6-10.3 mg/dL [employer] Other CO2 [Moles/Vol]29.27878095 mmol/PFcfzkd25.0-31.0 mmol/LNVZnet Netzwerke Other Creatinine [Mass/Vol]1.05443205 mg/dLHigh0.60-1.20 mg/dLNoBigString Other GFR/1.73 sq M.predicted MDRD (S/P/Bld) [Vol rate/Area] 30.618 mL/min/{1.73_m2}[employer] Other Potassium [Moles/Vol]5.56867048 mmol/LNormal3.5-5.1 mmol/LNVZnet Netzwerke Other Protein [Mass/Vol]6.572828 g/dLLow6.4-8.9 g/dLNoBigString Other Comprehensive Metabolic Panel2.7 g/dLUnblab Other Creatinine [Mass/volume] in Serum or PlasmaOrdered By: Justyna Hanson on 17-09-3409Ruwwzdhwxx [Mass/Vol]1.66 mg/dL0.60-1.20[facility] CenterEosinophils Auto (Bld) [#/Vol]Ordered By: Justyna Hanson on 64-75-6935Ztmnyiihrkg (Bld) [#/Vol]0.1 10*3/uL0.0-0.45[facility] CenterEosinophils/100 WBC Auto (Bld)Ordered By: Justyna Hanson on 20-91-6473Oitmthvyahk/100 WBC (Bld)2.4 %.[facility] Erythrocyte distribution width Auto (RBC) [Ratio]Ordered By: Justyna Hanson on 81-50-9072Eqlvebntgnt distribution width (RBC) [Ratio]17.6 %11.9-15.3FClinton Memorial HospitalErythrocytes [#/volume] in Blood by Automated count Ordered By: Justyna Hanson on 28-67-0526NMK (Bld) [#/Vol]3.71 10*6/uLNormal 3.60-5.00[facility] Medical CenterGlobulin Calc (S) [Mass/Vol]Ordered By: Justyna Hanson on 27-14-3279Fpwzreyn (S) [Mass/Vol]2.7 g/dLOhiohealth Southeastern Medical CenterGlucose [Mass/volume] in Serum or PlasmaOrdered By: Justyna Hanson on 04-65-5477Kvrhwot [Mass/Vol]89 mg/zNAsmmtl54-403 mg/dLOhiohealth Southeastern Medical CenterComment on above:ADA recommended reference rangeRandom Glucose Reference Range is dependent on time and content of last meal. Glucose of more than 200 mg/dL in a nonstressed, ambulatory subject supports the diagnosisof Diabetes Mellitus.Hematocrit Auto (Bld) [Volume fraction]Ordered By: Justyna Hanson on 65-07-7955Ocgztwkdyv (Bld) [Volume fraction]34.6 %34.0-46.4FClinton Memorial HospitalHemoglobin [Mass/volume] in BloodOrdered By: Justyna Hanson on 13-62-1301Gmlqiqdydp (Bld) [Mass/Vol]11.0 g/dL11.8-15.4FClinton Memorial HospitalLeukocytes [#/volume] corrected for nucleated erythrocytes in Blood by Automated counOrdered By: Justyna Hanson on 06-15-2928MGE corrected for nucl RBC Auto (Bld) [#/Vol]5.4 10*3/uL3.8-11.6FClinton Memorial Hospital Lymphocytes Auto (Bld) [#/Vol]Ordered By: Justyna Hanson on 91-83-2525Nmwvkpdatoh (Bld) [#/Vol]2.1 10*3/uL1.00-4.8[facility] CenterLymphocytes/100 WBC Auto (Bld)Ordered By: Justyna Hanson on 17-64-9612Jlzcutgmryt/100 WBC (Bld) 38.5 %.[facility] CenterMCH Auto (RBC) [Entitic mass]Ordered By: Justyna Hanson on 31-67-5508AQY (RBC) [Entitic mass]29.6 pg24.7-34.3FClinton Memorial HospitalMCHC Auto (RBC) [Mass/Vol]Ordered By: Justyna Hanson on 75-50-7156QQCT (RBC) [Mass/Vol]31.7 g/dL32.0-35.0[facility] CenterMCV Auto (RBC) [Entitic vol]Ordered By: Justyna Hanson on 35-44-1826EDX (RBC) [Entitic vol]93.2 fN43-737HpjccvkstOhiohealth Southeastern Medical CenterMonocytes Auto (Bld) [#/Vol]Ordered By: Justyna Hanson on 09-31-8319Zwbvueiuu (Bld) [#/Vol]0.5 10*3/uL0.0-0.8[facility] CenterMonocytes/100 WBC Auto (Bld) Ordered By: Justyna Hanson on 66-34-4042Citofypbe/100 WBC (Bld)9.2 %.[facility] CenterNeutrophils Auto (Bld) [#/Vol]Ordered By: Justyna Hanson on 97-52-5093Nwjfgnddsvp (Bld) [#/Vol]2.7 10*3/uL1.8-7.7FClinton Memorial HospitalNeutrophils/100 WBC Auto (Bld)Ordered By: Justyna Hanson on 05-30-2023 Neutrophils/100 WBC (Bld)49.2 %.[facility] CenterNo Panel InformationOrdered By: Justyna Hanson on 22-41-6238Mvshksxxm GFR (CKD-EPI)30.618 mL/MinOhiohealth Southeastern Medical CenterPharmacy Creatinine Clearance (ChemN/A [facility] CenterNucleated erythrocytes [Presence] in Blood by Automated countOrdered By: Justyna Hanson on 03-84-2118Onpfayhzr RBC Auto Ql (Bld) 0.4 /100{WBC}0-0.5FClinton Memorial HospitalPlatelet mean volume Auto (Bld) [Entitic vol]Ordered By: Justyna Hanson on 36-37-5954Ovydkdbc mean volume (Bld) [Entitic vol]8.4 fL6.3-10.7FClinton Memorial HospitalPlatelets [#/volume] in Blood by Automated countOrdered By: Justyna Hanson on 05-30-2023 Platelets (Bld) [#/Vol]234 10*3/eCHvfdpo821-745 10*3/uLOhiohealth Southeastern Medical CenterPotassium [Moles/volume] in Serum or PlasmaOrdered By: Justyna Hanson on 24-18-1652Kgstfxqej [Moles/Vol]5.1 mmol/L3.5-5.1FClinton Memorial HospitalProtein [Mass/volume] in Serum or PlasmaOrdered By: Justyna Hanson on 48-52-2939Qlyghcq [Mass/Vol]6.2 g/dL6.4-8.9[facility] Serum or plasma albumin/globulin mass ratioOrdered By: Justyna Hanson on 38-64-8513Qwdehln/Globulin [Mass ratio]1.3 {ratio}[facility] Hospitalerum or plasma anion gap determinationOrdered By: Justyna Hanson on 11-73-1768Ldhgo gap [Moles/Vol]11.8 mmol/L6.0-15.0[facility] Hospitalodium [Moles/volume] in Serum or PlasmaOrdered By: Justyna Hanson on 88-96-3177Hcuuig [Moles/Vol]142 mmol/FZvwqny241-876 mmol/LFClinton Memorial HospitalUrea nitrogen [Mass/volume] in Serum or PlasmaOrdered By: Justyna Hanson on 53-80-3581Bten nitrogen [Mass/Vol]27 mg/dLHigh7-25 mg/dLOhiohealth Southeastern Medical CenterWBC Auto (Bld) [#/Vol]Ordered By: Justyna Hanson on 17-88-1810QZK (Bld) [#/Vol]5.4 10*3/uL3.8-11.6FClinton Memorial Hospital Automated erythrocytes count in urine sediment (number/area)Ordered By: Justyna Hanson on 61-60-6214JZC Auto (Urine sed) [#/Area]5-9 [HPF]0-4FClinton Memorial HospitalAutomated leukocytes count in urine sediment (number/area)Ordered By: Justyna Hanson on 21-38-9571TRL Auto (Urine sed) [#/Area]0-1 [HPF]0-4FClinton Memorial HospitalBilirubin Test strip Ql (U)Ordered By: Justyna Hanson on 93-91-5259Lvoezfkse Ql (U)NegativeNegDelaware County HospitalColor Auto (U)Ordered By: Justyna Hanson on 62-12-4445Kvzfg (U)YellowYellowOhiohealth Southeastern Medical CenterKetones Auto test strip (U) [Mass/Vol]Ordered By: Justyna Hanson on 97-47-2601Jwylohw (U) [Mass/Vol]NegativeNegDelaware County HospitalLaboratory - UrinalysisOrdered By: Justyna Hanson on 05-26-2023 Hyaline casts LM Ql (Urine sed)0-8 [LPF]0-8[facility] Nitrite Test strip Ql (U)Ordered By: Justyna Hanson on 75-33-5504Xogcwkj Ql (U) NegativeNegDelaware County HospitalProtein Auto test strip (U) [Mass/Vol]Ordered By: Justyna Hanson on 75-06-1036Omxxics (U) [Mass/Vol]Negative NegativeMercy Memorial Hospitalpecific gravity Auto test strip (U) [Rel density]Ordered By: Justyna Hanson on 60-47-5307Srmobiva gravity (U) [Rel density]1.0211.001-1.030[facility] Hospitalquamous epithelial cells detection in urine sediment by light microscopyOrdered By: Justyna Hanson on 47-80-0396Eqnlxtuwld cells.squamous LM Ql (Urine sed)0-1 [HPF]0-2FClinton Memorial HospitalUrine bacteria detection by automated methodOrdered By: Justyna Hanson on 08-23-0398Evjrpfmy Auto Ql (U)None seenNone SeenOhiohealth Southeastern Medical CenterUrine clarity by refractometry automatedOrdered By: Justyna Hanson on 91-67-6272Jybbnac Refractometry automated (U)ClearClearFClinton Memorial HospitalUrine culture routineOrdered By: Justyna Hanson on 38-24-7523Kgelzvbc identified Cx Nom (U)Proteus mirabilisOhiohealth Southeastern Medical CenterUrine glucose measurement by automated test strip (mass/volume) Ordered By: Justyna Hanson on 46-85-8868Mhfyhav Auto test strip (U) [Mass/Vol] Normal mg/dLNormalOhiohealth Southeastern Medical CenterUrine hemoglobin detection by automated test stripOrdered By: Justyna Hanson on 05-84-4549Gvbrtgbmvh Auto test strip Ql (U)NegativeNegativeOhiohealth Southeastern Medical CenterUrine leukocyte esterase detection by automated test stripOrdered By: Justyna Hanson on 05-26-2023 Leukocyte esterase Auto test strip Ql (U)NegativeNegativeOhiohealth Southeastern Medical CenterUrobilinogen Auto test strip (U) [Mass/Vol]Ordered By: Justyna Hanson on 03-07-4832Govhgchejkho (U) [Mass/Vol]Normal mg/dLNormalOhiohealth Southeastern Medical CenterpH Auto test strip (U)Ordered By: Justyna Hanson on 66-73-0547vG (U)5.5 [pH]5.0-9.0[facility] CenterC reactive protein [Mass/volume] in Serum or PlasmaOrdered By: Justyna Hanson on 05-25-2023 CRP [Mass/Vol]< 0.5 mg/dL0.0-0.5FClinton Memorial HospitalCholesterol [Mass/volume] in Serum or PlasmaOrdered By: Justyna Hanson on 05-25-2023 Cholesterol [Mass/Vol]184 mg/mO665-167KibibgoduOhiohealth Southeastern Medical CenterComment on above:Chol less than 200 mg/dl low riskChol 201-239 mg/dl borderline riskChol 240 mg/dl and greater high riskCholesterol in LDL Calc [Mass/Vol]Ordered By: Justyna Hanson on 35-47-1566Vespchvixno in LDL [Mass/Vol]110 mg/dL0-100[facility] CenterComment on above:LDL ATP III CLASSIFICATIONLDL less than 100 mg/dL OptimalLDL 100-129 mg/dL Near or above kthilrySJW604-337 mg/dL Borderline highLDL 160-189 mg/dL HighLDL greater than 189 mg/dL Very high Cholesterol in VLDL Calc [Mass/Vol]Ordered By: Justyna Hanson on 05-25-2023 Cholesterol in VLDL [Mass/Vol]41 mg/dLOhiohealth Southeastern Medical Center Erythrocyte sedimentation rate by Photometric methodOrdered By: Justyna Hanson on 79-71-5835ERI Photometric method (Bld) [Velocity]56 mm/hr0-29[facility] CenterFerritin [Mass/volume] in Serum or PlasmaOrdered By: Justyna Hanson on 05-78-8182Cjejaabq [Mass/Vol]25.3 ng/mL11.0-306.8[facility] CenterFolate [Mass/volume] in Serum or PlasmaOrdered By: Justyna Hanson on 56-31-6001Uxrxrv [Mass/Vol]14.3 ng/mL>5.9[facility] Comment on above:Folate reference range: >5.9 ng/mlThe WHO technical consultation on folate and vitamin l15xsqssmnjuqga has determined that folate concentrations lessthan 4 ng/ml are considered deficient.Glucose mean value [Mass/volume] in Blood Estimated from glycated hemoglobinOrdered By: Justyna Hanson on 92-24-2608Sfuicby glucose Estimated from glycated hemoglobin (Bld) [Mass/Vol]123 mg/dLOhiohealth Southeastern Medical CenterHemoglobin A1c percentage Ordered By: Justyna Hanson on 17-04-3123NfV1t (Bld) [Mass fraction]5.9 %4.3-5.6 [facility] CenterComment on above:Increased risk for diabetes: 5.7 - 6.4diabetes: >6.4glycemic control for adults with diabetes: <7.0Iron [Mass/volume] in Serum or PlasmaOrdered By: Justyna Hanson on 45-56-1511Nulz [Mass/Vol]50 ug/aQ76-125MseukizalOhiohealth Southeastern Medical CenterIron binding capacity [Mass/volume] in Serum or PlasmaOrdered By: Justyna Hanson on 43-32-4938Bqon binding capacity [Mass/Vol]399 ug/uI813-973HngfzagyuOhiohealth Southeastern Medical CenterIron saturation [Mass Fraction] in Serum or PlasmaOrdered By: Justyna Hanson on 22-27-8562Qdcr saturation [Mass fraction]12.5 %20-50Mer[facility] Hospitalerum homogeneous pattern antinuclear antibody (REBECCA) titerOrdered By: Justyna Hanson on 08-82-3962Vbvcykgasj nuclear Ab pattern (S) [Titer]N/AFUniversity Hospitals Geneva Medical Centererum nuclear antibody titerOrdered By: Justyna Hanson on 52-27-0696Mmfaazo Ab (S) [Titer]Negative.[facility] Comment on above:Negative <1:80 Borderline 1:80 Positive >1:80ICAP nomenclature: AC-0For more information about Hep-2 cell patterns useANApatterns.org, the official website for theInternational Consensus on Antinuclear Antibody (REBECCA)Patterns (ICAP).Performed at: [id number] Director: Tray Becerra PhD, Phone: [phone] or plasma cyclic adenosine monophosphate measurement (moles/volume)Ordered By: Justyna Hanson on 68-22-9076Kucsiybku monophosphate.cyclic [Moles/Vol]10 units0-19 [facility] CenterComment on above:Negative <20 Weak positive 20 - 39 Moderate positive 40 - 59 Strong positive >59Performed at:[facility] [id number] Director: Tray Becerra PhD, Phone: [phone] or plasma high density lipoprotein (HDL) cholesterol measurementOrdered By: Justyna Hanson on 60-84-5647Sffmldhzyfg in HDL [Mass/Vol]33 mg/vR91-75AzndybqqmOhiohealth Southeastern Medical CenterComment on above:HDL CHOL ATP-III CLASSIFICATION Cardiovascular RiskHDL > or equal to 60 mg/dL LOWHDL < 40 mg/dL HIGHSerum or plasma rheumatoid factor measurement (units/volume)Ordered By: Justyna Hanson on 99-98-9778Nlaatyvibd factor Qn31.8 [IU]/mL<14.0[facility] CenterComment on above:Performed at: [facility] [id number] Director: Tray Becerra PhD, Phone: [phone] or plasma total cholesterol/high density lipoprotein (HDL) cholesterol mass ratOrdered By: Justyna Hanson on 05-25-2023 Cholesterol.total/Cholesterol in HDL [Mass ratio]5.6 {ratio}<5.0[facility] CenterThyrotropin [Units/volume] in Serum or PlasmaOrdered By: Justyna Hanson on 91-82-2205FFM Qn3.59 m[IU]/L0.45-5.33[facility] CenterThyroxine (T4) free [Mass/volume] in Serum or PlasmaOrdered By: Justyna Hanson on 22-20-4364Kpxi T4 [Mass/Vol]1.14 ng/dL0.61-1.12[facility] CenterTransferrin [Mass/volume] in Serum or PlasmaOrdered By: Justyna Hanson on 79-27-6904Jgaqnxrxrhu [Mass/Vol]285 mg/tR240-982YnfxvsobwOhiohealth Southeastern Medical CenterTriglyceride [Mass/volume] in Serum or PlasmaOrdered By: Justyna Hanson on 63-05-6627Nqrkkajsrofu [Mass/Vol]205 mg/dL0-149[facility] CenterComment on above:TRIG ATP III CLASSIFICATIONTRIG less than 150 mg/dL NormalTRIG 150-199 mg/dL Borderline highTRIG 200-500 mg/dL High TRIG greater than 500 mg/dL Very highStandard traceable to the Center for Disease Co nrtrol and Prevention (CDC) test method.Triiodothyronine (T3) Free [Mass/volume] in Serum or PlasmaOrdered By: Justyna Hanson on 84-42-3473Fzpt T3 [Mass/Vol]4.48 pg/mL2.50-3.90[facility] Medical CenterUrate [Mass/volume] in Serum or PlasmaOrdered By: Justyna Hanson on 91-31-4818Mnnlc [Mass/Vol]5.3 mg/dL2.3-6.6 [facility] CenterVitamin B12 ser/plasOrdered By: Justyna Hanson on 93-60-8274Qqjoqbwsq (Vitamin B12) [Mass/Vol]478 pg/gM647-663UrkkphviaOhiohealth Southeastern Medical CenterUS Heart TransthoracicOrdered By: Tressa Jackson on 03-16-2023 Aortic Valve Area by Continuity of Peak Velocity2.04UnBlanchard [facility] Work Phone: Aortic Valve Area by Continuity of VTI1.83UnBlanchard [facility] Work Phone: AV mn grad3.0UnBlanchard [facility] Work Phone: AV pk grad5.6UnBlanchard [facility] Work Phone: AV pk vel1.18UnBlanchard [facility] Work Phone: LV A4C EF63.0UnBlanchard Valley [facility] Work Phone: LVIDd5.20UnBlanchard [facility] Work Phone: LVOT diam1.90UnBlanchard [facility] Work Phone: RVSP51.7UnBlanchard [facility] Work Phone: UnBlanchard [facility] Work Phone: US Heart Transthoracicon 03-16-[address], [address] [address] TRANSTHORACIC ECHOCARDIOGRAM REPORT Patient Name: SHANTA Hebert Physician: [id number] Jackson MD Study Date: 03/11/2023 Ordering Provider: [id number] JACKSON MRN/PID: [id number] Fellow: Nurse: Ruthy Washington RN Date of /Age: 2 1940 / 82 years Explosive Expert: Dena Campos RDCS, RVT Gender: F Additional Staff: Height: 157.48 cm Admit Date: Weight: 138.35 kg Admission Status: BSA: 2.29 m2 Department Location: [facility] Study Type: TRANSTHORACIC ECHO (TTE) COMPLETE Diagnosis/ICD: Shortness of breath-R06.02; Pulmonary hypertension, unspecified-I27.20 Indication: Atrial Fibrillation, HTN, 2/6 Systolic Murmur, Former Smoker, Morbid Obesity, MATHEW, CKD-Stage III, Fatigue CPT Codes: Echo Complete w Full Doppler-32026 Study Detail: The following Echo studies were performed: 2D, M-Mode, Doppler and color flow. Optison used as a contrast agent for endocardial border definition. Total contrast used for this procedure was 0.7 mL via IV push. PHYSICIAN INTERPRETATION: Left Ventricle: Left ventricular systolic function is normal, with an estimated ejection fraction of 55%. There are no regional wall motion abnormalities. The left ventricular cavity size is normal. Spectral Doppler shows a normal pattern of left ventricular diastolic filling. Left Atrium: The left atrium is moderately dilated. During agitated saline injection no evidence ofintracardiac shunt was noted. Right Ventricle: The right ventricle is normal in size. There is normal right ventricular global systolic function. Right Atrium: The right atrium is moderately dilated. Aortic Valve: The aortic valve appears structurally normal. There is no evidence of aortic valve regurgitation. The peak instantaneous gradient of the aortic valve is 5.6 mmHg. The mean gradient of the aortic valve is 3.0 mmHg. Mitral Valve: The mitral valve is normal in structure. There is mild mitral valve regurgitation. Tricuspid Valve: The tricuspid valve is structurally normal. There is mild tricuspid regurgitation.The Doppler estimated RVSP is moderately elevated at 51.7 mmHg. Pulmonic Valve: The pulmonic valve is structurally normal. There is no indication of pulmonic valveregurgitation. Pericardium: There is no pericardial effusion noted. Aorta: The aortic root is normal. CONCLUSIONS: 1. Left ventricular systolic function is normal with a 55% estimated ejection fraction. 2. The left atrium is moderately dilated. 3. During agitated saline injection no evidence of intracardiac shunt was noted. 4. The right atrium is moderately dilated. 5. Mild mitral valve regurgitation. 6. Mild tricuspid regurgitation is visualized. 7. Moderately elevated right ventricular systolic pressure. 8. No change when compared to prior study. 9. Patient in atrial fibrillation throughout the study. QUANTITATIVE DATA SUMMARY: 2D MEASUREMENTS: Normal Ranges: Ao Root d: 3.10 cm (2.0-3.7cm) LAs: 4.50 cm (2.7-4.0cm) RVIDd: 4.20 cm (0.9-3.6cm) IVSd: 0.90 cm (0.6-1.1cm) LVPWd: 0.90 cm (0.6-1.1cm) LVIDd: 5.20 cm (3.9-5.9cm) LVIDs: 4.40 cm LV Mass Index: 73.9 g/m2 LV % FS 15.4 % LV SYSTOLIC FUNCTION BY 2D PLANIMETRY (MOD): Normal Ranges: EF-A4C View: 63.0 % (>=55%) LV DIASTOLIC FUNCTION: Normal Ranges: MV Peak E: 0.81 m/s (0.7-1.2 m/s) MITRAL VALVE: Normal Ranges: MV Vmax: 1.30 m/s (<=1.3m/s) MV peak P.8 mmHg (<5mmHg) MV mean P.0 mmHg (<48mmHg) MITRAL INSUFFICIENCY: Normal Ranges: MR Vmax: 470.33 cm/s dP/dt: 1695 mmHg/s (>1200mmHg/sec) AORTIC VALVE: Normal Ranges: AoV Vmax: 1.18 m/s (<=1.7m/s) AoV Peak P.6 mmHg (<20mmHg) AoV Mean P.0 mmHg (1.7-11.5mmHg) LVOT Max Remberto: 0.85 m/s (<=1.1m/s) AoV VTI: 22.80 cm (18-25cm) LVOT VTI: 14.70 cm LVOT Diameter: 1.90 cm (1.8-2.4cm) AoV Area, VTI: 1.83 cm2 (2.5-5.5cm2) AoV Area,Vmax: 2.04 cm2 (2.5-4.5cm2) AoV Dimensionless Index: 0.64 TRICUSPID VALVE (more content not included)...Tressa Oliver MD - 03/16/[address], [address] [place] [address] TRANSTHORACIC ECHOCARDIOGRAM REPORT Patient Name: SHANTA Hebert Physician: [id number] Tressa Jackson MD Study Date: 03/11/2023 Ordering Provider: [id number] TRESSA JACKSON MRN/PID: [id number] Fellow: Nurse: Ruthy Washington RN Date of /Age: 2 1940 / 82 years Explosive Expert: Dena Campos RDCS, RVT Gender: F Additional Staff: Height: 157.48 cm Admit Date: Weight: 138.35 kg Admission Status: BSA: 2.29 m2 Department Location: [facility] Study Type: TRANSTHORACIC ECHO (TTE) COMPLETE Diagnosis/ICD: Shortness of breath-R06.02; Pulmonary hypertension, unspecified-I27.20 Indication: Atrial Fibrillation, HTN, 2/6 Systolic Murmur, Former Smoker, Morbid Obesity, MATHEW, CKD-Stage III, Fatigue CPT Codes: Echo Complete w Full Doppler-38737 Study Detail: The following Echo studies were performed: 2D, M-Mode, Doppler and color flow. Optison used as a contrast agent for endocardial border definition. Total contrast used for this procedure was 0.7 mL via IV push. PHYSICIAN INTERPRETATION: Left Ventricle: Left ventricular systolic function is normal, with an estimated ejection fraction of 55%. There are no regional wall motion abnormalities. The left ventricular cavity size is normal. Spectral Doppler shows a normal pattern of left ventricular diastolic filling. Left Atrium: The left atrium is moderately dilated. During agitated saline injection no evidence ofintracardiac shunt was noted. Right Ventricle: The right ventricle is normal in size. There is normal right ventricular global systolic function. Right Atrium: The right atrium is moderately dilated. Aortic Valve: The aortic valve appears structurally normal. There is no evidence of aortic valve regurgitation. The peak instantaneous gradient of the aortic valve is 5.6 mmHg. The mean gradient of the aortic valve is 3.0 mmHg. Mitral Valve: The mitral valve is normal in structure. There is mild mitral valve regurgitation. Tricuspid Valve: The tricuspid valve is structurally normal. There is mild tricuspid regurgitation.The Doppler estimated RVSP is moderately elevated at 51.7 mmHg. Pulmonic Valve: The pulmonic valve is structurally normal. There is no indication of pulmonic valveregurgitation. Pericardium: There is no pericardial effusion noted. Aorta: The aortic root is normal. CONCLUSIONS: 1. Left ventricular systolic function is normal with a 55% estimated ejection fraction. 2. The left atrium is moderately dilated. 3. During agitated saline injection no evidence of intracardiac shunt was noted. 4. The right atrium is moderately dilated. 5. Mild mitral valve regurgitation. 6. Mild tricuspid regurgitation is visualized. 7. Moderately elevated right ventricular systolic pressure. 8. No change when compared to prior study. 9. Patient in atrial fibrillation throughout the study. QUANTITATIVE DATA SUMMARY: 2D MEASUREMENTS: Normal Ranges: Ao Root d: 3.10 cm (2.0-3.7cm) LAs: 4.50 cm (2.7-4.0cm) RVIDd: 4.20 cm (0.9-3.6cm) IVSd: 0.90 cm (0.6-1.1cm) LVPWd: 0.90 cm (0.6-1.1cm) LVIDd: 5.20 cm (3.9-5.9cm) LVIDs: 4.40 cm LV Mass Index: 73.9 g/m2 LV % FS 15.4 % LV SYSTOLIC FUNCTION BY 2D PLANIMETRY (MOD): Normal Ranges: EF-A4C View: 63.0 % (>=55%) LV DIASTOLIC FUNCTION: Normal Ranges: MV Peak E: 0.81 m/s (0.7-1.2 m/s) MITRAL VALVE: Normal Ranges: MV Vmax: 1.30 m/s (<=1.3m/s) MV peak P.8 mmHg (<5mmHg) MV mean P.0 mmHg (<48mmHg) MITRAL INSUFFICIENCY: Normal Ranges: MR Vmax: 470.33 cm/s dP/dt: 1695 mmHg/s (>1200mmHg/sec) AORTIC VALVE: Normal Ranges: AoV Vmax: 1.18 m/s (<=1.7m/s) AoV Peak P.6 mmHg (<20mmHg) AoV Mean P.0 mmHg (1.7-11.5mmHg) LVOT Max Remberto: 0.85 m/s (<=1.1m/s) AoV VTI: 22.80 cm (18-25cm) LVOT VTI: 14.70 cm LVOT Diameter: 1.90 cm (1.8-2.4cm) AoV Area, VTI: 1.83 cm2 (2.5-5.5cm2) AoV Area,Vmax: 2.04 cm2 (2.5-4.5cm2) AoV Dimensionless Index: 0.64 TRICUSPID VALVE/RVSP: Normal Ranges: Peak TR Velocity: 3.49 m/s RV Syst Pressure: 51.7 mmHg (< 30mmHg) PULMONIC VALVE: Normal Ranges: PV Max Remberto: 0.7 m/s (0.6-0.9m/s) PV Max P.1 mmHg [id number] Tressa Jackson MD Electronically signed on 03/16/2023 at 8:42:17 AM Final [facility] Work Phone: TRANSTHORACIC ECHO (TTE) COMPLETEon 03-11-2023 TRANSTHORACIC ECHO (TTE) [facility] [address], [address], [place] [address] TRANSTHORACIC ECHOCARDIOGRAM REPORT Patient Name: SHANTA FERRER Reading Physician: [id number] Jackson MD Study Date: 03/11/2023 Ordering Provider: Fide JACKSON MRN/PID: [id number] Fellow: Nurse: Ruthy Washington RN Date of /Age: 2 1940 years Explosive Expert: Dena Campos RDCS, RVT Gender: F Additional Staff: Height: 157.48 cm Admit Date: Weight: 138.35 kg Admission Status: BSA: 2.29 m2 Department Location: [facility] Study Type: TRANSTHORACIC ECHO (TTE) COMPLETE Diagnosis/ICD: Shortness of breath-R06.02; Pulmonary hypertension, unspecified-I27.20 Indication: Atrial Fibrillation, HTN, 2/6 Systolic Murmur, Former Smoker, Morbid Obesity, MATHEW, CKD-Stage III, Fatigue CPT Codes: Echo Complete w Full Doppler-[id number] Study Detail: The following Echo studies were performed: 2D, M-Mode, Doppler and color flow. Optison used as a contrast agent for endocardial border definition. Total contrast used for this procedure was 0.7 mL via IV push. PHYSICIAN INTERPRETATION: Left Ventricle: Left ventricular systolic function is normal, with an estimated ejection fraction of 55%. There are no regional wall motion abnormalities. The left ventricular cavity size is normal. Spectral Doppler shows a normal pattern of left ventricular diastolic filling. Left Atrium: The left atrium is moderately dilated. During agitated saline injection no evidence ofintracardiac shunt was noted. Right Ventricle: The right ventricle is normal in size. There is normal right ventricular global systolic function. Right Atrium: The right atrium is moderately dilated. Aortic Valve: The aortic valve appears structurally normal. There is no evidence of aortic valve regurgitation. The peak instantaneous gradient of the aortic valve is 5.6 mmHg. The mean gradient of the aortic valve is 3.0 mmHg. Mitral Valve: The mitral valve is normal in structure. There is mild mitral valve regurgitation. Tricuspid Valve: The tricuspid valve is structurally normal. There is mild tricuspid regurgitation.The Doppler estimated RVSP is moderately elevated at 51.7 mmHg. Pulmonic Valve: The pulmonic valve is structurally normal. There is no indication of pulmonic valveregurgitation. Pericardium: There is no pericardial effusion noted. Aorta: The aortic root is normal. CONCLUSIONS: 1. Left ventricular systolic function is normal with a 55% estimated ejection fraction. 2. The left atrium is moderately dilated. 3. During agitated saline injection no evidence of intracardiac shunt was noted. 4. The right atrium is moderately dilated. 5. Mild mitral valve regurgitation. 6. Mild tricuspid regurgitation is visualized. 7. Moderately elevated right ventricular systolic pressure. 8. No change when compared to prior study. 9. Patient in atrial fibrillation throughout the study. QUANTITATIVE DATA SUMMARY: 2D MEASUREMENTS: Normal Ranges: Ao Root d: 3.10 cm (2.0-3.7cm) LAs: 4.50 cm (2.7-4.0cm) RVIDd: 4.20 cm (0.9-3.6cm) IVSd: 0.90 cm (0.6-1.1cm) LVPWd: 0.90 cm (0.6-1.1cm) LVIDd: 5.20 cm (3.9-5.9cm) LVIDs: 4.40 cm LV Mass Index: 73.9 g/m2 LV % FS 15.4 % LV SYSTOLIC FUNCTION BY 2D PLANIMETRY (MOD): Normal Ranges: EF-A4C View: 63.0 % (>=55%) LV DIASTOLIC FUNCTION: Normal Ranges: MV Peak E: 0.81 m/s (0.7-1.2 m/s) MITRAL VALVE: Normal Ranges: MV Vmax: 1.30 m/s (<=1.3m/s) MV peak P.8 mmHg (<5mmHg) MV mean P.0 mmHg (<48mmHg) MITRAL INSUFFICIENCY: Normal Ranges: MR Vmax: 470.33 cm/s dP/dt: 1695 mmHg/s (>1200mmHg/sec) AORTIC VALVE: Normal Ranges: AoV Vmax: 1.18 m/s (<=1.7m/s) AoV Peak P.6 mmHg (<20mmHg) AoV Mean P.0 mmHg (1.7-11.5mmHg) LVOT Max Remberto: 0.85 m/s (<=1.1m/s) AoV VTI: 22.80 cm (18-25cm) LVOT VTI: 14.70 cm LVOT Diameter: 1.90 cm (1.8-2.4cm) AoV Area, VTI: 1.83 cm2 (2.5-5.5cm2) AoV Area,Vmax: 2.04 cm2 (2.5-4.5cm2) AoV Dimensionless Index: 0.64 TRICUSPID VALVE/RVSP: Normal Ranges: Peak TR Velocity: 3.49 m/s RV Syst Pressure: 51.7 mmHg (< 30mmHg) PULMONIC VALVE: Normal Ranges: PV Max Remberto: 0.7 m/s (0.6-0.9m/s) PV Max P.1 mmHg [id number] Tressa Jackson MD Electronically signed on 03/16/2023 at 8:42:17 AM Final [facility] RehabilitationAlanine aminotransferase [Enzymatic activity/volume] in Serum or PlasmaOrdered By: Justyna Hanson on 18-98-9113YYT [Catalytic activity/Vol]7 U/L7-52[facility] CenterAlbumin [Mass/volume] in Serum or Plasma by Bromocresol green (BCG) dye binding methoOrdered By: Justyna Hanson on 71-84-5224Cbogqtb BCG dye [Mass/Vol]3.6 g/dL3.5-5.7FClinton Memorial HospitalAlkaline phosphatase [Enzymatic activity/volume] in Serum or PlasmaOrdered By: Justyna Hanson on 42-63-5652HSV [Catalytic activity/Vol]113 U/D66-626YozngotgrOhiohealth Southeastern Medical CenterAspartate aminotransferase [Enzymatic activity/volume] in Serum or Plasma Ordered By: Justyna Hanson on 95-80-4366ZNN [Catalytic activity/Vol]14 U/L13-39 [facility] CenterBasophils Auto (Bld) [#/Vol]Ordered By: Justyna Hanson on 13-46-0890Qdecubhfv (Bld) [#/Vol]0.0 10*3/uL0.0-0.2FClinton Memorial HospitalBasophils/100 WBC Auto (Bld)Ordered By: Justyna Hanson on 11-17-2022 Basophils/100 WBC (Bld)0.6 %.[facility] CenterBilirubin.total [Mass/volume] in Serum or PlasmaOrdered By: Justyna Hanson on 70-70-7080Qijabtkct [Mass/Vol]0.7 mg/dL0.3-1.0[facility] CenterCalcium [Mass/volume] in Serum or PlasmaOrdered By: Justyna Hanson on 52-17-5827Qsahjjp [Mass/Vol]9.0 mg/dL8.6-10.3FClinton Memorial HospitalCarbon dioxide, total [Moles/volume] in Serum or PlasmaOrdered By: Justyna Hanson on 86-28-6135PM6 [Moles/Vol]30.1 mmol/L21.0-31.0[facility] CenterChloride [Moles/volume] in Serum or PlasmaOrdered By: Justyna Hanson on 80-26-6473Xddhxwhz [Moles/Vol]103 mmol/A64-432EnlepgiusOhiohealth Southeastern Medical CenterCholesterol [Mass/volume] in Serum or PlasmaOrdered By: Justyna Hanson on 11-17-2022 Cholesterol [Mass/Vol]166 mg/rC846-093NkfhcnbwcOhiohealth Southeastern Medical CenterComment on above:Chol less than 200 mg/dl low riskChol 201-239 mg/dl borderline riskChol 240 mg/dl and greater high riskCholesterol in LDL Calc [Mass/Vol]Ordered By: Justyna Hanson on 42-67-1114Jnxgolgslob in LDL [Mass/Vol]96 mg/dL0-100[facility] CenterComment on above:LDL ATP III CLASSIFICATIONLDL less than 100 mg/dL OptimalLDL 100-129 mg/dL Near or above fsflqifAXY411-246 mg/dL Borderline highLDL 160-189 mg/dL HighLDL greater than 189 mg/dL Very high Cholesterol in VLDL Calc [Mass/Vol]Ordered By: Justyna Hanson on 11-17-2022 Cholesterol in VLDL [Mass/Vol]37 mg/dLOhiohealth Southeastern Medical Center Creatinine [Mass/volume] in Serum or PlasmaOrdered By: Justyna Hanson on 76-25-9043Bbjcpnmagx [Mass/Vol]1.21 mg/dL0.60-1.20[facility] CenterEosinophils Auto (Bld) [#/Vol]Ordered By: Justyna Hanson on 11-17-2022 Eosinophils (Bld) [#/Vol]0.2 10*3/uL0.0-0.45[facility] Eosinophils/100 WBC Auto (Bld)Ordered By: Justyna Hanson on 11-17-2022 Eosinophils/100 WBC (Bld)3.4 %.[facility] CenterErythrocyte distribution width Auto (RBC) [Ratio]Ordered By: Justyna Hanson on 11-17-2022 Erythrocyte distribution width (RBC) [Ratio]17.7 %11.9-15.3FClinton Memorial HospitalGlobulin Calc (S) [Mass/Vol]Ordered By: Justyna Hanson on 11-17-2022 Globulin (S) [Mass/Vol]2.9 g/dLOhiohealth Southeastern Medical CenterGlucose [Mass/volume] in Serum or PlasmaOrdered By: Justyna Hanson on 86-85-5863Knocqen [Mass/Vol]105 mg/fU42-358SkvyejsbvOhiohealth Southeastern Medical CenterComment on above:ADA recommended reference rangeRandom Glucose Reference Range is dependent on time and content of last meal. Glucose of more than 200 mg/dL in a nonstressed, ambulatory subject supports the diagnosisof Diabetes Mellitus.Glucose mean value [Mass/volume] in Blood Estimated from glycated hemoglobinOrdered By: Justyna Hanson on 25-94-3099Xvfnkdn glucose Estimated from glycated hemoglobin (Bld) [Mass/Vol]114 mg/dLOhiohealth Southeastern Medical CenterHematocrit Auto (Bld) [Volume fraction]Ordered By: Justyna Hanson on 59-67-5286Bzswkgtbof (Bld) [Volume fraction]32.9 %34.0-46.4FClinton Memorial HospitalHemoglobin A1c percentageOrdered By: Justyna Hanson on 42-88-1091BkU7w (Bld) [Mass fraction]5.6 % 4.3-5.6FClinton Memorial HospitalComment on above:Increased risk for diabetes: 5.7 - 6.4diabetes: >6.4glycemic control for adults with diabetes: &l t;7.0Hemoglobin [Mass/volume] in BloodOrdered By: Justyna Hanson on 11-17-2022 Hemoglobin (Bld) [Mass/Vol]10.4 g/dL11.8-15.4FClinton Memorial Hospital Leukocytes [#/volume] corrected for nucleated erythrocytes in Blood by Automated counOrdered By: Justyna Hanson on 29-90-2031ZKV corrected for nucl RBC Auto (Bld) [#/Vol]6.5 10*3/uL3.8-11.6FClinton Memorial HospitalLymphocytes Auto (Bld) [#/Vol]Ordered By: Justyna Hanson on 14-38-6952Ccbsfkvetmn (Bld) [#/Vol]2.0 10*3/uL1.00-4.8[facility] CenterLymphocytes/100 WBC Auto (Bld) Ordered By: Justyna Hanson on 28-07-5818Uvdeqxyzwnc/100 WBC (Bld)30.9 %.[facility] Auto (RBC) [Entitic mass]Ordered By: Justyna Hanson on 03-11-0123XIU (RBC) [Entitic mass]29.4 pg24.7-34.3FClinton Memorial HospitalMCHC Auto (RBC) [Mass/Vol]Ordered By: Justyna Hanson on 23-07-7451ELUL (RBC) [Mass/Vol]31.6 g/dL32.0-35.0[facility] CenterMCV Auto (RBC) [Entitic vol]Ordered By: Justyna Hanson on 67-75-7155GXV (RBC) [Entitic vol]92.9 sN44-456RyytqwmmqOhiohealth Southeastern Medical CenterMonocytes Auto (Bld) [#/Vol]Ordered By: Justyna Hanson on 80-25-9273Qvkmxuhlt (Bld) [#/Vol]0.6 10*3/uL0.0-0.8[facility] CenterMonocytes/100 WBC Auto (Bld)Ordered By: Justyna Hanson on 55-53-8751Pzbcssujq/100 WBC (Bld)8.5 %.[facility] Neutrophils Auto (Bld) [#/Vol]Ordered By: Justyna Hanson on 82-70-2436Bonhjvbzsms (Bld) [#/Vol]3.7 10*3/uL1.8-7.7FClinton Memorial HospitalNeutrophils/100 WBC Auto (Bld)Ordered By: Justyna Hanson on 51-10-7230Wugyugymrna/100 WBC (Bld) 56.6 %.[facility] CenterNo Panel InformationOrdered By: Justyna Hanson on 43-82-6869Iogjknoel GFR (CKD-EPI)44.747 mL/MinOhiohealth Southeastern Medical CenterPharmacy Creatinine Clearance (ChemN/AFClinton Memorial HospitalNucleated erythrocytes [Presence] in Blood by Automated countOrdered By: Justyna Hanson on 48-91-8324Hagxihcbm RBC Auto Ql (Bld)0.1 /100{WBC}0-0.5FClinton Memorial HospitalPlatelet mean volume Auto (Bld) [Entitic vol]Ordered By: Justyna Hanson on 65-24-7487Qfbgoqat mean volume (Bld) [Entitic vol]8.6 fL6.3-10.7 [facility] CenterPlatelets Auto (Bld) [#/Vol]Ordered By: Justyna Hanson on 96-87-1349Wljtoglwk (Bld) [#/Vol]206 10*3/sQ843-175YhyvjzelvOhiohealth Southeastern Medical CenterPotassium [Moles/volume] in Serum or PlasmaOrdered By: Justyna Hanson on 05-43-2147Dytdynwvu [Moles/Vol]4.4 mmol/L3.5-5.1FClinton Memorial HospitalProtein [Mass/volume] in Serum or PlasmaOrdered By: Justyna Hanson on 08-75-6043Dwlbfpl [Mass/Vol]6.5 g/dL6.4-8.9[facility] RBC Auto (Bld) [#/Vol]Ordered By: Justyna Hanson on 94-19-8368HXW (Bld) [#/Vol] 3.54 10*6/uL3.60-5.00[facility] Hospitalerum or plasma albumin/globulin mass ratioOrdered By: Justyna Hanson on 11-17-2022 Albumin/Globulin [Mass ratio]1.2 {ratio}[facility] Hospitalerum or plasma anion gap determinationOrdered By: Justyna Hanson on 59-05-2571Rfrea gap [Moles/Vol]11.3 mmol/L6.0-15.0[facility] Hospitalerum or plasma high density lipoprotein (HDL) cholesterol measurementOrdered By: Justyna Hanson on 10-02-6044Vcetgweobop in HDL [Mass/Vol]33 mg/qX38-19JjhxdcjyjOhiohealth Southeastern Medical CenterComment on above:HDL CHOL ATP-III CLASSIFICATION Cardiovascular RiskHDL > or equal to 60 mg/dL LOWHDL < 40 mg/dL HIGHSerum or plasma total cholesterol/high density lipoprotein (HDL) cholesterol mass ratOrdered By: Justyna Hanson on 50-27-0177Cvbarebzqtj.total/Cholesterol in HDL [Mass ratio]5.0 {ratio}<5.0Mer[facility] Hospitalodium [Moles/volume] in Serum or PlasmaOrdered By: Justyna Hanson on 36-13-6422Qjohfi [Moles/Vol]140 mmol/D665-860 [facility] CenterThyrotropin [Units/volume] in Serum or Plasma Ordered By: Justyna Hanson on 91-59-7834QJP Qn3.21 m[IU]/L0.45-5.33[facility] CenterThyroxine (T4) free [Mass/volume] in Serum or Plasma Ordered By: Justyna Hanson on 00-98-2435Jzqh T4 [Mass/Vol]1.42 ng/dL0.61-1.12 [facility] CenterTriglyceride [Mass/volume] in Serum or Plasma Ordered By: Justyna Hanson on 06-69-5454Yziqekztcnfv [Mass/Vol]186 mg/dL0-149 [facility] CenterComment on above:TRIG ATP III CLASSIFICATIONTRIG less than 150 mg/dL NormalTRIG 150-199 mg/dL Borderline highTRIG 200-500 mg/dL High TRIG greater than 500 mg/dL Very highStandard traceable to the Center for Disease Conrtrol and Prevention (CDC) test method. Triiodothyronine (T3) Free [Mass/volume] in Serum or PlasmaOrdered By: Justyna Hanson on 37-56-6743Eqbc T3 [Mass/Vol]3.95 pg/mL2.50-3.90[facility] CenterUrea nitrogen [Mass/volume] in Serum or PlasmaOrdered By: Justyna Hanson on 60-92-6602Dsjh nitrogen [Mass/Vol]16 mg/dL7-25[facility] CenterWBC Auto (Bld) [#/Vol]Ordered By: Justyna Hanson on 39-36-6829WVO (Bld) [#/Vol]6.5 10*3/uL3.8-11.6FClinton Memorial HospitalHeight or Weight NOT Doneon 03-81-8305Vnfag depression screening assessmentNoNew [facility]ide Emergency Hospital [employer] 250 DO Work Phone: Fall risk assessmentb) One or more falls in the last yearNew Wayside Emergency Hospital [employer] 250 DO Work Phone: Tobacco use status CPHSb) [facility] [employer] 250 DO Work Phone: Office Visit (Cardiology)on 09-66-5556Nhfhxf-up visit Diagnoses/Problems Assessed Permanent atrial fibrillation (427.31) (I48.21) Difficulty breathing (786.09) (R06.89) Essential hypertension, benign (401.1) (I10) Former smoker (V15.82) (Z87.891) quit 1985 1 ppd Morbid obesity with BMI of 50.0-59.9, adult (278.01,V85.43) (E66.01,Z68.43) Pulmonary hypertension (416.8) (I27.20) Sleep apnea (780.57) (G47.30) Stage 3a chronic kidney disease (585.3) (N18.31) Anticoagulated (V58.61) (Z79.01) Fatigue (780.79) (R53.83) Edema (782.3) (R60.9) Orders Difficulty breathing, Edema Basic Metabolic Panel; Status:Active - Retrospective Authorization; Requested for:[id number]; Difficulty breathing, Edema, Pulmonary hypertension Start: Furosemide 40 MG Oral Tablet (Lasix); Take one tablet daily in the morning Brain Natriuretic Peptide BNP; Status:Active - Retrospective Authorization; Requested for:[id number]; Echocardiogram; Status:Hold For - Scheduling,Retrospective Authorization; Requested for:[id number]; Health Maintenance Healthy Weight Tips; Status:Complete - Retrospective Authorization; Done: [id number] Some eating tips that can help you lose weight.; Status:Complete - Retrospective Authorization; Done: [id number] SocHx: Former smoker Tobacco Use Screening; Status:Complete; Done: [id number] Unlinked Stop: Furosemide 40 MG Oral Tablet Patient Instructions Please bring all medicines, vitamins, and herbal supplements with you when you come to the office. Prescriptions will not be filled unless you are compliant with your follow up appointments or have a follow up appointment scheduled as per instruction of your physician. Refills should be requested at the time of your visit. Fall prevention education given Lasix 40 mg daily Echo Lab work Follow up in 3-4 months Chief Complaint SHANTA FERRER is being seen for a 9 month follow-up of. History of Present Illness Patient is here for follow-up continue management for permanent atrial fibrillation, long-term anticoagulation and shortness of breath. Since last time I saw her she report a fall resulted in knee fracture. She reports using in the wheelchair for almost 3 months. She described worsening shortness of breath and unspecified weight gain. She could not stand up to get her weight. She has not been taking her Lasix regularly. She denies chest pain. Recent laboratory data noted and reviewed with her. ASSESSMENT: 1. Permanent atrial fibrillation. Failed long-term amiodarone therapy. During last office visit we elected for heart rate control on long-term anticoagulation 2. Long-term anticoagulation with Pradaxa reduced dose chosen because of previous history of severeanemia and chronic kidney disease. We discussed Watchman device but the patient like to remain on current therapy 3. Worsening shortness of breath and increased weight gain with evidence of volume overload 4. Right heart failure 5. Sleep apnea, noncompliant with CPAP. 6. Shortness of breath, related to above factors and COPD. 7. Remote history of gastrointestinal bleed with no recurrence. 8. Moderate pulmonary hypertension due to sleep apnea obesity and cor pulmonale 9. Chronic kidney disease probably stage III 10. Recent fall with knee fracture RECOMMENDATION: 1. I recommended to increase Lasix to 40 mg daily and continue potassium and to have a basic metabolic profile, BNP and echocardiogram in few weeks. If symptoms does not improve I discussed with her the possibility of ischemic evaluation but she for the time being declined 2. The patient was counseled regarding losing weight, exercise, and risk factor adjustment, and I did advise her to consider seeing her sleep specialist for consideration for other alternative for treatment for her CPAP 3. Advised the patient to restrict her salt intake 4. We will see her back in the office in 4 month in follow-up for. 5. We discussed ischemic evaluation for the time being the patient want to continue with conservative management Surgical History Problems History of Appendectomy History of Complete colonoscopy Managed By: Justyna Mi DO History of Dilation of bladder neck History of Hysterectomy History of Knee surgery History of Silver bunionectomy Current Meds Medication NameInstruction Albuterol Sulfate (2.5 MG/3ML) 0.083% Inhalation Nebulization SolutionUSE 1 UNIT DOSE EVERY 4-6 HOURS NEEDED FOR WHEEZING . Allopurinol 300 MG Oral TabletTAKE 1 TABLET DAILY. Dabigatran Etexilate Mesylate 75 MG Oral CapsuleTAKE 1 CAPSULE TWICE DAILY. Furosemide 40 MG Oral TabletTake 1 tablet every other day as needed Klor-Con M20 20 MEQ Oral Tablet Extended ReleaseTAKE 1 TABLET DAILY. Levothroid 25 MCG TABSTAKE 1 TABLET DAILY. LORazepam 0.5 MG Oral TabletTAKE TABLET PRN Magnesium 500 MG CAPSTAKE 1 CAPSULE Daily Metoprolol Tartrate 25 MG Oral TabletTAKE 1 TABLET DAILY. Niacin ER 500 MG Oral Tablet Extended ReleaseTake 1 tablet daily Nystop 622922 UNIT/GM External Powd (more content not included)...NormalUH TouchworksXR knee RT 4V*on 78-49-1094WY knee RT 4V*[facility] [employer] Other XR knee RT 4V*[facility] [employer] Other XR knee RT 4V*[address] [facility] [employer] Other XR knee RT 4V*[place], [place] [address] Other XR knee RT 4V*[facility] [employer] Other XR knee RT 4V*Signed with [facility] ClinicSah[facility] [employer]M [employer] Other XR knee RT 4V*Patient: Shanta Ferrer MR#: [id number] [facility] [employer] Other XR knee RT 4V*[facility] [employer] Other XR knee RT 4V*: 1940 Acct:[id number] [employer] Software Other XR knee RT 4V*Age/Sex: 82 / F ADM Date: 08/23/22[place] [employer] Other XR knee RT 4V*Loc: XD Room: Type: [facility]AN[facility]IL[facility]Znet Netzwerke Other XR knee RT 4V*Attending Dr: Justyna Hanson [facility] HospitalAmbit Biosciences Other XR knee RT 4V*Copies to: Justyna Hanson,Seat 14A Other XR knee RT 4V*Ordering Provider: Justyna Hanson, [employer] Other XR knee RT 4V*Date of Service: 08/23/22[place] [employer] Other XR knee RT 4V* XR/XR knee RT 4V*: Knee pain, leftStockville ITM Software Other XR knee RT 4VADDENDUM [facility] [employer] Other XR knee RT 4V*Correction to body of report:Un[employer] Other XR knee RT 4V*There also appears to be osteochondromas involving the distal femur.Un[employer] Other XR knee RT 4V*Impression dictated by: Duke Carroll Jr., D.OAlcon08/23/2022 3:46 [facility] HOSPITALVZnet Netzwerke Other XR knee RT 4V*Dictation Location: [address] [employer] Other XR knee RT 4V*Addendum Dictated By: Duke Carroll Jr, Seat 14A Other XR knee RT 4V*Addendum Signed By:Unbl[employer] Other XR knee RT 4V*04/17/23 1546[place] [employer] Other XR knee RT 4V*Addendum Cosigned By:Un[employer] Other XR knee RT 4V*DD/ /1545[place] [employer] Other XR knee RT 4V*TD/TT: 08/23/22/1546[place] [employer] Other XR knee RT 4V*RIGHT KNEE - 4 viewsNowestern [facility] [employer] Other XR knee RT 4V*CLINICAL HISTORY: Fall. Medial and anterior right knee painStockville [employer] Software Other XR knee RT 4V*COMPARISON: [facility] [employer] Other XR knee RT 4V*FINDINGS:Un[employer] Other XR knee RT 4V*Bones are grossly demineralized. There is a questionable fracture involving the medial aspect of [facility] [employer] Other XR knee RT 4V*tibial plateau best seen on the oblique view. It appears to be superimposed on severe degenerativeBigString Other XR knee RT 4V*changes with medial weightbearing joint space narrowing. There also appears to be enchondromasStockville [employer] Software Other XR knee RT 4V*involving the distal femur.[employer] Other XR knee RT 4V* XR/XR knee RT 4V* Un[employer] Other XR knee RT 4V*IMPRESSION:Un[employer] Other XR knee RT 4V*QUESTIONABLE FRACTURE INVOLVING THE MEDIAL ASPECT OF THE TIBIAL PLATEAU. THIS SHOULD BE CONFIRMED BYKansas City Va Medical CenterEltechs Other XR knee RT 4V*CT.Unblab Other XR knee RT 4V*Impression dictated by: Duke Carroll Jr., MarkoOAlcon08/23/2022 3:39 PMNAmsterdam Memorial Hospital SeroMatch Other XR knee RT 4V*Transcribed By: PWS 08/23/[address] [place] [address] [employer] Other XR knee RT 4V*Dictated By: Duke Carroll Jr, DO 08/23/[address] [place] [address] [employer] Other XR knee RT 4V*Signed By:[facility] [employer] Other XR knee RT 4V*08/23/[address] [place] [address] [employer] Other Creatinine [Mass/volume] in UrineOrdered By: Tori Wheatley on 24-47-9963Demijhderw (U) [Mass/Vol]112.4 mg/dLOhiohealth Southeastern Medical CenterComment on above:No reference range establishedProtein [Mass/volume] in UrineOrdered By: Tori Wheatley on 80-88-9026Kdqmqyc (U) [Mass/Vol]16 mg/dL0-9Ohiohealth Southeastern Medical CenterUrine protein/creatinine ratioOrdered By: Tori Wheatley on 74-71-0295Qoqhqnp/Creatinine (U) [Ratio]142 mg/g{Cre}0-200Ohio[facility] Southeastern Medical CenterAlbumin [Mass/volume] in Serum or PlasmaOrdered By: Tori Whetaley on 37-76-6958Qjmsnxl [Mass/Vol]3.0 g/dL3.2-5.5 [facility] CenterCholesterol [Mass/volume] in Serum or Plasma Ordered By: Justyna Hanson on 20-05-2377Tjzznuwlnoa [Mass/Vol]163 mg/xI453-729 [facility] CenterComment on above:Chol less than 200 mg/dl low riskChol 201-239 mg/dl borderline riskChol 240 mg/dl and greater high risk Cholesterol in LDL Calc [Mass/Vol]Ordered By: Justyna Hanson on 04-07-2022 Cholesterol in LDL [Mass/Vol]98 mg/dL0-100[facility] Comment on above:LDL ATP III CLASSIFICATIONLDL less than 100 mg/dL OptimalLDL 100-129 mg/dL Near or above tfkfavvPPB540-273 mg/dL Borderline highLDL 160-189 mg/dL HighLDL greater than 189 mg/dL Very highCholesterol in VLDL Calc [Mass/Vol]Ordered By: Justyna Hanson on 41-23-0354Tlitmabnojs in VLDL [Mass/Vol]34 mg/dLOhiohealth Southeastern Medical CenterCreatinine and Glomerular filtration rate.predicted panel (S/P/Bld)Ordered By: Tori Wheatley on 73-77-3935Segfjzeucn [Mass/Vol]1.49 mg/dL0.44-1.03Ohio[facility]heastern Medical CenterErythrocyte distribution width Auto (RBC) [Ratio]Ordered By: Tori Wheatley on 04-07-2022 Erythrocyte distribution width (RBC) [Ratio]16.8 %11.9-15.3FClinton Memorial HospitalEstimated glomerular filtration rate (GFR) non- Ordered By: Tori Wheatley on 66-80-0161WPE/1.73 sq M.predicted among non-blacks MDRD (S/P/Bld) [Vol rate/Area]34 mL/MinOhiohealth Southeastern Medical CenterFolate [Mass/volume] in Serum or PlasmaOrdered By: Justyna Hanson on 20-82-4810Lfgmzf [Mass/Vol]9.1 ng/mL>5.9Ohio[facility]heastern Medical CenterComment on above:Folate reference range: >5.9 ng/mlThe WHO technical consultation on folate and vitamin d69vfparcefbifu has determined that folate concentrations lessthan 4 ng/ml are considered deficient.Globulin Calc (S) [Mass/Vol]Ordered By: Tori Wheatley on 71-02-9422Qdstuzfa (S) [Mass/Vol]2.9 g/dLOhiohealth Southeastern Medical Center Glucose mean value [Mass/volume] in Blood Estimated from glycated hemoglobin Ordered By: Justyna Hanson on 62-49-8003Uxohqyu glucose Estimated from glycated hemoglobin (Bld) [Mass/Vol]120 mg/dLOhiohealth Southeastern Medical CenterHematocrit Auto (Bld) [Volume fraction]Ordered By: Tori Wheatley on 06-95-4453Elkkimukiw (Bld) [Volume fraction]37.1 %34.0-46.4FClinton Memorial Hospital Hemoglobin A1c percentageOrdered By: Justyna Hanson on 17-84-6636RnX5y (Bld) [Mass fraction]5.8 %4.3-5.6FClinton Memorial HospitalComment on above: Increased risk for diabetes: 5.7 - 6.4diabetes: >6.4glycemic control for adults with diabetes: <7.0Hemoglobin [Mass/volume] in BloodOrdered By: Tori Wheatley on 63-72-4092Rqwarqpctf (Bld) [Mass/Vol]11.7 g/dL11.8-15.4FClinton Memorial HospitalLaboratory - Chemistry and Chemistry - challengeOrdered By: Tori Wheatley on 15-07-1449Wklbyujrf [Mass/Vol]1.5 mg/dL1.6-2.6FClinton Memorial HospitalLaboratory - Chemistry and Chemistry - challengeOrdered By: Justyna Hanson on 96-24-9561Zmxsmznnc (Vitamin B12) [Mass/Vol]267 pg/eJ666-114TxxrvcmdyOhiohealth Southeastern Medical CenterLeukocytes [#/volume] corrected for nucleated erythrocytes in Blood by Automated counOrdered By: Tori Wheatley on 08-58-7228MZX corrected for nucl RBC Auto (Bld) [#/Vol]6.7 10*3/uL3.8-11.6FFostoria City HospitalH Auto (RBC) [Entitic mass]Ordered By: Tori Wheatley on 42-85-4450FRC (RBC) [Entitic mass]30.8 pg24.7-34.3FFostoria City HospitalHC Auto (RBC) [Mass/Vol]Ordered By: Tori Wheatley on 13-81-2896QDJN (RBC) [Mass/Vol]31.6 g/dL32.0-35.0[facility] Medical CenterMCV Auto (RBC) [Entitic vol]Ordered By: Tori Wheatley on 85-08-5954FVA (RBC) [Entitic vol]97.3 lX72-856VehqmflqdOhiohealth Southeastern Medical CenterNo Panel InformationOrdered By: Tori Wheatley on 22-23-3397Nulifnnqs GFR ()41 mL/MinOhiohealth Southeastern Medical CenterComment on above:GFR estimated reference range: According to KDOQI guidelines, <60 ml/min/1.73m2 is sufficient todiagnose a patient with chronic kidney disease.Pharmacy Creatinine Clearance (ChemN/[facility] HospitalPhosphate [Mass/volume] in Serum or PlasmaOrdered By: Tori Wheatley on 19-55-4082Jsmvufuyh [Mass/Vol]3.5 mg/dL2.5-4.6FClinton Memorial Hospital Platelet mean volume Auto (Bld) [Entitic vol]Ordered By: Tori Wheatley on 70-46-2056Ejlsqxej mean volume (Bld) [Entitic vol]9.8 fL6.3-10.7FClinton Memorial HospitalPlatelets Auto (Bld) [#/Vol]Ordered By: Tori Wheatley on 63-78-2063Imndokrpe (Bld) [#/Vol]137 10*3/uX656-761YyoqgellcOhiohealth Southeastern Medical CenterProtein [Mass/volume] in Serum or PlasmaOrdered By: Tori Wheatley on 48-02-7990Dafdmcs [Mass/Vol]5.9 g/dL6.1-7.9Ohio[facility] Medical CenterRBC Auto (Bld) [#/Vol]Ordered By: Tori Wheatley on 52-74-2184XIY (Bld) [#/Vol]3.81 10*6/uL3.60-5.00Mercy Memorial Hospitalerum or plasma alanine aminotransferase measurement without P-5'-P (enzymatic activiOrdered By: Tori Wheatley on 53-83-4260CZH No additional P-5'-P [Catalytic activity/Vol]10 U/L [facility] Hospitalerum or plasma albumin/globulin mass ratioOrdered By: Tori Wheatley on 05-17-5591Pfqjlwv/Globulin [Mass ratio]1.0 {ratio}[facility] Memorial Hospitalerum or plasma alkaline phosphatase measurement (enzymatic activity/volume)Ordered By: Tori Wheatley on 12-52-6767LQG [Catalytic activity/Vol]91 U/C42-04NdtmspurqMercy Memorial Hospitalerum or plasma anion gap determinationOrdered By: Tori Wheatley on 90-04-1307Eigsk gap [Moles/Vol]13.2 mmol/L6.0-15.0Mer[facility] Memorial Hospitalerum or plasma aspartate aminotransferase measurement (enzymatic activity/volume)Ordered By: Tori Wheatley on 11-08-8381UNA [Catalytic activity/Vol]14 U/C09-55OynoibnhiMercy Memorial Hospitalerum or plasma calcium measurement (mass/volume)Ordered By: Tori Wheatley on 71-60-1271Lfdlghl [Mass/Vol]8.9 mg/dL8.2-10.2FUniversity Hospitals Geneva Medical Centererum or plasma chloride measurement (moles/volume) Ordered By: Tori Wheatley on 49-29-5364Suxahylq [Moles/Vol]103 mmol/L95-114 [facility] Hospitalerum or plasma glucose measurement (mass/volume)Ordered By: Tori Whealtey on 50-50-6227Yrvaass [Mass/Vol]107 mg/dL 70-100Ohio[facility] Medical CenterComment on above:ADA recommended reference rangeRandom Glucose Reference Range is dependent on time and content of last meal. Glucose of more than 200 mg/dL in a nonstressed, ambulatory subject supports the diagnosisof Diabetes Mellitus.Serum or plasma high density lipoprotein (HDL) cholesterol measurementOrdered By: Justyna Hanson on 04-07-2022 Cholesterol in HDL [Mass/Vol]31 mg/jR18-21HddvnsuovOhiohealth Southeastern Medical Center Comment on above:HDL CHOL ATP-III CLASSIFICATION Cardiovascular RiskHDL > or equal to 60 mg/dL LOWHDL < 40 mg/dL HIGHSerum or plasma intact parathyroid hormone measurement (mass/volume)Ordered By: Tori Wheatley on 04-07-2022 Parathyrin.intact [Mass/Vol]77.3 pg/eM05-90BehyovwxyOhiohealth Southeastern Medical Center Serum or plasma potassium measurement (moles/volume)Ordered By: Tori Wheatley on 13-73-9722Culyrhgze [Moles/Vol]4.2 mmol/L3.5-5.1FUniversity Hospitals Geneva Medical Centererum or plasma sodium measurement (moles/volume)Ordered By: Tori Wheatley on 13-20-0374Nmvxql [Moles/Vol]139 mmol/E835-395FulykftctMercy Memorial Hospitalerum or plasma total bilirubin measurement (mass/volume)Ordered By: Tori Wheatley on 80-33-4372Gpjiicpoh [Mass/Vol]0.7 mg/dL0.3-1.2FUniversity Hospitals Geneva Medical Centererum or plasma total carbon dioxide measurement (moles/volume) Ordered By: Tori Wheatley on 18-87-6692JK0 [Moles/Vol]27.0 mmol/L22.0-30.0 [facility] Memorial Hospitalerum or plasma total cholesterol/high density lipoprotein (HDL) cholesterol mass ratOrdered By: Justyna Hanson on 04-07-2022 Cholesterol.total/Cholesterol in HDL [Mass ratio]5.3 {ratio}<5.0Mercy Memorial Hospitalerum or plasma urea nitrogen measurement (mass/volume) Ordered By: Tori Wheatley on 09-63-6334Wmum nitrogen [Mass/Vol]19 mg/dL9-23 [facility] Hospitalerum or plasma uric acid measurement (mass/volume)Ordered By: Tori Wheatley on 44-60-5703Kdsjs [Mass/Vol]6.0 mg/dL 2.6-7.2FClinton Memorial HospitalTS DL <= 0.005 mIU/L QnOrdered By: Justyna Hanson on 61-76-3572SMF Qn2.84 m[IU]/L0.45-5.33[facility] Medical CenterThyroxine (T4) free [Mass/volume] in Serum or PlasmaOrdered By: Justyna Hanson on 12-30-5353Xdfm T4 [Mass/Vol]0.96 ng/dL0.61-1.12[facility] Medical CenterTriglyceride [Mass/volume] in Serum or PlasmaOrdered By: Justyna Hanson on 11-15-6994Afglsspxwiil [Mass/Vol]171 mg/zR01-132TtjzmkybqOhiohealth Southeastern Medical CenterComment on above:TRIG ATP III CLASSIFICATIONTRIG less than 150 mg/dL NormalTRIG 150-199 mg/dL Borderline highTRIG 200-500 mg/dL High TRIG greater than 500 mg/dL Very highStandard traceable to the Center for Disease Co nrtrol and Prevention (CDC) test method.Triiodothyronine (T3) Free [Mass/volume] in Serum or PlasmaOrdered By: Justyna Hanson on 12-49-1666Jdfm T3 [Mass/Vol]4.18 pg/mL2.50-3.90Ohio[facility]heastern Medical CenterOffice Visit (Cardiology)on 23-07-2990Lpbmzd-up visitDiagnoses/Problems Assessed Permanent atrial fibrillation (427.31) (I48.21) Anticoagulated (V58.61) (Z79.01) Pulmonary hypertension (416.8) (I27.20) Sleep apnea (780.57) (G47.30) Stage 3a chronic kidney disease (585.3) (N18.31) Difficulty breathing (786.09) (R06.89) Essential hypertension, benign (401.1) (I10) Former smoker (V15.82) (Z87.891) quit 1985 05 ppd Fatigue (780.79) (R53.83) Morbid obesity with BMI of 50.0-59.9, adult (278.01,V85.43) (E66.01,Z68.43) Orders Morbid obesity with BMI of 50.0-59.9, adult Healthy Weight Tips; Status:Complete - Retrospective Authorization; Done: 08Mar2022 Some eating tips that can help you lose weight.; Status:Complete - Retrospective Authorization; Done: 08Mar2022 Permanent atrial fibrillation Renew: Dabigatran Etexilate Mesylate 75 MG Oral Capsule (Pradaxa); TAKE 1 CAPSULE TWICE DAILY SocHx: Former smoker Tobacco Use Screening; Status:Complete; Done: 08Mar2022 Patient Instructions Please bring all medicines, vitamins, and herbal supplements with you when you come to the office. Prescriptions will not be filled unless you are compliant with your follow up appointments or have a follow up appointment scheduled as per instruction of your physician. Refills should be requested at the time of your visit. Follow up in 9 months The provider reviewed the following test(s) and result(s) with the patient: laboratory tests Chief Complaint SHANTA FERRER is being seen for a 6 month follow-up of. History of Present Illness Patient is here for follow-up to the management for permanent atrial fibrillation, long-term anticoagulation, history of sleep apnea and right heart failure. Since last time I saw her she denies any change in cardiac status or symptoms. She reported that her is undergoing surgery for gastric cancer and she is under a lot of stress. She denies any cardiac complaint. Recent laboratory data noted and reviewed with her. She had described compliance with her medication. ASSESSMENT: 1. Permanent atrial fibrillation. Failed long-term amiodarone therapy. During last office visit we elected for heart rate control on long-term anticoagulation 2. Long-term anticoagulation with Pradaxa with appropriate dose based on renal function. 3. High-risk medication in the form of Pradaxa ranging that well 4. Right heart failure appears to be stable 5. Sleep apnea, noncompliant with CPAP. 6. Shortness of breath, related to above factors and COPD. 7. Remote history of gastrointestinal bleed with no recurrence. 8. Moderate pulmonary hypertension due to sleep apnea obesity and cor pulmonale 9. Chronic kidney disease probably stage III RECOMMENDATION: 1. We discussed treatment option for atrial fibrillation and continue to recommend heart rate control strategy and long-term anticoagulation 2. The patient was counseled regarding losing weight, exercise, and risk factor adjustment, and I did advise her to consider seeing her sleep specialist for consideration for other alternative for treatment for her CPAP 3. Advised the patient to restrict her salt intake 4. We will see her back in the office in 9-month in follow-up for. 5. We discussed ischemic evaluation for the time being the patient want to continue with conservative management Surgical History Problems History of Appendectomy History of Complete colonoscopy Managed By: Justyna Mi DO History of Dilation of bladder neck History of Hysterectomy History of Knee surgery History of Silver bunionectomy Current Meds Medication NameInstruction Albuterol Sulfate (2.5 MG/3ML) 0.083% Inhalation Nebulization SolutionUSE 1 UNIT DOSE EVERY 4-6 HOURS NEEDED FOR WHEEZING . Allopurinol 300 MG Oral TabletTAKE 1 TABLET DAILY. Furosemide 40 MG Oral Tablettake 1 tablet by mouth once daily Klor-Con M20 20 MEQ Oral Tablet Extended ReleaseTAKE 1 TABLET DAILY. Levothroid 25 MCG TABSTAKE 1 TABLET DAILY. LORazepam 0.5 MG Oral TabletTAKE TABLET PRN Magnesium 500 MG CAPSTAKE 1 CAPSULE Daily Metoprolol Tartrate 25 MG Oral TabletTAKE 1 TABLET DAILY. Niacin ER 500 MG Oral Tablet Extended ReleaseTake 1 tablet daily Nystop 265281 UNIT/GM External PowderAPPLY POWDER TOPICALLY TWICE DAILY Omeprazole 40 MG Oral Capsule Delayed ReleaseTAKE 1 CAPSULE Daily Pradaxa 75 MG Oral CapsuleTAKE 1 CAPSULE TWICE DAILY. ProAir HFA 108 (90 Base) MCG/ACT AERSINHALE PUFFS PRN Sertraline HCl - 25 MG Oral TabletTAKE TABLET PRN Spironolactone 25 MG Oral TabletTAKE 1 TABLET TWICE DAILY. Allergies Medication Ibuprofen TABS Allergy; Hives;; Updated By: Mary Alas; 02/19/2021 3:16:26 PM Niaspan TBCR Adverse Reaction; Hives;; Updated By: Mary Alas; 02/19/2021 3:16:26 PM Statins Adverse Reaction; Hives; Flushing; Recorded By: Britta Jefferson; 03/08/2022 3:03:44 PM NonMedication IV Contrast Dye Allergy; Anaphylaxis;; Updated By: Mary Alas; 02/19/2021 3:16:26 PM Social History Problems Caffei (more content not included)...NormalUH TouchworksTobacco Screening.on 49-64-0563Nfqtj depression screening assessmentSouth County Hospital Iizuu DO Work Phone: Adult depression screening assessmentYeNortheastern [facility] Hospital Iizuu DO Work Phone: Fall risk assessmenta) No falls within the last year [facility] Iizuu DO Work Phone: Tobacco use status CPHSb) [facility] [employer] DO Work Phone: Albumin [Mass/volume] in Serum or Plasmaon 04-30-2020 Albumin [Mass/Vol]3.3 g/dL3.2-5.5FMagruder Memorial Hospital CtrAutomated basophil %on 72-71-3550Qyebbljev/100 WBC (Bld)0.7 %[facility] CtrAutomated basophil counton 10-46-7360Jjbdufyia (Bld) [#/Vol]0.1 10*3/uL 0.0-0.2FMagruder Memorial Hospital CtrAutomated blood lymphocyte count (number/volume)on 39-04-2217Totahadmenv (Bld) [#/Vol]2.4 10*3/uL1.00-4.8 [facility] CtrAutomated blood lymphocyte count as percentage of total leukocyteson 03-72-2625Mqsqemrxiww/100 WBC (Bld)29.6 %[facility] CtrAutomated blood monocyte counton 79-22-2582Hrpcwqkul (Bld) [#/Vol]0.7 10*3/uL0.0-0.8[facility] CtrAutomated blood platelet count (count/volume)on 72-06-7727Cwyhfckxm (Bld) [#/Vol]191 10*3/uB884-266WijglthauHighland District Hospital CtrAutomated blood platelet mean volume measurementon 70-18-6281Qjskrotr mean volume (Bld) [Entitic vol]9.8 fL6.3-10.7FMagruder Memorial Hospital CtrAutomated eosinophil %on 20-30-5225Bsorhvtvnyk/100 WBC (Bld) 5.6 %[facility] CtrAutomated eosinophil counton 04-30-2020 Eosinophils (Bld) [#/Vol]0.5 10*3/uL0.0-0.45[facility] Automated erythrocyte distribution width ratioon 76-78-7165Vqminhilprs distribution width (RBC) [Ratio]17.6 %11.9-15.3FMagruder Memorial Hospital Ctr Automated erythrocyte mean corpuscular hemoglobin (mass per erythrocyte)on 17-90-3460PLH (RBC) [Entitic mass]32.6 pg24.7-34.3FMagruder Memorial Hospital Ctr Automated erythrocyte mean corpuscular hemoglobin concentration measurement (mass/volon 48-70-9530EPQE (RBC) [Mass/Vol]32.4 g/dL32.0-35.0[facility] CtrAutomated erythrocyte mean corpuscular volumeon 27-69-9271THL (RBC) [Entitic vol]100.7 mD34-970UahzpltztHighland District Hospital CtrAutomated monocyte %on 54-82-3339Voenrutcx/100 WBC (Bld)8.4 %[facility] CtrAutomated neutrophil %on 62-08-7084Pdmuuqugmrm/100 WBC (Bld)55.7 %[facility] CtrBlood erythrocytes automated count (number/volume)on 60-06-6581GKD (Bld) [#/Vol]3.41 10*6/uL3.60-5.00[facility] CtrBlood hemoglobin measurement (mass/volume)on 58-12-5681Ngeniinorv (Bld) [Mass/Vol]11.1 g/dL 11.8-15.4FMagruder Memorial Hospital CtrBlood leukocytes automated count (number/volume)on 52-51-6289LKA (Bld) [#/Vol]8.0 10*3/uL4.5-11.0[facility] CtrBlood neutrophil count by automated method (number/volume)on 51-22-4927Hrrzjbdubwn (Bld) [#/Vol]4.5 10*3/uL1.8-7.7FMagruder Memorial Hospital CtrCT biopsyon 30-37-1671Weyfrrurlpv [Mass/Vol]263 mg/wJ204-817PeelwzvetHighland District Hospital CtrCholesterol [Mass/volume] in Serum or Plasmaon 04-30-2020 Cholesterol [Mass/Vol]209 mg/nQ603-641PfulzoeliHighland District Hospital CtrComment on above:Chol less than 200 mg/dl low riskChol 201-239 mg/dl borderline riskChol 240 mg/dl and greater high riskCholesterol in LDL [Mass/volume] in Serum or Plasma by calculationon 13-58-9969Gumlgaklwgi in LDL [Mass/Vol]135 mg/dL0-100 [facility] CtrComment on above:LDL ATP III CLASSIFICATIONLDL less than 100 mg/dL OptimalLDL 100-129 mg/dL Near or above xnalqhjJJI576-810 mg/dL Borderline highLDL 160-189 mg/dL HighLDL greater than 189 mg/dL Very high Cholesterol in VLDL [Mass/volume] in Serum or Plasma by calculationon 04-30-2020 Cholesterol in VLDL [Mass/Vol]41 mg/dLHighland District Hospital CtrEstimated glomerular filtration rate (GFR) non- Americanon 44-17-7238ISA/1.73 sq M predicted among non-blacks MDRD (S/P/Bld) [Vol rate/Area]20 mL/min/{1.73_m2} [facility] CtrFerritin [Mass/volume] in Serum or Plasmaon 33-17-3441Mxabemgy [Mass/Vol]53.6 ng/rA25-759.8[facility] Folate [Mass/volume] in Serum or Plasmaon 56-80-4256Xhxetg [Mass/Vol]6.3 ng/mL [facility] CtrComment on above:Folate reference range: >5.9 ng/mlThe WHO technical consultation on folate and vitamin y77elpcdiwpilzc has determined that folate concentrations lessthan 4 ng/ml are considered deficient. Glucose mean value [Mass/volume] in Blood Estimated from glycated hemoglobinon 77-00-2344Lgvcaoz glucose Estimated from glycated hemoglobin mass conc (Bld)114 mg/dLHighland District [facility] CtrHematocrit [Volume Fraction] of Blood by Automated counton 82-11-8805Ieohvegqox (Bld) [Volume fraction]34.3 %34.0-46.4 [facility] CtrHemoglobin A1c percentageon 08-80-3898KhE7q (Bld) [Mass fraction]5.6 %4.3-5.6FMagruder Memorial Hospital CtrComment on above: Increased risk for diabetes: 5.7 - 6.4diabetes: >6.4glycemic control for adults with diabetes: <7.0Iron [Mass/volume] in Serum or Plasmaon 21-59-0937Jwgn [Mass/Vol]73 ug/tB03-907HgdmfeostHighland District Hospital CtrIron binding capacity [Mass/volume] in Serum or Plasmaon 42-22-7921Uqeo binding capacity [Mass/Vol]368 ug/bH162-665PqlmakzapHighland District Hospital CtrIron saturation [Mass Fraction] in Serum or Plasmaon 16-63-1185Mzzf saturation [Mass fraction]19.0 %20-50[facility] CtrOtheron 76-58-7175Kmrxbsxln (Vitamin B12) [Mass/Vol]455 pg/bG152-451BynjsfxvuHighland District Hospital CtrGFR/1.73 sq M.predicted MDRD (S/P/Bld) [Vol rate/Area]25 mL/min/{1.73_m2}[facility] CtrComment on above:GFR estimated reference range: According to KDOQI guidelines, <60 ml/min/1.73m2 is sufficient todiagnose a patient with chronic kidney disease. Nucleated RBC/100 WBC (Bld) [Ratio]0.1 %0-0.5FMagruder Memorial Hospital Ctr Pharmacy Creatinine Clearance (ChemN/[facility] CtrProtein [Mass/volume] in Serum or Plasmaon 38-69-3316Ppkbjra [Mass/Vol]6.6 g/dL6.1-7.9 [facility] CtrSerum globulin measurement by calculation (mass/volume)on 43-19-5509Zismdzfg (S) [Mass/Vol]3.3 g/dLHighland District Hospital CtrSerum or plasma alanine aminotransferase measurement without P-5'-P (enzymatic activion 41-86-7759ZLW No additional P-5'-P [Catalytic activity/Vol] 16 U/T57-03OhykzhnsaHighland District Hospital CtrSerum or plasma albumin/globulin mass ratioon 48-08-8348Uotpeyq/Globulin [Mass ratio]1.0 {ratio}[facility] CtrSerum or plasma alkaline phosphatase measurement (enzymatic activity/volume)on 82-22-0781XTK [Catalytic activity/Vol]86 U/E97-63ByenqgviwHighland District Hospital CtrSerum or plasma aspartate aminotransferase measurement (enzymatic activity/volume)on 95-82-4316CWA [Catalytic activity/Vol]21 U/L10-42 [facility] CtrSerum or plasma calcium measurement (mass/volume) on 30-82-0715Hoazfqi [Mass/Vol]9.2 mg/dL8.2-10.2FNorwalk [facility] Serum or plasma chloride measurement (moles/volume)on 63-50-6827Ecewimeb [Moles/Vol]94 mmol/C73-356BxzvjirnmHighland District Hospital CtrSerum or plasma creatinine measurement with calculation of estimated glomerular filtron 22-73-6603Mfkvtziohy [Mass/Vol]2.31 mg/dL0.44-1.03[facility] Serum or plasma glucose measurement (mass/volume)on 64-43-5917Vicwhoj [Mass/Vol] 111 mg/mF06-794BczfhjbwdHighland District Hospital CtrComment on above:ADA recommended reference rangeRandom Glucose Reference Range is dependent on time and content of last meal. Glucose of more than 200 mg/dL in a nonstressed, ambulatory subject supports the diagnosisof Diabetes Mellitus.Serum or plasma high density lipoprotein (HDL) cholesterol measurementon 45-52-0546Gfbkdspuebn in HDL [Mass/Vol]33 mg/lC27-31CuyjqupcmHighland District Hospital CtrComment on above:HDL CHOL ATP-III CLASSIFICATION Cardiovascular RiskHDL > or equal to 60 mg/dL LOWHDL < 40 mg/dL HIGHSerum or plasma potassium measurement (moles/volume)on 04-30-2020 Potassium [Moles/Vol]4.4 mmol/L3.5-5.1FMagruder Memorial Hospital CtrSerum or plasma sodium measurement (moles/volume)on 17-08-1407Sfiexg [Moles/Vol]140 mmol/N172-192WtluwnhndHighland District Hospital CtrSerum or plasma thyroid stimulating hormone (TSH) measurement by high sensitivity meton 88-34-3385DSR Qn8.97 u[iU]/mL0.45-5.33[facility] CtrSerum or plasma total bilirubin measurement (mass/volume)on 93-26-6837Igmdtbxtr [Mass/Vol]0.9 mg/dL0.3-1.2 [facility] CtrSerum or plasma total carbon dioxide measurement (moles/volume)on 52-50-6729QY7 [Moles/Vol]33.0 mmol/L22.0-30.0[facility] CtrSerum or plasma total cholesterol/high density lipoprotein (HDL) cholesterol mass yuly 24-54-9205Bbsqqmnlwfh.total/Cholesterol in HDL [Mass ratio]6.3 {ratio}[facility] CtrSerum or plasma urea nitrogen measurement (mass/volume)on 80-26-9475Uiux nitrogen [Mass/Vol]30 mg/dL01-29 [facility] CtrSerum or plasma uric acid measurement (mass/volume)on 27-39-2008Gcrwj [Mass/Vol]9.2 mg/dL2.6-7.2FMagruder Memorial Hospital CtrThyroxine (T4) free [Mass/volume] in Serum or Plasmaon 57-71-1319Wbpd T4 [Mass/Vol]1.02 ng/dL0.61-1.12[facility] CtrTriglyceride [Mass/volume] in Serum or Plasmaon 29-66-7669Pjsphtelxsyh [Mass/Vol]206 mg/dL 35-149[facility] CtrComment on above:TRIG ATP III CLASSIFICATIONTRIG less than 150 mg/dL NormalTRIG 150-199 mg/dL Borderline highTRIG 200-500 mg/dL High TRIG greater than 500 mg/dL Very highStandard traceable to the Center for Disease Conrtrol and Prevention (CDC) test method. Triiodothyronine (T3) Free [Mass/volume] in Serum or Plasmaon 75-16-4087Lpge T3 [Mass/Vol]4.02 pg/mL2.50-3.90[facility] CtrAlbumin [Mass/volume] in Serum or Plasmaon 39-75-9306Ejevfke [Mass/Vol]3.2 g/dL3.2-5.5FMagruder Memorial Hospital CtrAutomated blood platelet count (count/volume)on 02-26-2020 Platelets (Bld) [#/Vol]194 10*3/gN199-566MjkzubkiiHighland District Hospital CtrAutomated blood platelet mean volume measurementon 87-21-6143Eycekrii mean volume (Bld) [Entitic vol]9.2 fL6.3-10.7FMagruder Memorial Hospital CtrAutomated erythrocyte distribution width ratioon 31-54-3937Kltqozelotu distribution width (RBC) [Ratio]19.6 %11.9-15.3FMagruder Memorial Hospital CtrAutomated erythrocyte mean corpuscular hemoglobin (mass per erythrocyte)on 99-51-0533RHK (RBC) [Entitic mass]30.4 pg24.7-34.3FMagruder Memorial Hospital CtrAutomated erythrocyte mean corpuscular hemoglobin concentration measurement (mass/volon 64-47-0887IDXX (RBC) [Mass/Vol]31.8 g/dL32.0-35.0[facility] CtrAutomated erythrocyte mean corpuscular volumeon 90-97-3341HXP (RBC) [Entitic vol]95.6 fL 80-100[facility] CtrBlood erythrocytes automated count (number/volume)on 09-33-4705RQV (Bld) [#/Vol]3.70 10*6/uL3.60-5.00[facility] CtrBlood hemoglobin measurement (mass/volume)on 02-26-2020 Hemoglobin (Bld) [Mass/Vol]11.3 g/dL11.8-15.4FMagruder Memorial Hospital CtrBlood leukocytes automated count (number/volume)on 59-59-2655ART (Bld) [#/Vol]6.5 10*3/uL3.8-11.6FMagruder Memorial Hospital CtrEstimated glomerular filtration rate (GFR) non- Americanon 42-62-6141GVM/1.73 sq M predicted among non- blacks MDRD (S/P/Bld) [Vol rate/Area]24 mL/min/{1.73_m2}[facility] CtrHematocrit [Volume Fraction] of Blood by Automated counton 02-26-2020 Hematocrit (Bld) [Volume fraction]35.4 %34.0-46.4FMagruder Memorial Hospital Ctr Metabolic Panelon 71-20-4086Euvuwtnvu [Mass/Vol]1.6 mg/dL1.6-2.6FMagruder Memorial Hospital CtrOtheron 71-30-698989274740-Krgcspy Vitamin D Total14.1 ng/dP55-297 [facility] CtrComment on above:VITAMIN D STATUS 25(OH)VITAMIN D RANGE (ng/mL) Deficient <20 Insufficient 20 to <85Hbulylzisy08 to 100Reference: Sampson MF,Karl LAMAR, Lilliam SUN, et al. Evaluation,treatment, and prev ention of vitamin D deficiency; an Endocrine Society clinical practice guideline. JCEM. 2010; 96(7):1911-30.GFR/1.73 sq M.predicted MDRD (S/P/Bld) [Vol rate/Area]29 mL/min/{1.73_m2}[facility] CtrComment on above:GFR estimated reference range: According to KDOQI guidelines, <60 ml/min/1.73m2 is sufficient todiagnose a patient with chronic kidney disease. Pharmacy Creatinine Clearance (ChemN/AFMagruder Memorial Hospital CtrPhosphate [Mass/volume] in Serum or Plasmaon 17-21-2844Fhfsiqzup [Mass/Vol]3.6 mg/dL 2.5-4.6FMagruder Memorial Hospital CtrSerum or plasma calcium measurement (mass/volume)on 68-20-8642Sljqfjl [Mass/Vol]9.0 mg/dL8.2-10.2FMagruder Memorial Hospital CtrSerum or plasma chloride measurement (moles/volume)on 02-26-2020 Chloride [Moles/Vol]93 mmol/X17-644QiwyjhvviHighland District Hospital CtrSerum or plasma creatinine measurement with calculation of estimated glomerular filtron 11-52-9746Eamfeldisb [Mass/Vol]1.98 mg/dL0.44-1.03[facility] Serum or plasma glucose measurement (mass/volume)on 86-85-7407Tkiycos [Mass/Vol] 105 mg/rQ05-070DlsqvzakaHighland District Hospital CtrComment on above:ADA recommended reference rangeRandom Glucose Reference Range is dependent on time and content of last meal. Glucose of more than 200 mg/dL in a nonstressed, ambulatory subject supports the diagnosisof Diabetes Mellitus.Serum or plasma intact parathyroid hormone measurement (mass/volume)on 41-99-5245Udwufjddyw.intact [Mass/Vol]144.4 pg/yA67-09AkiuhcebfHighland District Hospital CtrSerum or plasma potassium measurement (moles/volume)on 42-39-8728Khwsmcmae [Moles/Vol]4.2 mmol/L 3.5-5.1FMagruder Memorial Hospital CtrSerum or plasma sodium measurement (moles/volume)on 62-86-7094Wrlmxq [Moles/Vol]138 mmol/Y379-960DykmgyjtbHighland District Hospital CtrSerum or plasma total carbon dioxide measurement (moles/volume)on 49-76-4804NK6 [Moles/Vol]29.1 mmol/L22.0-30.0[facility] CtrSerum or plasma urea nitrogen measurement (mass/volume)on 08-26-3872Eezw nitrogen [Mass/Vol]29 mg/dL9-23[facility] CtrSerum or plasma uric acid measurement (mass/volume)on 94-07-3137Xagtq [Mass/Vol]8.4 mg/dL2.6-7.2FMagruder Memorial Hospital CtrAlbumin [Mass/volume] in Serum or Plasmaon 84-81-4401Tjmplqn [Mass/Vol]3.0 g/dL3.2-5.5FMagruder Memorial Hospital CtrEstimated glomerular filtration rate (GFR) non- Americanon 96-34-9583PCC/1.73 sq M predicted among non-blacks MDRD (S/P/Bld) [Vol rate/Area]25 mL/min/{1.73_m2}[facility] CtrOtheron 98-05-5129ISL/1.73 sq M.predicted MDRD (S/P/Bld) [Vol rate/Area]31 mL/min/{1.73_m2}[facility] CtrComment on above:GFR estimated reference range: According to KDOQI guidelines, <60 ml/min/1.73m2 is sufficient todiagnose a patient with chronic kidney disease. Pharmacy Creatinine Clearance (ChemN/AFMagruder Memorial Hospital CtrPhosphate [Mass/volume] in Serum or Plasmaon 00-02-0288Mjiczkngl [Mass/Vol]4.2 mg/dL 2.5-4.6FMagruder Memorial Hospital CtrSerum or plasma calcium measurement (mass/volume)on 13-43-8822Mxzqnwz [Mass/Vol]8.5 mg/dL8.2-10.2FMagruder Memorial Hospital CtrSerum or plasma chloride measurement (moles/volume)on 02-12-2020 Chloride [Moles/Vol]94 mmol/Q57-410BhgnyesraHighland District Hospital CtrSerum or plasma creatinine measurement with calculation of estimated glomerular filtron 15-59-7116Gfcitgomur [Mass/Vol]1.91 mg/dL0.44-1.03[facility] Serum or plasma glucose measurement (mass/volume)on 90-92-7658Akuxuod [Mass/Vol] 103 mg/dH93-991KsyzxlanoHighland District Hospital CtrComment on above:ADA recommended reference rangeRandom Glucose Reference Range is dependent on time and content of last meal. Glucose of more than 200 mg/dL in a nonstressed, ambulatory subject supports the diagnosisof Diabetes Mellitus.Serum or plasma potassium measurement (moles/volume)on 43-36-8800Yiiqexedi [Moles/Vol]3.9 mmol/L3.5-5.1 [facility] CtrSerum or plasma sodium measurement (moles/volume) on 50-63-7046Entwkw [Moles/Vol]137 mmol/M490-255HnxohbdqcBethesda North Hospital Serum or plasma total carbon dioxide measurement (moles/volume)on 44-06-7041UR4 [Moles/Vol]30.3 mmol/L22.0-30.0[facility] CtrSerum or plasma urea nitrogen measurement (mass/volume)on 78-21-8949Inbg nitrogen [Mass/Vol]30 mg/dL9-23[facility] CtrCoding Queryon 83-33-6168Vrhoxp Query From: Gunnar Mayo MD, Gerry Lockhart To: EU - Administrative; Sent: 03/13/2019 17:42:47 EST Subject: FW: Coding Query I did not see patient on February 13, 2019. From: Noemy Hampton To: Gerry Maher Jr., MD; Sent: 03/13/2019 11:49:22 EST Subject: Coding Query Dr. Maher, There does not appear to be any charges for this Pt's OV on 02/13/19. Do you kjnow if you saw her or if she left w/out being seen? If you saw her, what level/cpt code would you like charged? Qamar Salguero From: Catalina Oscar (EU - Administrative) To: Noemy Hampton; Sent: 03/14/2019 09:18:37 EST Subject: FW: [facility] QueryOur [facility] Vital Signs Date TimeVital SignValuePerforming SrmrdzhayAuvhcwql75-15-5331 14:02-0400Body owuuqkprkse70.6 [degF]Justyna Hanson DO Work Phone: [phone]10-20-2025 14:02-0400 Diastolic blood vuthlhyk58 mm[Hg]Justyna Hanson DO Work Phone: [phone]10-20-2025 14:02-0400 Heart rate83 /minDjose de jesus Hanson DO Work Phone: [phone]10-20-2025 14:02-0400 SaO2% (BldA) [Mass fraction]97 %Justyna Hanson DO Work Phone: [phone]10-20-2025 14:02-0400 Systolic blood yafndhit561 mm[Hg]Justyna Hanson DO Work Phone: [phone]09-03-2025 14:37-0400 Body tugyab783 cmJaimee Lopez APPEALS ASSISTANT.OPERATIONS STAFF SPECIALIST SECURITY Work Phone: [facility]09-03-2025 14:37-0400Body temperature 97.7 [degF]Lakesha Lopez APPEALS ASSISTANT.OPERATIONS STAFF SPECIALIST SECURITY Work Phone: [facility]09-03-2025 14:37-0400Diastolic blood pyaxxlof48 mm[Hg]Lakesha Lopez APPEALS ASSISTANT.OPERATIONS STAFF SPECIALIST SECURITY Work Phone: [facility]09-03-2025 14:37-0400Heart uxny034 /minJaimee Lopez APPEALS ASSISTANT.OPERATIONS STAFF SPECIALIST SECURITY Work Phone: [facility]09-03-2025 14:37-0400Respiratory rate 16 /minJaimee Lopez APPEALS ASSISTANT.OPERATIONS STAFF SPECIALIST SECURITY Work Phone: [facility]09-03-2025 14:37-2828PoE3% (BldA) [Mass fraction]99 %Lakesha Lopez APPEALS ASSISTANT.OPERATIONS STAFF SPECIALIST SECURITY Work Phone: [facility]09-03-2025 14:37-0400Systolic blood ebharxld991 mm[Hg]Lakesha Lopez APPEALS ASSISTANT.OPERATIONS STAFF SPECIALIST SECURITY Work Phone: [facility]07-07-2025 12:00-0400Body temperature 97.3 [degF]Chair Yoakum Work Phone: [facility]07-07-2025 12:00-0400Diastolic blood ludjnbna09 mm[Hg]Chair Farzad Work Phone: [facility]07-07-2025 12:00-0400Heart elcf305 /minChair Yoakum Work Phone: [facility]07-07-2025 12:00-0400Respiratory rate 18 /minChair Farzad Work Phone: [facility]07-07-2025 12:00-3865ThE2% (BldA) [Mass fraction]99 %Chair Yoakum Work Phone: [facility]07-07-2025 12:00-0400Systolic blood zqacddxh057 mm[Hg]Chair Farzad Work Phone: [facility]07-07-2025 10:42-0400Body dsdemf044 cm Tressa Jackson MD Work Phone: [facility]07-07-2025 10:42-0400 Body mass index (BMI) [Ratio]46.23 kg/k5KvntcmgTressa Jackson MD Work Phone: [phone] [place], [place] 1635107-07-2025 10:42-0400 Body .39 kgTressa Jackson MD Work Phone: [phone] [place], [place] 1635107-07-2025 10:42-0400 Diastolic blood whnfabmr29 mm[Hg]Tressa Jackson MD Work Phone: [phone]07-07-2025 10:42-0400 Heart rate80 /minTressa Jackson MD Work Phone: [facility]07-07-2025 10:42-0400 Systolic blood hrbxppib103 mm[Hg]Tressa Jackson MD Work Phone: [phone]06-26-2025 14:25-0400 Body rwmqwawoaeg34.29 [degF]Chair Farzad Work Phone: [facility]06-26-2025 14:25-0400Diastolic blood snunksxe08 mm[Hg]Chair Farzad Work Phone: [facility]06-26-2025 14:25-0400Heart rate77 /min Chair Yoakum Work Phone: [facility]06-26-2025 14:25-0400Respiratory rate 20 /minChair Yoakum Work Phone: [facility]06-26-2025 14:25-0075LzT3% (BldA) [Mass fraction]98 %Chair Yoakum Work Phone: [facility]06-26-2025 14:25-0400Systolic blood ydraislw723 mm[Hg]Chair Farzad Work Phone: [facility]06-12-2025 15:39-0400Body mass index (BMI) [Ratio]48.32 kg/o3KvhijClarisa Gary APRN.OPERATIONS STAFF SPECIALIST SECURITY Work Phone: [facility]06-12-2025 15:39-0400Body temperature 97.59 [degF]Clarisa Gary APRN.OPERATIONS STAFF SPECIALIST SECURITY Work Phone: [facility]06-12-2025 15:39-0400Body hgoabb790.7 kgClarisa Gary APRN.OPERATIONS STAFF SPECIALIST SECURITY Work Phone: [facility]06-12-2025 15:39-0400Diastolic blood facdvpnq37 mm[Hg]Clarisa Gary APRN.OPERATIONS STAFF SPECIALIST SECURITY Work Phone: [facility]06-12-2025 15:39-0400Heart rate74 /min Clarisa Gary APRN.OPERATIONS STAFF SPECIALIST SECURITY Work Phone: [facility]06-12-2025 15:39-0400Respiratory rate 18 /minClarisa Gary APRN.OPERATIONS STAFF SPECIALIST SECURITY Work Phone: [facility]06-12-2025 15:39-6079ZcK0% (BldA) [Mass fraction]96 %Clarisa Gary APRN.OPERATIONS STAFF SPECIALIST SECURITY Work Phone: [facility]06-12-2025 15:39-0400Systolic blood mm[Hg]Clarisa Gary APRN.OPERATIONS STAFF SPECIALIST SECURITY Work Phone: [facility]06-05-2025 14:48-0400Body temperature 97.39 [degF]Chair Farzad Work Phone: [facility]06-05-2025 14:48-0400Diastolic blood lvykvqqf08 mm[Hg]Chair Farzad Work Phone: [facility]06-05-2025 14:48-0400Heart rate95 /min Chair Farzad Work Phone: [facility]06-05-2025 14:48-0400Respiratory rate 18 /minChair Farzad Work Phone: [facility]06-05-2025 14:48-8771QcK5% (BldA) [Mass fraction]98 %Chair Farzad Work Phone: [facility] SystemComment on above:pt wears O2 at night 10-11-2024 14:48-0400Systolic blood jcdjxkla116 mm[Hg]Chair Panda Work Phone: [facility]05-30-2025 13:53-0400Body temperature 97.81 [degF]Chair Panda Work Phone: [facility]05-30-2025 13:53-0400Diastolic blood fcjzqvuz77 mm[Hg]Chair Panda Work Phone: [facility]05-30-2025 13:53-0400Heart rate87 /min Chair Farzad Work Phone: [facility]05-30-2025 13:53-0400Respiratory rate 16 /minChair Farzad Work Phone: [facility]05-30-2025 13:53-8616McW9% (BldA) [Mass fraction]96 %Chair Panda Work Phone: [facility]05-30-2025 13:53-0400Systolic blood ssmteavh93 mm[Hg]Chair Farzad Work Phone: [facility]05-15-2025 10:59-0400Body mass index (BMI) [Ratio]48.32 kg/a7Jldsvplynne Palomino MD Work Phone: [facility] CenterXcglxp97-57-4178 10:59-0400Body temperature 97.2 [degF]Keyon Palomino MD Work Phone: c[facility] CenterUmxscs36-89-8713 10:59-0400Body qqkduy950.7 kgAdalynne Palomino MD Work Phone: c[facility] CenterAoqioy48-38-0209 10:59-0400Diastolic blood yymxfcfd48 mm[Hg]Keyon Palomino MD Work Phone: c[facility] CenterXrmsvs36-99-7374 10:59-0400Heart dada416 /minAdalynne Palomino MD Work Phone: c[facility] CenterVrvucd70-92-2965 10:59-0400Respiratory rate 18 /minAdalynne Palomino MD Work Phone: c[facility] CenterRtxkqn92-02-4112 10:59-7138KsC8% (BldA) [Mass fraction]97 %Keyon Palomino MD Work Phone: cA[facility] CenterUbaoxv57-80-8613 10:59-0400Systolic blood vmjscrij419 mm[Hg]Keyon Palomino MD Work Phone: cA[facility] CenterCamweu74-36-0862 09:00-0400Body temperature 98.3 [degF]Justyna Hanson DO Work Phone: [phone]04-25-2025 09:00-0400 Diastolic blood mm[Hg]Justyna Hanson DO Work Phone: [phone]04-25-2025 09:00-0400 Heart rate85 /Rico Hanson DO Work Phone: [phone]04-25-2025 09:00-0400 Respiratory rate18 /Rico Hanson DO Work Phone: [phone]04-25-2025 09:00-0400 SaO2% (BldA) [Mass fraction]100 %Justyna Hanson DO Work Phone: [phone]04-25-2025 09:00-0400 Systolic blood gjbhvbje643 mm[Hg]Justyna Hanson DO Work Phone: [phone]04-25-2025 06:00-0400 Body obraty856.8 kgDavid Girvin DO Work Phone: [phone] [place], [place] 9430404-23-2025 15:54-0400 Body uicyzj281.48 cmDadevorahkhari Vaishnavi DO Work Phone: [phone] [place], [place] 9430404-22-2025 20:45-0400 Diastolic blood kogykhbo15 mm[Hg]Justyna Vaishnavi DO Work Phone: [phone])[address] [place], [place] 9430404-22-2025 20:45-0400 Heart rate87 /Rico Hanson DO Work Phone: [phone] [place], [place] 9430404-22-2025 20:45-0400 Respiratory rate18 /Isamarkhari Vaishnavi DO Work Phone: [phone])[address] [place], [place] 9430404-22-2025 20:45-0400 SaO2% (BldA) [Mass fraction]100 %Justyna Hanson DO Work Phone: [phone] [place], [place] 9430404-22-2025 20:45-0400 Systolic blood yjnkxruh717 mm[Hg]Justyna Hanson DO Work Phone: [phone] [place], [place] 9430404-22-2025 19:53-0400 Body oupjibofvrs36.8 [degF]Justyna Hanson DO Work Phone: [phone] [place], [place] 9430404-22-2025 13:10-0400 Body .02 cmDadevorahkhari Vaishnavi DO Work Phone: [phone] [place], [place] 9430404-22-2025 13:10-0400 Body agswhd863.91 kgDadevorahkhari Vaishnavi DO Work Phone: [phone] [place], [place] 9430404-16-2025 15:14-0400 Body ccnahp983.48 cmDadevorahkhari Hymanasif DO Work Phone: [phone] [place], [place] 9430404-16-2025 15:14-0400 Body mass index (BMI) [Ratio]54.3 kg/j5Qcllc Girasif DO Work Phone: [phone] [place], [place] 9430404-16-2025 15:14-0400 Body cucmaucevik99.1 [degF]Justyna Hanson DO Work Phone: [phone]04-16-2025 15:14-0400 Body .71 kgDachong Hymanasif DO Work Phone: [phone] [place], [place] 9430404-16-2025 15:14-0400 Diastolic blood vsfklexb00 mm[Hg]Justyna Hanson DO Work Phone: [phone])[address] [place], [place] 9430404-16-2025 15:14-0400 Heart pnra202 /minDavikhari Hanson DO Work Phone: [phone] [place], [place] 9430404-16-2025 15:14-0400 SaO2% (BldA) [Mass fraction]99 %Justyna Hanson DO Work Phone: [phone])[address] [place], [place] 9430404-16-2025 15:14-0400 Systolic blood nikqzusv607 mm[Hg]Justyna Hanson DO Work Phone: [phone])[address] [place], [place] 9430408-20-2024 09:41-0400 Body cupovl903.48 cmDO Justyna Hymanasif Work Phone: [phone])[address] [place], [place] 9430408-20-2024 09:41-0400 Body brgbbu474 kgDO Justyna Hanson Work Phone: [phone])[address] [place], [place] 9430408-12-2024 13:44-0400 Body ptvafl612.02 cmDO Justyna Hanson Work Phone: [phone])[address] [place], [place] 9430408-12-2024 13:44-0400 Body mass index (BMI) [Ratio]54.1 kg/m2DO Justyna Hanson Work Phone: [phone]08-12-2024 13:44-0400 Body htonawqacqv38 [degF]DO Justyna Hanson Work Phone: [phone]08-12-2024 13:44-0400 Body .79 kgDO Justnya Hanson Work Phone: [phone] [place], [place] 9430408-12-2024 13:44-0400 Diastolic blood dkvludie35 mm[Hg]DO Justyna Hanson Work Phone: [facility]08-12-2024 13:44-0400 Heart rate90 /Toribio Hanson Work Phone: [facility]08-12-2024 13:44-0400 Respiratory rate20 /Toribio Hanson Work Phone: [facility]08-12-2024 13:44-0400 SaO2% (BldA) [Mass fraction]99 %DO Justyna Hanson Work Phone: [facility]08-12-2024 13:44-0400 Systolic blood umqsojbf907 mm[Hg]DO Justyna Hanson Work Phone: [facility]07-17-2024 14:17-0400 Body uuxpzv292 cmTressa Jackson MD Work Phone: [address] [place], [place] 7039207-17-2024 14:17-0400 Body mass index (BMI) [Ratio]50.49 kg/t7XabpnyiTressa Jackson MD Work Phone: [phone] [place], [place] 1635107-17-2024 14:17-0400 Body aefyiq695.28 kgTressa Jackson MD Work Phone: [phone] [place], [place] 1635107-17-2024 14:17-0400 Diastolic blood advolcel28 mm[Hg]Tressa Jackson MD Work Phone: [phone])[phone] [place], [place] 1635107-17-2024 14:17-0400 Heart rate56 /minTressa Jackson MD Work Phone: [phone] [place], [place] 1635107-17-2024 14:17-0400 Systolic blood ibxktoqv528 mm[Hg]Tressa Jackson MD Work Phone: [phone] [place], [place] 1635111-03-2023 10:37-0400 Body mbpyhf584.[address] [place], [place] 5724111-03-2023 10:37-0400 Body mass index (BMI) [Ratio]55.79 kg/m2Ely [address] [place] [address] 03-11-2023 10:37-0400Body aabxxt758.35 kgEly [address] [place] [address] 12-01-2022 15:15-0400Body mxlyhs691.02 cmJustkiley Allen Other [email or web address] Other 07-26-2023 15:15-0400Body mass index (BMI) [Ratio] 50.83 kg/b9Jpminokiley Allen Other [facility] [employer] Other 07-26-2023 15:15-0400Body sdymdg734.18 kgJustkiley Allen Other [facility] [employer] Other 07-10-2023 12:58-0400Body .48 cmJustyna Hanson Work Phone: [phone]-Djwac [place] [facility] [address] DO Work Phone: 1(756) 306-557607-10-2023 12:58-0400Body mass index (BMI) [Ratio] Medical Reason Not DoneJustyna Hanson Work Phone: mp745-3160DA-Zbwhn [facility] DO Work Phone: 1(781) 528-181107-10-2023 12:58-0400Diastolic blood ohgjxgly69 mm[Hg] Justyna Hanson Work Phone: mp644-3107OX-Rokaj [facility] DO Work Phone: 1(700) 536-321307-10-2023 12:58-0400Heart rate68 /minDjose de jesus Hanson Work Phone: [phone]-Bgjbx [facility] DO Work Phone: 1(145) 494-987107-10-2023 12:58-0400Systolic blood mwshlaze830 mm[Hg] Justyna Hanson Work Phone: 1(731) [phone]-Ivnzq [place] [facility] DO Work Phone: 1(827) 204-687406-14-2023 10:45-0400Body vxakrv567.02 cmJustkiley Allen Other [employer] Other 06-14-2023 10:45-0400Body mass index (BMI) [Ratio] 50.66 kg/c0Rvlktfkiley Allen Other [employer] Other 06-14-2023 10:45-0400Body halysj425.73 kgJustkiley Allen Other [employer] Other 01-09-2023 15:40-0500Body sdmxoq135.02 cmDadevorahkhari Hanson Other [employer] Other 01-09-2023 15:40-0500Body mass index (BMI) [Ratio] 52.25 kg/a9Svkhgchong Hanson Other [employer] Other [id number] 15:40-0500Body gyobcsvnkmn11.9 [degF]Justyna Hanson Other [employer] Other 01-09-2023 15:40-0500Body ivbkfa913.81 kgDadevorahkhari Hanson Other [employer] Other 01-09-2023 15:40-0500Diastolic blood jhassigo39 mm[Hg] Justyna Hanson Other [employer] Other 01-09-2023 15:40-0500Respiratory rate20 /minDavikhari Hanson Other [employer] Other 01-09-2023 15:40-2795EdC7% (BldA) [Mass fraction]99 % Justyna Hanson Other [employer] Other 01-09-2023 15:40-0500Systolic blood jaoycsrl460 mm[Hg] Justyna Hymanasif Other [facility] [employer] Other 11-29-2022 15:20-0500Body yxwxzt142.02 Christophmalcolm Wheatley Other [facility] [employer] Other 11-29-2022 15:20-0500Diastolic blood roctuqed50 mm[Hg] Tori Wheatley Other [facility] [employer] Other 11-29-2022 15:20-7406BiN8% (BldA) [Mass fraction]99 % Tori Wheatley Other [facility] [employer] Other 11-29-2022 15:20-0500Systolic blood mm[Hg] Tori Wheatley Other [facility] [employer] Other 10-31-2022 14:58-0400Body zdjcif296.48 cmDachong Gomez Vaishnavi Work Phone: [phone]-Qsxjf [place] [employer] DO Work Phone: 1(639) 209-598010-31-2022 14:58-0400Body mass index (BMI) [Ratio] 52.49 kg/a9Bswrs C Vaishnavi Work Phone: 1(427) [phone]-Yunoo [place] [employer] 250 DO Work Phone: 1(665) 441-879810-31-2022 14:58-0400Body surface area Derived from formula2.23 x3Zoavw C Vaishnavi Work Phone: mp811-7062MJ-Zkrvq [place] [employer] 250 DO Work Phone: 1(824) [phone] 14:58-0400Body .18 kgDachong Gomez Vaishnavi Work Phone: 1(708) [phone]-Npcri [place] [employer] 250 DO Work Phone: 1(360) [phone] 14:58-0400Diastolic blood feyucgnr36 mm[Hg] Justyna Hanson Work Phone: mp809-0079VZ-Lisle [place] [employer] 250 DO Work Phone: 1(129) [phone] 14:58-0400Heart rate54 /minDjose de jesus Hanson Work Phone: mp344-8312AK-Tehyx [place] [employer] 250 DO Work Phone: 1(508) [phone] 14:58-0400Systolic blood sxlacuoh600 mm[Hg] Justyna Hanson Work Phone: mp100-1223RR-Tgosg [place] [facility] Work Phone: 1(360) [phone] 15:40-0400Body woztsl805.02 cmDachong Hanson Other [employer] Other 07-05-2022 15:40-0400Body mass index (BMI) [Ratio] 51.99 kg/u5BrkxhJustyna Hanson Other [employer] Other 07-05-2022 15:40-0400Body fzvqkljgbli80.1 [degF]Justyna Hanson Other [employer] Other 07-05-2022 15:40-0400Body kdzesa808.13 kgDachong Hanson Other [employer] Other 07-05-2022 15:40-0400Diastolic blood tjkqjtqo00 mm[Hg] Justyna Hanson Other [employer] Other 07-05-2022 15:40-0400Respiratory rate20 /Rico Hanson Other [employer] Other 07-05-2022 15:40-8641ApQ4% (BldA) [Mass fraction]98 % Justyna Hanson Other [facility] [employer] Other 07-05-2022 15:40-0400Systolic blood mm[Hg] Justyna Hanson Other [facility] [employer] Other 06-28-2022 15:20-0400Body zsgduy558.02 cmAziz Bakgordys Other [employer] Other 06-28-2022 15:20-0400Body mass index (BMI) [Ratio]51.6 kg/m2Aziz Bakhous Other [employer] Other 06-28-2022 15:20-0400Body lzcyjdldblz03.1 [degF]Azstefani Bakhous Other [employer] Other 06-28-2022 15:20-0400Body mxjjny760.13 kgAziz Bakhous Other [employer] Other 06-28-2022 15:20-0400Diastolic blood egeagxuu52 mm[Hg] Aziz Bakhous Other [employer] Other 06-28-2022 15:20-0400Respiratory rate18 /minAziz Bakhous Other [employer] Other 06-28-2022 15:20-4137AkS5% (BldA) [Mass fraction]99 % Aziz Bakhous Other [employer] Other 06-28-2022 15:20-0400Systolic blood nvocfdjz389 mm[Hg] Aziz Bakhous Other [employer] Other 12-22-2021 15:00-0500Body luxzvx191.02 cmElaury Tobar Other [employer] Other 12-21-2021 14:15-0500Body gaqcrd706.02 cmThomas Olexa Other [employer] Other 11-04-2021 16:15-0400Body soosfk485.02 cmThomas Olexa Other [employer] Other 11-04-2021 16:15-0400Body mass index (BMI) [Ratio]54.2 kg/n5Ocjdda Olexa Other [employer] Other 11-04-2021 16:15-0400Body dguggc799.8 kgThomas Olexa Other [employer] Other 10-28-2021 15:30-0400Body jlebui821.02 cmThomas Olexa Other [employer] Other 10-28-2021 15:30-0400Body mass index (BMI) [Ratio]54.2 kg/f5Usvurk Olexa Other [employer] Other 10-28-2021 15:30-0400Body cixahu495.8 kgThomas Olexa Other [employer] Other Encounters Encounter DateEncounter TypeCare ProviderFacilityStart: 03-11-2025 End: 38-02-7478qbamnzpxitQWHUKF ROODFacility:[facility]art: 02-25-2025 End: 22-47-6387gvxdgvklfeIroee Girvin DO Work Phone: -[facility] BellevueStart: 02-25-2025 End: 33-88-1900Jcvumji encounter procedureDavid Jason [facility] Work Phone: Start: 01-14-2025 End: 11-66-9798umuoknwzglNtirs Girasif DO Work Phone: [facility] Work Phone: Start: 01-14-2025 End: 41-14-8215Wtjlkscz ReferredDachong Hanson DO-Lab [facility] Work Phone: Start: 01-14-2025 End: 00-54-0614Bpligee encounter procedureDadevorahd Jason Hanson DO-Lab [facility] Work Phone: Start: 01-09-2025 End: 16-62-5017Aqcryv outpatient visit 25 minutesLakesha Kim APRN.OPERATIONS STAFF SPECIALIST SECURITY Work Phone: Hematology/OncologyComment on above:Other iron deficiency anemia (Primary Dx)Start: 70-34-3496Ymn-patient / Non-visitHolly Kevin BELL-[facility] Work Phone: Start: 01-09-2025 End: 74-08-6936Csqubuv encounter procedureDachong Hanson DO-Lab [place] Work Phone: Start: 01-09-2025 End: 67-05-5852myxamnoctsRqzvm Girvin DO Work Phone: [facility] Work Phone: Start: 01-09-2025 End: 46-65-8508Wfoduznhi encounterLakesha Kim APPEALS ASSISTANT.OPERATIONS STAFF SPECIALIST SECURITY Work Phone: Cancer Appts MCComment on above:ResultsStart: 12-28-2024 End: 23-50-1659Zrbhoim encounter procedureDadveorahkhari Hanson DO-Lab [facility] [place] Work Phone: Start: 12-28-2024 End: 82-97-0875cwswcwowkgDwfqf Vaishnavi DO Work Phone: [facility] Work Phone: Start: 11-12-2024 End: 96-57-0487oxaobkvuewYmxex 17 [place] Work Phone: Hematology/OncologyComment on above:Iron deficiency anemia, unspecified iron deficiency anemia type (Primary Dx)Start: 11-12-2024 End: 28-41-5963Psmewv outpatient visit 25 minutesTressa Jackson MD Work Phone: [facility] CenterComment on above:Permanent atrial fibrillation (Multi) (Primary Dx); Essential (primary) hypertension; Difficulty breathing; Pulmonary hypertension (Multi); Anticoagulated; Obstructive sleep apnea syndrome; Stage 3a chronic kidney disease (Multi); At risk for falling; BMI 45.0-49.9, adult (Multi); Former smokerStart: 11-12-2024 End: 79-47-5214tqwweanhafMIMUOMJOptim Medical Center - Screven AmbulatoryStart: 11-01-2024 End: 70-82-1227rqxcbwffboJutjf 2 [facility] Work Phone: Hematology/OncologyComment on above:Iron deficiency anemia, unspecified iron deficiency anemia type (Primary Dx)Start: 10-18-2024 End: 06-75-3785Qiuxxml encounter procedureClarisa Gary APRN.CNP Work Phone: Hematology/OncologyStart: 30-90-2109Azl-patient / Non-visitHoltoño PENA-C-[facility] Work Phone: Start: 10-18-2024 End: 63-29-4994ynbwhizhrgOeljg 5 [facility] Work Phone: Hematology/OncologyComment on above:Iron deficiency anemia, unspecified iron deficiency anemia type (Primary Dx)Other iron deficiency anemia (Primary Dx)Start: 10-15-2024 End: 96-50-5669Bhswrvlsl encounterHolly Kevin APPEALS ASSISTANT.OPERATIONS STAFF SPECIALIST SECURITY Work Phone: Hematology/OncologyComment on above:Lab OrdersStart: 10-11-2024 End: 55-24-7076wtanzmoebtGtglw 6 [facility] Work Phone: Hematology/OncologyComment on above:Iron deficiency anemia, unspecified iron deficiency anemia type (Primary Dx)Start: 10-05-2024 End: 12-71-2457ukxlqhdvjgJardx 19 [facility] Work Phone: Hematology/OncologyComment on above:Iron deficiency anemia, unspecified iron deficiency anemia type (Primary Dx)Start: 09-21-2024 End: 89-49-7223Pngtju Wilber Cruz [facility] Work Phone: Hematology/OncologyComment on above:Treatment Planning (Venofer x 5)Start: 09-20-2024 End: 39-82-3338Znjypt outpatient new 45 minutesAdalynne Palomino MD Work Phone: Hematology/OncologyComment on above:Other iron deficiency anemia (Primary Dx)Start: 09-20-2024 End: 86-62-2499kodtcvpnvaFXHBC C GIRVINFacility:[facility] Centertart: 09-19-2024 End: 39-98-1498Tknft abstractingAdalynne Palomino MD Work Phone: Hematology/OncologyStart: 09-12-2024 End: 05-10-2765dvgqpbpflpBscat Vaishnavi DO Work Phone: [facility] Work Phone: Start: 09-12-2024 End: 70-45-0731Vfhtppn encounter procedureDavid Vaishnavi DO Work Phone: [facility] [place] Work Phone: Start: 09-10-2024 End: 92-27-6638vkvnzyvucwGwszq Vaishnavi DO Work Phone: [facility] Work Phone: Start: 09-10-2024 End: 51-35-1909Ablpkad encounter procedureDavid Girvin DO Work Phone: [facility]-Lab [facility] Work Phone: Start: 19-62-0051Ctb-patient / Non-visitDavid Girvin DO Work Phone: [facility] Work Phone: Start: 08-28-2024 End: 39-15-3736Idwtlyiblg and management of inpatientDavid Girvin DO Work Phone: [facility] [place] [facility] Work Phone: Start: 08-27-2024 End: 64-00-3339oavvbnhlclLkoqv [facility] Work Phone: Start: 08-27-2024 End: 26-57-4774Eowrbip encounter procedureDavid Girvin DO Work Phone: [facility]-Lab [facility] Work Phone: Start: 08-22-2024 End: 89-76-5136Qlftzux encounter procedureDavid Girvin DO Work Phone: [facility] [place] Work Phone: Start: 06-12-2024 End: 00-65-2900jmpzkcebwpAcolq Girvin DO Work Phone: [facility] Work Phone: Start: 06-12-2024 End: 01-30-4273Spdfnoz encounter procedureDavid Girvin DO Work Phone: [facility] [place] Work Phone: start: 04-09-2024 End: 81-02-7788Xdekskq encounter procedureDavid Girvin DO Work Phone: [facility]-Lab [facility] Work Phone: Start: 04-09-2024 End: 47-43-2594qvcabyoiuoYhvfrRosanna Pimentelity:[facility] Start: 03-09-2024 End: 37-09-5471hdrynxrbksKNNoreen Hanson Work Phone: [facility] Work Phone: Start: 03-09-2024 End: 74-21-4950Yhdmxjx encounter procedureDO Justyna Hanson Work Phone: [facility] Work Phone: Start: 96-20-0168Etf-patient / Non-visitDO Justyna Hanson Work Phone: [facility] Work Phone: Start: 01-02-2024 End: 21-90-0869fzzecqwbhtHONoreen Hanson Work Phone: [facility] Work Phone: Start: 01-02-2024 End: 72-60-5234Zzmtvnb encounter procedureDO Justyna Hanson Work Phone: [facility]-Lab [facility] Work Phone: Start: 12-27-2023 End: 38-04-6295dbauyfxsfvRQNoreen Hanson Work Phone: [facility] Work Phone: Start: 12-27-2023 End: 83-74-5480Iqynipeb ReferredDO Justyna Hanson Work Phone: [facility] Work Phone: Start: 12-26-2023 End: 53-93-4235zlsjojwvnvEINoreen Hanson Work Phone: [facility] Work Phone: Start: 12-26-2023 End: 29-84-8697Yryivym encounter procedureDO Justyna Hanson Work Phone: [facility]-Lab [facility] Work Phone: Start: 12-19-2023 End: 47-64-9771mtejmshzmaMU Justyna Hanson Work Phone: [facility] Work Phone: Start: 12-19-2023 End: 29-51-9415Ylbflqs encounter procedureDO Justyna Hanson Work Phone: [facility] Work Phone: Start: 12-12-2023 End: 65-62-8033vqgapmwuzbEE Justyna Hanson Work Phone: [facility] Work Phone: Start: 12-12-2023 End: 64-81-6107Mpzkogi encounter procedureDO Justyna Hanson Work Phone: [facility]-Lab [place] Work Phone: Start: 77-21-6459Yba-patient / Non-visitDO Justyna Hanson Work Phone: [facility] Work Phone: Start: 11-23-2023 End: 09-29-1455Xbardj outpatient visit 25 [facility] hospitalTress[facility] MD Work Phone: [facility]Commun[facility] on above:Permanent atrial fibrillation (Multi) (Primary Dx); Essential hypertension, benign; Pulmonary hypertension (Multi); Anticoagulated; Stage 3a chronic kidney disease (Multi); Morbid obesity with BMI of 50.0-59.9, adult (Multi); Difficulty breathing; Obstructive sleep apnea syndrome; CHAPMAN (dyspnea on exertion)Start: 11-23-2023 End: 64-97-7120mpvcmeoztsIVPXFSA [facility] CenterStart: 09-19-2023 End: 67-16-1258pijqbdkbpzNvcqtxybnDunlap Memorial Hospital Work Phone: Start: 09-19-2023 End: 15-82-4799Mggfyvj encounter procedureB[facility]y [facility] Family [facility] Ho Work Phone: Start: 94-79-4670Balgictkr encounterDavid Win [facility] BellevueStart: 05-30-2023 End: 40-92-1913eesrrhhtbrSIV [facility] Work Phone: Start: 05-30-2023 End: 21-07-2193Fwxbent encounter procedureHighland [facility]-Lab [place] Work Phone: Start: 05-27-2023 End: 94-94-4376ucuqdhpqqlNfeoq Girvin Other [employer] Other Start: 40-16-9918Ifhopumyx encounterDavid VaishnaviKindred HospitalueStart: 05-26-2023 End: 84-03-6242Zlwtevt encounter procedureHighland [facility]-Lab [place] Work Phone: Start: 05-25-2023 End: 56-85-4930bknjqvoalePUI [facility] Work Phone: Start: 05-25-2023 End: 55-77-8791Jvtylnr encounter procedureHighland District Hospital [facility]-Lab [place] Work Phone: Start: 05-20-2023 End: 37-44-2882exhtknztaxMlqbz Vaishnavi Other [employer] Other Start: 00-65-6432Ppwpobfvk encounterDavid Win [facility] Medicine BellevueStart: 05-16-2023 End: 01-40-6477sftbhukaacTahqu Vaishnavi Other [employer] Other Start: 49-80-8449Orcxkdunv encounterDavid GirasifFPG Family [facility] BellevueStart: 04-26-2023 End: 17-93-9760hcueanfnwyJbjxd Vaishnavi Other [employer] Other Start: 51-62-3276Wqcquxqjk encounterDavid VaishnaviFPG Family [facility] HospitalueStart: 03-30-2023 End: 60-27-4087Lvurtwx encounter procedureBetsy Johnson [facility] Nephrology Work Phone: Start: 03-28-2023 End: 23-58-2353qoxgjpfrroQjqef Vaishnavi Other [employer] Other Start: 59-79-8601Vndowcowm encounterDavid VaishnaviFPG Family Medicine [facility] Hospitaltart: 03-11-2023 End: 67-61-0269Prcdmlrxwy hospital visit by Luzmaria Panda Echo/Vasc Room 2Mad[facility] HospitalComment on above:Shortness of breath; Pulmonary hypertension (CMS/HCC)Start: 03-11-2023 End: 50-28-1245glqpktnbveRRQTZMOACMC Healthcare System Glenbeightart: 03-08-2023 End: 64-02-7112xeildkofbjGvxoy Vaishnavi Other [employer] Other Start: 70-28-8834Wqdhyhtxk encounterDavid VaishnaviFPG Family Medicine BellueStart: 03-01-2023 End: 38-27-5682havharxcpqNdzoh Vaishnavi Other [employer] Other Start: 27-93-8216Manpfvyma encounterDavid GirasifFPG Family Medicine [place]vueStart: 02-24-2023 End: 74-95-7802mtgohrrjygUljdw Vaishnavi Other [employer] Other Start: 00-69-1463Wheemedqh encounterDavid GirvinFPG Family Medicine [place]vueStart: 02-23-2023 End: 79-75-1065bxqprbjyyxZpqnu Vaishnavi Other [facility] [employer] Other Start: 57-53-1963Prbzsadts encounterDavid GirvinFPG Family Medicine BellevueStart: 12-09-2022 End: 03-28-0411usvrtypthcLdpgb Girasif Other [facility] [employer] Other Start: 92-30-7494Yptfudqnl encounterDavid GirvinFPG Family Medicine [place]vueStart: 12-06-2022 End: 87-20-0941itbfgcbcuuDlpvz Vaishnavi Other [facility] [employer] Other Start: 86-77-1415Ocpamdpqa encounterDavid GirvinFPG [facility] [place]vueStart: 12-02-2022 End: 95-76-2587bzvuonhzqwJuduyj Tiffany Other [facility] [employer] Other Start: 89-99-0060Fztzflade encounterJustin KelleyFPG [facility] OrthopedicsStart: 29-91-3860Aebycn outpatient visit 15 minutesJustin AdonisleyFPG [facility] OrthopedicsStart: 12-01-2022 End: 64-64-6692chasxvdotoXQ David Girvin Work Phone: [facility] Work Phone: Start: 12-01-2022 End: 33-40-3405Qomleso encounter procedureDO Justyna Hanson Work Phone: [facility] Start: 11-17-2022 End: 12-52-2872jmndzlvnwnAN David Girvin Work Phone: [facility] Work Phone: Start: 11-17-2022 End: 50-86-9095Synwkmk encounter procedureDO Justyna Hanson Work Phone: [facility]-Lab [facility] Work Phone: Start: 51-45-2814Dhesyk outpatient visit 25 minutes Justyna Hanson Work Phone: [phone]-Vdorg [place] [facility] [address] DO Work Phone: Start: 93-65-6746zpruuibcnxLvAlcon Allan Traboulnaveed Facility:[id number]: 11-05-2022 End: 98-45-6262gnmvuuszorLqzah Girvin Other [employer] Other Start: 49-25-3813Jmadidelj encounterDavid BeG [facility] [place]vueStart: 11-01-2022 End: 62-64-5471fiuwgljhmkWazpuh Kelley Other [employer] Other Start: 44-50-9343Hlboluudc encounterJustin TiffanyFPNae Panda OrthopedicsStart: 10-25-2022 End: 94-39-6710ldjwsfdbuqDomtn Girvin Other [employer] Other Start: 61-71-2931Fkzoeomct encounterDavid VaishnaviFPG [facility] [place]vueStart: 10-21-2022 End: 07-54-4178znxlvmrhutUlrmg Vaishnavi Other [employer] Other Start: 32-51-2697Jaapblvmq encounterDavid VaishnaviFPG [facility] [place]vueStart: 10-20-2022 End: 92-61-6388tqidgwyvieQgtcbk Kelley Other [employer] Other Start: 30-44-0218Qjrgzj follow up visit related to original pxMargarito Panda OrthopedicsStart: 10-20-2022 End: 08-22-7574Yjayvuh encounter procedureDO Justyna Hanson Work Phone: [facility] Start: 36-00-8729Jt RenewalJustyna Hanson Work Phone: [phone]-Bhlyh [place] [facility] [address] [place] Work Phone: Start: 09-20-2022 End: 48-61-1918pfucmiewmoVfrwp Girvin Other [facility] [employer] Other Start: 92-81-1972Puuojyiyw encounterDachong [facility] [place]vueStart: 09-10-2022 End: 64-46-2132symyoebwriVubahi Kelley Other [place] [employer] Other Start: 98-49-3557IZHX visit new patientMargarito Panda OrthopedicsStart: 09-01-2022 End: 75-35-4931joqrttnnchSnnhv Girvin Other [facility] [employer] Other Start: 60-56-4990Anhnjyghm encounterDachong [facility] [place]vueStart: 08-31-2022 End: 30-10-2277Eornwpj encounter procedureDO Justyna Hanson Work Phone: [facility]-CT Scan [facility] [place] Work Phone: Start: 08-31-2022 End: 63-65-3497gzdztszooqGC David Girvin Work Phone: [facility] Work Phone: Start: 70-53-5866Xsudqqdih encounterDachong [facility] [place]vueStart: 08-27-2022 End: 57-79-3956ufykofrdsvSftqn Girvin Other [employer] Other Start: 84-39-2873Bijlxlpxa encounterDachong [facility] BellevueStart: 90-07-4367Edlsubfxp encounterDachong [facility]den [facility] [place]vueStart: 08-23-2022 End: 79-91-4076wteosoqfuiTO David Girvin Work Phone: [facility] [employer] Other Start: 08-23-2022 End: 78-75-3958Xwmqxcg encounter procedureDO Justyna Hanson Work Phone: [facility] Work Phone: Start: 05-17-2022 End: 70-18-8766ygmnjysrsyYasai Girvin Other [place] [employer] Other Start: 87-51-0046Fcxjpt outpatient visit 25 minutes Justyna [facility] [place]vueStart: 37-42-9931Gmbhfiyno encounter Justyna [facility] [place]vueStart: 05-11-2022 End: 09-34-7357yviadrpwcsKqkkn Girvin Other [facility] [employer] Other Start: 58-78-4720Tafmlgffz encounterDachong [facility] [place]vueStart: 04-08-2022 End: 04-01-7228hlcbpqfyisRM David Girvin Work Phone: [facility] Work Phone: Start: 04-08-2022 End: 01-58-5211Yltuhdl encounter procedureDO Justyna Hanson Work Phone: [facility]-Lab [place]Start: 04-07-2022 End: 06-77-6360bcermnjwaeJZ David Girvin Work Phone: [facility] Work Phone: Start: 04-07-2022 End: 72-89-2610Sltyivb encounter procedureDO Justyna Hanson Work Phone: [facility]-Lab [place]Start: 04-06-2022 End: 70-04-8982kwudcmhpxhVwpn Bakhous Other [employer] Other Start: 56-49-1099Hymjjd outpatient visit 25 minutes Azstefani [facility] ClydeStart: 54-35-4080Wmhbwb outpatient visit 25 minutesDachong Hanson Work Phone: [phone]-WfafwNorthfield City HospitalYoakum 250 DO Work Phone: Start: 91-39-2573gjvppjyingJkAlcon Jackson Facility:[id number]: 02-15-2022 End: 77-22-7230okjoqazebxDfrcr Girvin Other [facility] [employer] Other Start: 01-33-1079Rlakclhkm encounterDavikhari [facility] [place]vueStart: 11-10-2021 End: 97-49-6325alkiemqcdkLldpf Girvin Other [facility] [employer] Other Start: 89-45-9707Twsxap outpatient visit 25 minutes Justyna [facility] [place]vueStart: 11-03-2021 End: 27-85-7778mbshixumcyPzjt Bakhous Other [facility] [employer] Other Start: 40-59-4797Yugrgr outpatient visit 15 minutes Tori Freedman NephrologyStart: 54-02-6872Zs RenewalDachong Hanson-[facility]-[place] [address] DO Work Phone: Start: 07-20-2021 End: 96-83-0236evcjqamlwjBldkm Girvin Other [employer] Other Start: 44-03-2717Wflvfdccu encounterDavid GirvinFPG [facility] [place]vueStart: 07-09-2021 End: 57-86-3612egizzuimosHhgky Girvin Other [employer] Other Start: 77-74-6945Dklilxsna encounterDavid GirvinFPG Family [facility] [place]vueStart: 05-06-2021 End: 02-11-0290dsljjmeoyhGqazf Girvin Other [employer] Other Start: 36-45-2572Tfjquuinj encounterDavid GirvinFPG Family Medicine [place]vueStart: 05-04-2021 End: 70-84-4573ubhwjnjmacVveay Girasif Other [facility] [employer] Other Start: 15-67-9478Yptnlriez encounterDavid GirvinFPG Family Medicine [place]vueStart: 04-29-2021 End: 29-64-1111fpbwmbudsxXqumx Elashi Other [facility] [employer] Other Start: 55-78-6900Hbsdva outpatient visit 15 minutes Essam Tyler NephrologyStart: 04-28-2021 End: 64-60-3822hqeeisnwgyJM FLORENTIN [facility] [employer] Other Start: 42-40-1772Usqkas follow up visit related to original pxThomas OlexaFPG [facility] BellevueStart: 19-83-0244Ibsetcjil encounterDavid GirvinFPG [facility] BellevueStart: 04-27-2021 End: 79-45-1779qmfmlzjrlfMgyci Girasif Other noBigString Other Start: 61-79-6809Gjrwncclw encounterDavid YenniasifFPG [facility] BellevueStart: 04-24-2021 End: 00-03-5679svckyxwwufKvcqt Vaishnavi Other noBigString Other Start: 01-81-2342Qeuuwznrk encounterDavid VaishnaviFPG [facility] BellevueStart: 04-13-2021 End: 16-52-6748bubalupbyzHdtbh Girasif Other [facility] [employer] Other Start: 13-99-9285Zhrsajddq encounterDavid GirasifFPG [facility] BellevueStart: 04-06-2021 End: 02-94-1988otdneadtkaOelyjl Olexa Other [facility] [employer] Other Start: 85-21-2725Nfiakozzz encounterThomas OlexaFPG [facility] OrthopedicsStart: 03-12-2021 End: 06-03-5502clqozgibwoEbpwm Vaishnavi Other [facility] [employer] Other Start: 70-78-2053Lgrkyu follow up visit related to original pxThomas OlexaFPG [facility] BellevueStart: 26-57-7993Jhumiovyv encounterDavid VaishnaviFPG [facility] BellevueStart: 45-77-3860JMMM visit new patientThomas OlexaFPG [facility] BellevueStart: 21-11-3512Chpzgxtaz encounterThomas OlexaFPG [facility] OrthopedicsStart: 04-30-2020 End: 97-68-7489Elyitgw encounter procedureDachong Hans[facility]: [facility]2020 End: 59-03-3940Grcfkjc encounter procedureDachong Hanson-Lab [facility] Start: 02-12-2020 End: 99-28-0399Jaakuihl ReferredDachong Hanson-Geeta [facility] Procedures DateProcedureProcedure DetailPerforming ClinicianStart: 81-41-6560Hwfqz culture Justyna Hanson DO Work Phone: Start: 12-32-5600Jzhef Schuyler Hanson DO Work Phone: Start: 26-42-6980Exmcr Schuyler Hanson DO Work Phone: Start: 51-35-2943Kouuc chest X-rayDachong Hanson DO Work Phone: Start: 44-17-1095Urolupaz screenDachong HansonComment on above:Order Comment: Transfuse now? Y Number of units to transfuse now? 1 Transfuse now? Y Number of units to transfuse now? 1Result Comment: PERFORMED BY: [facility] [place] [address] PATHOLOGIST FOREST AIDE ANNELIESE MELENDEZ M.D.Start: 98-20-6863Lduskvhz identified in Blood by Schuyler Hanson DO Work Phone: Start: 23-88-6034Rqzfwcxoy for occult blood in feces Justyna Hanson DO Work Phone: Start: 83-22-3364Euiyv cultureStart: 99-14-7445Yhvqv cultureStart: 73-67-9814JSUPJDVXOCIRV ECHO (TTE) COMPLETETRESSA JACKSON Start: 05-86-7357Nomt tthrc r-t 2d w/wom-mode compl spec&colr Ale Jackson MD Work Phone: Start: 42-40-9456O-ray of right kneeDO Justyna Hanson Work Phone: Start: 98-06-5459V-ray of right kneeDO Justyna Hanson Work Phone: Start: 56-91-6851PU of right kneeDO Justyna Hanson Work Phone: Start: 38-46-3403T-ray of right kneeDO Justyna Hanson Work Phone: Start: 09-07-1096Egany colonoscopyDavid C Girvin AppendectomyDavid C GirvinDilation of bladder neckDavid C GirvinHysterectomy Justyna Gomez GirvinOperative procedure on kneeDavid C GirvinSilver bunionectomyDavid C Girvin Plan of Treatment DateCare ActivityDetailAuthorStart: 04-04-1022Qvbqgvyr ScreeningDiabetes ScreeningSelect [facility] Specialty Hospital [facility] Northtart: 50-33-8054Vteklrix ScreeningDiabetes Screening [facility]htart: 22-03-3018Rymkmkon ScreeningDiabetes ScreeningSelect Medical Specialty Hospital [facility] Northtart: 08-13-2025 End: 89-36-8049Rvudzjx encounter vfgphcfyr82/07/2026 2:40 PM EDT Office Visit [place] [address] [facility] [address] [place] [address] Tressa Jackson MD [address] [facility] [address], [address] [place] [address] [facility]: 03-11-2025 End: 69-79-9949Xmxwet-up encounterHematology/OncologyComment on above:8 week follow up with lab possible IV FE VenoferStart: 03-11-2025 End: 15-28-2556Mtvgsrd encounter mbbgwwvel27/03/2025 12:45 PM EST Office Visit [facility] [address] [place] [address] [place] [address] 8 week follow up with lab possible IV FE VenoferNortCaro Center LaboratoryComment on above:8 week follow up with lab possible IV FE VenoferStart: 66-47-1837Btxdbwyg identified in Urine by Culture Urine CultureMercy Memorial Hospitaltart: 17-07-3796Vlgtilprw vaccinationSelect Medical Specialty Hospital [facility] Northtart: 62-66-4083Zyajufih identified in Urine by CultureUrine CultureMercy Memorial Hospitaltart: 12-13-2024 End: 96-82-5070PYY W Auto Differential panel - BloodCOMPLETE BLOOD COUNT AND DIFFERENTIAL Lab Routine Other iron deficiency anemia Expected: 12/13/2024, Expires: 03/14/2025[facility] Work Phone: Comment on above:Expected: 12/13/2024, Expires: 03/14/2025Start: 12-13-2024 End: 83-48-2352Oktqwdlpddqwx metabolic 2000 panel - Serum or PlasmaCOMPREHENSIVE METABOLIC PANEL Lab Routine Other iron deficiency anemia Expected: 12/13/2024, Expires: 03/14/2025[place] ClinicComment on above:Expected: 12/13/2024, Expires: 03/14/2025Start: 12-13-2024 End: 63-12-5552Obybrwgc [Mass/volume] in Serum or PlasmaFERRITIN Lab Routine Other iron deficiency anemia Expected: 12/13/2024, Expires: 03/14/2025[place] ClinicComment on above:Expected: 12/13/2024, Expires: 03/14/2025Start: 12-13-2024 End: 32-57-3780Hjos and Iron binding capacity panel - Serum or PlasmaIRON AND TIBC Lab Routine Other iron deficiency anemia Expected: 12/13/2024, Expires: 03/14/2025[place] ClinicComment on above:Expected: 12/13/2024, Expires: 03/14/2025Start: 12-13-2024 End: 02-49-4890Opftos-up encounterHematology/OncologyComment on above:8 week follow up with lab possible IV FE VenoferStart: 12-13-2024 End: 32-30-7476Whtdnlz encounter ayicxkqay02/07/2025 12:45 PM EDT Office Visit [facility] [address] [place] [place] [address] 8 week follow up with lab possible IV FE VenoferNortCaro Center LaboratoryComment on above:8 week follow up with lab possible IV FE VenoferStart: 11-05-2024 End: 84-81-8507ujeijspqeb64/30/2025 3:00 PM EDT [facility] Center Hematology/Oncology [address] [place] [address] IV FE Venofer x 4 more dosesHematology/OncologyComment on above:IV FE Venofer x 4 more dosesStart: 11-01-2024 End: 19-92-3277qkmfuomroi47/26/2025 3:00 PM EDT Infusion Center Hematology/Oncology [address] [place] [place] [address] IV FE Venofer x 4 more dosesHematology/OncologyComment on above:IV FE Venofer x 4 more dosesStart: 10-25-2024 End: 38-74-1857vmxoawlrja10/19/2025 3:30 PM EDT Infusion Center Hematology/Oncology [address] [place] [place] [address] IV FE Venofer x 4 more dosesHematology/OncologyComment on above:IV FE Venofer x 4 more dosesStart: 10-18-2024 End: 23-15-6596yfmfvjberp51/12/2025 3:30 PM EDT Infusion Center Hematology/Oncology [address] [place] [place] [address] IV FE Venofer x 4 more dosesHematology/OncologyComment on above:IV FE Venofer x 4 more dosesStart: 10-18-2024 End: 12-43-8225Yluisgo encounter bzmeqxuws07/12/2025 3:15 PM EDT Office Visit [facility] [address] [place] [address] 4 week follow up with lab and IV FE VenoferNortCaro Center LaboratoryComment on above:4 week follow up with lab and IV FE VenoferStart: 10-18-2024 End: 33-29-5653Bjjryj-up encounterHematology/OncologyComment on above:4 week follow up with lab4 week follow up with lab and IV FE VenoferStart: 10-18-2024 End: 11-27-6639Jnnqifz encounter mmnxkwgec73/12/2025 10:45 AM EDT Office Visit [facility] [address] [place] [place] [address] labsNoPocahontas Memorial Hospital LaboratoryComment on above:labsStart: 10-15-2024 End: 42-81-8382GBJ W Auto Differential panel - BloodCOMPLETE BLOOD COUNT AND DIFFERENTIAL Lab Routine Other iron deficiency anemia Expected: 10/15/2024, Expires: 01/14/2025[facility] Work Phone: Comment on above:Expected: 10/15/2024, Expires: 01/14/2025Start: 10-15-2024 End: 05-87-7561Kpumrseajgehu metabolic 2000 panel - Serum or PlasmaCOMPREHENSIVE METABOLIC PANEL Lab Routine Other iron deficiency anemia Expected: 10/15/2024, Expires: 01/14/2025[facility] Medical CenterComment on above:Expected: 10/15/2024, Expires: 01/14/2025Start: 10-11-2024 End: 24-73-0325mfckuytibp58/05/2025 3:00 PM EDT Infusion Center Hematology/Oncology [address] [place] [place] [address] IV FE Venofer x 4 more dosesHematology/OncologyComment on above:IV FE Venofer x 4 more dosesStart: 10-05-2024 End: 68-72-6598grxbzncdyj47/30/2025 2:30 PM EDT Infusion Center Hematology/Oncology [address] [place] [address] VENOFER K3Floqzixuug/OncologyComment on above:VENOFER S8Acocb: 09-20-2024 End: 02-16-7782Tumwwfvbjzavqo (EPO) [Units/volume] in Serum or PlasmaHolzer Health SystemComment on above:Expected: 09/20/2024, Expires: 12/20/2024Start: 09-20-2024 End: 99-56-9241Xhmwldzc [Mass/volume] in Serum or PlasmaGreen Cross Hospital Work Phone: comment on above:Expected: 09/20/2024, Expires: 12/20/2024Start: 09-20-2024 End: 73-49-5521Qlufwrcwcvp [Mass/volume] in Serum or PlasmaMagruder Memorial Hospital on above:Expected: 09/20/2024, Expires: 12/20/2024Start: 09-20-2024 End: 51-20-2512Gpjj and Iron binding capacity panel - Serum or PlasmaAroma Park ClinicComment on above:Expected: 09/20/2024, Expires: 12/20/2024Start: 09-20-2024 End: 04-51-7470SNCSV/HOPPER,FREE,SERClepomerene hospital ClinicComment on above:Expected: 09/20/2024, Expires: 12/20/2024Start: 09-20-2024 End: 81-72-6435JCGNEVI ELECTROPHORESIS SERUM W/INTERPCleveland ClinicComment on above:Expected: 09/20/2024, Expires: 12/20/2024Start: 09-20-2024 End: 41-37-8976dsspmhfqdn24/15/2025 11:00 AM EDT Visit (SP) Office Hematology/Oncology [address] [place] [address] [place] [address] Keyon Palomino MD [address] [place] [address] [place] [address] Justyna Hanson DX: Iron Deficiency Hematology/OncologyComment on above:Ref by Dr Justyna Hanson DX: Iron Deficiency Start: 23-36-9563HoylzdliqMercy Memorial Hospitaltart: 08-29-2024 Administration of prophylactic treatmentMercy Memorial Hospitaltart: 06-54-5048NsahtidqqMercy Memorial Hospitaltart: 73-52-5773Wedugcdi admission [facility] Hospitaltart: 78-55-3528YrctkpbufMercy Memorial Hospitaltart: 08-28-2024 End: 03-57-4291RuszqrtywMercy Memorial Hospitaltart: 39-58-5563Vcwikpwh identified in Blood by CultureBlood CultureOhiohealth Southeastern Medical Center Start: 02-78-5439YupcgganbMercy Memorial Hospitaltart: 42-04-4626Yzqxfde Directive DiscussionAdvance Directive DiscussionSelect Medical Specialty Hospital - [facility] Northtart: 01-01-2025Medicare Advantage Annual Wellness VisitMedicare Advantage Annual Wellness VisitSelect Medical Specialty Hospital - [facility] Northtart: 04-27-2024 End: 47-96-9520Sliuhvq encounter sgsouegro47/20/2024 11:20 AM EST Office Visit [facility] [address] [address] [place] [address] Tressa Jackson MD [address] [facility] [place] [address] [facility] CenterStart: 03-11-2024 EchocardiographyEchocardiogramUnBlanchard Valley Health System Bluffton HospitalStart: 01-10-2024 EsophagogastroduodenoscopyDH EGD (Not Applicable)[facility] Hospitaltart: 09-56-4048Zvqen-19 Vaccine ( season)Covid-19 Vaccine ( season)[facility]: 92-40-4257WOZRK-19 Vaccine ()COVID-19 Vaccine ()[facility] Start: 23-84-0002Hwplntvye vaccinationInfluenza Vaccine (#1)[facility] HospitalStart: 74-78-9600Omhwymi referralBethesda North Hospital Work Phone: Start: 47-86-9737DleylqxggOhiohealth Southeastern Medical Center Start: 11-23-2023 End: 19-25-5752Kbtuw metabolic 2000 panel - Serum or PlasmaBasic Metabolic Panel Lab Routine Difficulty breathing Expected: 11/23/2023 (Approximate), Expires: 11/22/2024[facility] Service Area Work Phone: Comment on above:Expected: 11/23/2023 (Approximate), Expires: 11/22/2024Start: 11-23-2023 End: 18-58-5219Bomqokvjoyo peptide B [Mass/volume] in BloodB-Type Natriuretic Peptide Lab Routine Difficulty breathing [place] (dyspnea on exertion) Expected: 11/23/2023 (Approximate), Expires: 11/22/2024[facility] Work Phone: Comment on above:Expected: 11/23/2023 (Approximate), Expires: 11/22/2024Start: 04-07-2023 End: 49-97-0049Usuxqdu encounter rvqgyphaf48/30/2023 1:20 PM EST Office Visit [facility] [address] [facility] [address] [place] [address] Tressa Jackson MD [address] [facility] [address] [place] [address] [facility]: 43-57-7768RIH, Provider: Tressa Jackson, Status: Pen, Time: 3:40 PMFUV, Provider: Tressa Jackson, Status: Pen, Time: 3:40 PMMahnomen Health [facility] 250 DO Work Phone: Start: 03-75-6378APMZE-19 Vaccine ( season) COVID-19 Vaccine ( season)[facility]: 07-74-0467Ylmixvizn vaccinationInfluenza Vaccine (#1)[facility]: 59-94-4155XQRE, Provider: FARZAD HHVI ULTRASOUND 01,[id number], Status: Pen, Time: 9:45 AMECHO, Provider: FARZAD HHVI ULTRASOUND 01,[id number], Status: Pen, Time: 9:45 AMMahnomen Health Center 250 DO Work Phone: Start: 44-10-4350EcyglwtqdOhiohealth Southeastern Medical Center Start: 49-10-7757EOW, Provider: Tressa Jackson, Status: Pen, Time: 1:00 PM FUV, Provider: Tressa Jackson, Status: Pen, Time: 1:00 PMMahnomen Health Center [address] [place] Work Phone: Start: 38-43-1986JCV, Provider: Tressa Jackson, Status: Pen, Time: 1:00 PMFUV, Provider: Tressa Jackson, Status: Pen, Time: 1:00 PMMahnomen Health Center 250 DO Work Phone: Start: 88-10-6841HL of right kneeCT knee RT wo con [facility] Hospitaltart: 65-40-5856CQA, Provider: Tressa Jackson, Status: Pen, Time: 3:20 PMFUV, Provider: Tressa Jackson, Status: Pen, Time: 3:20 PM-[facility] 600 DO Work Phone: Start: 52-29-4241LMEPH-19 Vaccine (3 - Pfizer series) COVID-19 Vaccine (3 - Pfizer series)[facility]: 52-57-2457Cqnturxk ScreeningDiabetes ScreeningSelect Medical Specialty Hospital [facility] Northtart: 2015 RSV High Risk: (Elderly (60+) or Population) (1 - 1-dose 75+ series)RSV High Risk: (Elderly (60+) or Population) (1 - 1-dose 75+ series) [facility]: 91-05-2280UNX Vaccine (1 - 1-dose 75+ series)RSV Vaccine (1 - 1-dose 75+ series)[facility]: 2005 Screening for osteoporosisBone Density ScreeningSelect Medical Specialty Hospital - [facility] Northtart: 42-02-3542CBU patients and/or patients aged 60+ years (1 - 1-dose 60+ series)RSV patients and/or patients aged 60+ years (1 - 1-dose 60+ series)[facility]: 39-73-5563Bzhsruac Vaccine (1 of 2)Shingrix Vaccine (1 of 2)[facility]: 29-19-9812Cpevak Vaccines (1 of 2)Zoster Vaccines (1 of 2)[facility]: 1962 DTaP/Tdap/Td Vaccines (1 - Tdap)DTaP/Tdap/Td Vaccines (1 - Tdap)[facility]: 86-22-4206Qqicg microalbumin profileDTaP,Tdap,Td Vaccine (1 - Tdap)[facility]: 55-06-0450Vodxg screening for protein CKD: Urine Protein ScreeningUnParkview Health Bryan Hospital: 1958 Anxiety ScreeningAnxiety ScreeningSelect Medical Specialty [facility] Northtart: 61-19-0024Wutadsnwge ScreeningDepression ScreeningWestern Reserve Hospital: 74-38-8531Iutydchu mellitus screeningDiabetes ScreeningC[facility]: 1940 Creatinine measurementCreatinine [facility]: 25-91-8067Psxdx panelLipid PanelC[facility]: 02-10-1941Medicare Annual Wellness VisitMedicare Annual Wellness Visit (AWV) [facility]: 07-84-0819Ryxtuumlk measurementPotassium [facility]: 90-37-6258Zosmarggr for osteoporosisBone Density ScanC[facility] Clinic [facility]: 1940 Thyroid stimulating hormone measurementTSComanche County Memorial Hospital – LawtonAdenosine monophosphate.cyclic [Moles/volume] in Serum or Plasma [facility] Medical CenterComprehensive metabolic 2000 panel - Serum or PlasmaOhiohealth Southeastern Medical CenterDXA Skeletal system.axial Views for bone densityOhiohealth Southeastern Medical CenterGlucose measurement estimated from glycated hemoglobinHighland District Hospital Ctr Work Phone: Glucose measurement estimated from glycated hemoglobin [facility] Medical CenterGlucose measurement estimated from glycated hemoglobinOhiohealth Southeastern Medical CenterGlucose measurement estimated from glycated hemoglobinOhiohealth Southeastern Medical CenterHemoglobin A1c/Hemoglobin.total in BloodHighland District Hospital Ctr Work Phone: Homogenous nuclear Ab pattern [Titer] in Serum [facility] CenterNuclear Ab [Titer] in SerumOhiohealth Southeastern Medical CenterPatient EducationUrinary tract infections in adults Amoxicillin and Clavulanate Psyllium Blood transfusion Anemia caused by low iron in adults - Discharge instructions Know your MedFlower Hospital Ctr Work Phone: Patient referralHighland District Hospital Ctr Work Phone: Rheumatoid factor [Units/volume] in Serum or Plasma [facility] Medical CenterUrine cultureOhiohealth Southeastern Medical Center Urine cultureOhiohealth Southeastern Medical Center End: 07-36-0088OI Heart TransthoracicWINSLOW INDIAN HEALTH CARE CENTER Service Area Work Phone: Comment on above:Once for 1 Occurrences starting 03/11/2023 until 03/11/2023[facility] Immunizations Immunization DateImmunizationNotesCare ZjwbaxtkGprmzudn36-15-4550Qxibeeo High- Dose Quadrivalent 0.7 ML Intramuscular Suspension Prefilled SyringeDavid C Girasif Work Phone: [phone]-CivohMahnomen Health Center 250 DO Work Phone: [phone] 20 0.5 ML Intramuscular Suspension Prefilled SyringeDavid C Girasif Work Phone: [phone]-ItvhyMahnomen Health Center 250 DO Work Phone: [phone]bptedm virus vaccine, unspecified formulationEly [address] [place] [address] Work Phone: [phone]-43 Vaccine Pfizer - Documentation Purposes OnlyThomas Olexa Other [facility]06-07-2021COVID-19 Vaccine Pfizer - Documentation Purposes OnlyThomas Olexa Other [facility]10-14-2020influenza, high dose seasonal, preservative-freeDavid C [facility] 600 DO Work Phone: Comment on above:Series:85-56-2636jyainzbqa, seasonal, injectableDavid C Vaishnavi Work Phone: [phone]-ErmxxSt. [facility] 250 DO Work Phone: [phone]dueulm, high dose seasonal, preservative-freeThomas Olexa Other [place] [employer] Other 09-331363-99-7606Tlohkqb High-Dose Quadrivalent 0.7 ML Intramuscular Suspension Prefilled SyringeDavid C Girvin Work Phone: [phone]-JogfcSt. Cloud [facility] Care [facility] 250 DO Work Phone: [phone]u virus vaccine, unspecified formulationOhiohealth Southeastern Medical Center08-28-2020pneumococcal polysaccharide vaccine, 23 valentDavid C Girvin Work Phone: [phone]-KfsivMahnomen Health Center 250 DO Work Phone: [phone]-SVROGH 41 - 125 mgThomas Olexa Other [employer] Other 08-104002-20-1494Gjtlxcx -40 mgThomas Olexa Other [employer] Other 11-875186-51-3279isdfwmvep, high dose seasonal, preservative-freeThomas Olexa Other [employer] Other 11-302559-01-5303nihmtxyfc virus vaccine, unspecified formulationOhiohealth Southeastern Medical Center11-01-2016influenza virus vaccine, unspecified formulationDavid [facility] 600 DO Work Phone: [phone]a, high dose seasonal, preservative-freeThomas Olexa Other [employer] Other 11-272519-27-6454qtqddsyuc virus vaccine, unspecified formulationOhiohealth Southeastern Medical Center10-01-2015influenza virus vaccine, unspecified formulationDavid [facility] 600 DO Work Phone: [phone]cmhtjlgq polysaccharide vaccine, 23 valentDavid C [facility] 600 DO Work Phone: Comment on above:Series:23-17-8356Rgooferr 500 mg Aliza Olexa Other [employer] Other 12-097464-27-1540LDDP-UOZSNT 41 - 125 mgThomas Olexa Other [employer] Other 09587625-57-1073gwaucojtv virus vaccine, unspecified formulationDavid C [facility] 600 DO Work Phone: [phone], high dose seasonal, preservative-freeChair Farzad Work Phone: [facility] Health SystemSzkcgg10-43-3176bgmbqyiii virus vaccine, unspecified formulationEly [address] [place] [address] Work Phone: [phone], high dose seasonal, preservative-freeEly [address] [place] [address] Work Phone: influenza virus vaccine, unspecified formulationDavid C [facility] 600 DO Work Phone: Comment on above: Payers DatePayer CategoryPayerPoly [id number] [id number] 2024 [id number] 2022Medicare (Managed Care) [facility] [id number] Health InsuranceL[facility] H[facility] Member Subscriber Plan / Payer (Effective 2021-Present) Name: Shanta Ferrer Member ID: [id number] Relation to Subscriber: Self Name: Shanta Ferrer Subscriber ID: [id number] Payer ID: Not on file Group ID: Not on file Type: HMO Address: [facility] [address] [id number] [id number] 2.0.9.04104[id number] 2..1.446872.3.57[id number] 2.0.1.941893.3.57[id number] 2.0.1.451595.3.57[id number] 2.0.1.938191.3.57[id number] 2..1.873074.3.57[id number] 2.0.1.254806.3.579.2.1244Private Health JvgpztainKDVMI6QQ [id number]-2297-[id number] 2.840.1.8[id number] 2.0.1.944585.3.579.2.531 [id number] 2.16840.1.8[id number] 2.16840.1.6[id number] 2.840.1.333522.3.579.2.531 [id number] 2.16.840.1.6[id number] 2.16.840.1.933906.3.579.2.531 Social History DateTypeDetailFacilityStart: 01-21-2020 End: 08-87-2154Ufyfuxf smoking status NHISEx-smoker (finding)[facility]tart: 22-15-0995Fwo Assigned At BirthFemalCincinnati Children's Hospital Medical Centertart: 11-23-2023 End: 92-86-2378Qqrzwlkh useCaffeine use-[facility] HeartY[facility] 600 DO Work Phone: Comment on above:1 cup coffee daily, 1 can diet soda daily;quit 1986 1 ppd;Start: 11-23-2023 End: 16-72-8873Flb Assigned At [facility] [employer] Other Start: 12-23-2020 End: 63-72-8086Ahnvykv smoking status NHISNever smoked tobacco (finding) [facility] Hospitaltart: 55-41-2399Jkghlkp smoking status NHIS Tobacco smoking consumption unknownUnBlanchard Valley Health System [facility] Work Phone: Start: 54-70-2529Vws Assigned At BirthNot on file [facility] Work Phone: Start: 03-01-2023 End: 12-48-0507Fknebsmr to SARS-CoV-2 (event)Not sureOhioHealth Berger Hospital End: 49-78-2564Awmxwlr of tobacco useCurrent smokerUnBlanchard Valley Health System [facility] Work Phone: End: 77-85-5386Sgmhicp of tobacco useCigarette SmokerOhioHealth Berger Hospital Work Phone: Start: 11-12-2014 End: 34-78-5417Ldzboqu use and exposureSmokeless tobacco non-userOhioHealth Berger Hospital Work Phone: Start: 11-23-2023 End: 11-44-1733Jkssihfiz beverage intakeLifetime non-drinker (finding)[facility] Work Phone: Start: 06-12-2024 End: 17-61-8761RnhOynbsf (finding)[facility]art: [id number] Follow upSDOH [facility]Bet[facility] Work Phone: Start: 12-25-2021 End: [id number] beverage intakeCurrent non-drinker of alcohol (finding) [facility]: 06-21-1333Sgoyvell Score (1-100), lower number is lower acrf21AmljxyofaHolzer Health System Goals DatePatient GoalDesired Activity/State Functional Status RqybFnbfeoqqxfJdhogiPmuamgjw09-33-1511Gejjdtsxnh statusPatient at Baseline [facility] Work Phone: [phone] statusPatient Not at Baseline [facility] Work Phone: [phone] you deaf, or do you have serious difficulty hearingNo 11/26/2014 2:38 [facility] [id number] you blind, or do you have serious difficulty seeing, even when wearing glassesNo 11/26/2014 2:38 PM EDT [facility] [id number] you have serious difficulty walking or climbing stairsNo 11/26/2014 2:[facility]07-21-2015Do you have difficulty dressing or bathingNo 11/26/2014 2:38 PM EDT [facility] [id number] of a physical, mental, or emotional condition, do you have difficulty doing errands alone such as visiting a physician's office or shopping No 11/26/2014 2:38 PM [facility] Mental Status YivtEdoggj[id number] functionCognitive Status [facility] Work Phone: [phone] functionCognitive Status [facility] Work Phone: [phone] of a physical, mental, or emotional condition, do you have serious difficulty concentrating, remembering, or making decisionsNo 11/26/2014 2:38 PM EDT [facility] Clinical Notes 03-05-2021 to 03-11-2025 Note Date & [id number] NoteHNO ID: [id number] Author: LAKESHA KIM APRN.OPERATIONS STAFF SPECIALIST SECURITY Service: ? Author Type: Nurse Practitioner Type: Progress Notes Filed: 03/11/2025 14:25 Note Text: PATIENT NAME: Shanta Ferrer CLINIC NO.: [id number] ATTENDING PHYSICIAN: Keyon Palomino MD DATE OF SERVICE: March 11, 2025 (Lopez) Some of the elements of this note have been copied from the previous progress note dated: January 09, 2025 (Lopez). All the information has been reviewed carefully. CHIEF COMPLAINT: Anemia HPI: Shanta Ferrer is a 84 year old year old female with PMH of CKD, A,fib, COPD, Depression, CHF, venous stasis referred to us for anemia. FOBT- negative (08/28/24) Lives at home with daughter. Recently hospitalized with hemorrhoidal bleeding in first week of September 2024. Recd 2 units PRBC and 3 iron infusions. Light brown colored stools. EGD/colonoscopy- 5 yrs ago. Doing well. C/o fatigue. Not taking PO iron. Intolerant to PO iron. Constipation and sick stomach. Stopped iron supplements 2-3 weeks ago. 10/18/2024: Patient with a history of iron deficiency anemia, currently managed with iron infusions, presents for follow-up. She is currently undergoing a series of five iron infusions and has completed two so far. She reports that the infusions initially improve her energy levels, but she experiences fatigue by the end of the week. Her hemoglobin has improved to 10.3 g/dL. She denies any known bleeding. She reports mild constipation, which she manages by drinking prune juice daily. She denies any blood in her stools. - Doing well. - Started IV iron and tolerating infusions well. - Received Venofor 200 mg on 10/05/2024 and 10/11/2024 12/26/24: -finished 5 doses of IV venofer on 11/12/24. 01/09/25: She received an iron infusion in November, approximately eight weeks ago. Recent labs show an increase in hemoglobin from 10.3 g/dL to 11.3 g/dL. MCV remains slightly elevated. Serum creatinine is 1.76 mg/dL, a slight increase from previous labs on October 18. Patient reports a slight improvement in energy levels post-infusion, with no increase in dyspnea. She experiences variable days of well-being, which may be influenced by her COPD. She is currently experiencing nausea, attributed to not eating and being rushed prior to the appointment. She recently completed a course of strong antibiotics. Updated Visit, March 11, 2025: The patient is an 84-year-old female with iron deficiency anemia presenting for routine follow-up. Since her last visit, the patient was treated for a urinary tract infection by her PCP, Dr. De La O. She completed a course of antibiotics, which she took every other day as prescribed, but continues to experience persistent lower abdominal pain. She reports a history of frequent antibiotic use. She also reports a yeast infection with symptoms of pruritus and irritation in the perineal area. She denies fever, chills, hematuria, gastrointestinal bleeding, or changes in appetite or bowel habits. Denies fatigue and sob. Current Outpatient Medications Medication Sig MULTIVITAMIN ORAL Take by mouth. NIACIN ORAL Take by mouth. ferrous sulfate 325 mg (65 mg iron) tablet Take 1 tablet by mouth twice daily. ergocalciferol, vitamin D2, (VITAMIN D) 50,000 unit capsule Take 50,000 Units by mouth once each week. 2 times per week albuterol HFA (PROAIR HFA) 90 mcg/actuation inhaler Inhale 2 Puffs as instructed. albuterol (PROVENTIL) 2.5 mg /3 mL (0.083 %) nebulizer solution Use 2.5 mg via nebulizer three times daily. fluticasone-salmeterol (ADVAIR DISKUS) 250-50 mcg/dose dsdv Inhale 1 Puff as instructed twice daily. hydrochlorothiazide (HYDRODIURIL, ESIDRIX) 50 mg tablet Take 50 mg by mouth once daily. enalapril-hydrochlorothiazide (VASERETIC) 10-25 mg per tablet Take 1 tablet by mouth once daily. metoprolol tartrate, short acting, (LOPRESSOR) 100 mg tablet Take 100 mg by mouth twice daily. allopurinol (ZYLOPRIM) 100 mg tablet Take 100 mg by mouth once daily. dabigatran etexilate (PRADAXA) 75 mg cap Take 75 mg by mouth twice daily. Omeprazole 40 mg capsule Take 40 mg by mouth once daily. No current facility-administered medications for this visit. ALLERGIES Allergen Reactions Contrast Dye Other: See Comments shock/ Ibuprofen Hives Tricor [Fenofibrate* Other: See Comments upset stomach PAST MEDICAL HISTORY Diagnosis Date Arthritis Atrial fibrillation (HCC) CKD (chronic kidney disease) stage III GERD (gastroesophageal reflux disease) Gout Hyperglycemia Hyperlipidemia Hypertension Hypothyroidism Iron deficiency anemia Vitamin D deficiency PAST SURGICAL HISTORY Procedure Laterality Date COLONOSCOPY HYSTERECTOMY HX KNEE SURGERY HX TONSILLECTOMY HX FAMILY HISTORY Problem Relation Age of Onset Heart Mother Heart Father Stroke Mother Cancer Father Social History Tobacco Use Smoking status: Former Current packs/day: 0.00 Types: (more content not included)...[facility]09-08-2025 Telephone encounter Note* Telephone Encounter - Stella Caicedo - 01/14/2025 11:05 AM EDT Spoke to patient and scheduled labs 1245, Lakesha 1pm and possible treatment 130 on TuesdayMarch 11 [facility]09-08-2025 Miscellaneous Notes* Telephone Encounter - Stella Caicedo - 01/14/2025 11:05 AM EDT Spoke to patient and scheduled labs 1245, Lakesha 1pm and possible treatment 130 on TuesdayMarch 11 * Telephone Encounter - Radha Henning RN - 01/11/2025 8:57 AM EDT VM left with results and need to schedule 8 week lab/RTC. Encouraged to call to schedule. PSS: Please verify pt calls to schedule Radha Henning RN * Telephone Encounter - Lakesha Kim APRN.CNP - 01/11/2025 8:52 AM EDT Hi, iron studies are normal, no iron needed at this time. Please have patient come back in 8 weeks for office visit and labs. Thanks * Telephone Encounter - Radha Henning RN - 01/11/2025 8:34 AM EDT JR: Please review and advise RTC Radha Henning RN * Telephone Encounter - Yoan Rivera - 01/09/2025 3:08 PM EDT Images from the original note were not included. documented in this encounterHolzer Health System09-05-2025 Telephone encounter Note * Telephone Encounter - Radha Henning RN - 01/11/2025 8:57 AM EDT VM left with results and need to schedule 8 week lab/RTC. Encouraged to call to schedule. PSS: Please verify pt calls to schedule Radha Henning RN [facility]09-05-2025 Telephone encounter Note* Telephone Encounter - Lakesha Kim APRN.CNP - 01/11/2025 8:52 AM EDT Hi, iron studies are normal, no iron needed at this time. Please have patient come back in 8 weeks for office visit and labs. Thanks [facility] Work Phone: [phone] Telephone encounter Note* Telephone Encounter - Radha Henning RN - 01/11/2025 8:34 AM EDT JR: Please review and advise RTC Radha Henning RN [facility]09-03-2025 Telephone encounter Note* Telephone Encounter - Yoan Rivera - 01/09/2025 3:08 PM EDT Images from the original note were not included. [facility]09-03-[facility] History of Present illness Narrative* Lakesha Kim APRN.OPERATIONS STAFF SPECIALIST SECURITY - 01/09/2025 3:00 PM EDT Images from the original note were not included. PATIENT NAME: Shanta Ferrer CLINIC NO.: [id number] ATTENDING PHYSICIAN: Keyon Palomino MD DATE OF SERVICE: January 09, 2025 (Lopez) Some of the elements of this note have been copied from the previous progress note dated December. All the information has been reviewed carefully. CHIEF COMPLAINT: Anemia HPI: Shanta Ferrer is a 84 year old year old female with PMH of CKD, A,fib, COPD, Depression, CHF, venous stasis referred to us for anemia. FOBT- negative (08/28/24) Lives at home with daughter. Recently hospitalized with hemorrhoidal bleeding in first week of September 2024. Recd 2 units PRBC and 3 iron infusions. Light brown colored stools. EGD/colonoscopy- 5 yrs ago. Doing well. C/o fatigue. Not taking PO iron. Intolerant to PO iron. Constipation and sick stomach. Stopped iron supplements 2-3 weeks ago. 10/18/2024: Patient with a history of iron deficiency anemia, currently managed with iron infusions, presents for follow-up. She is currently undergoing a series of five iron infusions and has completed two so far. She reports that the infusions initially improve her energy levels, but she experiences fatigue by the end ofthe week. Her hemoglobin has improved to 10.3 g/dL. She denies any known bleeding. She reports mild constipation, which she manages by drinking prune juice daily. She denies any blood in her stools. - Doing well. - Started IV iron and tolerating infusions well. - Received Venofor 200 mg on 10/05/2024 and 10/11/2024 12/26/24: -finished 5 doses of IV venofer on 11/12/24. 01/09/25: She received an iron infusion in November, approximately eight weeks ago. Recent labs show an increase in hemoglobin from 10.3 g/dL to 11.3 g/dL. MCV remains slightly elevated. Serum creatinine is 1.76 mg/dL, a slight increase from previous labs on October 18. Patient reports a slight improvement in energy levels post-infusion, with no increase in dyspnea. She experiences variable days of well-being, which may be influenced by her COPD. She is currently experiencing nausea, attributed to not eating and being rushed prior to the appointment. She recently completed a course of strong antibiotics. Current Outpatient Medications Medication Sig MULTIVITAMIN ORAL Take by mouth. NIACIN ORAL Take by mouth. ferrous sulfate 325 mg (65 mg iron) tablet Take 1 tablet by mouth twice daily. ergocalciferol, vitamin D2, (VITAMIN D) 50,000 unit capsule Take 50,000 Units by mouth once each week. 2 times per week albuterol HFA (PROAIR HFA) 90 mcg/actuation inhaler Inhale 2 Puffs as instructed. albuterol (PROVENTIL) 2.5 mg /3 mL (0.083 %) nebulizer solution Use 2.5 mg via nebulizer three times daily. fluticasone-salmeterol (ADVAIR DISKUS) 250-50 mcg/dose dsdv Inhale 1 Puff as instructed twice daily. hydrochlorothiazide (HYDRODIURIL, ESIDRIX) 50 mg tablet Take 50 mg by mouth once daily. enalapril-hydrochlorothiazide (VASERETIC) 10-25 mg per tablet Take 1 tablet by mouth once daily. metoprolol tartrate, short acting, (LOPRESSOR) 100 mg tablet Take 100 mg by mouth twice daily. allopurinol (ZYLOPRIM) 100 mg tablet Take 100 mg by mouth once daily. dabigatran etexilate (PRADAXA) 75 mg cap Take 75 mg by mouth twice daily. Omeprazole 40 mg capsule Take 40 mg by mouth once daily. No current facility-administered medications for this visit. ALLERGIES Allergen Reactions Contrast Dye Other: See Comments shock/ Ibuprofen Hives Tricor [Fenofibrate* Other: See Comments upset stomach PAST MEDICAL HISTORY Diagnosis Date Arthritis Atrial fibrillation (HCC) CKD (chronic kidney disease) stage III GERD (gastroesophageal reflux disease) Gout Hyperglycemia Hyperlipidemia Hypertension Hypothyroidism Iron deficiency anemia Vitamin D deficiency PAST SURGICAL HISTORY Procedure Laterality Date COLONOSCOPY HYSTERECTOMY HX KNEE SURGERY HX TONSILLECTOMY HX FAMILY HISTORY Problem Relation Age of Onset Heart Mother Heart Father Stroke Mother Cancer Father Social History Tobacco Use Smoking status: Former Current packs/day: 0.00 Types: Cigarettes Quit date: 07/22/2004 Years since quittin.4 Smokeless tobacco: Never Substance Use Topics Alcohol use: No Drug use: No REVIEW OF SYSTEMS General: No weight loss, malaise or fevers. No night sweats. HEENT: Negative for headaches, No changes in hearing or vision, no nose bleeds or other nasal problems. Respiratory: Negative for cough, wheezing and shortness of breath. Cardiovascular: Negative for chest pain, leg swelling and palpitations. GI: Negative for abdominal discomfort, blood in stools or black stools and change in bowel habits. : Negative for dysuria, frequency and incontinence. Musculoskeletal: Negative for joint pain or swelling, back pain, and muscle pain. Skin: Negative for lesions, rash, and itching. Hematology/Lymphology: Negative for prolonged bleeding, bruising easily, and swollen nodes. Neuro: Negative for numbness or tingling of hands/feet. No weakness. PHYSICAL EXAMINATION: BP 112/55 Pulse 101 Temp 36.5 C (97.7 F) (Temporal) Resp 16 Ht 160 cm (5' 2.99 ) SpO2 99% BMI 48.32 kg/m General appearance:ECOG PERFORMANCE STATUS: 2- Ambulatory and capable of all selfcare; unable to carry out work activities. Up and about > 50% of waking hrs. Patient in NAD. Skin: Skin color, texture, turgor normal. No rashes or lesions. Eyes: Anicteric sclera. Pupils are equally round and reactive to light. Extraocular movements are intact. Lymph Nodes: No cervical, supraclavicular, axillary or inguinal adenopathy. Oropharynx: Lips, mucosa, and tongue normal. Back: No pain to percussion. Negative SLR test Lungs clear to auscultation, No wheezing or rhonchi Heart: RRR without murmur, gallop, or rubs. Abdomen soft, non-tender. No masses, organomegaly Extremities: edema present. Venous stasis. Neuro: Gait and speech normal. Reflexes normal and symmetric. Muscular strength intact. Sensation grossly intact. Rectal: Deferred : Deferred LABS: Glucose (mg/dL) Date Value 01/09/2025 121 04/29/2015 138 Potassium (mmol/L) Date Value 01/09/2025 4.6 04/29/2015 4.8 Sodium (mmol/L) Date Value 01/09/2025 140 04/29/2015 140 Chloride (mmol/L) Date Value 01/09/2025 99 04/29/2015 99 CO2 (mmol/L) Date Value 01/09/2025 29 04/29/2015 29 Creatinine (mg/dL) Date Value 01/09/2025 1.76 04/29/2015 1.38 BUN (mg/dL) Date Value 01/09/2025 25 04/29/2015 19 Anion Gap (mmol/L) Date Value 01/09/2025 12 04/29/2015 12 Calcium (mg/dL) Date Value 04/29/2015 9.4 Calcium, Total (mg/dL) Date Value 01/09/2025 9.2 Protein, Total (g/dL) Date Value 01/09/2025 6.2 04/29/2015 6.8 Albumin (g/dL) Date Value 01/09/2025 3.4 04/29/2015 3.8 Bilirubin, Total (mg/dL) Date Value 01/09/2025 0.5 04/29/2015 0.9 Alkaline Phosphatase (U/L) Date Value 01/09/2025 119 04/29/2015 69 AST (U/L) Date Value 01/09/2025 17 04/29/2015 23 ALT (U/L) Date Value 01/09/2025 8 04/29/2015 19 WBC Date Value Ref Range Status 01/09/2025 6.64 3.70 - 11.00 k/uL Final RBC Date Value Ref Range Status 01/09/2025 3.62 (L) 3.90 - 5.20 m/uL Final Hemoglobin Date Value Ref Range Status 01/09/2025 11.3 (L) 11.5 - 15.5 g/dL Final Hematocrit Date Value Ref Range Status 01/09/2025 36.4 36.0 - 46.0 % Final MCV Date Value Ref Range Status 01/09/2025 100.6 (H) 80.0 - 100.0 fL Final MCH Date Value Ref Range Status 01/09/2025 31.2 26.0 - 34.0 pg Final MCHC Date Value Ref Range Status 01/09/2025 31.0 30.5 - 36.0 g/dL Final RDW-CV Date Value Ref Range Status 01/09/2025 16.3 (H) 11.5 - 15.0 % Final Platelet Count Date Value Ref Range Status 01/09/2025 153 150 - 400 k/uL Final MPV Date Value Ref Range Status 01/09/2025 8.5 (L) 9.0 - 12.7 fL Final Abs Neut Date Value Ref Range Status 01/09/2025 3.89 1.45 - 7.50 k/uL Final Lymphocytes % Date Value Ref Range Status 01/09/2025 29.8 % Final Abs Lymph Date Value Ref Range Status 01/09/2025 1.98 1.00 - 4.00 k/uL Final Monocytes % Date Value Ref Range Status 01/09/2025 9.2 % Final Abs Payette Date Value Ref Range Status 01/09/2025 0.61 <0.87 k/uL Final Abs Eosin Date Value Ref Range Status 01/09/2025 0.10 <0.46 k/uL Final Basophils % Date Value Ref Range Status 01/09/2025 0.5 % Final Abs Baso Date Value Ref Range Status 01/09/2025 0.03 <0.11 k/uL Final PATH: IMAGING: ASSESSMENT AND PLAN: Shanta Ferrre is a 84 year old year old female referred to us for Anemia. H/o CKD, A,fib, COPD, Depression, CHF, venous stasis. PLAN: 1. Other iron deficiency anemia (D50.8) Received iron infusion in November; 8 weeks later, Hgb improved from 10.3 to 11.3, but remains slightlyanemic. Awaiting iron studies to determine need for further iron supplementation. - Will call patient with iron study results to determine if additional iron infusion is needed. - If further iron is required, will schedule follow-up in 8 weeks; if not, will determine timing ofnext lab check based on results. I spent a total of 30 minutes on the date of the service which included preparing to see the patient, ureq-wh-egln patient care, completing clinical documentation, obtaining and/or reviewing separately obtained history, performing a medically appropriate examination, counseling and educating the pat ient/family/caregiver, ordering medications, tests, or procedures, communicating with other HCPs (not separately reported), independently interpreting results (not separately reported), communicatingresults to the patient/family/caregiver, and care coordination (not separately reported). Lakesha Kim APRN, DRIVER LICENSE TECHNICIAN-C, [facility] Provided at: [place], [place] CC: documented in this encounterHolzer Health System09-03-2025 NoteHNO ID: [id number] Author: LAKESHA KIM APRN.OPERATIONS STAFF SPECIALIST SECURITY Service: ? Author Type: Nurse Practitioner Type: Progress Notes Filed: 01/09/2025 16:26 Note Text: PATIENT NAME: Shanta Ferrer CLINIC NO.: [id number] ATTENDING PHYSICIAN: Keyon Palomino MD DATE OF SERVICE: January 09, 2025 (Lopez) Some of the elements of this note have been copied from the previous progress note dated December 26, 2024. All the information has been reviewed carefully. CHIEF COMPLAINT: Anemia HPI: Shanta Ferrer is a 84 year old year old female with PMH of CKD, A,fib, COPD, Depression, CHF, venous stasis referred to us for anemia. FOBT- negative (08/28/24) Lives at home with daughter. Recently hospitalized with hemorrhoidal bleeding in first week of September 2024. Recd 2 units PRBC and 3 iron infusions. Light brown colored stools. EGD/colonoscopy- 5 yrs ago. Doing well. C/o fatigue. Not taking PO iron. Intolerant to PO iron. Constipation and sick stomach. Stopped iron supplements 2-3 weeks ago. 10/18/2024: Patient with a history of iron deficiency anemia, currently managed with iron infusions, presents for follow-up. She is currently undergoing a series of five iron infusions and has completed two so far. She reports that the infusions initially improve her energy levels, but she experiences fatigue by the end of the week. Her hemoglobin has improved to 10.3 g/dL. She denies any known bleeding. She reports mild constipation, which she manages by drinking prune juice daily. She denies any blood in her stools. - Doing well. - Started IV iron and tolerating infusions well. - Received Venofor 200 mg on 10/05/2024 and 10/11/2024 12/26/24: -finished 5 doses of IV venofer on 11/12/24. 01/09/25: She received an iron infusion in November, approximately eight weeks ago. Recent labs show an increase in hemoglobin from 10.3 g/dL to 11.3 g/dL. MCV remains slightly elevated. Serum creatinine is 1.76 mg/dL, a slight increase from previous labs on October 18. Patient reports a slight improvement in energy levels post-infusion, with no increase in dyspnea. She experiences variable days of well-being, which may be influenced by her COPD. She is currently experiencing nausea, attributed to not eating and being rushed prior to the appointment. She recently completed a course of strong antibiotics. Current Outpatient Medications Medication Sig MULTIVITAMIN ORAL Take by mouth. NIACIN ORAL Take by mouth. ferrous sulfate 325 mg (65 mg iron) tablet Take 1 tablet by mouth twice daily. ergocalciferol, vitamin D2, (VITAMIN D) 50,000 unit capsule Take 50,000 Units by mouth once each week. 2 times per week albuterol HFA (PROAIR HFA) 90 mcg/actuation inhaler Inhale 2 Puffs as instructed. albuterol (PROVENTIL) 2.5 mg /3 mL (0.083 %) nebulizer solution Use 2.5 mg via nebulizer three times daily. fluticasone-salmeterol (ADVAIR DISKUS) 250-50 mcg/dose dsdv Inhale 1 Puff as instructed twice daily. hydrochlorothiazide (HYDRODIURIL, ESIDRIX) 50 mg tablet Take 50 mg by mouth once daily. enalapril-hydrochlorothiazide (VASERETIC) 10-25 mg per tablet Take 1 tablet by mouth once daily. metoprolol tartrate, short acting, (LOPRESSOR) 100 mg tablet Take 100 mg by mouth twice daily. allopurinol (ZYLOPRIM) 100 mg tablet Take 100 mg by mouth once daily. dabigatran etexilate (PRADAXA) 75 mg cap Take 75 mg by mouth twice daily. Omeprazole 40 mg capsule Take 40 mg by mouth once daily. No current facility-administered medications for this visit. ALLERGIES Allergen Reactions Contrast Dye Other: See Comments shock/ Ibuprofen Hives Tricor [Fenofibrate* Other: See Comments upset stomach PAST MEDICAL HISTORY Diagnosis Date Arthritis Atrial fibrillation (HCC) CKD (chronic kidney disease) stage III GERD (gastroesophageal reflux disease) Gout Hyperglycemia Hyperlipidemia Hypertension Hypothyroidism Iron deficiency anemia Vitamin D deficiency PAST SURGICAL HISTORY Procedure Laterality Date COLONOSCOPY HYSTERECTOMY HX KNEE SURGERY HX TONSILLECTOMY HX FAMILY HISTORY Problem Relation Age of Onset Heart Mother Heart Father Stroke Mother Cancer Father Social History Tobacco Use Smoking status: Former Current packs/day: 0.00 Types: Cigarettes Quit date: 07/22/2004 Years since quittin.4 Smokeless tobacco: Never Substance Use Topics Alcohol use: No Drug use: No REVIEW OF SYSTEMS General: No weight loss, malaise or fevers. No night sweats. HEENT: Negative for headaches, No changes in hearing or vision, no nose bleeds or other nasal problems. Respiratory: Negative for cough, wheezing and shortness of breath. Cardiovascular: Negative for chest pain, leg swelling and palpitations. GI: Negative for abdominal discomfort, blood in stools or black stools and change in bowel habits. : Negative for dysuria, frequency and incontinence. Musculoskeletal: Negative for joint pain o (more content not included)... [facility]07-07-2025 History of Present illness Narrative* Tressa Jackson MD - 11/12/2024 10:50 AM EDT Images from the original note were not included. Chief Complaint Patient presents with Follow-up 6 month Follow up for Atrial Fibrillation Subjective Shanta Ferrer is a 84 y.o. female HPI Patient is here for follow-up and management for permanent atrial fibrillation, long-term anticoagulation, shortness of breath and right heart failure. Since last time I saw her she was admitted to the hospital with severe anemia attributed to hemorrhoidal bleed. She received blood transfusion. Shedenies chest pain, lightheadedness, dizziness or syncope. Her last hemoglobin was around 10. ASSESSMENT: 1. Permanent atrial fibrillation. Failed long-term amiodarone therapy. Treated now with heart rate control and long-term anticoagulation. She is on Pradaxa 2. Long-term anticoagulation with Pradaxa reduced dose chosen because of previous history of severeanemia and chronic kidney disease. We revisited the issue of Watchman device and the patient is open concerning her recent hospitalization for anemia and GI bleed 3. Recent evaluation worsening shortness of breath and increased weight gain with evidence of volume overload due to cor pulmonale and pulmonary hypertension seem to have improved. She lost weight BMI down to 46 4. Chronic right heart failure 5. Sleep apnea, noncompliant with CPAP. 6. Shortness of breath, related to above factors and COPD. 7. Recent hospitalization for GI bleed and anemia received 2 units of blood transfusion 8. Moderate pulmonary hypertension due to sleep apnea obesity and cor pulmonale 9. Chronic kidney disease probably stage III 10. Increased risk of fall RECOMMENDATION: 1. I reviewed with her her recent hospitalization record 2. The patient was counseled regarding losing weight, exercise, and risk factor adjustment, and I did advise her to consider seeing her sleep specialist for consideration for other alternative for treatment for her CPAP 3. Advised the patient to restrict her salt intake 4. I encouraged her to consider Watchman device. Risk, benefits alternative reviewed with her she and her daughter understood and agreed. Will arrange for evaluation by the structural heart team 5. We discussed with the patient ischemic evaluation in the past patient unfortunately unable to lay flat and noninvasive assessment will be difficult considering her morbid obesity 6. Will see her back in 6 months and follow-up Review of Systems All other systems reviewed and are negative. Vitals: 11/12/24 1042 BP: 108/64 BP Location: Left arm Patient Position: Sitting Pulse: 80 Weight: 118 kg (261 lb) Height: 1.6 m (5' 3 ) Objective Physical Exam Constitutional: Appearance: Normal appearance. HENT: Nose: Nose normal. Neck: Vascular: No carotid bruit. Cardiovascular: Rate and Rhythm: Normal rate. Rhythm irregularly irregular. Pulses: Normal pulses. Heart sounds: Normal heart sounds. Pulmonary: Effort: Pulmonary effort is normal. Abdominal: General: Bowel sounds are normal. Palpations: Abdomen is soft. Musculoskeletal: General: Normal range of motion. Cervical back: Normal range of motion. Right lower leg: No edema. Left lower leg: No edema. Skin: General: Skin is warm and dry. Neurological: General: No focal deficit present. Mental Status: She is alert. Psychiatric: Mood and Affect: Mood normal. Behavior: Behavior normal. Thought Content: Thought content normal. Judgment: Judgment normal. Allergies Iodinated contrast media, Ibuprofen, Niacin, and [id number] reductase inhibitors Current Medications Current Outpatient Medications Medication Instructions albuterol (ProAir HFA) 90 mcg/actuation inhaler As needed albuterol 2.5 mg allopurinol (Zyloprim) 300 mg tablet 1 tablet, Daily dabigatran etexilate (PRADAXA) 75 mg, oral, 2 times daily furosemide (LASIX) 40 mg, oral, Daily iron dextran complex (INFED) 100 mg, Once Weekly levothyroxine (Synthroid, Levoxyl) 25 mcg tablet 1 tablet, Daily LORazepam (ATIVAN) 0.5 mg, Daily PRN magnesium oxide 500 mg capsule 1 capsule, Daily metoprolol tartrate (Lopressor) 25 mg tablet 1 tablet, Daily niacin 500 mg ER tablet 1 tablet, Daily nystatin (Nystop) 100,000 unit/gram powder 1 Application, 2 times daily omeprazole (PriLOSEC) [address] capsule 1 capsule, Daily potassium chloride CR (Klor-Con M20) 20 mEq ER tablet 1 tablet, Daily sertraline (ZOLOFT) 50 mg, Daily spironolactone (Aldactone) 25 mg tablet 1 tablet, 2 times daily Assessment/Plan 1. Permanent atrial fibrillation (Multi) 2. Essential (primary) hypertension Follow Up In Cardiology 3. Difficulty breathing Follow Up In Cardiology 4. Pulmonary hypertension (Multi) 5. Anticoagulated 6. Obstructive sleep apnea syndrome 7. Stage 3a chronic kidney disease (Multi) 8. At risk for falling 9. BMI 45.0-49.9, adult (Multi) 10. Former smoker Scribe Attestation By signing my name below, Ursula River LPN, Scribe attest that this documentation has been prepared under the direction and in the presence of MD Jose. Provider Attestation - Scribe documentation All medical record entries made by the Scribe were at my direction and personally dictated by me. Cristin reviewed the chart and agree that the record accurately reflects my personal performance of the history, physical exam, discussion and plan. Shared Decision Tool - Referral for Left Atrial Appendage Occlusion My patient Shanta Ferrer 1940 has been evaluated by me and is referred to [facility] for a left atrial appendage implant due thromboembolic stroke risk from atrial fibrillation with CHADS2 score >= 2 or a [id number] score >= 3. This patient is not a good candidate for skilled nursing anticoagulation for the following reason(s): This patient however should be able to tolerate short term anticoagulation as necessary for LAAO device implant. My Patient and I, the referring physician, have reviewed the following: Yes Atrial Fibrillation increases the risk of stroke. Yes Anticoagulants or blood thinners help reduce the risk of stroke for most people. Yes Blood thinners may cause minor or serious bleeding issues. Yes Blood thinners include the medications aspirin, warfarin, and NOAC (dabigatran, edoxaban, rivaroxaban, apixaban...), each with unique risk and safety profiles. Yes We reviewed his/her anticoagulation history and previous experiences. Yes We discussed lack of other alternative treatments available to prevent stroke risk. Yes We discussed the LAAO device implant vs taking anticoagulation to reduce stroke risk. Yes We referred the patient to a LAAO outpatient clinic for further explanation and consideration. Yes The LAAO device has been adequately explained along with the risks and benefits of treatment. Alternative treatment has been discussed with all questions answered. After discussion of the above considerations, it has been decided to be evaluated for the LAAO therapies. Reviewed and approved by TRESSA JACKSON on 11/12/24 at 11:11 AM. documented in this [facility] Work Phone: [phone]) [phone] Instructions* Patient Instructions* Ursula De Jesus LPN - 11/12/2024 10:50 AM EDT Please bring all medicines, vitamins, and herbal supplements with you when you come to the office. Prescriptions will not be filled unless you are compliant with your follow up appointments or have a follow up appointment scheduled as per instruction of your physician. Refills should be requested at the time of your visit. BMI was above normal measurement. Current weight: 118 kg (261 lb) Weight change since last visit (-) denotes wt loss -24 lbs Weight loss needed to achieve BMI 25: 120.2 Lbs Weight loss needed to achieve BMI 30: 92 Lbs Provided instructions on dietary changes. * Attachments The following attachments cannot be sent through Care Everywhere. * Preventing Falls ED ([place]) * Left Atrial Appendage Closure ([place]) * Heart Healthy Diet ([place]) [facility] Work Phone: [phone]) 569-169806-11-2025 NoteHNO ID: [id number] Author: CLARISA GARY APRN.OPERATIONS STAFF SPECIALIST SECURITY Service: ? Author Type: Nurse Practitioner Type: Progress Notes Filed: 10/18/2024 20:28 Note Text: PATIENT NAME: Shanta Ferrer CLINIC NO.: [id number] ATTENDING PHYSICIAN: Keyon Palomino MD DATE OF SERVICE: October 18, [address] Justyna Hanson [id number] [facility] [id number] thank you for referring Shanta Ferrer for an opinion regarding Anemia. Some of the elements of this note have been copied from the previous progress note dated 09/20/2024. All the information has been reviewed carefully. CHIEF COMPLAINT: Anemia HPI: Shanta Ferrer is a 84 year old year old female with PMH of CKD, A,fib, COPD, Depression, CHF, venous stasis referred to us for anemia. FOBT- negative (08/28/24) Lives at home with daughter. Recently hospitalized with hemorrhoidal bleeding in first week of September 2024. Recd 2 units PRBC and 3 iron infusions. Light brown colored stools. EGD/colonoscopy- 5 yrs ago. Doing well. C/o fatigue. Not taking PO iron. Intolerant to PO iron. Constipation and sick stomach. Stopped iron supplements 2-3 weeks ago. 10/18/2024: Patient with a history of iron deficiency anemia, currently managed with iron infusions, presents for follow-up. She is currently undergoing a series of five iron infusions and has completed two so far. She reports that the infusions initially improve her energy levels, but she experiences fatigue by the end of the week. Her hemoglobin has improved to 10.3 g/dL. She denies any known bleeding. She reports mild constipation, which she manages by drinking prune juice daily. She denies any blood in her stools. - Doing well. - Started IV iron and tolerating infusions well. - Received Venofor 200 mg on 10/05/2024 and 10/11/2024 Current Outpatient Medications Medication Sig MULTIVITAMIN ORAL Take by mouth. NIACIN ORAL Take by mouth. ferrous sulfate 325 mg (65 mg iron) tablet Take 1 tablet by mouth twice daily. ergocalciferol, vitamin D2, (VITAMIN D) 50,000 unit capsule Take 50,000 Units by mouth once each week. 2 times per week albuterol HFA (PROAIR HFA) 90 mcg/actuation inhaler Inhale 2 Puffs as instructed. albuterol (PROVENTIL) 2.5 mg /3 mL (0.083 %) nebulizer solution Use 2.5 mg via nebulizer three times daily. fluticasone-salmeterol (ADVAIR DISKUS) 250-50 mcg/dose dsdv Inhale 1 Puff as instructed twice daily. hydrochlorothiazide (HYDRODIURIL, ESIDRIX) 50 mg tablet Take 50 mg by mouth once daily. enalapril-hydrochlorothiazide (VASERETIC) 10-25 mg per tablet Take 1 tablet by mouth once daily. metoprolol tartrate, short acting, (LOPRESSOR) 100 mg tablet Take 100 mg by mouth twice daily. allopurinol (ZYLOPRIM) 100 mg tablet Take 100 mg by mouth once daily. dabigatran etexilate (PRADAXA) 75 mg cap Take 75 mg by mouth twice daily. Omeprazole 40 mg capsule Take 40 mg by mouth once daily. No current facility-administered medications for this visit. ALLERGIES Allergen Reactions Contrast Dye Other: See Comments shock/ Ibuprofen Hives Tricor [Fenofibrate* Other: See Comments upset stomach PAST MEDICAL HISTORY Diagnosis Date Arthritis Atrial fibrillation (HCC) CKD (chronic kidney disease) stage III GERD (gastroesophageal reflux disease) Gout Hyperglycemia Hyperlipidemia Hypertension Hypothyroidism Iron deficiency anemia Vitamin D deficiency PAST SURGICAL HISTORY Procedure Laterality Date COLONOSCOPY HYSTERECTOMY HX KNEE SURGERY HX TONSILLECTOMY HX FAMILY HISTORY Problem Relation Age of Onset Heart Mother Heart Father Stroke Mother Cancer Father Social History Tobacco Use Smoking status: Former Current packs/day: 0.00 Types: Cigarettes Quit date: 07/22/2004 Years since quittin.2 Smokeless tobacco: Never Substance Use Topics Alcohol use: No Drug use: No REVIEW OF SYSTEMS General: No weight loss, malaise or fevers. No night sweats. HEENT: Negative for headaches, No changes in hearing or vision, no nose bleeds or other nasal problems. Respiratory: Negative for cough, wheezing and shortness of breath. Cardiovascular: Negative for chest pain, leg swelling and palpitations. GI: Negative for abdominal discomfort, blood in stools or black stools and change in bowel habits. : Negative for dysuria, frequency and incontinence. Musculoskeletal: Negative for joint pain or swelling, back pain, and muscle pain. Skin: Negative for lesions, rash, and itching. Hematology/Lymphology: Negative for prolonged bleeding, bruising easily, and swollen nodes. Neuro: Negative for numbness or tingling of hands/feet. No weakness. PHYSICAL EXAMINATION: BP 109/69 Pulse 74 Temp 36.4 ?C (97.6 ?F) (Temporal) Resp 18 Wt 123.7 kg (272 lb 11.3 oz) SpO2 96% BMI 48.32 kg/m? General appearance:ECOG PERFORMANCE STATUS: 2- Ambulatory and capable of all selfcare; unable to carry out work activities. (more content not included)...[facility]06-11-2025 History of Present illness Narrative* Clarisa Gary, PAXTON.OPERATIONS STAFF SPECIALIST SECURITY - 10/17/2024 7:28 PM EDT PATIENT NAME: Shanta Ferrer CLINIC NO.: [id number] ATTENDING PHYSICIAN: Keyon Palomino MD DATE OF SERVICE: October 18, [address] Justyna Hanson [address] [facility] [phone] thank you for referring Shanta Ferrer for an opinion regarding Anemia. Some of the elements of this note have been copied from the previous progress note dated 09/20/2024.All the information has been reviewed carefully. CHIEF COMPLAINT: Anemia HPI: Shanat Ferrer is a 84 year old year old female with PMH of CKD, A,fib, COPD, Depression, CHF, venous stasis referred to us for anemia. FOBT- negative (08/28/24) Lives at home with daughter. Recently hospitalized with hemorrhoidal bleeding in first week of September 2024. Recd 2 units PRBC and 3 iron infusions. Light brown colored stools. EGD/colonoscopy- 5 yrs ago. Doing well. C/o fatigue. Not taking PO iron. Intolerant to PO iron. Constipation and sick stomach. Stopped iron supplements 2-3 weeks ago. 10/18/2024: Patient with a history of iron deficiency anemia, currently managed with iron infusions, presents for follow-up. She is currently undergoing a series of five iron infusions and has completed two so far. She reports that the infusions initially improve her energy levels, but she experiences fatigue by the end ofthe week. Her hemoglobin has improved to 10.3 g/dL. She denies any known bleeding. She reports mild constipation, which she manages by drinking prune juice daily. She denies any blood in her stools. - Doing well. - Started IV iron and tolerating infusions well. - Received Venofor 200 mg on 10/05/2024 and 10/11/2024 Current Outpatient Medications Medication Sig MULTIVITAMIN ORAL Take by mouth. NIACIN ORAL Take by mouth. ferrous sulfate 325 mg (65 mg iron) tablet Take 1 tablet by mouth twice daily. ergocalciferol, vitamin D2, (VITAMIN D) 50,000 unit capsule Take 50,000 Units by mouth once each week. 2 times per week albuterol HFA (PROAIR HFA) 90 mcg/actuation inhaler Inhale 2 Puffs as instructed. albuterol (PROVENTIL) 2.5 mg /3 mL (0.083 %) nebulizer solution Use 2.5 mg via nebulizer three times daily. fluticasone-salmeterol (ADVAIR DISKUS) 250-50 mcg/dose dsdv Inhale 1 Puff as instructed twice daily. hydrochlorothiazide (HYDRODIURIL, ESIDRIX) 50 mg tablet Take 50 mg by mouth once daily. enalapril-hydrochlorothiazide (VASERETIC) 10-25 mg per tablet Take 1 tablet by mouth once daily. metoprolol tartrate, short acting, (LOPRESSOR) 100 mg tablet Take 100 mg by mouth twice daily. allopurinol (ZYLOPRIM) 100 mg tablet Take 100 mg by mouth once daily. dabigatran etexilate (PRADAXA) 75 mg cap Take 75 mg by mouth twice daily. Omeprazole 40 mg capsule Take 40 mg by mouth once daily. No current facility-administered medications for this visit. ALLERGIES Allergen Reactions Contrast Dye Other: See Comments shock/ Ibuprofen Hives Tricor [Fenofibrate* Other: See Comments upset stomach PAST MEDICAL HISTORY Diagnosis Date Arthritis Atrial fibrillation (HCC) CKD (chronic kidney disease) stage III GERD (gastroesophageal reflux disease) Gout Hyperglycemia Hyperlipidemia Hypertension Hypothyroidism Iron deficiency anemia Vitamin D deficiency PAST SURGICAL HISTORY Procedure Laterality Date COLONOSCOPY HYSTERECTOMY HX KNEE SURGERY HX TONSILLECTOMY HX FAMILY HISTORY Problem Relation Age of Onset Heart Mother Heart Father Stroke Mother Cancer Father Social History Tobacco Use Smoking status: Former Current packs/day: 0.00 Types: Cigarettes Quit date: 07/22/2004 Years since quittin.2 Smokeless tobacco: Never Substance Use Topics Alcohol use: No Drug use: No REVIEW OF SYSTEMS General: No weight loss, malaise or fevers. No night sweats. HEENT: Negative for headaches, No changes in hearing or vision, no nose bleeds or other nasal problems. Respiratory: Negative for cough, wheezing and shortness of breath. Cardiovascular: Negative for chest pain, leg swelling and palpitations. GI: Negative for abdominal discomfort, blood in stools or black stools and change in bowel habits. : Negative for dysuria, frequency and incontinence. Musculoskeletal: Negative for joint pain or swelling, back pain, and muscle pain. Skin: Negative for lesions, rash, and itching. Hematology/Lymphology: Negative for prolonged bleeding, bruising easily, and swollen nodes. Neuro: Negative for numbness or tingling of hands/feet. No weakness. PHYSICAL EXAMINATION: BP 109/69 Pulse 74 Temp 36.4 C (97.6 F) (Temporal) Resp 18 Wt 123.7 kg (272 lb 11.3 oz) SpO2 96% BMI 48.32 kg/m General appearance:ECOG PERFORMANCE STATUS: 2- Ambulatory and capable of all selfcare; unable to carry out work activities. Up and about > 50% of waking hrs. Patient in NAD. Skin: Skin color, texture, turgor normal. No rashes or lesions. Eyes: Anicteric sclera. Pupils are equally round and reactive to light. Extraocular movements are intact. Lymph Nodes: No cervical, supraclavicular, axillary or inguinal adenopathy. Oropharynx: Lips, mucosa, and tongue normal. Back: No pain to percussion. Negative SLR test Lungs clear to auscultation, No wheezing or rhonchi Heart: RRR without murmur, gallop, or rubs. Abdomen soft, non-tender. No masses, organomegaly Extremities: edema present. Venous stasis. Neuro: Gait and speech normal. Reflexes normal and symmetric. Muscular strength intact. Sensation grossly intact. Rectal: Deferred : Deferred LABS: Glucose (mg/dL) Date Value 10/18/2024 122 04/29/2015 138 Potassium (mmol/L) Date Value 10/18/2024 4.6 04/29/2015 4.8 Sodium (mmol/L) Date Value 10/18/2024 138 04/29/2015 140 Chloride (mmol/L) Date Value 10/18/2024 102 04/29/2015 99 CO2 (mmol/L) Date Value 10/18/2024 25 04/29/2015 29 Creatinine (mg/dL) Date Value 10/18/2024 1.68 04/29/2015 1.38 BUN (mg/dL) Date Value 10/18/2024 38 04/29/2015 19 Anion Gap (mmol/L) Date Value 10/18/2024 11 04/29/2015 12 Calcium (mg/dL) Date Value 04/29/2015 9.4 Calcium, Total (mg/dL) Date Value 10/18/2024 9.1 Protein, Total (g/dL) Date Value 10/18/2024 6.2 04/29/2015 6.8 Albumin (g/dL) Date Value 10/18/2024 3.3 04/29/2015 3.8 Bilirubin, Total (mg/dL) Date Value 10/18/2024 0.4 04/29/2015 0.9 Alkaline Phosphatase (U/L) Date Value 10/18/2024 130 04/29/2015 69 AST (U/L) Date Value 10/18/2024 14 04/29/2015 23 ALT (U/L) Date Value 10/18/2024 5 04/29/2015 19 WBC Date Value Ref Range Status 10/18/2024 7.18 3.70 - 11.00 k/uL Final RBC Date Value Ref Range Status 10/18/2024 3.77 (L) 3.90 - 5.20 m/uL Final Hemoglobin Date Value Ref Range Status 10/18/2024 10.3 (L) 11.5 - 15.5 g/dL Final Hematocrit Date Value Ref Range Status 10/18/2024 34.1 (L) 36.0 - 46.0 % Final MCV Date Value Ref Range Status 10/18/2024 90.5 80.0 - 100.0 fL Final MCH Date Value Ref Range Status 10/18/2024 27.3 26.0 - 34.0 pg Final MCHC Date Value Ref Range Status 10/18/2024 30.2 (L) 30.5 - 36.0 g/dL Final RDW-CV Date Value Ref Range Status 10/18/2024 21.9 (H) 11.5 - 15.0 % Final Platelet Count Date Value Ref Range Status 10/18/2024 182 150 - 400 k/uL Final MPV Date Value Ref Range Status 10/18/2024 9.0 9.0 - 12.7 fL Final Abs Neut Date Value Ref Range Status 10/18/2024 4.53 1.45 - 7.50 k/uL Final Lymphocytes % Date Value Ref Range Status 10/18/2024 26.0 % Final Abs Lymph Date Value Ref Range Status 10/18/2024 1.87 1.00 - 4.00 k/uL Final Monocytes % Date Value Ref Range Status 10/18/2024 7.5 % Final Abs Payette Date Value Ref Range Status 10/18/2024 0.54 <0.87 k/uL Final Abs Eosin Date Value Ref Range Status 10/18/2024 0.19 <0.46 k/uL Final Basophils % Date Value Ref Range Status 10/18/2024 0.3 % Final Abs Baso Date Value Ref Range Status 10/18/2024 <0.03 <0.11 k/uL Final PATH: IMAGING: ASSESSMENT AND PLAN: Shanta Ferrer is a 84 year old year old female referred to us for Anemia. H/o CKD, A,fib, COPD, Depression, CHF, venous stasis. PLAN: - Explained to her in detail the various etiologies for anemia including iron deficiency , vitamin deficiency, bleeding and bone marrow disorders. - Started IV iron 200 mg weekly x 5. Started on 10/05/2024. She has received 2 doses. - She is due for week 3 of Venofer. She is scheduled for the 4th and 5th doses. - We will plan to see her back in 8 weeks for follow-up and labs. Dear Dr. Justyna Hanson [address] [facility] [place] [address] thank you for allowing me to participate in [facility], if there areany questions or concerns please do not hesitate to contact me at the number below. I spent a total of 30 minutes on the date of the service which included preparing to see the patient, [id number] patient care, completing clinical documentation, obtaining and/or reviewing separately obtained history, performing a medically appropriate examination, counseling and educating the pat ient/family/caregiver, ordering medications, tests, or procedures, communicating with other HCPs (not separately reported), independently interpreting results (not separately reported), communicatingresults to the patient/family/caregiver, and care coordination (not separately reported). Clarisa Gary APRN.JI Hematology/Medical Oncology [facility] [place] [phone] CC: documented [facility] Telephone encounter Note * Telephone Encounter - Lashell Armenta MA - 10/15/2024 3:56 PM EDT Lab orders needed for 10/18. Lashell Armenta MA [facility]06-09-[facility] Miscellaneous Notes* Telephone Encounter - Lashell Armenta MA - 10/15/2024 3:56 PM EDT Lab orders needed for 10/18. Lashell Armenta MA documented in this encounterHolzer [facility] System05-19-2025 Telephone encounter Note * Telephone Encounter - Yoan Rivera - 09/24/2024 11:37 AM EDT Patient has been scheduled to start Venofer on Tuesday, 10/05. She will make additional appts at thisvisit due to her transportation. Yoan Miguel [facility]05-19-2025 Miscellaneous Notes* Telephone Encounter - Yoan Rivera - 09/24/2024 11:37 AM EDT Patient has been scheduled to start Venofer on Tuesday, 10/05. She will make additional appts at thisvisit due to her transportation. Yoan Alvinajaz * Telephone Encounter - Glendy Cruz RPh - 09/21/2024 2:16 PM EDT Venofer x 5 doses pended and routed in separate encounter. PSS please schedule accordingly Thank you Cain Cruz PharmD, BCOP * Telephone Encounter - Keyon Palomino MD - 09/21/2024 11:37 AM EDT Please order iron infusion in the [place] for ANTHONY and schedule it. Thank you documented in this encounterHolzer [facility] System05-16-2025 Telephone encounter Note * Telephone Encounter - Glendy Cruz RPh - 09/21/2024 2:16 PM EDT Venofer x 5 doses pended and routed in separate encounter. PSS please schedule accordingly Thank you Lulu TamayoD, BCOP [facility] Work Phone: [phone] 381-116905-16-2025 Telephone encounter Note* Telephone Encounter - Keyon Palomino MD - 09/21/2024 11:37 AM EDT Please order iron infusion in the [place] for ANTHONY and schedule it. Thank you [facility] Work Phone: 1(958) 238-982205-15-2025 Instructions* Patient Instructions* Keyon Palomino MD - 09/20/2024 11:14 AM EDT Blood work today Will order iron infusion and procrit injections if needed F/u in 4 weeks documented in this encounterHolzer Health System05-15-2025 History of Present illness Narrative* Keyon Palomino MD - 09/20/2024 11:00 AM EDT PATIENT NAME: Shanta Ferrer CLINIC NO.: [id number] ATTENDING PHYSICIAN: Keyon Palomino MD DATE OF SERVICE: September 20, [address] Justyna Hanson [address] [facility] [id number] thank you for referring Shanta Ferrer for an opinion regarding Anemia . CHIEF COMPLAINT: Anemia HPI: Shanta Ferrer is a 84 year old year old female with PMH of CKD, A,fib, COPD, Depression, CHF, venous stasis referred to us for anemia. FOBT- negative (08/28/24) Live at home with daughter. Recently hospitalized with hemorrhoidal bleeding in first week of September 2024. Recd 2 units PRBC and 3 iron infusions. Light brown colored stools. EGD/colonoscopy- 5 yrs ago. Doing well. C/o fatigue. Not taking PO iron. Intolerant to PO iron. Constipation and sick stomach. Stopped iron supplements 2-3 weeks ago. Current Outpatient Medications Medication Sig MULTIVITAMIN ORAL Take by mouth. NIACIN ORAL Take by mouth. ferrous sulfate 325 mg (65 mg iron) tablet Take 1 tablet by mouth twice daily. ergocalciferol, vitamin D2, (VITAMIN D) 50,000 unit capsule Take 50,000 Units by mouth once each week. 2 times per week albuterol HFA (PROAIR HFA) 90 mcg/actuation inhaler Inhale 2 Puffs as instructed. albuterol (PROVENTIL) 2.5 mg /3 mL (0.083 %) nebulizer solution Use 2.5 mg via nebulizer three times daily. fluticasone-salmeterol (ADVAIR DISKUS) 250-50 mcg/dose dsdv Inhale 1 Puff as instructed twice daily. hydrochlorothiazide (HYDRODIURIL, ESIDRIX) 50 mg tablet Take 50 mg by mouth once daily. enalapril-hydrochlorothiazide (VASERETIC) 10-25 mg per tablet Take 1 tablet by mouth once daily. metoprolol tartrate, short acting, (LOPRESSOR) 100 mg tablet Take 100 mg by mouth twice daily. allopurinol (ZYLOPRIM) 100 mg tablet Take 100 mg by mouth once daily. dabigatran etexilate (PRADAXA) 75 mg cap Take 75 mg by mouth twice daily. Omeprazole 40 mg capsule Take 40 mg by mouth once daily. No current facility-administered medications for this visit. ALLERGIES Allergen Reactions Contrast Dye Other: See Comments shock/ Ibuprofen Hives Tricor [Fenofibrate* Other: See Comments upset stomach PAST MEDICAL HISTORY Diagnosis Date Arthritis Atrial fibrillation (HCC) CKD (chronic kidney disease) stage III GERD (gastroesophageal reflux disease) Gout Hyperglycemia Hyperlipidemia Hypertension Hypothyroidism Iron deficiency anemia Vitamin D deficiency PAST SURGICAL HISTORY Procedure Laterality Date COLONOSCOPY HYSTERECTOMY HX KNEE SURGERY HX TONSILLECTOMY HX FAMILY HISTORY Problem Relation Age of Onset Heart Mother Heart Father Stroke Mother Cancer Father Social History Tobacco Use Smoking status: Former Current packs/day: 0.00 Types: Cigarettes Quit date: 07/22/2004 Years since quittin.1 Smokeless tobacco: Never Substance Use Topics Alcohol use: No Drug use: No REVIEW OF SYSTEMS GENERAL: No weight loss, malaise or fevers. No night sweats. HEENT: Negative for headaches, No changes in hearing or vision, no nose bleeds or other nasal problems. RESPIRATORY: Negative for cough, wheezing and shortness of breath CARDIOVASCULAR: Negative for chest pain, leg swelling and palpitations GI: Negative for abdominal discomfort, blood in stools or black stools and change in bowel habits : Negative for dysuria, frequency and incontinence MUSCULOSKELETAL: Negative for joint pain or swelling, back pain, and muscle pain. SKIN: Negative for lesions, rash, and itching. HEMATOLOGY/LYMPHOLOGY Negative for prolonged bleeding, bruising easily, and swollen nodes. NEURO: Negative for numbness or tingling of hands/feet. No weakness. PHYSICAL EXAMINATION: BP 125/81 Pulse 109 Temp 36.2 C (97.2 F) (Temporal) Resp 18 Wt 123.7 kg (272 lb 11.3 oz) SpO2 97% BMI 48.32 kg/m There were no vitals taken for this visit. Last 3 Encounter Wt Readings: Date: Wt: 04/29/2015 143.3 kg (316 lb) 01/28/2015 149.7 kg (330 lb) 11/26/2014 151 kg (333 lb) General appearance:ECOG PERFORMANCE STATUS: 2- Ambulatory and capable of all selfcare; unable to carry out work activities. Up and about > 50% of waking hrs. Patient in NAD. Skin: Skin color, texture, turgor normal. No rashes or lesions. Eyes: Anicteric sclera. Pupils are equally round and reactive to light. Extraocular movements are intact. Breast: No palpable breast masses. No nipple change or discharge. Lymph Nodes: No cervical, supraclavicular, axillary or inguinal adenopathy. Oropharynx: Lips, mucosa, and tongue normal. Back: No pain to percussion. Negative SLR test Lungs clear to auscultation, No wheezing or rhonchi Heart: RRR without murmur, gallop, or rubs. Abdomen soft, non-tender. No masses, organomegaly Extremities: edema present. Venous stasis. Neuro: Gait and speech normal. Reflexes normal and symmetric. Muscular strength intact. Sensation grossly intact. Rectal: Deferred : Deferred LABS: Glucose (mg/dL) Date Value 04/29/2015 138 Potassium (mmol/L) Date Value 04/29/2015 4.8 Sodium (mmol/L) Date Value 04/29/2015 140 Chloride (mmol/L) Date Value 04/29/2015 99 CO2 (mmol/L) Date Value 04/29/2015 29 Creatinine (mg/dL) Date Value 04/29/2015 1.38 BUN (mg/dL) Date Value 04/29/2015 19 Anion Gap (mmol/L) Date Value 04/29/2015 12 Calcium (mg/dL) Date Value 04/29/2015 9.4 Protein, Total (g/dL) Date Value 04/29/2015 6.8 Albumin (g/dL) Date Value 04/29/2015 3.8 Bilirubin, Total (mg/dL) Date Value 04/29/2015 0.9 Alkaline Phosphatase (U/L) Date Value 04/29/2015 69 AST (U/L) Date Value 04/29/2015 23 ALT (U/L) Date Value 04/29/2015 19 WBC Date Value Ref Range Status 04/29/2015 5.91 3.70 - 11.00 k/uL Final RBC Date Value Ref Range Status 04/29/2015 3.91 3.90 - 5.20 m/uL Final Hemoglobin Date Value Ref Range Status 04/29/2015 12.3 11.5 - 15.5 g/dL Final Hematocrit Date Value Ref Range Status 04/29/2015 39.2 36.0 - 46.0 % Final MCV Date Value Ref Range Status 04/29/2015 100.3 (H) 80.0 - 100.0 fL Final MCH Date Value Ref Range Status 04/29/2015 31.5 26.0 - 34.0 pG Final MCHC Date Value Ref Range Status 04/29/2015 31.4 30.5 - 36.0 g/dL Final RDW-CV Date Value Ref Range Status 04/29/2015 14.3 11.5 - 15.0 % Final Platelet Count Date Value Ref Range Status 04/29/2015 122 (L) 150 - 400 k/uL Final MPV Date Value Ref Range Status 04/29/2015 9.9 9.0 - 12.7 fL Final Abs Neut (ANC) Date Value Ref Range Status 01/28/2015 3.46 1.45 - 7.50 k/uL Final Lymph% Date Value Ref Range Status 01/28/2015 31.4 % Final Abs Lymph Date Value Ref Range Status 01/28/2015 1.89 1.00 - 4.00 k/uL Final Payette% Date Value Ref Range Status 01/28/2015 8.3 % Final Abs Payette Date Value Ref Range Status 01/28/2015 0.50 0.00 - 0.86 k/uL Final Abs Eosin Date Value Ref Range Status 01/28/2015 0.15 0.00 - 0.45 k/uL Final Baso% Date Value Ref Range Status 01/28/2015 0.3 % Final Abs Baso Date Value Ref Range Status 01/28/2015 0.02 0.00 - 0.10 k/uL Final PATH: IMAGING: ASSESSMENT AND PLAN: Shanta Ferrer is a 84 year old year old female referred to us for Anemia. H/o CKD, A,fib, COPD, Depression, CHF, venous stasis. PLAN: - Explained to her in detail the various etiologies for anemia including iron deficiency , vitamin deficiency, bleeding and bone marrow disorders. - She received 2 units of PRBC and 3 iron infusions in September 2024 in the hospital - She is intolerant to p.o. iron. - Check CBC CMP ferritin iron studies B12 folate myeloma panel hemolytic panel - Will order iron infusions and Procrit injections if needed - Denies any bleeding at this time - All her questions answered in detail - Follow-up in [address] Justyna Hanson [id number] [facility] [phone] thank you for allowing me to participate in Shanta Ferrer care, if there areany questions or concerns please do not hesitate to contact me at the number below. I spent a total of 45 minutes on the date of the service which included preparing to see the patient, [id number] patient care, completing clinical documentation, obtaining and/or reviewing separately obtained history, performing a medically appropriate examination, counseling and educating the pat ient/family/caregiver, ordering medications, tests, or procedures, communicating with other HCPs (not separately reported), independently interpreting results (not separately reported), communicatingresults to the patient/family/caregiver, and care coordination (not separately reported). Keyon Palomino MD. Hematology/Medical Oncology [facility] [phone] CC: [facility] NoteHNO ID: [id number] Author: KEYON PALOMINO MD Service: ? Author Type: Physician Type: Progress Notes Filed: 09/20/2024 11:57 Note Text: PATIENT NAME: Shanta Ferrer CLINIC NO.: [id number] ATTENDING PHYSICIAN: Keyon Palomino MD DATE OF SERVICE: September 20, [address] Justyna Hanson [id number] [facility] [phone] thank you for referring Shanta Ferrer for an opinion regarding Anemia . CHIEF COMPLAINT: Anemia HPI: Shanta eFrrer is a 84 year old year old female with PMH of CKD, A,fib, COPD, Depression, CHF, venous stasis referred to us for anemia. FOBT- negative (08/28/24) Live at home with daughter. Recently hospitalized with hemorrhoidal bleeding in first week of September 2024. Recd 2 units PRBC and 3 iron infusions. Light brown colored stools. EGD/colonoscopy- 5 yrs ago. Doing well. C/o fatigue. Not taking PO iron. Intolerant to PO iron. Constipation and sick stomach. Stopped iron supplements 2-3 weeks ago. Current Outpatient Medications Medication Sig MULTIVITAMIN ORAL Take by mouth. NIACIN ORAL Take by mouth. ferrous sulfate 325 mg (65 mg iron) tablet Take 1 tablet by mouth twice daily. ergocalciferol, vitamin D2, (VITAMIN D) 50,000 unit capsule Take 50,000 Units by mouth once each week. 2 times per week albuterol HFA (PROAIR HFA) 90 mcg/actuation inhaler Inhale 2 Puffs as instructed. albuterol (PROVENTIL) 2.5 mg /3 mL (0.083 %) nebulizer solution Use 2.5 mg via nebulizer three times daily. fluticasone-salmeterol (ADVAIR DISKUS) 250-50 mcg/dose dsdv Inhale 1 Puff as instructed twice daily. hydrochlorothiazide (HYDRODIURIL, ESIDRIX) 50 mg tablet Take 50 mg by mouth once daily. enalapril-hydrochlorothiazide (VASERETIC) 10-25 mg per tablet Take 1 tablet by mouth once daily. metoprolol tartrate, short acting, (LOPRESSOR) 100 mg tablet Take 100 mg by mouth twice daily. allopurinol (ZYLOPRIM) 100 mg tablet Take 100 mg by mouth once daily. dabigatran etexilate (PRADAXA) 75 mg cap Take 75 mg by mouth twice daily. Omeprazole 40 mg capsule Take 40 mg by mouth once daily. No current facility-administered medications for this visit. ALLERGIES Allergen Reactions Contrast Dye Other: See Comments shock/ Ibuprofen Hives Tricor [Fenofibrate* Other: See Comments upset stomach PAST MEDICAL HISTORY Diagnosis Date Arthritis Atrial fibrillation (HCC) CKD (chronic kidney disease) stage III GERD (gastroesophageal reflux disease) Gout Hyperglycemia Hyperlipidemia Hypertension Hypothyroidism Iron deficiency anemia Vitamin D deficiency PAST SURGICAL HISTORY Procedure Laterality Date COLONOSCOPY HYSTERECTOMY HX KNEE SURGERY HX TONSILLECTOMY HX FAMILY HISTORY Problem Relation Age of Onset Heart Mother Heart Father Stroke Mother Cancer Father Social History Tobacco Use Smoking status: Former Current packs/day: 0.00 Types: Cigarettes Quit date: 07/22/2004 Years since quittin.1 Smokeless tobacco: Never Substance Use Topics Alcohol use: No Drug use: No REVIEW OF SYSTEMS GENERAL: No weight loss, malaise or fevers. No night sweats. HEENT: Negative for headaches, No changes in hearing or vision, no nose bleeds or other nasal problems. RESPIRATORY: Negative for cough, wheezing and shortness of breath CARDIOVASCULAR: Negative for chest pain, leg swelling and palpitations GI: Negative for abdominal discomfort, blood in stools or black stools and change in bowel habits : Negative for dysuria, frequency and incontinence MUSCULOSKELETAL: Negative for joint pain or swelling, back pain, and muscle pain. SKIN: Negative for lesions, rash, and itching. HEMATOLOGY/LYMPHOLOGY Negative for prolonged bleeding, bruising easily, and swollen nodes. NEURO: Negative for numbness or tingling of hands/feet. No weakness. PHYSICAL EXAMINATION: BP 125/81 Pulse 109 Temp 36.2 ?C (97.2 ?F) (Temporal) Resp 18 Wt 123.7 kg (272 lb 11.3 oz) SpO2 97% BMI 48.32 kg/m? There were no vitals taken for this visit. Last 3 Encounter Wt Readings: Date: Wt: 04/29/2015 143.3 kg (316 lb) 01/28/2015 149.7 kg (330 lb) 11/26/2014 151 kg (333 lb) General appearance:ECOG PERFORMANCE STATUS: 2- Ambulatory and capable of all selfcare; unable to carry out work activities. Up and about > 50% of waking hrs. Patient in NAD. Skin: Skin color, texture, turgor normal. No rashes or lesions. Eyes: Anicteric sclera. Pupils are equally round and reactive to light. Extraocular movements are intact. Breast: No palpable breast masses. No nipple change or discharge. Lymph Nodes: No cervical, supraclavicular, axillary or inguinal adenopathy. Oropharynx: Lips, mucosa, and tongue normal. Back: No pain to percussion. Negative SLR test Lungs clear to auscultation, No wheezing or rhonchi Heart: RRR without murmur, gallop, or rubs. Abdomen soft, non-tender. No masses, organomegaly Extremities: edema present (more content not included)...[facility]04-24-2025 Progress note Author Marin Whitman [facility] Medical CenterNote Date/TimeApril 2024 11:39[place] [address] Hospitalist Progress Note Signed Patient: Shanta Ferrer MR#: [id number] : 1940 Acct:[id number] Age/Sex: 84 / F Adm Date: 5 Loc: Room: [address] [place] [address] Type: ADM IN Attending Dr: Marin Whitman DO Copies to: ~ Date of Service: 08/30/2024 Subjective Subjective Narrative: Seen and evaluated this morning, she was currently sitting up on edge of bed with therapy. She denies any complaints, she is little bit wheezy which was notpresent yesterday. Niece was present at bedside, all questions answered. Was explained that she will be getting one 1 unit of packed RBC today followed by iron infusion today and tomorrow. Exam Physical Exam Vital Signs: Temp Pulse Resp BP Pulse Ox O2 Del Method 98.3 F 100 18 139/81 97 Room Air 08/30/24 09:01 08/30/24 09:01 08/30/24 09:01 08/30/24 09:01 08/30/24 09:01 08/30/24 09:01 Narrative: General: Awake alert, no acute distress HEENT: head atraumatic, normocephalic, moist mucous membranes Neck: supple no masses, no lymphadenopathy CVS: regular rate and rhythm, no murmurs or gallops Respiratory: Respiratory rate normal, expiratory wheezes noted. GI: soft, nondistended, nontender, positive bowel sounds with no organomegaly Back: She has bilateral pressure ulcers on her buttocks Extremity: moves all extremities, no restrictions of movements, bilateral nonpitting edema, right lower extremity has right weeping ulcer. No signs of any infection. Chronic venous stasis dermatitis is noted. Neuro: AOx3, CN II-VII intact. Moves all extremities in all planes of motion. Skin: dry, intact no rashes or lesions Objective Lab Results 08/30/24 05:30 08/30/24 05:30 Microbiology Results Microbiology 08/29/24 10:36 Urine - Clean-Voided Midstream Urine Culture - Preliminary Gram Negative Bacilli 08/28/24 15:05 Blood - Left Forearm Blood Culture - Preliminary No Growth 1 Day 08/28/24 14:21 Blood - Left Antecubital Blood Culture - Preliminary No Growth 1 Day Meds Allergies and Active Meds Allergies fenofibrate (Tricor) Allergy (Unknown, Verified 08/28/24 13:02) stomach upset ibuprofen Allergy (Unknown, Verified 08/28/24 13:02) Hives Iodinated Contrast Media Allergy (Unknown, Verified 08/28/24 13:02) Unresponsive, shock/ simvastatin (From Zocor) Allergy (Verified 08/28/24 13:02) Flushing Active Meds: Active Medications Generic Name Dose Route Start Last Admin Trade Name Freq PRN Reason Stop Dose Admin Acetaminophen 650 mg 08/28/24 18:13 08/29/24 14:58 Acetaminophen 325 Mg Tablet PO 08/28/25 18:12 650 mg Q6HR PRN Administration Pain Scale 1 - 3 or fever Albuterol 2.5 mg 08/28/24 19:50 Albuterol Neb 2.5 Mg/3 Ml Vial.Neb INHALATION 08/28/25 19:49 TID PRN shortness of breath or wheezing Albuterol/Ipratropium 3 ml 08/28/24 19:50 Ipratropium/Albuterol 0.5-3 Mg 3 Ml Ampul.Neb INHALATION 08/28/25 19:49 QID PRN shortness of breath or wheezing Allopurinol 300 mg 08/29/24 09:00 08/30/24 09:03 Allopurinol 300 Mg Tablet PO 08/29/25 08:59 300 mg DAILY WALTER Administration Calcium Carbonate 1 tab 08/29/24 09:00 08/30/24 09:03 Calcium Carbonate/Vitamin D3 500 Mg/200 Unit Tablet PO 08/29/25 08:59 1 tab DAILY WALTER Administration Dabigatran 75 mg 08/28/24 21:00 08/30/24 09:03 Dabigatran 75 Mg Capsule PO 08/28/25 20:59 75 mg BID WALTER Administration Furosemide 40 mg 08/29/24 08:00 08/30/24 09:03 Furosemide 40 Mg/4 Ml Vial IV-PUSH 08/29/25 07:59 40 mg BID@0800,1600 WALTER Administration Ferric Sodium Gluconate 110 mls @ 110 mls/hr 08/29/24 09:00 08/30/24 09:41 Complex 125 mg/ Sodium IV 08/29/25 08:59 110 mls/hr Chloride QAM WALTER Administration Sodium Chloride 100 mls @ 20 mls/hr 08/30/24 08:37 0.9% Sodium Chloride 100 Ml IV 08/31/24 08:36 PROTOCOL PRN BLOOD TRANSFUSION Levothyroxine Sodium 25 mcg 08/29/24 06:30 08/30/24 06:17 Levothyroxine 25 Mcg Tablet PO 08/29/25 06:29 25 mcg DAILY.0630 WALTER Administration Lorazepam 0.5 mg 08/28/24 19:50 Lorazepam 0.5 Mg Tablet PO 02/24/25 19:49 DAILY PRN Anxiety Melatonin 5 mg 08/28/24 18:13 Melatonin 5 Mg Tablet PO 08/28/25 18:12 QHS PRN Insomnia Metoprolol Succinate 50 mg 08/29/24 09:00 08/30/24 09:03 Metoprolol Succinate 50 Mg Tab.Er.24h PO 08/29/25 08:59 50 mg DAILY WALTER Administration Ondansetron HCl 4 mg 08/28/24 18:13 08/29/24 17:11 Ondansetron 4 Mg/2 Ml Vial IV-PUSH 08/28/25 18:12 4 mg Q8H PRN Administration Nausea And Vomiting Pantoprazole Sodium 40 mg 08/29/24 07:30 08/30/24 09:02 Pantoprazole 40 Mg Tablet.Dr PO 08/29/25 07:29 40 mg BID.AC.BKFAST.SUPPER WALTER Administration Psyllium Hydrophilic Mucilloid 1 packet 08/29/24 09:00 08/30/24 09:03 Psyllium Husk 3.4 Gm Packet PO 08/29/25 08:59 Not Given DAILY WALTER Sertraline HCl 100 mg 08/29/24 09:00 08/30/24 09:03 Sertraline 100 Mg Tablet PO 08/29/25 08:59 100 mg DAILY WALTER Administration Sodium Chloride 0 ml 08/28/24 13:01 08/29/24 17:11 Sodium Chloride 0.9 % 10 Ml Syringe IV-PUSH 08/28/25 13:00 10 ml PRN PRN Administration Flush Spironolactone 25 mg 08/28/24 21:00 08/30/24 09:04 Spironolactone 25 Mg Tablet PO 08/28/25 20:59 25 mg BID WALTER Administration Triamterene/Hydrochlorothiazide 1 tab 08/29/24 09:00 08/30/24 09:03 Triamterene/Hctz 75-50mg 1 Tab Tablet PO 08/29/25 08:59 1 tab DAILY WALTER Administration A&P - Hospitalist Assessment/Plan (1) Acute on chronic anemia: Plan: ? Hemoglobin trended up to 7.1 this morning. ? Status post 1 unit PRBC on 08/28 and a second unit will be given today, August 30 ? Iron studies are consistent with severe iron deficiency anemia ? Her reticulocyte count is increased showing good bone marrow response ? Continue with IV iron as ordered ? Metamucil daily, hold her p.o. iron supplementation ??Continue with IV Lasix as ordered Given that she has history of severe hemorrhoidal bleeding and is extremely constipated from her p.o. iron supplementation, despite being on oral iron supplementation and her iron levels were undetectable she would benefit greatly from 3 more doses of IV iron. Will plan to complete this while inpatient. (2) Pressure ulcer: Plan: Present on admission, family is already working on getting a hospital bed set upat home for her (3) CKD stage 3b, GFR 30-44 ml/min: Plan: Stable and at baseline (4) Iron deficiency: Plan: See above Plan ? DVT prophylaxis addressed ? Normal diet, fluid restriction ? DNR CCA without intubation Documented By: Marin Whitman, 08/30/24 1053 Signed By: <Electronically signed by Marin Whitman, DO> 08/30/24 [address] [facility] Work Phone: [phone] 467-842504-24-2025 [place] [address] Hospitalist Progress Note Signed Patient: Shanta Ferrer MR#: [id number] : 1940 Acct:[id number] Age/Sex: 84 / F Adm Date: 5 Loc: 3T Room: [address] [place] [address] Type: ADM IN Attending Dr: Marin Whitman DO Copies to: ~ Date of Service: 08/30/2024 Subjective Subjective Narrative: Seen and evaluated this morning, she was currently sitting up on edge of bed with therapy. She denies any complaints, she is little bit wheezy which was notpresent yesterday. Niece was present at bedside, all questions answered. Was explained that she will be getting one 1 unit of packed RBC today followed by iron infusion today and tomorrow. Exam Physical Exam Vital Signs: Temp Pulse Resp BP Pulse Ox O2 Del Method 98.3 F 100 18 139/81 97 Room Air 08/30/24 09:01 08/30/24 09:01 08/30/24 09:01 08/30/24 09:01 08/30/24 09:01 08/30/24 09:01 Narrative: General: Awake alert, no acute distress HEENT: head atraumatic, normocephalic, moist mucous membranes Neck: supple no masses, no lymphadenopathy CVS: regular rate and rhythm, no murmurs or gallops Respiratory: Respiratory rate normal, expiratory wheezes noted. GI: soft, nondistended, nontender, positive bowel sounds with no organomegaly Back: She has bilateral pressure ulcers on her buttocks Extremity: moves all extremities, no restrictions of movements, bilateral nonpitting edema, right lower extremity has right weeping ulcer. No signs of any infection. Chronic venous stasis dermatitis is noted. Neuro: AOx3, CN II-VII intact. Moves all extremities in all planes of motion. Skin: dry, intact no rashes or lesions Objective Lab Results 08/30/24 05:30 08/30/24 05:30 Microbiology Results Microbiology 08/29/24 10:36 Urine - Clean-Voided Midstream Urine Culture - Preliminary Gram Negative Bacilli 08/28/24 15:05 Blood - Left Forearm Blood Culture - Preliminary No Growth 1 Day 04/22/25 14:21 Blood - Left Antecubital Blood Culture - Preliminary No Growth 1 Day Meds Allergies and Active Meds Allergies fenofibrate (Tricor) Allergy (Unknown, Verified 08/28/24 13:02) stomach upset ibuprofen Allergy (Unknown, Verified 08/28/24 13:02) Hives Iodinated Contrast Media Allergy (Unknown, Verified 08/28/24 13:02) Unresponsive, shock/ simvastatin (From Zocor) Allergy (Verified 08/28/24 13:02) Flushing Active Meds: Active Medications Generic Name Dose Route Start Last Admin Trade Name Freq PRN Reason Stop Dose Admin Acetaminophen 650 mg 08/28/24 18:13 08/29/24 14:58 Acetaminophen 325 Mg Tablet PO 08/28/25 18:12 650 mg Q6HR PRN Administration Pain Scale 1 - 3 or fever Albuterol 2.5 mg 08/28/24 19:50 Albuterol Neb 2.5 Mg/3 Ml Vial.Neb INHALATION 08/28/25 19:49 TID PRN shortness of breath or wheezing Albuterol/Ipratropium 3 ml 08/28/24 19:50 Ipratropium/Albuterol 0.5-3 Mg 3 Ml Ampul.Neb INHALATION 08/28/25 19:49 QID PRN shortness of breath or wheezing Allopurinol 300 mg 08/29/24 09:00 08/30/24 09:03 Allopurinol 300 Mg Tablet PO 08/29/25 08:59 300 mg DAILY WALTER Administration Calcium Carbonate 1 tab 08/29/24 09:00 08/30/24 09:03 Calcium Carbonate/Vitamin D3 500 Mg/200 Unit Tablet PO 08/29/25 08:59 1 tab DAILY WALTER Administration Dabigatran 75 mg 08/28/24 21:00 08/30/24 09:03 Dabigatran 75 Mg Capsule PO 08/28/25 20:59 75 mg BID WALTER Administration Furosemide 40 mg 08/29/24 08:00 08/30/24 09:03 Furosemide 40 Mg/4 Ml Vial IV-PUSH 08/29/25 07:59 40 mg BID@0800,1600 WALTER Administration Ferric Sodium Gluconate 110 mls @ 110 mls/hr 08/29/24 09:00 08/30/24 09:41 Complex 125 mg/ Sodium IV 08/29/25 08:59 110 mls/hr Chloride QAM WALTER Administration Sodium Chloride 100 mls @ 20 mls/hr 08/30/24 08:37 0.9% Sodium Chloride 100 Ml IV 08/31/24 08:36 PROTOCOL PRN BLOOD TRANSFUSION Levothyroxine Sodium 25 mcg 08/29/24 06:30 08/30/24 06:17 Levothyroxine 25 Mcg Tablet PO 08/29/25 06:29 25 mcg DAILY.0630 WALTER Administration Lorazepam 0.5 mg 08/28/24 19:50 Lorazepam 0.5 Mg Tablet PO 02/24/25 19:49 DAILY PRN Anxiety Melatonin 5 mg 08/28/24 18:13 Melatonin 5 Mg Tablet PO 08/28/25 18:12 QHS PRN Insomnia Metoprolol Succinate 50 mg 08/29/24 09:00 08/30/24 09:03 Metoprolol Succinate 50 Mg Tab.Er.24h PO 08/29/25 08:59 50 mg DAILY WALTER Administration Ondansetron HCl 4 mg 08/28/24 18:13 08/29/24 17:11 Ondansetron 4 Mg/2 Ml Vial IV-PUSH 08/28/25 18:12 4 mg Q8H PRN Administration Nausea And Vomiting Pantoprazole Sodium 40 mg 08/29/24 07:30 08/30/24 09:02 Pantoprazole 40 Mg Tablet. PO 08/29/25 07:29 40 mg BID.AC.BKFAST.SUPPER WALTER Administration Psyllium Hydrophilic Mucilloid 1 packet 08/29/24 09:00 08/30/24 09:03 Psyllium Husk 3.4 Gm Packet PO 08/29/25 08:59 Not Given DAILY WALTER Sertraline HCl 100 mg 08/29/24 09:00 08/30/24 09:03 Sertraline 100 Mg Tablet PO 08/29/25 08:59 100 mg DAILY WALTER Administration Sodium Chloride 0 ml 08/28/24 13:01 08/29/24 17:11 Sodium Chloride 0.9 % 10 Ml Syringe IV-PUSH 08/28/25 13:00 10 ml PRN PRN Administration Flush Spironolactone 25 mg 08/28/24 21:00 08/30/24 09:04 Spironolactone 25 Mg Tablet PO 08/28/25 20:59 25 mg BID WALTER Administration Triamterene/Hydrochlorothiazide 1 tab 08/29/24 09:00 08/30/24 09:03 Triamterene/Hctz 75-50mg 1 Tab Tablet PO 08/29/25 08:59 1 tab DAILY WALTER Administration A&P - Hospitalist Assessment/Plan (1) Acute on chronic anemia: Plan: ? Hemoglobin trended up to 7.1 this morning. ? Status post 1 unit PRBC on 08/28 and a second unit will be given today, August 30 ? Iron studies are consistent with severe iron deficiency anemia ? Her reticulocyte count is increased showing good bone marrow response ? Continue with IV iron as ordered ? Metamucil daily, hold her p.o. iron supplementation ??Continue with IV Lasix as ordered Given that she has history of severe hemorrhoidal bleeding and is extremely constipated from her p.o. iron supplementation, despite being on oral iron supplementation and her iron levels were undetectable she would benefit greatly from 3 more doses of IV iron. Will plan to complete this while inpatient. (2) Pressure ulcer: Plan: Present on admission, family is already working on getting a hospital bed set upat home for her (3) CKD stage 3b, GFR 30-44 ml/min: Plan: Stable and at baseline (4) Iron deficiency: Plan: See above Plan ? DVT prophylaxis addressed ? Normal diet, fluid restriction ? DNR CCA without intubation Documented By: Marin Whitman DO 08/30/24 1057 Signed By: 08/30/24 1139 [facility]04-23-2025 Progress note Author Marin Whitman [facility] CenterNote Date/TimeApril 2024 11:21[place] [address] Hospitalist Progress Note Signed Patient: Shanta Ferrer MR#: [id number] : 1940 Acct:[id number] Age/Sex: 84 / F Adm Date: 5 Loc: Room: [address] [place] [address] Type: ADM IN Attending Dr: Marin Whitman DO Copies to: ~ Date of Service: 08/29/2024 Subjective Subjective Narrative: Seen and evaluated this morning, she did not get much sleep last night, she doesfeel like she is a little bit better regarding her dyspnea. Her lab results were reviewed with her, her hemoglobin did elevate to 7.1 this morning.I know she was 7.0 yesterday in the ER however just the day prior to that she was 6.4. I do believe the 6.4 was likely her true hemoglobin and yesterday was little hemoconcentrated. All questions answered. There is no family bedside present for discussion. I did round on patient a second time later on the morning while wound care was in there just to observe her lower extremity wounds, the right side Unna boot was removed and she did have some weeping ulcerations though there is no signs of any erythema, no drainage that looked infectious. Exam Physical Exam Vital Signs: Temp Pulse Resp BP Pulse Ox O2 Del Method 98.0 F 93 20 116/67 97 Room Air 08/29/24 07:34 08/29/24 07:34 08/29/24 07:34 08/29/24 07:34 08/29/24 07:34 08/29/24 07:34 Narrative: General: Awake alert, no acute distress HEENT: head atraumatic, normocephalic, moist mucous membranes Neck: supple no masses, no lymphadenopathy CVS: regular rate and rhythm, no murmurs or gallops Respiratory: Tachypneic, the lungs appear to be clear to auscultation bilaterally though this is difficult to truthfully auscultate secondary to her body habitus GI: soft, nondistended, nontender, positive bowel sounds with no organomegaly Back: She has bilateral pressure ulcers on her buttocks Extremity: moves all extremities, no restrictions of movements, bilateral nonpitting edema, right lower extremity has right weeping ulcer. No signs of any infection. Chronic venous stasis dermatitis is noted. Neuro: AOx3, CN II-VII intact. Moves all extremities in all planes of motion. Skin: dry, intact no rashes or lesions Objective Lab Results 08/29/24 05:42 08/29/24 05:42 Microbiology Results Microbiology 08/28/24 16:36 Stool Stool Occult Blood (HARSHAD) - Final Meds Allergies and Active Meds Allergies fenofibrate (Tricor) Allergy (Unknown, Verified 08/28/24 13:02) stomach upset ibuprofen Allergy (Unknown, Verified 08/28/24 13:02) Hives Iodinated Contrast Media Allergy (Unknown, Verified 08/28/24 13:02) Unresponsive, shock/ simvastatin (From Zocor) Allergy (Verified 08/28/24 13:02) Flushing Active Meds: Active Medications Generic Name Dose Route Start Last Admin Trade Name Freq PRN Reason Stop Dose Admin Acetaminophen 650 mg 08/28/24 18:13 Acetaminophen 325 Mg Tablet PO 08/28/25 18:12 Q6HR PRN Pain Scale 1 - 3 or fever Albuterol 2.5 mg 08/28/24 19:50 Albuterol Neb 2.5 Mg/3 Ml Vial.Neb INHALATION 08/28/25 19:49 TID PRN shortness of breath or wheezing Albuterol/Ipratropium 3 ml 08/28/24 19:50 Ipratropium/Albuterol 0.5-3 Mg 3 Ml Ampul.Neb INHALATION 08/28/25 19:49 QID PRN shortness of breath or wheezing Allopurinol 300 mg 08/29/24 09:00 08/29/24 09:25 Allopurinol 300 Mg Tablet PO 08/29/25 08:59 300 mg DAILY WALTER Administration Calcium Carbonate 1 tab 08/29/24 09:00 08/29/24 09:25 Calcium Carbonate/Vitamin D3 500 Mg/200 Unit Tablet PO 08/29/25 08:59 1 tab DAILY WALTER Administration Dabigatran 75 mg 08/28/24 21:00 08/29/24 09:25 Dabigatran 75 Mg Capsule PO 08/28/25 20:59 75 mg BID WALTER Administration Furosemide 40 mg 08/29/24 08:00 08/29/24 09:00 Furosemide 40 Mg/4 Ml Vial IV-PUSH 08/29/25 07:59 40 mg BID@0800,1600 WALTER Administration Sodium Chloride 100 mls @ 20 mls/hr 08/28/24 16:08 0.9% Sodium Chloride 100 Ml IV 08/29/24 16:07 PROTOCOL PRN BLOOD TRANSFUSION Ferric Sodium Gluconate 110 mls @ 110 mls/hr 08/29/24 09:00 08/29/24 09:00 Complex 125 mg/ Sodium IV 08/29/25 08:59 110 mls/hr Chloride QAM WALTER Administration Levothyroxine Sodium 25 mcg 08/29/24 06:30 08/29/24 06:30 Levothyroxine 25 Mcg Tablet PO 08/29/25 06:29 25 mcg DAILY.0630 WALTER Administration Lorazepam 0.5 mg 08/28/24 19:50 Lorazepam 0.5 Mg Tablet PO 02/24/25 19:49 DAILY PRN Anxiety Melatonin 5 mg 08/28/24 18:13 Melatonin 5 Mg Tablet PO 08/28/25 18:12 QHS PRN Insomnia Metoprolol Succinate 50 mg 08/29/24 09:00 08/29/24 09:25 Metoprolol Succinate 50 Mg Tab.Er.24h PO 08/29/25 08:59 50 mg DAILY WALTER Administration Ondansetron HCl 4 mg 08/28/24 18:13 Ondansetron 4 Mg/2 Ml Vial IV-PUSH 08/28/25 18:12 Q8H PRN Nausea And Vomiting Pantoprazole Sodium 40 mg 08/29/24 07:30 08/29/24 09:25 Pantoprazole 40 Mg Tablet. PO 08/29/25 07:29 40 mg BID.AC.BKFAST.SUPPER WALTER Administration Psyllium Hydrophilic Mucilloid 1 packet 08/29/24 09:00 08/29/24 09:25 Psyllium Husk 3.4 Gm Packet PO 08/29/25 08:59 Not Given DAILY WALTER Sertraline HCl 100 mg 08/29/24 09:00 08/29/24 09:25 Sertraline 100 Mg Tablet PO 08/29/25 08:59 100 mg DAILY WALTER Administration Sodium Chloride 0 ml 08/28/24 13:01 08/29/24 09:00 Sodium Chloride 0.9 % 10 Ml Syringe IV-PUSH 08/28/25 13:00 20 ml PRN PRN Administration Flush Spironolactone 25 mg 08/28/24 21:00 08/29/24 09:26 Spironolactone 25 Mg Tablet PO 08/28/25 20:59 25 mg BID WALTER Administration Triamterene/Hydrochlorothiazide 1 tab 08/29/24 09:00 08/29/24 09:26 Triamterene/Hctz 75-50mg 1 Tab Tablet PO 08/29/25 08:59 1 tab DAILY WALTER Administration A&P - Hospitalist Assessment/Plan (1) Acute on chronic anemia: Plan: ? Hemoglobin trended up to 7.1 this morning. ? Status post 1 unit PRBC on 08/28 ? Iron studies are consistent with severe iron patient see anemia ? Her reticulocyte count is increased showing good bone marrow response ? Continue with IV iron as ordered ? Metamucil daily, hold her p.o. iron supplementation ??Continue with IV Lasix as ordered Given that she has history of severe hemorrhoidal bleeding and is extremely constipated from her p.o. iron supplementation, despite being on oral iron supplementation and her iron levels were undetectable she would benefit greatly from 3 more doses of IV iron. Will plan to complete this while inpatient. (2) Pressure ulcer: Plan: Present on admission, family is already working on getting a hospital bed set upat home for her (3) CKD stage 3b, GFR 30-44 ml/min: Plan: Stable and at baseline (4) Iron deficiency: Plan: See above Plan ? DVT prophylaxis addressed ? Normal diet, fluid restriction ? DNR CCA without intubation Documented By: Marin Whitman DO 08/29/24 1118 Signed By: <Electronically signed by Marin Whitman DO> 08/29/24 1121 [facility] Work Phone: [phone]) 221-815504-23-2025 [place] [address] Hospitalist Progress Note Signed Patient: Shanta Ferrer MR#: [id number] : 1940 Acct:[id number] Age/Sex: 84 / F Adm Date: 5 Loc: Room: [address] [place] [address] Type: ADM IN Attending Dr: Marin Whitman DO Copies to: ~ Date of Service: 08/29/2024 Subjective Subjective Narrative: Seen and evaluated this morning, she did not get much sleep last night, she doesfeel like she is a little bit better regarding her dyspnea. Her lab results were reviewed with her, her hemoglobin did elevate to 7.1 this morning.I know she was 7.0 yesterday in the ER however just the day prior to that she was 6.4. I do believe the 6.4 was likely her true hemoglobin and yesterday was little hemoconcentrated. All questions answered. There is no family bedside present for discussion. I did round on patient a second time later on the morning while wound care was in there just to observe her lower extremity wounds, the right side Unna boot was removed and she did have some weeping ulcerations though there is no signs of any erythema, no drainage that looked infectious. Exam Physical Exam Vital Signs: Temp Pulse Resp BP Pulse Ox O2 Del Method 98.0 F 93 20 116/67 97 Room Air 08/29/24 07:34 08/29/24 07:34 08/29/24 07:34 08/29/24 07:34 08/29/24 07:34 08/29/24 07:34 Narrative: General: Awake alert, no acute distress HEENT: head atraumatic, normocephalic, moist mucous membranes Neck: supple no masses, no lymphadenopathy CVS: regular rate and rhythm, no murmurs or gallops Respiratory: Tachypneic, the lungs appear to be clear to auscultation bilaterally though this is difficult to truthfully auscultate secondary to her body habitus GI: soft, nondistended, nontender, positive bowel sounds with no organomegaly Back: She has bilateral pressure ulcers on her buttocks Extremity: moves all extremities, no restrictions of movements, bilateral nonpitting edema, right lower extremity has right weeping ulcer. No signs of any infection. Chronic venous stasis dermatitis is noted. Neuro: AOx3, CN II-VII intact. Moves all extremities in all planes of motion. Skin: dry, intact no rashes or lesions Objective Lab Results 08/29/24 05:42 08/29/24 05:42 Microbiology Results Microbiology 08/28/24 16:36 Stool Stool Occult Blood (HARSHAD) - Final Meds Allergies and Active Meds Allergies fenofibrate (Tricor) Allergy (Unknown, Verified 08/28/24 13:02) stomach upset ibuprofen Allergy (Unknown, Verified 08/28/24 13:02) Hives Iodinated Contrast Media Allergy (Unknown, Verified 08/28/24 13:02) Unresponsive, shock/ simvastatin (From Zocor) Allergy (Verified 08/28/24 13:02) Flushing Active Meds: Active Medications Generic Name Dose Route Start Last Admin Trade Name Freq PRN Reason Stop Dose Admin Acetaminophen 650 mg 08/28/24 18:13 Acetaminophen 325 Mg Tablet PO 08/28/25 18:12 Q6HR PRN Pain Scale 1 - 3 or fever Albuterol 2.5 mg 08/28/24 19:50 Albuterol Neb 2.5 Mg/3 Ml Vial.Neb INHALATION 08/28/25 19:49 TID PRN shortness of breath or wheezing Albuterol/Ipratropium 3 ml 08/28/24 19:50 Ipratropium/Albuterol 0.5-3 Mg 3 Ml Ampul.Neb INHALATION 08/28/25 19:49 QID PRN shortness of breath or wheezing Allopurinol 300 mg 08/29/24 09:00 08/29/24 09:25 Allopurinol 300 Mg Tablet PO 08/29/25 08:59 300 mg DAILY WALTER Administration Calcium Carbonate 1 tab 08/29/24 09:00 08/29/24 09:25 Calcium Carbonate/Vitamin D3 500 Mg/200 Unit Tablet PO 08/29/25 08:59 1 tab DAILY WALTER Administration Dabigatran 75 mg 08/28/24 21:00 08/29/24 09:25 Dabigatran 75 Mg Capsule PO 08/28/25 20:59 75 mg BID WALTER Administration Furosemide 40 mg 08/29/24 08:00 08/29/24 09:00 Furosemide 40 Mg/4 Ml Vial IV-PUSH 08/29/25 07:59 40 mg BID@0800,1600 WALTER Administration Sodium Chloride 100 mls @ 20 mls/hr 08/28/24 16:08 0.9% Sodium Chloride 100 Ml IV 08/29/24 16:07 PROTOCOL PRN BLOOD TRANSFUSION Ferric Sodium Gluconate 110 mls @ 110 mls/hr 08/29/24 09:00 08/29/24 09:00 Complex 125 mg/ Sodium IV 08/29/25 08:59 110 mls/hr Chloride QAM WALTER Administration Levothyroxine Sodium 25 mcg 08/29/24 06:30 08/29/24 06:30 Levothyroxine 25 Mcg Tablet PO 08/29/25 06:29 25 mcg DAILY.0630 WALTER Administration Lorazepam 0.5 mg 08/28/24 19:50 Lorazepam 0.5 Mg Tablet PO 02/24/25 19:49 DAILY PRN Anxiety Melatonin 5 mg 08/28/24 18:13 Melatonin 5 Mg Tablet PO 08/28/25 18:12 QHS PRN Insomnia Metoprolol Succinate 50 mg 08/29/24 09:00 08/29/24 09:25 Metoprolol Succinate 50 Mg Tab.Er.24h PO 08/29/25 08:59 50 mg DAILY WALTER Administration Ondansetron HCl 4 mg 08/28/24 18:13 Ondansetron 4 Mg/2 Ml Vial IV-PUSH 08/28/25 18:12 Q8H PRN Nausea And Vomiting Pantoprazole Sodium 40 mg 08/29/24 07:30 08/29/24 09:25 Pantoprazole 40 Mg Tablet. PO 08/29/25 07:29 40 mg BID.AC.BKFAST.SUPPER WALTER Administration Psyllium Hydrophilic Mucilloid 1 packet 08/29/24 09:00 08/29/24 09:25 Psyllium Husk 3.4 Gm Packet PO 08/29/25 08:59 Not Given DAILY WALTER Sertraline HCl 100 mg 08/29/24 09:00 08/29/24 09:25 Sertraline 100 Mg Tablet PO 08/29/25 08:59 100 mg DAILY WALTER Administration Sodium Chloride 0 ml 08/28/24 13:01 08/29/24 09:00 Sodium Chloride 0.9 % 10 Ml Syringe IV-PUSH 08/28/25 13:00 20 ml PRN PRN Administration Flush Spironolactone 25 mg 08/28/24 21:00 08/29/24 09:26 Spironolactone 25 Mg Tablet PO 08/28/25 20:59 25 mg BID WALTER Administration Triamterene/Hydrochlorothiazide 1 tab 08/29/24 09:00 08/29/24 09:26 Triamterene/Hctz 75-50mg 1 Tab Tablet PO 08/29/25 08:59 1 tab DAILY WALTER Administration A&P - Hospitalist Assessment/Plan (1) Acute on chronic anemia: Plan: ? Hemoglobin trended up to 7.1 this morning. ? Status post 1 unit PRBC on 08/28 ? Iron studies are consistent with severe iron patient see anemia ? Her reticulocyte count is increased showing good bone marrow response ? Continue with IV iron as ordered ? Metamucil daily, hold her p.o. iron supplementation ??Continue with IV Lasix as ordered Given that she has history of severe hemorrhoidal bleeding and is extremely constipated from her p.o. iron supplementation, despite being on oral iron supplementation and her iron levels were undetectable she would benefit greatly from 3 more doses of IV iron. Will plan to complete this while inpatient. (2) Pressure ulcer: Plan: Present on admission, family is already working on getting a hospital bed set upat home for her (3) CKD stage 3b, GFR 30-44 ml/min: Plan: Stable and at baseline (4) Iron deficiency: Plan: See above Plan ? DVT prophylaxis addressed ? Normal diet, fluid restriction ? DNR CCA without intubation Documented By: Marin Whitman DO 08/29/24 1118 Signed By: 08/29/24 1121 [facility]04-22-2025 History and physical note Author Marin Whitman [facility] CenterNote Date/TimeApril 2024 7:49[place] [address] Hospitalist H&P Signed Patient: Shanta Ferrer MR#: [id number] : 1940 Acct:[id number] Age/Sex: 84 / F Adm Date: 5 Loc: Room: [address] [place] [address] Type: ADM IN Attending Dr: aMrin Whitman DO Copies to: Justyna Hanson,DO Marin Whitman, ~ HPI DATE OF EXAMINATION: 08/28/24 CHIEF COMPLAINT: shortness of breath HISTORY OF PRESENT ILLNESS: Miss Ferrer is a 4-year-old female with a plethora of medical problems most significant for anemia secondary to CKD, incontinence, atrial fibrillation, hypothyroidism, and COPD who presents to hospital today at the request of her primary care physician for anemia.She has been having issues with her anemia forsome time now, she recently had outpatient labs on yesterday August 27 which showed her hemoglobin to be 6.4 and she was subsequently called today when these results were reviewed and told tocome to emergency room. The patient has been feeling more short of breath for quite some time now, it sounds like this all started around April the patient had a significant hemorrhoidal bleed which the family describes as a war zone , the bleeding resolved somewhat however they went then went to [place] and the patient was apprehensive to be examined. The family now endorses that there is only a few spots of blood after a bowel movement and that the bleeding has improved significantly. Sheis on iron supplementation every other day. Of note, her legs do have weeping edema and her primarycare physician has recently increased her Lasix from 40 mg once a day to twice a day, her kidneys are tolerating this well and the family feels her edema is better. Review of Systems Review of Systems All other systems reviewed & are negative unless noted below or in HPI FOR[facility]LY [facility] Medical History History of chicken pox Measles, Rubella Encounter for long-term (current) use of other medications Anemia Hx of fracture finger,toe Nocturnal hypoxemia Macrocytosis History of cellulitis staff celulitis - 01/29/15 Incontinence Depression Asthma Arthritis Vitamin D deficiency Venous insufficiency Stasis dermatitis of both legs Osteoarthritis Neuropathy Iron deficiency anemia History of cardioversion 10-04-17 for A-fib- Dr. Jackson () Dr. Jackson CKD (chronic kidney disease) stage 4, GFR 15-29 ml/min PAF (paroxysmal atrial fibrillation) Gout MATHEW (obstructive sleep apnea) PHT (pulmonary hypertension) Hypothyroid COPD (chronic obstructive pulmonary disease) Surgical History H/O arthroscopic knee surgery left History of tonsillectomy History of colonoscopy (11-28-2013) Dr. Mi (11/13/2008) Dr Lombardo- Normal Hx of appendectomy Hx of hysterectomy Family History Brother Heart disease Legacy FamHx Relation: Brother(s) Legacy FamHx Relation: Brother(s) Hypertension Legacy FamHx Relation: Brother(s) Father Heart disease Cancer Legacy FamHx Problem: Diagnosed with Cancer Lung cancer Family/Other Legacy FamHx Problem: 3 BROTHER :3 SISTERS Grandparent Legacy FamHx Relation: Maternal Grand Father Grandparent Legacy FamHx Relation: Maternal Grand Mother Grandparent Legacy FamHx Relation: Paternal Grand Father Grandparent Legacy FamHx Relation: Paternal Grand Mother Mother Heart disease History of stroke Legacy FamHx Problem: Diagnosed with Stroke Hypertension Sister Diabetes Cancer Legacy FamHx Problem: Diagnosed with Cancer Hypertension Breast cancer Social History Smoking Status: Former smoker Tobacco Type: cigarettes Substance Use Type: None Meds Medications and Allergies Allergies fenofibrate (Tricor) Allergy (Unknown, Verified 08/28/24 13:02) stomach upset ibuprofen Allergy (Unknown, Verified 08/28/24 13:02) Hives Iodinated Contrast Media Allergy (Unknown, Verified 08/28/24 13:02) Unresponsive, shock/ simvastatin (From Zocor) Allergy (Verified 08/28/24 13:02) Flushing Home Medications dabigatran etexilate 75 mg capsule (Pradaxa) 75 mg PO BID 01/16/20 [History Confirmed 08/28/24] magnesium 250 mg tablet 500 mg PO DAILY 12/01/20 [History Confirmed 08/28/24] triamterene 75 mg-hydrochlorothiazide 50 mg tablet 1 tab PO DAILY 12/01/20 [History Confirmed 08/28/24] albuterol sulfate 90 mcg/actuation aerosol inhaler (ProAir HFA) 2 puff inhalation Q4HR PRN Shortness Of Breath Or Wheezing #8.5 grams 12/19/23 [Rx Confirmed 08/28/24] calcium 600 mg (as carbonate)-vitamin D3 20 mcg (800 unit) tablet 1 tab PO DAILY12/19/23 [History Confirmed 08/28/24] ferrous sulfate 325 mg (65 mg iron) tablet 325 mg PO .QOD 12/19/23 [History Confirmed 08/28/24] omeprazole 40 mg capsule,delayed release 40 mg PO .COMPLEX 12/19/23 [History Confirmed 08/28/24] niacin 500 mg tablet 500 mg PO QHS 12/27/23 [History Confirmed 08/28/24] nystatin 100,000 unit/gram topical powder (Nystop) 1 applic topical BID PRN redness 12/27/23 [History Confirmed 08/28/24] 3 ml syringe 06/12/24 [History Confirmed 06/12/24] 25 g x 1 needle #4 ea 06/12/24 [Rx Confirmed 06/12/24] albuterol sulfate 2.5 mg/3 mL (0.083 %) solution for nebulization 2.5 mg (3 mL) inhalation TID PRN shortness of breath or wheezing #75 mL 06/12/24 [Rx Confirmed 08/28/24] cyanocobalamin (vitamin B-12) 1,000 mcg/mL injection solution 1,000 mcg IM QMONTH #1 mL 06/12/24 [Rx Confirmed 08/28/24] levothyroxine 25 mcg tablet (Synthroid) 25 mcg PO DAILY 06/12/24 [History Confirmed 08/28/24] dnhjwlgw-pwx-zpyci acid 0.4 mg-lycopene 300 mcg-lutein 250 mcg tablet (Complete Multivitamin Adult 50 Plus) 1 tab PO DAILY 06/12/24 [History Confirmed 08/28/24] allopurinol 300 mg tablet 300 mg PO DAILY #90 tabs 07/03/24 [Rx Confirmed 08/28/24] metoprolol succinate 50 mg tablet,extended release 24 hr 50 mg PO DAILY #90 tabs07/03/24 [Rx Confirmed 08/28/24] sertraline 100 mg tablet 100 mg PO DAILY #90 tabs 07/03/24 [Rx Confirmed 08/28/24] spironolactone 25 mg tablet 25 mg PO BID #180 tabs 07/03/24 [Rx Confirmed 08/28/24] furosemide 40 mg tablet (Lasix) 40 mg PO BID 30 days #60 tabs 08/01/24 [Rx Confirmed 08/28/24] ipratropium 0.5 mg-albuterol 3 mg (2.5 mg base)/3 mL nebulization soln 3 ml inhalation QID PRN shortness of breath or wheezing #90 mL 08/01/24 [Rx Confirmed 08/28/24] lorazepam 0.5 mg tablet (Ativan) 0.5 mg PO DAILY PRN Anxiety 30 days #30 tabs 08/15/24 [Rx Confirmed 08/28/24] acetaminophen 650 mg tablet,extended release (Arthritis Pain Relief (acetaminophen) ER) 1,300 mg POHS 08/28/24 [History Confirmed 08/28/24] potassium chloride 20 mEq tablet,extended release(part/cryst) (Klor-Con M) 20 meq PO DAILY 08/28/24[History Confirmed 08/28/24] Exam Physical Exam Vital Signs: Temp Pulse Resp BP Pulse Ox O2 Del Method 97.7 F 84 18 154/70 H 100 Room Air 08/28/24 18:58 08/28/24 19:36 08/28/24 19:36 08/28/24 19:36 08/28/24 19:36 08/28/24 19:36 Narrative: General: Awake alert, no acute distress HEENT: head atraumatic, normocephalic, moist mucous membranes Neck: supple no masses, no lymphadenopathy CVS: regular rate and rhythm, no murmurs or gallops Respiratory: Tachypneic, the lungs appear to be clear to auscultation bilaterally though this is difficult to truthfully auscultate secondary to her body habitus GI: soft, nondistended, nontender, positive bowel sounds with no organomegaly Back: She has bilateral pressure ulcers on her buttocks Extremity: moves all extremities, no restrictions of movements, bilateral nonpitting edema, the right lower extremity has an Unna boot. Chronic venous stasis dermatitis is noted. Neuro: AOx3, CN II-VII intact. Moves all extremities in all planes of motion. Skin: dry, intact no rashes or lesions Results - Hospitalist H&P Lab Results Labs: Laboratory Last Values Corrected WBC 10.5 X10E3/uL (3.8-11.6) 08/28/24 14:21 Uncorrected WBC Count 10.5 x10E3/uL (3.8-11.6) 08/28/24 14:21 RBC 3.39 x10E6/uL (3.60-5.00) L 08/28/24 14:21 Hgb 7.0 g/dL (11.8-15.4) L 08/28/24 14:21 Hct 24.1 % (34.0-46.4) L 08/28/24 14:21 MCV 71.1 fl (80-100) L 08/28/24 14:21 MCH 20.5 pg (24.7-34.3) L 08/28/24 14:21 MCHC 28.9 g/dL (32.0-35.0) L 08/28/24 14:21 RDW 21.8 % (11.9-15.3) H 08/28/24 14:21 Plt Count 398 x10E3/uL (150-450) 08/28/24 14:21 MPV 7.4 fl (6.3-10.7) 08/28/24 14:21 Neut % (Auto) N/A 08/28/24 14:21 Lymph % (Auto) N/A 08/28/24 14:21 Payette % (Auto) N/A 08/28/24 14:21 Eos % (Auto) N/A 08/28/24 14:21 Baso % (Auto) N/A 08/28/24 14:21 Nucleat RBC Rel Count N/A 08/28/24 14:21 Neut # (Auto) N/A 08/28/24 14:21 Lymph # (Auto) N/A 08/28/24 14:21 Payette # (Auto) N/A 08/28/24 14:21 Eos # (Auto) N/A 08/28/24 14:21 Baso # (Auto) N/A 08/28/24 14:21 Lymphocytes % 18 % (18-42) 08/28/24 14:21 Monocytes % 4 % (2-11) 08/28/24 14:21 Eosinophils % 2 % (1-3) 08/28/24 14:21 Basophils % 1 % (0-2) 08/28/24 14:21 Myelocytes % 2 % (0-0) H 08/28/24 14:21 Segmented Neutrophils 75 % (50-70) H 08/28/24 14:21 Monocyte Dist Width 20.85 % (0.00-20.00) H 08/28/24 14:21 Nucleated RBCs/100 WBC 1 /100 WBC (0-0) H 08/28/24 14:21 Platelet Estimate Normal (Normal) 08/28/24 14:21 Plt Morphology Comment Normal (Normal) 08/28/24 14:21 RBC Morphology N/A 08/28/24 14:21 Polychromasia Slight 08/28/24 14:21 Hypochromasia Moderate 08/28/24 14:21 Poikilocytosis Slight 08/28/24 14:21 Anisocytosis Marked 08/28/24 14:21 Microcytosis Marked 08/28/24 14:21 Stomatocytes Moderate 08/28/24 14:21 Schistocytes Slight 08/28/24 14:21 PT 14.5 Seconds (9.0-12.9) H 08/28/24 14:21 INR 1.3 08/28/24 14:21 APTT 35.9 Seconds (25.1-36.5) 08/28/24 14:21 PHA Creatinine Clear 33.71 08/28/24 14:21 Sodium 136 mmol/L (136-145) 08/28/24 14:21 Potassium 4.8 mmol/L (3.5-5.1) 08/28/24 14:21 Chloride 103 mmol/L (98-107) 08/28/24 14:21 Carbon Dioxide 24.3 mmol/L (21.0-31.0) 08/28/24 14:21 Anion Gap 13.5 mEq/L (6.0-15.0) 08/28/24 14:21 BUN 44 mg/dL (7-25) H 08/28/24 14:21 Creatinine 1.62 mg/dL (0.60-1.20) H 08/28/24 14:21 Est GFR (CKD-EPI) 31.137 mL/Min 08/28/24 14:21 Glucose 109 mg/dL (70-100) H 08/28/24 14:21 Calcium 9.1 mg/dL (8.6-10.3) 08/28/24 14:21 Magnesium 1.5 mg/dL (1.9-2.7) L 08/28/24 14:21 Total Bilirubin 0.5 mg/dl (0.3-1.0) 08/28/24 14:21 AST 13 U/L (13-39) 08/28/24 14:21 ALT 6 U/L (7-52) L 08/28/24 14:21 Alkaline Phosphatase 124 U/L (34-104) H 08/28/24 14:21 Total Protein 6.8 gm/dL (6.4-8.9) 08/28/24 14:21 Albumin 3.0 gm/dL (3.5-5.7) L 08/28/24 14:21 Globulin 3.8 gm/dL 08/28/24 14:21 Albumin/Globulin Ratio 0.8 08/28/24 14:21 Blood Type O Positive 08/28/24 14:21 Blood Type Recheck O Positive 08/28/24 15:05 Antibody Screen Negative 08/28/24 14:21 Crossmatch (AHG) See Detail 08/28/24 14:21 Microbiology Results Micro: Microbiology - Results from entire visit 08/28/24 16:36 Stool Stool Occult Blood (HARSHAD) - Final Assessment & Plan Assessment/Plan (1) Acute on chronic anemia: Plan: ? She was 6.4 on outpatient labs yesterday ? She will receive 1 unit of PRBC today ? Her iron studies also ordered yesterday in the outpatient setting shows an undetectable iron level, her TIBC is normal and her iron saturation ? Checking reticulocyte count in the morning, this will likely be extremely low as well given her low iron stores ? She is already on p.o. iron supplementation however she is also having quite abit of constipationwith issues of hemorrhoidal bleeding, at this point it wouldbe extreme beneficial to give her IV iron while she was admitted. Will plan to initiate this tomorrow morning. ? Metamucil daily, hold her p.o. iron supplementation ?Will initiate IV Lasix starting tomorrow morning given she is already fluid overload and after receiving blood she will likely accumulate more fluid (2) Pressure ulcer: Plan: Present on admission, family is already working on getting a hospital bed set upat home for her (3) CKD stage 3b, GFR 30-44 ml/min: Plan: Stable and at baseline (4) Iron deficiency: Plan: See above Plan ? DVT prophylaxis addressed ? DNR CCA without intubation ? Full code IP vs OBS Justification Based on differential dx, clinical care plan, and risk of adverse events, if untreated, in my clinical judgement this patient requires an acute care setting as: INPATIENT because of an expectation ofan over 2 midnight stay. Estimated length of stay (# of days): 3 Documented By: Marin Whitman DO 08/28/241936 Signed By: <Electronically signed by Marin Whitman DO> 08/28/241948 [facility] Work Phone: [phone] [place] [address] Hospitalist H&P Signed Patient: Shanta Ferrer MR#: [id number] : 1940 Acct:[id number] Age/Sex: 84 / F Adm Date: 5 Loc: Room: [address] [place] [address] Type: ADM IN Attending Dr: Marin Whitman DO Copies to: DO Marin Mckeon DO~ HPI DATE OF EXAMINATION: 08/28/24 CHIEF COMPLAINT: shortness of breath HISTORY OF PRESENT ILLNESS: Miss Ferrer is a 4-year-old female with a plethora of medical problems most significant for anemia secondary to CKD, incontinence, atrial fibrillation, hypothyroidism, and COPD who presents to hospital today at the request of her primary care physician for anemia.She has been having issues with her anemia forsome time now, she recently had outpatient labs on yesterday August 27 which showed her hemoglobin to be 6.4 and she was subsequently called today when these results were reviewed and told tocome to emergency room. The patient has been feeling more short of breath for quite some time now, it sounds like this all started around April the patient had a significant hemorrhoidal bleed which the family describes as a war zone , the bleeding resolved somewhat however they went then went to [place] and the patient was apprehensive to be examined. The family now endorses that there is only a few spots of blood after a bowel movement and that the bleeding has improved significantly. Sheis on iron supplementation every other day. Of note, her legs do have weeping edema and her primarycare physician has recently increased her Lasix from 40 mg once a day to twice a day, her kidneys are tolerating this well and the family feels her edema is better. Review of Systems Review of Systems All other systems reviewed & are negative unless noted below or in HPI [facility]LY [facility] Medical History History of chicken pox Measles, Rubella Encounter for long-term (current) use of other medications Anemia Hx of fracture finger,toe Nocturnal hypoxemia Macrocytosis History of cellulitis staff celulitis - 01/29/15 Incontinence Depression Asthma Arthritis Vitamin D deficiency Venous insufficiency Stasis dermatitis of both legs Osteoarthritis Neuropathy Iron deficiency anemia History of cardioversion 10-04-17 for A-fib- Dr. Jackson () Dr. Jackson CKD (chronic kidney disease) stage 4, GFR 15-29 ml/min PAF (paroxysmal atrial fibrillation) Gout MATHEW (obstructive sleep apnea) PHT (pulmonary hypertension) Hypothyroid COPD (chronic obstructive pulmonary disease) Surgical History H/O arthroscopic knee surgery left History of tonsillectomy History of colonoscopy (11-28-2013) Dr. Mi (11/13/2008) Dr Lombardo- Normal Hx of appendectomy Hx of hysterectomy Family History Brother Heart disease Legacy FamHx Relation: Brother(s) Legacy FamHx Relation: Brother(s) Hypertension Legacy FamHx Relation: Brother(s) Father Heart disease Cancer Legacy FamHx Problem: Diagnosed with Cancer Lung cancer Family/Other Legacy FamHx Problem: 3 BROTHER :3 SISTERS Grandparent Legacy FamHx Relation: Maternal Grand Father Grandparent Legacy FamHx Relation: Maternal Grand Mother Grandparent Legacy FamHx Relation: Paternal Grand Father Grandparent Legacy FamHx Relation: Paternal Grand Mother Mother Heart disease History of stroke Legacy FamHx Problem: Diagnosed with Stroke Hypertension Sister Diabetes Cancer Legacy FamHx Problem: Diagnosed with Cancer Hypertension Breast cancer Social History Smoking Status: Former smoker Tobacco Type: cigarettes Substance Use Type: None Meds Medications and Allergies Allergies fenofibrate (Tricor) Allergy (Unknown, Verified 08/28/24 13:02) stomach upset ibuprofen Allergy (Unknown, Verified 08/28/24 13:02) Hives Iodinated Contrast Media Allergy (Unknown, Verified 08/28/24 13:02) Unresponsive, shock/ simvastatin (From Zocor) Allergy (Verified 08/28/24 13:02) Flushing Home Medications dabigatran etexilate 75 mg capsule (Pradaxa) 75 mg PO BID 01/16/20 [History Confirmed 08/28/24] magnesium 250 mg tablet 500 mg PO DAILY 12/01/20 [History Confirmed 08/28/24] triamterene 75 mg-hydrochlorothiazide 50 mg tablet 1 tab PO DAILY 12/01/20 [History Confirmed 08/28/24] albuterol sulfate 90 mcg/actuation aerosol inhaler (ProAir HFA) 2 puff inhalation Q4HR PRN Shortness Of Breath Or Wheezing #8.5 grams 12/19/23 [Rx Confirmed 08/28/24] calcium 600 mg (as carbonate)-vitamin D3 20 mcg (800 unit) tablet 1 tab PO DAILY12/19/23 [History Confirmed 08/28/24] ferrous sulfate 325 mg (65 mg iron) tablet 325 mg PO .QOD 12/19/23 [History Confirmed 08/28/24] omeprazole 40 mg capsule,delayed release 40 mg PO .COMPLEX 12/19/23 [History Confirmed 08/28/24] niacin 500 mg tablet 500 mg PO QHS 12/27/23 [History Confirmed 08/28/24] nystatin 100,000 unit/gram topical powder (Nystop) 1 applic topical BID PRN redness 12/27/23 [History Confirmed 08/28/24] 3 ml syringe 06/12/24 [History Confirmed 06/12/24] 25 g x 1 needle #4 ea 06/12/24 [Rx Confirmed 06/12/24] albuterol sulfate 2.5 mg/3 mL (0.083 %) solution for nebulization 2.5 mg (3 mL) inhalation TID PRN shortness of breath or wheezing #75 mL 06/12/24 [Rx Confirmed 08/28/24] cyanocobalamin (vitamin B-12) 1,000 mcg/mL injection solution 1,000 mcg IM QMONTH #1 mL 06/12/24 [Rx Confirmed 08/28/24] levothyroxine 25 mcg tablet (Synthroid) 25 mcg PO DAILY 06/12/24 [History Confirmed 08/28/24] uuqkgyyr-gge-mdjnc acid 0.4 mg-lycopene 300 mcg-lutein 250 mcg tablet (Complete Multivitamin Adult 50 Plus) 1 tab PO DAILY 06/12/24 [History Confirmed 08/28/24] allopurinol 300 mg tablet 300 mg PO DAILY #90 tabs 07/03/24 [Rx Confirmed 08/28/24] metoprolol succinate 50 mg tablet,extended release 24 hr 50 mg PO DAILY #90 tabs07/03/24 [Rx Confirmed 08/28/24] sertraline 100 mg tablet 100 mg PO DAILY #90 tabs 07/03/24 [Rx Confirmed 08/28/24] spironolactone 25 mg tablet 25 mg PO BID #180 tabs 07/03/24 [Rx Confirmed 08/28/24] furosemide 40 mg tablet (Lasix) 40 mg PO BID 30 days #60 tabs 08/01/24 [Rx Confirmed 08/28/24] ipratropium 0.5 mg-albuterol 3 mg (2.5 mg base)/3 mL nebulization soln 3 ml inhalation QID PRN shortness of breath or wheezing #90 mL 08/01/24 [Rx Confirmed 08/28/24] lorazepam 0.5 mg tablet (Ativan) 0.5 mg PO DAILY PRN Anxiety 30 days #30 tabs 08/15/24 [Rx Confirmed 08/28/24] acetaminophen 650 mg tablet,extended release (Arthritis Pain Relief (acetaminophen) ER) 1,300 mg POHS 08/28/24 [History Confirmed 08/28/24] potassium chloride 20 mEq tablet,extended release(part/cryst) (Klor-Con M) 20 meq PO DAILY 08/28/24[History Confirmed 08/28/24] Exam Physical Exam Vital Signs: Temp Pulse Resp BP Pulse Ox O2 Del Method 97.7 F 84 18 154/70 H 100 Room Air 08/28/24 18:58 08/28/24 19:36 08/28/24 19:36 08/28/24 19:36 08/28/24 19:36 08/28/24 19:36 Narrative: General: Awake alert, no acute distress HEENT: head atraumatic, normocephalic, moist mucous membranes Neck: supple no masses, no lymphadenopathy CVS: regular rate and rhythm, no murmurs or gallops Respiratory: Tachypneic, the lungs appear to be clear to auscultation bilaterally though this is difficult to truthfully auscultate secondary to her body habitus GI: soft, nondistended, nontender, positive bowel sounds with no organomegaly Back: She has bilateral pressure ulcers on her buttocks Extremity: moves all extremities, no restrictions of movements, bilateral nonpitting edema, the right lower extremity has an Unna boot. Chronic venous stasis dermatitis is noted. Neuro: AOx3, CN II-VII intact. Moves all extremities in all planes of motion. Skin: dry, intact no rashes or lesions Results - Hospitalist H&P Lab Results Labs: Laboratory Last Values Corrected WBC 10.5 X10E3/uL (3.8-11.6) 08/28/24 14:21 Uncorrected WBC Count 10.5 x10E3/uL (3.8-11.6) 08/28/24 14:21 RBC 3.39 x10E6/uL (3.60-5.00) L 08/28/24 14:21 Hgb 7.0 g/dL (11.8-15.4) L 08/28/24 14:21 Hct 24.1 % (34.0-46.4) L 08/28/24 14:21 MCV 71.1 fl (80-100) L 08/28/24 14:21 MCH 20.5 pg (24.7-34.3) L 08/28/24 14:21 MCHC 28.9 g/dL (32.0-35.0) L 08/28/24 14:21 RDW 21.8 % (11.9-15.3) H 08/28/24 14:21 Plt Count 398 x10E3/uL (150-450) 08/28/24 14:21 MPV 7.4 fl (6.3-10.7) 08/28/24 14:21 Neut % (Auto) N/A 08/28/24 14:21 Lymph % (Auto) N/A 08/28/24 14:21 Payette % (Auto) N/A 08/28/24 14:21 Eos % (Auto) N/A 08/28/24 14:21 Baso % (Auto) N/A 08/28/24 14:21 Nucleat RBC Rel Count N/A 08/28/24 14:21 Neut # (Auto) N/A 08/28/24 14:21 Lymph # (Auto) N/A 08/28/24 14:21 Payette # (Auto) N/A 08/28/24 14:21 Eos # (Auto) N/A 08/28/24 14:21 Baso # (Auto) N/A 08/28/24 14:21 Lymphocytes % 18 % (18-42) 08/28/24 14:21 Monocytes % 4 % (2-11) 08/28/24 14:21 Eosinophils % 2 % (1-3) 08/28/24 14:21 Basophils % 1 % (0-2) 08/28/24 14:21 Myelocytes % 2 % (0-0) H 08/28/24 14:21 Segmented Neutrophils 75 % (50-70) H 08/28/24 14:21 Monocyte Dist Width 20.85 % (0.00-20.00) H 08/28/24 14:21 Nucleated RBCs/100 WBC 1 /100 WBC (0-0) H 08/28/24 14:21 Platelet Estimate Normal (Normal) 08/28/24 14:21 Plt Morphology Comment Normal (Normal) 08/28/24 14:21 RBC Morphology N/A 08/28/24 14:21 Polychromasia Slight 08/28/24 14:21 Hypochromasia Moderate 08/28/24 14:21 Poikilocytosis Slight 08/28/24 14:21 Anisocytosis Marked 08/28/24 14:21 Microcytosis Marked 08/28/24 14:21 Stomatocytes Moderate 08/28/24 14:21 Schistocytes Slight 08/28/24 14:21 PT 14.5 Seconds (9.0-12.9) H 08/28/24 14:21 INR 1.3 08/28/24 14:21 APTT 35.9 Seconds (25.1-36.5) 08/28/24 14:21 PHA Creatinine Clear 33.71 08/28/24 14:21 Sodium 136 mmol/L (136-145) 08/28/24 14:21 Potassium 4.8 mmol/L (3.5-5.1) 08/28/24 14:21 Chloride 103 mmol/L (98-107) 08/28/24 14:21 Carbon Dioxide 24.3 mmol/L (21.0-31.0) 08/28/24 14:21 Anion Gap 13.5 mEq/L (6.0-15.0) 08/28/24 14:21 BUN 44 mg/dL (7-25) H 08/28/24 14:21 Creatinine 1.62 mg/dL (0.60-1.20) H 08/28/24 14:21 Est GFR (CKD-EPI) 31.137 mL/Min 08/28/24 14:21 Glucose 109 mg/dL (70-100) H 08/28/24 14:21 Calcium 9.1 mg/dL (8.6-10.3) 08/28/24 14:21 Magnesium 1.5 mg/dL (1.9-2.7) L 08/28/24 14:21 Total Bilirubin 0.5 mg/dl (0.3-1.0) 08/28/24 14:21 AST 13 U/L (13-39) 08/28/24 14:21 ALT 6 U/L (7-52) L 08/28/24 14:21 Alkaline Phosphatase 124 U/L (34-104) H 08/28/24 14:21 Total Protein 6.8 gm/dL (6.4-8.9) 08/28/24 14:21 Albumin 3.0 gm/dL (3.5-5.7) L 08/28/24 14:21 Globulin 3.8 gm/dL 08/28/24 14:21 Albumin/Globulin Ratio 0.8 08/28/24 14:21 Blood Type O Positive 08/28/24 14:21 Blood Type Recheck O Positive 08/28/24 15:05 Antibody Screen Negative 08/28/24 14:21 Crossmatch (AHG) See Detail 08/28/24 14:21 Microbiology Results Micro: Microbiology - Results from entire visit 08/28/24 16:36 Stool Stool Occult Blood (HARSHAD) - Final Assessment & Plan Assessment/Plan (1) Acute on chronic anemia: Plan: ? She was 6.4 on outpatient labs yesterday ? She will receive 1 unit of PRBC today ? Her iron studies also ordered yesterday in the outpatient setting shows an undetectable iron level, her TIBC is normal and her iron saturation ? Checking reticulocyte count in the morning, this will likely be extremely low as well given her low iron stores ? She is already on p.o. iron supplementation however she is also having quite abit of constipationwith issues of hemorrhoidal bleeding, at this point it wouldbe extreme beneficial to give her IV iron while she was admitted. Will plan to initiate this tomorrow morning. ? Metamucil daily, hold her p.o. iron supplementation ?Will initiate IV Lasix starting tomorrow morning given she is already fluid overload and after receiving blood she will likely accumulate more fluid (2) Pressure ulcer: Plan: Present on admission, family is already working on getting a hospital bed set upat home for her (3) CKD stage 3b, GFR 30-44 ml/min: Plan: Stable and at baseline (4) Iron deficiency: Plan: See above Plan ? DVT prophylaxis addressed ? DNR CCA without intubation ? Full code IP vs OBS Justification Based on differential dx, clinical care plan, and risk of adverse events, if untreated, in my clinical judgement this patient requires an acute care setting as: INPATIENT because of an expectation ofan over 2 midnight stay. Estimated length of stay (# of days): 3 Documented By: Marin Whitman DO 08/28/241936 Signed By: 08/28/241948 [facility]04-16-2025 Evaluation note* Author Justyna Hanson [facility] 2024 4:38pmI feel that Shanta would benefit from Home Health services for correction, wound care, medication guidance.The above note written by ___Cristobal Johnston____ acting as human recorder, note dictated by Dr. Adorno .I performed the above HPI, ROS, and Examination. I formulated and dictated the treatment plan and was present for entire encounter. Justyna Hanson D.O. Author Justyna Hanson [facility] CenterAuthobaldwin park hospitalFebruary 2024 2:15pmThe above note written by ___Cristobal Johnston____ acting as human recorder, note dictated by Dr. Adorno .I performed the above HPI, ROS, and Examination. I formulated and dictated the treatment plan and was present for entire encounter. Justyna Hanson D.O. [facility] Work Phone: [phone] Evaluation note* Author Justyna Hanson [facility] CenterAutmercy healthAprct 2024 4:38pmI feel that Shanta would benefit from Home Health services for correction, wound care, medication guidance.The above note written by ___Cristobal Johnston____ acting as human recorder, note dictated by Dr. Adorno .I performed the above HPI, ROS, and Examination. I formulated and dictated the treatment plan and was present for entire encounter. Justyna Hanson D.O. [facility] Work Phone: [phone] Progress note Author Marin Whitman [facility] CenterNote Date/TimeApril 2024 11:21[place] [id number] Hospitalist Progress Note Signed Patient: Shanta Ferrer MR#: [id number] : 1940 Acct:[id number] Age/Sex: 84 / F Adm Date: 5 Loc: Room: 6V3766-7 Type: ADM IN Attending Dr: Marin Whitman DO Copies to: ~ Date of Service: 08/29/2024 Subjective Subjective Narrative: Seen and evaluated this morning, she did not get much sleep last night, she doesfeel like she is a little bit better regarding her dyspnea. Her lab results were reviewed with her, her hemoglobin did elevate to 7.1 this morning.I know she was 7.0 yesterday in the ER however just the day prior to that she was 6.4. I do believe the 6.4 was likely her true hemoglobin and yesterday was little hemoconcentrated. All questions answered. There is no family bedside present for discussion. I did round on patient a second time later on the morning while wound care was in there just to observe her lower extremity wounds, the right side Unna boot was removed and she did have some weeping ulcerations though there is no signs of any erythema, no drainage that looked infectious. Exam Physical Exam Vital Signs: Temp Pulse Resp BP Pulse Ox O2 Del Method 98.0 F 93 20 116/67 97 Room Air 08/29/24 07:34 08/29/24 07:34 08/29/24 07:34 08/29/24 07:34 08/29/24 07:34 08/29/24 07:34 Narrative: General: Awake alert, no acute distress HEENT: head atraumatic, normocephalic, moist mucous membranes Neck: supple no masses, no lymphadenopathy CVS: regular rate and rhythm, no murmurs or gallops Respiratory: Tachypneic, the lungs appear to be clear to auscultation bilaterally though this is difficult to truthfully auscultate secondary to her body habitus GI: soft, nondistended, nontender, positive bowel sounds with no organomegaly Back: She has bilateral pressure ulcers on her buttocks Extremity: moves all extremities, no restrictions of movements, bilateral nonpitting edema, right lower extremity has right weeping ulcer. No signs of any infection. Chronic venous stasis dermatitis is noted. Neuro: AOx3, CN II-VII intact. Moves all extremities in all planes of motion. Skin: dry, intact no rashes or lesions Objective Lab Results 08/29/24 05:42 08/29/24 05:42 Microbiology Results Microbiology 08/28/24 16:36 Stool Stool Occult Blood (HARSHAD) - Final Meds Allergies and Active Meds Allergies fenofibrate (Tricor) Allergy (Unknown, Verified 08/28/24 13:02) stomach upset ibuprofen Allergy (Unknown, Verified 08/28/24 13:02) Hives Iodinated Contrast Media Allergy (Unknown, Verified 08/28/24 13:02) Unresponsive, shock/ simvastatin (From Zocor) Allergy (Verified 08/28/24 13:02) Flushing Active Meds: Active Medications Generic Name Dose Route Start Last Admin Trade Name Freq PRN Reason Stop Dose Admin Acetaminophen 650 mg 08/28/24 18:13 Acetaminophen 325 Mg Tablet PO 08/28/25 18:12 Q6HR PRN Pain Scale 1 - 3 or fever Albuterol 2.5 mg 08/28/24 19:50 Albuterol Neb 2.5 Mg/3 Ml Vial.Neb INHALATION 08/28/25 19:49 TID PRN shortness of breath or wheezing Albuterol/Ipratropium 3 ml 08/28/24 19:50 Ipratropium/Albuterol 0.5-3 Mg 3 Ml Ampul.Neb INHALATION 08/28/25 19:49 QID PRN shortness of breath or wheezing Allopurinol 300 mg 08/29/24 09:00 08/29/24 09:25 Allopurinol 300 Mg Tablet PO 08/29/25 08:59 300 mg DAILY WALTER Administration Calcium Carbonate 1 tab 08/29/24 09:00 08/29/24 09:25 Calcium Carbonate/Vitamin D3 500 Mg/200 Unit Tablet PO 08/29/25 08:59 1 tab DAILY WALTER Administration Dabigatran 75 mg 08/28/24 21:00 08/29/24 09:25 Dabigatran 75 Mg Capsule PO 08/28/25 20:59 75 mg BID WALTER Administration Furosemide 40 mg 08/29/24 08:00 08/29/24 09:00 Furosemide 40 Mg/4 Ml Vial IV-PUSH 08/29/25 07:59 40 mg BID@0800,1600 WALTER Administration Sodium Chloride 100 mls @ 20 mls/hr 08/28/24 16:08 0.9% Sodium Chloride 100 Ml IV 08/29/24 16:07 PROTOCOL PRN BLOOD TRANSFUSION Ferric Sodium Gluconate 110 mls @ 110 mls/hr 08/29/24 09:00 08/29/24 09:00 Complex 125 mg/ Sodium IV 08/29/25 08:59 110 mls/hr Chloride QAM WALTER Administration Levothyroxine Sodium 25 mcg 08/29/24 06:30 08/29/24 06:30 Levothyroxine 25 Mcg Tablet PO 08/29/25 06:29 25 mcg DAILY.0630 WALTER Administration Lorazepam 0.5 mg 08/28/24 19:50 Lorazepam 0.5 Mg Tablet PO 02/24/25 19:49 DAILY PRN Anxiety Melatonin 5 mg 08/28/24 18:13 Melatonin 5 Mg Tablet PO 08/28/25 18:12 QHS PRN Insomnia Metoprolol Succinate 50 mg 08/29/24 09:00 08/29/24 09:25 Metoprolol Succinate 50 Mg Tab.Er.24h PO 08/29/25 08:59 50 mg DAILY WALTER Administration Ondansetron HCl 4 mg 08/28/24 18:13 Ondansetron 4 Mg/2 Ml Vial IV-PUSH 08/28/25 18:12 Q8H PRN Nausea And Vomiting Pantoprazole Sodium 40 mg 08/29/24 07:30 08/29/24 09:25 Pantoprazole 40 Mg Tablet.Dr PO 08/29/25 07:29 40 mg BID.AC.BKFAST.SUPPER WALTER Administration Psyllium Hydrophilic Mucilloid 1 packet 08/29/24 09:00 08/29/24 09:25 Psyllium Husk 3.4 Gm Packet PO 08/29/25 08:59 Not Given DAILY WALTER Sertraline HCl 100 mg 08/29/24 09:00 08/29/24 09:25 Sertraline 100 Mg Tablet PO 08/29/25 08:59 100 mg DAILY WALTER Administration Sodium Chloride 0 ml 08/28/24 13:01 08/29/24 09:00 Sodium Chloride 0.9 % 10 Ml Syringe IV-PUSH 08/28/25 13:00 20 ml PRN PRN Administration Flush Spironolactone 25 mg 08/28/24 21:00 08/29/24 09:26 Spironolactone 25 Mg Tablet PO 08/28/25 20:59 25 mg BID WALTER Administration Triamterene/Hydrochlorothiazide 1 tab 08/29/24 09:00 08/29/24 09:26 Triamterene/Hctz 75-50mg 1 Tab Tablet PO 08/29/25 08:59 1 tab DAILY WALTER Administration A&P - Hospitalist Assessment/Plan (1) Acute on chronic anemia: Plan: ? Hemoglobin trended up to 7.1 this morning. ? Status post 1 unit PRBC on 08/28 ? Iron studies are consistent with severe iron patient see anemia ? Her reticulocyte count is increased showing good bone marrow response ? Continue with IV iron as ordered ? Metamucil daily, hold her p.o. iron supplementation ??Continue with IV Lasix as ordered Given that she has history of severe hemorrhoidal bleeding and is extremely constipated from her p.o. iron supplementation, despite being on oral iron supplementation and her iron levels were undetectable she would benefit greatly from 3 more doses of IV iron. Will plan to complete this while inpatient. (2) Pressure ulcer: Plan: Present on admission, family is already working on getting a hospital bed set upat home for her (3) CKD stage 3b, GFR 30-44 ml/min: Plan: Stable and at baseline (4) Iron deficiency: Plan: See above Plan ? DVT prophylaxis addressed ? Normal diet, fluid restriction ? DNR CCA without intubation Documented By: Marin Whitman DO 08/29/24 1118 Signed By: <Electronically signed by Marin Whitman DO> 08/29/24 1121 [facility] Work Phone: 1([phone] 686-290604-02-2025 Progress note Author Marin Whitman [facility] CenterNote Date/TimeApril 2024 11:39[place] [address] Hospitalist Progress Note Signed Patient: Shanta Ferrer MR#: [id number] : 1940 Acct:[id number] Age/Sex: 84 / F Adm Date: 5 Loc: Room: [address] [place] [address] Type: ADM IN Attending Dr: Marin Whitman DO Copies to: ~ Date of Service: 08/30/2024 Subjective Subjective Narrative: Seen and evaluated this morning, she was currently sitting up on edge of bed with therapy. She denies any complaints, she is little bit wheezy which was notpresent yesterday. Niece was present at bedside, all questions answered. Was explained that she will be getting one 1 unit of packed RBC today followed by iron infusion today and tomorrow. Exam Physical Exam Vital Signs: Temp Pulse Resp BP Pulse Ox O2 Del Method 98.3 F 100 18 139/81 97 Room Air 08/30/24 09:01 08/30/24 09:01 08/30/24 09:01 08/30/24 09:01 08/30/24 09:01 08/30/24 09:01 Narrative: General: Awake alert, no acute distress HEENT: head atraumatic, normocephalic, moist mucous membranes Neck: supple no masses, no lymphadenopathy CVS: regular rate and rhythm, no murmurs or gallops Respiratory: Respiratory rate normal, expiratory wheezes noted. GI: soft, nondistended, nontender, positive bowel sounds with no organomegaly Back: She has bilateral pressure ulcers on her buttocks Extremity: moves all extremities, no restrictions of movements, bilateral nonpitting edema, right lower extremity has right weeping ulcer. No signs of any infection. Chronic venous stasis dermatitis is noted. Neuro: AOx3, CN II-VII intact. Moves all extremities in all planes of motion. Skin: dry, intact no rashes or lesions Objective Lab Results 08/30/24 05:30 08/30/24 05:30 Microbiology Results Microbiology 08/29/24 10:36 Urine - Clean-Voided Midstream Urine Culture - Preliminary Gram Negative Bacilli 08/28/24 15:05 Blood - Left Forearm Blood Culture - Preliminary No Growth 1 Day 08/28/24 14:21 Blood - Left Antecubital Blood Culture - Preliminary No Growth 1 Day Meds Allergies and Active Meds Allergies fenofibrate (Tricor) Allergy (Unknown, Verified 08/28/24 13:02) stomach upset ibuprofen Allergy (Unknown, Verified 08/28/24 13:02) Hives Iodinated Contrast Media Allergy (Unknown, Verified 08/28/24 13:02) Unresponsive, shock/ simvastatin (From Zocor) Allergy (Verified 08/28/24 13:02) Flushing Active Meds: Active Medications Generic Name Dose Route Start Last Admin Trade Name Freq PRN Reason Stop Dose Admin Acetaminophen 650 mg 08/28/24 18:13 08/29/24 14:58 Acetaminophen 325 Mg Tablet PO 08/28/25 18:12 650 mg Q6HR PRN Administration Pain Scale 1 - 3 or fever Albuterol 2.5 mg 08/28/24 19:50 Albuterol Neb 2.5 Mg/3 Ml Vial.Neb INHALATION 08/28/25 19:49 TID PRN shortness of breath or wheezing Albuterol/Ipratropium 3 ml 08/28/24 19:50 Ipratropium/Albuterol 0.5-3 Mg 3 Ml Ampul.Neb INHALATION 08/28/25 19:49 QID PRN shortness of breath or wheezing Allopurinol 300 mg 08/29/24 09:00 08/30/24 09:03 Allopurinol 300 Mg Tablet PO 08/29/25 08:59 300 mg DAILY WALTER Administration Calcium Carbonate 1 tab 08/29/24 09:00 08/30/24 09:03 Calcium Carbonate/Vitamin D3 500 Mg/200 Unit Tablet PO 08/29/25 08:59 1 tab DAILY WALTER Administration Dabigatran 75 mg 08/28/24 21:00 08/30/24 09:03 Dabigatran 75 Mg Capsule PO 08/28/25 20:59 75 mg BID WALTER Administration Furosemide 40 mg 08/29/24 08:00 08/30/24 09:03 Furosemide 40 Mg/4 Ml Vial IV-PUSH 08/29/25 07:59 40 mg BID@0800,1600 WALTER Administration Ferric Sodium Gluconate 110 mls @ 110 mls/hr 08/29/24 09:00 08/30/24 09:41 Complex 125 mg/ Sodium IV 08/29/25 08:59 110 mls/hr Chloride QAM WALTER Administration Sodium Chloride 100 mls @ 20 mls/hr 08/30/24 08:37 0.9% Sodium Chloride 100 Ml IV 08/31/24 08:36 PROTOCOL PRN BLOOD TRANSFUSION Levothyroxine Sodium 25 mcg 08/29/24 06:30 08/30/24 06:17 Levothyroxine 25 Mcg Tablet PO 08/29/25 06:29 25 mcg DAILY.0630 WALTER Administration Lorazepam 0.5 mg 08/28/24 19:50 Lorazepam 0.5 Mg Tablet PO 02/24/25 19:49 DAILY PRN Anxiety Melatonin 5 mg 08/28/24 18:13 Melatonin 5 Mg Tablet PO 08/28/25 18:12 QHS PRN Insomnia Metoprolol Succinate 50 mg 08/29/24 09:00 08/30/24 09:03 Metoprolol Succinate 50 Mg Tab.Er.24h PO 08/29/25 08:59 50 mg DAILY WALTER Administration Ondansetron HCl 4 mg 08/28/24 18:13 08/29/24 17:11 Ondansetron 4 Mg/2 Ml Vial IV-PUSH 08/28/25 18:12 4 mg Q8H PRN Administration Nausea And Vomiting Pantoprazole Sodium 40 mg 08/29/24 07:30 08/30/24 09:02 Pantoprazole 40 Mg Tablet. PO 08/29/25 07:29 40 mg BID.AC.BKFAST.SUPPER WALTER Administration Psyllium Hydrophilic Mucilloid 1 packet 08/29/24 09:00 08/30/24 09:03 Psyllium Husk 3.4 Gm Packet PO 08/29/25 08:59 Not Given DAILY WALTER Sertraline HCl 100 mg 08/29/24 09:00 08/30/24 09:03 Sertraline 100 Mg Tablet PO 08/29/25 08:59 100 mg DAILY WALTER Administration Sodium Chloride 0 ml 08/28/24 13:01 08/29/24 17:11 Sodium Chloride 0.9 % 10 Ml Syringe IV-PUSH 08/28/25 13:00 10 ml PRN PRN Administration Flush Spironolactone 25 mg 08/28/24 21:00 08/30/24 09:04 Spironolactone 25 Mg Tablet PO 08/28/25 20:59 25 mg BID WALTER Administration Triamterene/Hydrochlorothiazide 1 tab 08/29/24 09:00 08/30/24 09:03 Triamterene/Hctz 75-50mg 1 Tab Tablet PO 08/29/25 08:59 1 tab DAILY WALTER Administration A&P - Hospitalist Assessment/Plan (1) Acute on chronic anemia: Plan: ? Hemoglobin trended up to 7.1 this morning. ? Status post 1 unit PRBC on 08/28 and a second unit will be given today, August 30 ? Iron studies are consistent with severe iron deficiency anemia ? Her reticulocyte count is increased showing good bone marrow response ? Continue with IV iron as ordered ? Metamucil daily, hold her p.o. iron supplementation ??Continue with IV Lasix as ordered Given that she has history of severe hemorrhoidal bleeding and is extremely constipated from her p.o. iron supplementation, despite being on oral iron supplementation and her iron levels were undetectable she would benefit greatly from 3 more doses of IV iron. Will plan to complete this while inpatient. (2) Pressure ulcer: Plan: Present on admission, family is already working on getting a hospital bed set upat home for her (3) CKD stage 3b, GFR 30-44 ml/min: Plan: Stable and at baseline (4) Iron deficiency: Plan: See above Plan ? DVT prophylaxis addressed ? Normal diet, fluid restriction ? DNR CCA without intubation Documented By: Marin Whitman, 08/30/24 1057 Signed By: <Electronically signed by Marin Whitman, DO> 08/30/24 [address] [facility] Work Phone: [phone]) 557-702208-12-2024 Evaluation note* Author Justyna Hanson [facility] 20[facility] 2:57pmThe above note written by ___Cristobal Johnston____ acting as human recorder, note dictated by Dr. Adorno .I performed the above HPI, ROS, and Examination. I formulated and dictated the treatment plan and was present for entire encounter. Justyna Hanson D.O. [facility] Work Phone: [phone]) 452-877707-17-2024 History of Present illness Narrative* Tressa Jackson MD - 11/23/2023 2:00 PM EDT Subjective Shanta Ferrer is a 83 y.o. female Chief Complaint Follow-up HPI Patient is here for follow-up to management for permanent atrial fibrillation, long-term anticoagulation, shortness of breath, sleep apnea. Since last time I saw her she continued complaint of shortness of breath. Her last echo showed normal LV systolic function but dilated RV. She has declined shedoes have lower extremity edema. She has been using Lasix on as-needed basis. Ischemic evaluation in the past because of her inability to lay flat due to her morbid obesity. ASSESSMENT: 1. Permanent atrial fibrillation. Failed long-term amiodarone therapy. During last office visit we elected for heart rate control on long-term anticoagulation 2. Long-term anticoagulation with Pradaxa reduced dose chosen because of previous history of severeanemia and chronic kidney disease. We discussed Watchman device but the patient like to remain on current therapy 3. Worsening shortness of breath and increased weight gain with evidence of volume overload due to cor pulmonale and pulmonary hypertension 4. Right heart failure 5. Sleep apnea, noncompliant with CPAP. 6. Shortness of breath, related to above factors and COPD. 7. Remote history of gastrointestinal bleed with no recurrence. 8. Moderate pulmonary hypertension due to sleep apnea obesity and cor pulmonale 9. Chronic kidney disease probably stage III 10. Increased risk of fall RECOMMENDATION: 1. I recommended to start taking her Lasix on a daily basis and to have BMP/BMP in 2 weeks 2. The patient was counseled regarding losing weight, exercise, and risk factor adjustment, and I did advise her to consider seeing her sleep specialist for consideration for other alternative for treatment for her CPAP 3. Advised the patient to restrict her salt intake 4. We will see her back in the office in 6 months 5. We discussed with the patient ischemic evaluation in the past patient unfortunately unable to lay flat and noninvasive assessment will be difficult considering her morbid obesity ` Review of Systems Cardiovascular: Positive for dyspnea on exertion. All other systems reviewed and are negative. Vitals: 11/23/23 1417 BP: 116/86 BP Location: Right arm Patient Position: Sitting Pulse: 56 Weight: 129 kg (285 lb) Height: 1.6 m (5' 3 ) Objective Physical Exam Constitutional: Appearance: Normal appearance. HENT: Nose: Nose normal. Neck: Vascular: No carotid bruit. Cardiovascular: Rate and Rhythm: Normal rate. Rhythm regularly irregular. Pulses: Normal pulses. Heart sounds: Normal heart sounds. Pulmonary: Effort: Pulmonary effort is normal. Abdominal: General: Bowel sounds are normal. Palpations: Abdomen is soft. Musculoskeletal: General: Normal range of motion. Cervical back: Normal range of motion. Right lower leg: No edema. Left lower leg: No edema. Skin: General: Skin is warm and dry. Neurological: General: No focal deficit present. Mental Status: She is alert. Psychiatric: Mood and Affect: Mood normal. Behavior: Behavior normal. Thought Content: Thought content normal. Judgment: Judgment normal. Allergies Iodinated contrast media, Ibuprofen, Niacin, and Cxaelkt-nvz-nfd reductase inhibitors Current Medications Current Outpatient Medications: albuterol (ProAir HFA) 90 mcg/actuation inhaler, Inhale if needed., Disp: , Rfl: albuterol 2.5 mg /3 mL (0.083 %) nebulizer solution, Inhale 3 mL (2.5 mg). EVERY 4-6 HOURS NEEDED FOR WHEEZING, Disp: , Rfl: allopurinol (Zyloprim) 300 mg tablet, Take 1 tablet (300 mg) by mouth once daily., Disp: , Rfl: dabigatran etexilate (Pradaxa) 75 mg capsule, Take 1 capsule (75 mg) by mouth 2 times a day., Disp:180 capsule, Rfl: 3 levothyroxine (Synthroid, Levoxyl) 25 mcg tablet, Take 1 tablet (25 mcg) by mouth once daily., Disp: , Rfl: LORazepam (Ativan) 0.5 mg tablet, Take 1 tablet (0.5 mg) by mouth once daily as needed., Disp: , Rfl: magnesium oxide 500 mg capsule, Take 1 capsule (500 mg) by mouth once daily., Disp: , Rfl: metoprolol tartrate (Lopressor) 25 mg tablet, Take 1 tablet (25 mg) by mouth once daily., Disp: , Rfl: niacin 500 mg ER tablet, Take 1 tablet (500 mg) by mouth once daily., Disp: , Rfl: nystatin (Nystop) 100,000 unit/gram powder, Apply 1 Application topically 2 times a day., Disp: , Rfl: omeprazole (PriLOSEC) [address] capsule, Take 1 capsule (40 mg) by mouth once daily., Disp: , Rfl: potassium chloride CR (Klor-Con M20) 20 mEq ER tablet, Take 1 tablet (20 mEq) by mouth once daily.,Disp: , Rfl: sertraline (Zoloft) 50 mg tablet, Take 1 tablet (50 mg) by mouth once daily., Disp: , Rfl: spironolactone (Aldactone) 25 mg tablet, Take 1 tablet (25 mg) by mouth 2 times a day., Disp: , Rfl: furosemide (Lasix) 40 mg tablet, Take 1 tablet (40 mg) by mouth once daily., Disp: 30 tablet, Rfl: 11 Assessment/Plan 1. Permanent atrial fibrillation (Multi) Follow Up In Cardiology 2. Essential hypertension, benign Follow Up In Cardiology Follow Up In Cardiology 3. Pulmonary hypertension (Multi) Follow Up In Cardiology 4. Anticoagulated 5. Stage 3a chronic kidney disease (Multi) 6. Morbid obesity with BMI of 50.0-59.9, adult (Multi) 7. Difficulty breathing Basic Metabolic Panel B-Type Natriuretic Peptide Follow Up In Cardiology furosemide (Lasix) 40 mg tablet 8. Obstructive sleep apnea syndrome 9. CHAPMAN (dyspnea on exertion) B-Type Natriuretic Peptide Scribe Attestation By signing my name below, I, Alejandra Noble attest that this documentation has been prepared under the direction and in the presence of MD Jose. Provider Attestation - Scribe documentation All medical record entries made by the Scribe were at my direction and personally dictated by me. Ihave reviewed the chart and agree that the record accurately reflects my personal performance of the history, physical exam, discussion and plan. [facility] Work Phone: [phone]) 501-891307-17-2024 Instructions* Patient Instructions* Loretta Gibson LPN - 11/23/2023 2:00 PM EDT Please bring all medicines, vitamins, and herbal supplements with you when you come to the office. Prescriptions will not be filled unless you are compliant with your follow up appointments or have a follow up appointment scheduled as per instruction of your physician. Refills should be requested at the time of your visit. BMI was above normal measurement. Current weight: 129 kg (285 lb) Weight change since last visit (-) denotes wt loss -11 lbs Weight loss needed to achieve BMI 25: 144.2 Lbs Weight loss needed to achieve BMI 30: 116 Lbs Provided instructions on dietary changes. Lasix 40 mg daily Lab 2 weeks Follow up 6 months documented in [facility] Work Phone: [phone]) [phone] Evaluation note* Author Justyna Hanson [facility] 2023 2:37pmThe above note written by ___Cristobal Johnston____ acting as human recorder, note dictated by Dr. Adorno .I performed the above HPI, ROS, and Examination. I formulated and dictated the treatment plan and was present for entire encounter. Justyna Hanson D.O. [facility] Work Phone: [phone] 457-436001-22-2024 Evaluation note* Encounter Date Diagnosis Assessment Notes Treatment Notes Treatment Clinical Notes May, Chronic cough (ICD-10 - R05.3) Unblab Other 01-19-2024 Evaluation note* Encounter Date Diagnosis Assessment Notes Treatment Notes Treatment Clinical Notes May, Hypothyroidism (ICD-10 - E03.9) Discussed thyroid results with patient today. Her TSH is 3.59. Free T3 is 4.48. Free T4 is 1.14. I would like her to continue with the same dose of Synthroid. May,Iron deficiency anemia (ICD-10 - D50.9)Her iron is 50. Ferritin is 25.3. Her HGB was not checked with her lab work. She will have this drawn on 05-30-23 and call for the results. May,Hyperglycemia (ICD-10 - R73.9)Discussed blood sugar results with patient today. Her A1C was 5.9 which is at the higher end of normal. She admits to eating alot of comfort foods since her . I did recommend that she cut out intake of carbs and sugars. Stay active. She voices that she saw Dr. Jackson on 05-25-23 for evaluation and he suggested that she start taking Ozempic. I did explain to her that it is not likely that her insurance will not cover this because her A1C was not over 6.5. May,Hyperlipidemia, unspecified (ICD-10 - E78.5)Discussed cholesterol results with patient today. Total is 184. HDL is 33. LDL is 110. Triglycerides are 205. VLDL is 41. I would like her to continue to monitor her intake of carbs and sugars. Stay active. May,Gout (ICD-10 - M10.9)Her uric acid level is 5.3. She can continue with above medication daily as directed. May,sthma (ICD-10 - J45.909)I would like her to continue with above medications as directed. May,trial fibrillation (ICD-10 - I48.91)Continue to follow with mdm developer as scheduled. May,Macrocytosis (ICD-10 - D75.89)Her B12 level is 478. Folate is 14.3. Continue with above medications daily as directed. May,nxiety (ICD-10 - F41.9)She voices that she is has been trying to get many things done since she lost her . She has had trouble sleeping at night, she can sleep during the day but cannot sleep at night, she lays and c pawan and wonders. Her dose of Zoloft was increased last week but she did not realize that she was supposed to take 2 of the 50 MG tablets and was only taking 1 & 1/2 tablets at night. It is not recommended that she split the dose and take one in the morning and one in the evening. She will now increase the Zoloft to 100 MG once a day. She admits she has been taking the Ativan more than usual but this is only 2-3 times per week. I will send in more for her today. May,Essential (primary) hypertension (ICD-10 - I10) May,Other intermodal customer service (current) drug therapy (ICD-10 - Z79.899)I did recommend she have a CBC and CMP drawn prior to leaving for [place] on 05-30-23. She voices that she will have this drawn. May,olyarthralgia (ICD-10 - M25.50)Her hands and feet have been hurting. Her CRP was <0.5. CCP was 10. Sed rate was elevated at 56.Rheumatoid factor was 31.8. REBECCA was negative. I did recommend she see a cookie breaker. She does not want to see one in [place] and will wait until she returns from [place] in August (2023) and will call for a referral to see Dr. Alas. May,hronic kidney disease, stage 3 (moderate) (ICD-10 - N18.3)Continue with above medication daily as directed. May,HF (congestive heart failure) (ICD-10 - I50.9)Continue with above medication daily as directed. May,Hypokalemia (ICD-10 - E87.6)Continue with above medication daily as directed. May,hronic cough (ICD-10 - R05.3)She voices that her COPD is acting up and she did request Doxycycline and Prednisone be sent to thepharmacy for her, she voices that these medications work well for her. She will be traveling to [place] on 05-30-23. May,Hematuria (ICD-10 - R31.9)She voices that she does not normally have blood in her urine, when she voids it hanna and hurts. Idid explain to her that being on Pradaxa can cause blood in the urine. I would like to see if the Do xycycline can resolve the dysuria she is having. If she still has symptoms after she has completed the antibiotic then she will need to go to an Urgent Care in [place] for evaluation. Otherwise when she returns to [place] in August (2023) she will need to provide a repeat urinalysis to be sure the blood has resolved. May,ysuria (ICD-10 - R30.0) May,Weight gain (ICD-10 - R63.5)We discussed weight loss medication today, she voices that Dr. Jackson felt she should be on Ozempic but she does not qualify for this. We could discuss medication when she returns from [place] inApr (2023) if she would like. She voices that she is on a fixed income and would have to look at the cost of the medicine. May,Other12:48 PM - 1:15 PM Unblab Other 01-12-2024 Evaluation note* Encounter Date Diagnosis Assessment Notes Treatment Notes Treatment Clinical Notes May, Anxiety (ICD-10 - F41.9) Unblab Other 01-08-2024 Evaluation note* Encounter Date Diagnosis Assessment Notes Treatment Notes Treatment Clinical Notes May, Paroxysmal atrial fibrillation ( ICD-10 - I48.0) Unblab Other 12-19-2023 Evaluation note* Encounter Date Diagnosis Assessment Notes Treatment Notes Treatment Clinical Notes Apr, Cough (ICD-10 - R05.9) Unblab Other 11-20-2023 Evaluation note* Encounter Date Diagnosis Assessment Notes Treatment Notes Treatment Clinical Notes Mar, Cough (ICD-10 - R05.9) Unblab Other 10-31-2023 Evaluation note* Encounter Date Diagnosis Assessment Notes Treatment Notes Treatment Clinical Notes Feb, Polyarthralgia (ICD-10 - M25.50) She voices that she has pain in her hand and feet. I would like to order a rheumatoid panel but shewould like to have this done in May with her other lab that she will be having done. She voicesthat she will continue to monitor her pain until then. Feb,Neuropathy (ICD-10 - G62.9)She describes the pain she has been having as nerve pain. She states that this comes and goes away within seconds. Feb,out (ICD-10 - M10.9)She voices that she has pain in her toes/feet all the time. She is taking above medication daily asdirected. Feb,nxiety (ICD-10 - F41.9)She does not want to leave her home so we discussed her increasing her dose of Sertraline. She voices that she does not feel like getting dressed and leaving. She feels this is more emotional and has been like this for a long time. She is trying her best to pull herself out of this but has not beenable to. She tries to go out to dinner to get out of the house but cannot. If she has an appointment she has to fight with herself to get herself to go. She is fine if she is in her home but the thought of leaving does not appeal to her. I did recommend that we increase her dose of Sertaline and explained that this medication is not addictive. She is in agreement and will increase the dose. Guidance is given on how to take the increase in dose. She should take 1 and 1/2 tablets each day. She does continue to use and benefit from the Ativan. I will need to see her back in three months. Frequent appointments needed due to addiction potential of medication. Side effects/risks/benefits of medication were reviewed. If she feels that her dose of Sertaline needs increased further she is to call. Feb,Iron deficiency anemia (ICD-10 - D50.9) Feb,Hyperglycemia (ICD-10 - R73.9) Feb,Hyperlipidemia, unspecified (ICD-10 - E78.5) Feb,Hypothyroidism (ICD-10 - E03.9) Feb,Macrocytosis (ICD-10 - D75.89) Feb,bnormal urinalysis (ICD-10 - R82.90) Feb,Other1:08 PM - 1:22 PM Unblab Other 10-24-2023 Evaluation note* Encounter Date Diagnosis Assessment Notes Treatment Notes Treatment Clinical Notes Feb, Cough (ICD-10 - R05.9) Unblab Other 10-19-2023 Evaluation note* Encounter Date Diagnosis Assessment Notes Treatment Notes Treatment Clinical Notes Feb, Anxiety (ICD-10 - F41.9) Unblab Other 10-18-2023 Evaluation note* Encounter Date Diagnosis Assessment Notes Treatment Notes Treatment Clinical Notes Feb, Cough (ICD-10 - R05.9) Unblab Other 08-03-2023 Evaluation note* Encounter Date Diagnosis Assessment Notes Treatment Notes Treatment Clinical Notes Dec, Anemia in chronic kidney disease (ICD-10 - D63.1) Unblab Other 07-31-2023 Evaluation note* Encounter Date Diagnosis Assessment Notes Treatment Notes Treatment Clinical Notes Nov, Hypothyroidism (ICD-10 - E03.9) Discussed thyroid results with patient today. TSH is 3.21. Free T3 is 3.95. Free T4 is 1.42. She isto continue with the same dose of Synthroid. Nov,Hyperlipidemia, unspecified (ICD-10 - E78.5)Discussed cholesterol results with patient today. Total is 166. HDL is 33. LDL is 96. Triglyceridesare 186. VLDL is 37. Continue with above medication and watch intake of carbs and sugars. She is unable to be very active due to her leg but she will be starting PT soon. Will continue to monitor. Nov,Hyperglycemia (ICD-10 - R73.9)Discussed blood sugar results with patient today. Glucose is 105. HgA1C is 5.6. Continue to monitorintake of carbs and sugars. Stay active. Nov,nemia (ICD-10 - D64.9)Her hemoglobin is low at 10.4. I will order Iron studies to be done this week and she is to call for the results. Nov,nxiety (ICD-10 - F41.9)An OAR[facility] report was reviewed, no discrepancies noted. She does continue to use and benefit from theAtivan. I will see her back in three months. Side effects/risks/benefits of medication were reviewed. Frequent appointments needed due to addiction potential of medication. Nov,Macrocytosis (ICD-10 - D75.89)Provided her with a refill on her B12, she voices that she has not been using the injections like she should and she has not been taking the oral supplement either. I would like her to have lab drawnto check her B12 level. She is not to take any B12 injection until I see the lab result. Nov,sthma (ICD-10 - J45.909)She voices that her breathing is doing well at this time. She is using and benefiting from the oxygen at night. I would like her to continue with above medications as needed. Nov,HF (congestive heart failure) (ICD-10 - I50.9)She is taking Lasix 40 MG daily under the direction of Dr. Jackson until she is seen by him. She is having lab drawn for his office soon. She voices that she will be having an echocardiogram done for Dr. Jackson soon. Nov,hronic kidney disease, stage 3 (moderate) (ICD-10 - N18.3)Her BUN is 16. Creatinine is 1.21. EGFR is 44.747. Agusto continue to monitor. Continue to follow withthe automated weaver. Nov,OtherShe voices that she was released from ortho last week and will have physical therapy done in her home once her insurance approves it. She was told she has severe arthritis and must use her walker.1:06 PM - 1:22 PM Unblab Other 07-27-2023 Evaluation note* Encounter Date Diagnosis Assessment Notes Treatment Notes Treatment Clinical Notes Nov, Arthritis of right knee (ICD-10 - M17.11) Unblab Other 07-26-2023 Evaluation note* Encounter Date Diagnosis Assessment Notes Treatment Notes Treatment Clinical Notes Nov, Closed fracture of r ight tibial plateau with routine healing, subsequent encounter (ICD-10 - S82.141D) Shanta returns with minimally displaced Schatzker 3 right tibial plateau fracture. At this juncture we have discussed the findings and diagnosis as well as personally reviewed appropriate imaging and performed interpretation of related testing and examination with the patient in office today. She has been advancing her weightbearing and has had no change in her x-rays. At this time I would consider fracture healed. I allow her to advance back to baseline as tolerated. She is fairly sedentary and does ambulate with a walker at baseline. We will order home therapy. She can follow-up as needed The patient has been involved in our cooperative treatment plan and agrees to move forward with treatment at this time. May progress activity as tolerated. We will order home health physical therapy. Call with questions/concerns. Nov,Laceration without foreign body, right lower leg, subsequent encounter (ICD-10 - S81.811D) Nov,rthritis of right knee (ICD-10 - M17.11) [facility] Other 06-14-2023 Evaluation note* Encounter Date Diagnosis Assessment Notes Treatment Notes Treatment Clinical Notes Oct, Closed fracture of r ight tibial plateau with routine healing, subsequent encounter (ICD-10 - S82.141D) Shanta returns with minimally displaced Schatzker 3 right tibial plateau fracture. At this juncture we have discussed the findings and diagnosis as well as personally reviewed appropriate imaging and performed interpretation of related testing and examination with the patient in office today. Continue range of motion as tolerated. Okay to advance to 50% weightbearing over the next 3 to 4 weeks then as tolerated after that as long as there is no increase in pain. Continue calcium vitamin Dsupplementation. She is getting home health set up. I will plan to see her back in 6 weeks for final x-rays. The patient has been involved in our cooperative treatment plan and agrees to move forward with treatment at this time. Radiographs reviewed with patient today. Discussed with patient she can slowly progress weight bearing with a walker. Discussed with patient I would recommed 50% weight bearing for the next 3-4 weeks, then may progress to normal activity. Oct,Skin tear of right lower leg without complication, initial encounter (ICD-10 - S81.811A) Discussed with patient to keep area clean and dry. Dressing applied today. [facility] Other 05-05-2023 Evaluation note* Encounter Date Diagnosis Assessment Notes Treatment Notes Treatment Clinical Notes September, Closed fracture of r ight tibial plateau, initial encounter (ICD-10 - S82.141A) Shanta presents with minimally displaced Schatzker 3 right tibial plateau fracture. At this juncturewe have discussed the findings and diagnosis as well as personally reviewed appropriate imaging andperformed interpretation of related testing and examination with the patient in office today. Priormedical notes from Dr. Hanson and history have been reviewed. At this time I would recommend nonoperative treatment due to her severe DJD and her body habitus. Continue brace with nonweightbearing. Okay for gentle range of motion. Calcium and vitamin D supplementation. We will plan for follow-up 6 weeks for repeat x-rays. The patient has been involved in our cooperative treatment plan and agrees to move forward with treatment at this time. CT scan reviewed with patient and daughter. Patient instructed to be non weight bearing. May work on knee ROM exercises September,OtherSee orders for this visit as documented in the electronic medical record. [facility] Other 04-21-2023 Evaluation note* Encounter Date Diagnosis Assessment Notes Treatment Notes Treatment Clinical Notes Aug, Hypothyroidism (ICD-10 - E03.9) [facility] Other 04-17-2023 Evaluation note* Encounter Date Diagnosis Assessment Notes Treatment Notes Treatment Clinical Notes Aug, Knee pain, left (ICD-10 - M25.56 2) [facility] Other 04-17-2023 Evaluation note* Encounter Date Diagnosis Assessment Notes Treatment Notes Treatment Clinical Notes Aug, Knee pain, right (ICD-10 - M25.5 61) [facility] Other 01-09-2023 Evaluation note* Encounter Date Diagnosis Assessment Notes Treatment Notes Treatment Clinical Notes May, Anxiety (ICD-10 - F41.9) [facility] Other 01-09-2023 Evaluation note* Encounter Date Diagnosis Assessment Notes Treatment Notes Treatment Clinical Notes May, Hypothyroidism (ICD-10 - E03.9) Her TSH is 2.84. Free T3 is 4.18. Free T4 is 0.96. Continue with the same dose of Synthoid. May,Iron deficiency anemia (ICD-10 - D50.9)She is slightly anemic at this time. I did recommend that she return to taking B12 again. May,out (ICD-10 - M10.9)Her Uric acid level is 6.0. Continue with the same dose of Allopurinol. May,Hyperglycemia (ICD-10 - R73.9)Her glucose level is 107. HgA1C is up from 5.6 to 5.8 which is at the higher end of normal. She is encouraged to watch her intake of carbs and sugars. Stay active. May,Hyperlipidemia, unspecified (ICD-10 - E78.5)Discussed cholesterol results with patient today. Total is 163. HDL is 31. LDL is 98. Triglyceridesare 171. VLDL is 34. She voices that she is not eating as much potatoes/carbs and is encouraged to continue with this. May,sthma (ICD-10 - J45.909)Continue with above medication daily as directed. She voices that she was recently treated with a steroid and breathing treatments because she was sick. She will call with what she was treated with. S he voices that this medication did help her alot. She does cough all the time and it is not because she is sick, it is because she cannot get a good breath without coughing. May,Macrocytosis (ICD-10 - D75.89)She used to take B12 shots but no longer. Her Vitamin B12 level is 267. Folate is 9.1. I would likeher to return to taking the B12 shots. May,nxiety (ICD-10 - F41.9)An OARRS report was reviewed no discrepancies noted. Frequent appointments needed due to addiction potential of medication. She does continue to use and benefit from the medication when needed. I will see her back in three months. Side effects/risks/benefits of medication were reviewed. May,ERD (gastroesophageal reflux disease) (ICD-10 - K21.9)Continue with above medication as directed. May,Other intermodal customer service (current) drug therapy (ICD-10 - Z79.899) May,nemia in chronic kidney disease (ICD-10 - D63.1)Continue with above medication as directed. May,aroxysmal atrial fibrillation (ICD-10 - I48.0)Continue with mdm developer as directed. May,Hypervolemia, unspecified hypervolemia type (ICD-10 - E87.70)She takes the Lasix twice a week. She weighs herself daily and this weight gets sent to her insurance's nurse who follows up with her regularly. If she gains more than two pounds that nurse will contact her. She takes the Spironolactone twice a day. She will see Dr. Wheatley again in September (2022). May,hronic kidney disease, stage 3 (moderate) (ICD-10 - N18.3)Continue with above medication daily as directed. Her kidney studies have improved. Her BUN is 19. Creatinine is 1.49. EGFR is 34. She is to continue to follow with Dr. Wheatley as directed. May,Hypokalemia (ICD-10 - E87.6)Continue with above medication as directed. May,Seborrheic keratosis (ICD-10 - L82.1)She has several of these noted on her back. I did advise her that these are not concerning. May,Suspicious nevus (ICD-10 - D22.9)4 mm on backShe has one lesion that is concerning on exam. It is dark in color. It does not bleed. I did adviseher that this should be evaluated by a sawmill or timber yard worker. She refuses because she is going to [place]. Her daughter voices that she will continue to monitor this and if needed they will see a sawmill or timber yard worker in [place]. May,ough (ICD-10 - R05.9)She would like to have an antibiotic and a steroid available if needed. Her daughter voices that whenever she goes out she gets sick. We discussed that having COPD makes her more prone to get sick. Iwill provide her with above medications to have on hand. [facility] Other 01-03-2023 Evaluation note* Encounter Date Diagnosis Assessment Notes Treatment Notes Treatment Clinical Notes May, Hypokalemia (ICD-10 - E87.6) [facility] Other 11-29-2022 Evaluation note* Encounter Date Diagnosis Assessment Notes Treatment Notes Treatment Clinical Notes Mar, Hypervolemia, unspecified hyperv olemia type (ICD-10 - E87.70) Patient takes Lasix as needed along with spironolactone. I asked the patient to weigh herself everyday and to take Lasix daily or twice a day for few days until she is back to her baseline weight. Iasked the patient to follow a low-salt diet Mar,hronic kidney disease, stage 3b (ICD-10 - N18.32)Chronic kidney disease likely from renovascular disease. Creatinine has been variable between 1.5 and 2 mg/dL according to the volume status and blood pressure. She is on furosemide and spironolactone for lower extremity edema. No labs for this visit. I will check renal function panel along with UA and protein creatinine ratio, PTH, calcium and phosphorus today. I asked the patient to stay away from NSAIDs Will continue to monitor renal function panel twice yearly Mar,Hyperparathyroidism due to renal insufficiency (ICD-10 - N25.81)No bone mineral disease parameters lab available for this visit . I ordered PTH along calcium, and phosphorus today and prior to next visit Mar,ulmonary HTN (ICD-10 - I27.20)Patient has a reported history of pulmonary hypertension. She is morbidly obese and has history of COPD. She is noncompliant with CPAP and that may contribute to pulmonary hypertension. Mar,nemia in chronic kidney disease (ICD-10 - D63.1)Hemoglobin did improve up to 12.0 mg/dL last visit. I will check hemoglobin today along with iron storage, folate and vitamin B12 prior to next visit Mar,aroxysmal atrial fibrillation (ICD-10 - I48.0)Continue to follow with mdm developer as scheduled. Mar,Hypokalemia (ICD-10 - E87.6)Likely from diuretics. On potassium supplement. Potassium is within normal limit last visit. I willcheck potassium next visit Mar,Vitamin D deficiency (ICD-10 - E55.9)Patient is taking vitamin D supplement. I will check 25-hydroxy vitamin D level today [facility] Other 10-10-2022 Evaluation note* Encounter Date Diagnosis Assessment Notes Treatment Notes Treatment Clinical Notes Feb, Anxiety (ICD-10 - F41.9) An OARRS report was reviewed no discrepancies noted. Frequent appointments needed due to addiction potential. She does continue to use and benefit from the Ativan. I will need to see her back in three months. She should call for refills in between visits. Side effects/risks/benefits of medication were reviewed. She continues to deal with the stress of her whose health has been poor. She voices that there are days when she just cries all day but she is handling it. She has only used onAtivan since last seen. The Ativan works well when she takes it. Feb,trial fibrillation (ICD-10 - I48.91)She voices that she has an appointment to see her mdm developer at the end of this month. Feb,ther2:51 PM - 2:58 PM [facility] Other 07-05-2022 Evaluation note* Encounter Date Diagnosis Assessment Notes Treatment Notes Treatment Clinical Notes Nov, Hypothyroidism (ICD-10 - E03.9) Discussed thyroid results with patient today. TSH is 1.12. Free T3 is 4.80. Free T4 is 1.71. She isto continue with the same dose of Synthroid daily. Nov,Incontinence (ICD-10 - R32)She voices that she can feel if she has to have a bowel movement, she will get up to go and by the time she gets to the bathroom she will have already had the bowel movement and not have made it to e bathroom. If she is sitting in the chair she does not have a bowel movement for no reason. She feels the urge and has to get herself up and to the bathroom. We discussed that this is not a medical emergency, it could be that her colon is full of stool. She has a bowel movement when she voids. This could also indicate that she has backed up stool. I would like to order an x-ray to rule out backed up stool. She could consider wearing a Depends. Nov,Iron deficiency anemia (ICD-10 - D50.9)Her HGB is 12.0 up from 11.2. Iron is 79. Ferritin is 47.3. Her readings have improved. Will continue to monitor. She voices that she is not taking the Iron supplement because it caused constipation. Nov,Hyperglycemia (ICD-10 - R73.9)Discussed blood sugar results with patient today. Glucose is 108. HgA1C is 5.6. Watch intake of carbs and sugars. She does drink pop once a day. I did recommend that she cut back on this. Nov,Gout (ICD-10 - M10.9)Uric acid is 5.3. Continue with the same dose of medication. Nov,Hyperlipidemia, unspecified (ICD-10 - E78.5)Discussed cholesterol results with patient today. Total is 166. HDL is 27. LDL is 101. Triglycerides are 188. Her LDL is almost to goal. Avoid sugars and carbs. Nov,sthma (ICD-10 - J45.909)She voices that her breathing is poor today due to the humidity. She only uses the oxygen at night.She has not been out to shop in years . Nov,GERD (gastroesophageal reflux disease) (ICD-10 - K21.9)Continue with above medication daily as directed. Nov,Macrocytosis (ICD-10 - D75.89)Her B12 is 373. Folate is 7.8. Nov,nxiety (ICD-10 - F41.9)She does not like to leave the house, her daughter voices that she wishes she would leave the home more. She voices that she tries to get her mind set on leaving but then becomes anxious. She is on Se rtraline but it is a low dose and I would prefer that we increase this dose before the Ativan dose.She is in agreement to this. Her daughter voices that she is very depressed, she worries about not having any money and there is concern about getting her motorhome in [place] fixed. She does not want to spend any money because she wants to have money to pay her bills. Her daughter feels she has concerns but also needs to be able to enjoy life. She worries all the time. She won't go to [place] anymore because of all the people. She lost her dog suddenly yesterday. Guidance is given on how to take the increase in dose. An OARRS report was reviewed no discrepancies noted. She only uses the Ativan when she absolutely needs it and should continue with this. Side effects/risks/benefits of medication were reviewed. She can take 2 of the Sertraline 25 MG tablets together until she runs low and then can take 1 of the 50 MG tablets daily. I do need to see her every three months for evaluation. Nov,nemia in chronic kidney disease (ICD-10 - D63.1)Continue to follow with Dr. Wheatley as directed. Kidney studies are stable. Nov,aroxysmal atrial fibrillation (ICD-10 - I48.0)Continue to follow with mdm developer as scheduled. Nov,Hypervolemia, unspecified hypervolemia type (ICD-10 - E87.70)She only takes the Lasix as needed, but takes the Spironolactone daily as directed. She weighs herself daily, if she has gained 3 pounds or more she will take a Lasix. Nov,Vitamin D deficiency (ICD-10 - E55.9)She is to continue with above medication as directed. Nov,Hypokalemia (ICD-10 - E87.6)Continue with above medication as directed. Nov,Wheezing (ICD-10 - R06.2)Wheezing is noted on exam today. Her daughter voices that she has been coughing alot at night. She feels she needs an antibiotic and steroid treatment at this time. Guidance is given on how to take the medication. She voices that she has had symptoms for about a week. Side effects/risks/benefits ofmedication were reviewed. Nov,hange in stool habits (ICD-10 - R19.4) Nov,therWhen she eats big meals, mostly supper she will eat and then has to get up because she will feel like she is going to vomit it up. Dr. Mi had done an EGD in the past and did a dilation but this did not help. She voices that it does not do this all the time, there are times she has no trouble eating but other times she could take two bites and then the food will come up. Out of ten meals this could happen 7-8 times where the food will come up she never knows. If she vomits everything will come up. We discussed that this could be caused by nerves. Daughter noticed it alot after they found out her dad (Shanta's ) had cancer, then Shanta could not eat anything. I anticipate if this is related to her nerves it would improve now that her Sertraline is being increased. I did recommend that she return to see Dr. Mi or associate but right now she wants to wait. She will see if increasing the Sertraline dose helps first. She can call for a referral if this does not help by 3-4 weeks a fter she has increased her medication.3:00 PM - 3:43 PM [facility] Other 06-28-2022 Evaluation note* Encounter Date Diagnosis Assessment Notes Treatment Notes Treatment Clinical Notes Oct, Hypervolemia, unspecified hyperv olemia type (ICD-10 - E87.70) She continues to lose weight with improvement of edema and shortness of breath on diuretics. Potassium is normal with potassium supplement Oct,hronic kidney disease, stage 3b (ICD-10 - N18.32)Chronic kidney disease likely from renovascular disease. Creatinine has been variable between 1.5 and 2 mg/dL according to the volume status and blood pressure. She is on furosemide and spironolactone for lower extremity edema. Kidney function stable at baseline for this visit I will check UA along with protein creatinine ratio next visit. Patient is not on BRYCE inhibitor or ARB I asked the patient to stay away from NSAIDs Will continue to monitor renal function panel twice yearly Oct,Hyperparathyroidism due to renal insufficiency (ICD-10 - N25.81)No bone mineral disease parameters lab available for this visit will recheck in 6-month. Oct,ulmonary HTN (ICD-10 - I27.20)Patient has a reported history of pulmonary hypertension. She is morbidly obese and has history of COPD. She is noncompliant with CPAP and that may contribute to pulmonary hypertension. Oct,nemia in chronic kidney disease (ICD-10 - D63.1)Hemoglobin did improve up to 12.0 mg/dL. Iron saturation is low at 21%. I will continue to monitor hemoglobin level. No need for MARIA ALEJANDRA Oct,aroxysmal atrial fibrillation (ICD-10 - I48.0)Continue to follow with mdm developer as scheduled. Oct,Hypokalemia (ICD-10 - E87.6)Likely from diuretics. On potassium supplement. Potassium is within normal limit this visit Oct,Vitamin D deficiency (ICD-10 - E55.9) [facility] Other 03-14-2022 Evaluation note* Encounter Date Diagnosis Assessment Notes Treatment Notes Treatment Clinical Notes Jul, Macrocytosis (ICD-10 - D75.89) [facility] Other 03-03-2022 Evaluation note* Encounter Date Diagnosis Assessment Notes Treatment Notes Treatment Clinical Notes Jul, Macrocytosis (ICD-10 - D75.89) [facility] Other 12-22-2021 Evaluation note* Encounter Date Diagnosis Assessment Notes Treatment Notes Treatment Clinical Notes Apr, Hypervolemia, unspecified hyperv olemia type (ICD-10 - E87.70) She continues to lose weight with improvement of edema and shortness of breath on diuretics. Potassium is normal with potassium supplement Apr,hronic kidney disease, stage 3b (ICD-10 - N18.32) Renal function did improve with creatinine down to 1.5 mg/dL. Creatinine has been variable between 1.5 and 2 mg/dL according to the volume status and blood pressure. She is on furosemide and spironolactone for lower extremity edema. Apr,Hyperparathyroidism due to renal insufficiency (ICD-10 - N25.81) She does not have follow-up phosphorus and intact PTH as she was in the hospital for COVID-19 pneumonitis. Will recheck in 6-month. Apr,ulmonary HTN (ICD-10 - I27.20) Patient has a reported history of pulmonary hypertension. She is morbidly obese and has history of COPD. She is noncompliant with CPAP and that may contribute to pulmonary hypertension. Apr,nemia in chronic kidney disease (ICD-10 - D63.1) Hemoglobin did improve up to 11 g/dL on oral iron. Apr,aroxysmal atrial fibrillation (ICD-10 - I48.0) Continue to follow with mdm developer as scheduled. [facility] Other 12-21-2021 Evaluation note* Encounter Date Diagnosis Assessment Notes Treatment Notes Treatment Clinical Notes Apr, Unspecified fracture of the lower end of left radius, subsequent encounter for closed fracture with routine healing (ICD-10 - S52.502D) Radiographs reviewed with patient as healing fracture. Instructed on gentle motion and strengthening exercises of the wrist. May progress out of cast as tolerated. Provided cock up wrist splint to use today as needed for strenous activity. Call with questions/concerns. [facility] Other 12-06-2021 Evaluation note* Encounter Date Diagnosis Assessment Notes Treatment Notes Treatment Clinical Notes Apr, Cough (ICD-10 - R05.9) [facility] Other 11-04-2021 Evaluation note* Encounter Date Diagnosis Assessment Notes Treatment Notes Treatment Clinical Notes Mar, Unspecified fracture of the lower end of left radius, subsequent encounter for closed fracture with routine healing (ICD-10 - S52.502D) Discussed with patient that x-rays show no significant changes in fracture alignment. Patient is able to slide cast from arm and wrist. Patient asvised we can continue with current cast as splint or reapply cast but make longer in hopes that it will stay on. Patient woiuld like to continue use of current cast as she is comfortable with this. Patient advised no strenuous use or heavy activity [facility] Other 10-28-2021 Evaluation note* Encounter Date Diagnosis Assessment Notes Treatment Notes Treatment Clinical Notes Feb, Displaced fracture o f distal end of left radius (ICD-10 - S52.502A) The patient has suffered a displaced radius fracture. This fracture is stable and we will treat this non-operatively. We will treat this in a short arm fiberglass cast. The cast was applied without difficulty. The patient appears to be tolerating this well. We discussed that this injury can take at least six weeks to have early healing will need gentle motion and strength exercise for months after healing. We discussed the need to limit any weight bearing to arm or strenuous activity such as lifting. We discussed the need to keep the cast clean and dry. 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 AP and lateral views of the left elbow obtained after the visit. No abnormality noted. Discussed this is a significantly displaced distal radius fracture which we would generally consider fixation for. Patient states she is minimally active and has multiple medical issues. Surgery would be concerning and would require extensive clearance. Patient understands that she will have long-term deformity however this could heal in this position and may have a reasonable outcome. She understands this and has decided to proceed with casting. If pain persists and is intolerable we can consider surgical fixation within a couple weeks Feb,cute pain of left wrist (ICD-10 - M25.532) [facility] [place] [address] Discharge Summary Signed Patient: Shanta Ferrer MR#: [id number] : 1940 Acct:[id number] Age/Sex: 84 / F Adm Date: 5 Loc: Room: [address] [place] [address]: Marin Whitman DO Copies to: DO Marin Mckeon, DO~ Providers Date of Admission: 08/28/24 Date of Discharge: 08/31/24 Discharging Provider: Marin Whitman Primary Care Provider: Justyna Hanson Consults: 08/29/24 07:28 Consult to Occupational Therapy Routine Comment: Physician Instructions: Consult to OT for:: Evaluation and Treat Consult to Physical Therapy Routine Comment: Physician Instructions: Consult to PT for:: Evaluation and Treat Discharge Diagnosis (1) Acute on chronic anemia: (2) Pressure ulcer: (3) CKD stage 3b, GFR 30-44 ml/min: (4) Iron deficiency: Final Diagnosis Final Discharge Diagnosis: as above Summary Hospital Course Hospital course: Miss Ferrer from of August 28 with a chief complaint of low hemoglobin from her outpatient labs. Her hemoglobin was down to 6.4, she was subsequently admitted to the hospital, she received 2 units of PRBC. On her outpatient labs the iron studies were also performed and showed an undetectable iron level which is consistent with severe iron deficiency anemia. Her Lasix for her chronic lower extremityedema had also been recently increased to 40 mg oral twice a day, patient felt she responded well to this. While she was admitted to the hospitalreceiving her blood transfusion she was at extremely high risk for TACO and/or TROLI given she already has chronic edema and is on Lasix therapy, I did hold her p.o. Lasix and switch her to Lasix 40 mg IV push twice daily, she tolerated this well. Her kidneys did not show any evidence of JOHN with this. As well as her transfusions for blood, she also received 3 doses of IV iron. She is already on oral iron supplementation as an outpatient taking it every other day,she endorses severe constipation with this and has had issues with hemorrhoidal bleeding for the last couple of months. Apparently she was in [place] it was quite severe. She had clearly been feeling outpatient management due to her risk factors for hemorrhoidal bleeding, fluid overload and severe deficiency anemia despite her oral supplementation. Admission to the hospital was necessary for this patient given her high risk for further deterioration if these interventions were to be attempted as an outpatient if she were to decompensate at home. I did discuss possible discharge to nursing facility with the family and the patient and they refused this upon admission stating that they have everything at home and are currently in the process ofgetting a hospital bed at home as well. Time Spent with Patient Time spent providing/coordinating discharge services (# min): 45 Discharge Plan Discharge Plan Patient Disposition: Home Health Services Activity: No Activity Restriction Diet: Regular Additional Instructions: Home Health to manage care: - DNRCCA without intubation - PT/OT eval and treat - Routine vital signs - Medication management and education - Theraworx protect foam to bilateral breast, abdomen, and groin fold redness. BID and prn - BLE ulcers- Clean with Vashe. Unna paste, Calcium Alginate, ABD pad, coban.2x per week Instructions: Urinary tract infections in adults, Amoxicillin and Clavulanate, Psyllium, Blood transfusion, Anemia caused by low iron in adults - Discharge instructions, Know your Meds Prescriptions: New Metamucil Fiber Singles 3.4 gram Powder In Packet 1 packet PO DAILY 30 Days Qty: 30 0RF amoxicillin-pot clavulanate [Augmentin] 500-125 mg tablet 1 tab PO BID Qty: 8 0RF Continued spironolactone 25 mg tablet 25 mg PO BID Qty: 180 3RF sertraline 100 mg tablet 100 mg PO DAILY Qty: 90 3RF metoprolol succinate 50 mg tablet extended release 24 hr 50 mg PO DAILY Qty: 90 3RF allopurinol 300 mg tablet 300 mg PO DAILY Qty: 90 3RF ipratropium-albuterol 0.5 mg-3 mg(2.5 mg base)/3 mL solution for nebulization 3 ml inhalation QID PRN (Reason: shortness of breath or wheezing) Qty: 90 11RF furosemide [Lasix] 40 mg tablet 40 mg PO BID 30 Days Qty: 60 2RF lorazepam [Ativan] 0.5 mg tablet 0.5 mg PO DAILY PRN (Reason: Anxiety) 30 Days Qty: 30 0RF Rx Instructions: TAKE 1 TABLET BY MOUTH ONCE DAILY dabigatran etexilate [Pradaxa] 75 mg capsule 75 mg PO BID magnesium 250 mg Tablet 500 mg PO DAILY triamterene-hydrochlorothiazid 75-50 mg Tablet 1 tab PO DAILY nystatin [Nystop] 100,000 unit/gram powder 1 applic TOPICAL BID PRN (Reason: redness) Rx Instructions: USE TWICE DAILY EXTERNALLY niacin 500 mg tablet 500 mg PO QHS potassium chloride [Klor-Con M20] 20 mEq tablet,ER particles/crystals 20 meq PO DAILY acetaminophen [Arthritis Pain Relief (acetam)] 650 mg tablet extended release 1,300 mg PO HS albuterol sulfate [ProAir HFA] 90 mcg/actuation HFA aerosol inhaler 2 puff INHALATION Q4HR PRN (Reason: Shortness Of Breath Or Wheezing) Qty: 8.511RF omeprazole 40 mg capsule,delayed release(DR/EC) 40 mg PO .COMPLEX Rx Instructions: 40 mg orally TAKE 1 CAPSULE DAILY 30 MINUTES BEFORE A MEAL; ferrous sulfate 325 mg (65 mg iron) tablet 325 mg PO .QOD calcium carbonate-vitamin D3 600 mg-20 mcg (800 unit) tablet 1 tab PO DAILY Complete MV Adult 50 Plus 0.4 mg-300 mcg- 250 mcg tablet 1 tab PO DAILY levothyroxine [Synthroid] 25 mcg tablet 25 mcg PO DAILY albuterol sulfate 2.5 mg /3 mL (0.083 %) solution for nebulization 2.5 mg inhalation TID PRN (Reason: shortness of breath or wheezing) Qty: 75 11RF Rx Instructions: USE 1 VIAL IN NEBULIZER THREE TIMES DAILY cyanocobalamin (vitamin B-12) 1,000 mcg/mL solution 1,000 mcg IM QMONTH Qty: 1 3RF Rx Instructions: INJECT 1 ML ONCE EVERY MONTH (DME) 3 ml syringe 0 .Route .MEDSUPPLY (DME) 25 g x 1 needle See Rx Instructions .ROUTE .MEDSUPPLY Qty: 4 0RF Rx Instructions: As directed Other Ambulatory Orders: Initiate Home Health (Routine) Timeframe: 1 Day Location: Determined by Patient Ordered By: Marin Whitman Follow Up: Justyna Hanson DO [Primary Care Provider] - (Dr. Hanson will review your hospital records and call you to arrange outpatient follow-up. Recommend follow-up within 5-7 days of discharge. ) Continuity of Care Document Health Concerns: A [facility] screening has identified you as FRAIL or AT RISK FOR FRAILTY. This puts you at a higher risk for infection, illness, falls,and other injuries. Here are four ways to help you reduce your risk of frailty: 1. IDENTIFY EARLY SIGNS OF FRAILTY ? Discuss contributing factors and concerns with your doctor 2. BE ACTIVE ? Walking and light strengthening exercises will help reduce weakness 3. EAT WELL ? Aim for three healthy meals a day that are high in protein 4. THINKPOSITIVE ? Keep your mind active by being sociable and continuing to learn References: Stay Strong:Four Ways to Beat the Frailty [email or web address]://[email or web address]/zteaxupu-smp-omhyoxlzye/sta x-nxrujm-hrnj-oikw-ub-exxj-edb-rjsqypu-wpin Exam Physical Exam Vital Signs: Temp Pulse Resp BP Pulse Ox O2 Del Method 98.3 F 85 18 121/75 100 Room Air 08/31/24 09:00 08/31/24 09:00 08/31/24 09:00 08/31/24 09:00 08/31/24 09:00 08/31/24 09:51 Narrative: General: Awake alert, no acute distress HEENT: head atraumatic, normocephalic, moist mucous membranes Neck: supple no masses, no lymphadenopathy CVS: regular rate and rhythm, no murmurs or gallops Respiratory: Respiratory rate normal, expiratory wheezes noted. GI: soft, nondistended, nontender, positive bowel sounds with no organomegaly Back: She has bilateral pressure ulcers on her buttocks Extremity: moves all extremities, no restrictions of movements, bilateral nonpitting edema, right lower extremity has right weeping ulcer. No signs of any infection. Chronic venous stasis dermatitis is noted. Neuro: AOx3, CN II-VII intact. Moves all extremities in all planes of motion. Skin: dry, intact no rashes or lesions Diagnostic Studies Completed and Pending Studies Pending studies at discharge: 08/28/24 15:05 Blood Culture Stat Preliminary micro results at discharge 08/28/24 15:05 Blood Culture - Preliminary Blood - Left Forearm No Growth 3 Days 08/28/24 14:21 Blood Culture - Preliminary Blood - Left Antecubital No Growth 3 Days Labs on day of discharge: 08/31/24 07:18: Corrected WBC 9.2, RBC 3.45 L, Hgb 7.7 L, Hct 25.2 L, MCV 73.2 L, MCH 22.2 L, MCHC 30.3 L, RDW 22.3 H, Plt Count 293, MPV 7.5, PHA Creatinine Clear 29.96, Sodium 137, Potassium 4.3, Chloride 101, Carbon Dioxide 27.9, AnionGap 12.4, BUN 34 H, Creatinine 1.80 H, Est GFR (CKD-EPI) 27.439, Glucose 98, Calcium 8.4 L, Magnesium 1.7 L, Iron 43 L, TIBC 281, Iron Saturation 15.3 L, Transferrin 201 L Documented By: Marin Whitman DO 08/31/242126 Signed By: 08/31/242132 [facility] Center[facility] Author Marin Whitman [facility] CenterNote Date/TimeApril 2024 9:33pm[address] [address] Discharge Summary Signed Patient: Shanta Ferrer MR#: [id number] : 1940 Acct:[id number] Age/Sex: 84 / F Adm Date: 5 Loc: Room: [address] [place] [address]: Marin Whitman DO Copies to: Justyna Hanson,DO Marin Whitman, DO~ Providers Date of Admission: 08/28/24 Date of Discharge: 08/31/24 Discharging Provider: Marin Whitman Primary Care Provider: Justyna Hanson Consults: 08/29/24 07:28 Consult to Occupational Therapy Routine Comment: Physician Instructions: Consult to OT for:: Evaluation and Treat Consult to Physical Therapy Routine Comment: Physician Instructions: Consult to PT for:: Evaluation and Treat Discharge Diagnosis (1) Acute on chronic anemia: (2) Pressure ulcer: (3) CKD stage 3b, GFR 30-44 ml/min: (4) Iron deficiency: Final Diagnosis Final Discharge Diagnosis: as above Summary Hospital Course Hospital course: Miss Ferrer from of August 28 with a chief complaint of low hemoglobin from her outpatient labs. Her hemoglobin was down to 6.4, she was subsequently admitted to the hospital, she received 2 units of PRBC. On her outpatient labs the iron studies were also performed and showed an undetectable iron level which is consistent with severe iron deficiency anemia. Her Lasix for her chronic lower extremityedema had also been recently increased to 40 mg oral twice a day, patient felt she responded well to this. While she was admitted to the hospitalreceiving her blood transfusion she was at extremely high risk for TACO and/or TROLI given she already has chronic edema and is on Lasix therapy, I did hold her p.o. Lasix and switch her to Lasix 40 mg IV push twice daily, she tolerated this well. Her kidneys did not show any evidence of JOHN with this. As well as her transfusions for blood, she also received 3 doses of IV iron. She is already on oral iron supplementation as an outpatient taking it every other day,she endorses severe constipation with this and has had issues with hemorrhoidal bleeding for the last couple of months. Apparently she was in [place] it was quite severe. She had clearly been feeling outpatient management due to her risk factors for hemorrhoidal bleeding, fluid overload and severe deficiency anemia despite her oral supplementation. Admission to the hospital was necessary for this patient given her high risk for further deterioration if these interventions were to be attempted as an outpatient if she were to decompensate at home. I did discuss possible discharge to nursing facility with the family and the patient and they refused this upon admission stating that they have everything at home and are currently in the process ofgetting a hospital bed at home as well. Time Spent with Patient Time spent providing/coordinating discharge services (# min): 45 Discharge Plan Discharge Plan Patient Disposition: Home Health Services Activity: No Activity Restriction Diet: Regular Additional Instructions: Home Health to manage care: - DNRCCA without intubation - PT/OT eval and treat - Routine vital signs - Medication management and education - Theraworx protect foam to bilateral breast, abdomen, and groin fold redness. BID and prn - BLE ulcers- Clean with Vashe. Unna paste, Calcium Alginate, ABD pad, coban.2x per week Instructions: Urinary tract infections in adults, Amoxicillin and Clavulanate, Psyllium, Blood transfusion, Anemia caused by low iron in adults - Discharge instructions, Know your Meds Prescriptions: New Metamucil Fiber Singles 3.4 gram Powder In Packet 1 packet PO DAILY 30 Days Qty: 30 0RF amoxicillin-pot clavulanate [Augmentin] 500-125 mg tablet 1 tab PO BID Qty: 8 0RF Continued spironolactone 25 mg tablet 25 mg PO BID Qty: 180 3RF sertraline 100 mg tablet 100 mg PO DAILY Qty: 90 3RF metoprolol succinate 50 mg tablet extended release 24 hr 50 mg PO DAILY Qty: 90 3RF allopurinol 300 mg tablet 300 mg PO DAILY Qty: 90 3RF ipratropium-albuterol 0.5 mg-3 mg(2.5 mg base)/3 mL solution for nebulization 3 ml inhalation QID PRN (Reason: shortness of breath or wheezing) Qty: 90 11RF furosemide [Lasix] 40 mg tablet 40 mg PO BID 30 Days Qty: 60 2RF lorazepam [Ativan] 0.5 mg tablet 0.5 mg PO DAILY PRN (Reason: Anxiety) 30 Days Qty: 30 0RF Rx Instructions: TAKE 1 TABLET BY MOUTH ONCE DAILY dabigatran etexilate [Pradaxa] 75 mg capsule 75 mg PO BID magnesium 250 mg Tablet 500 mg PO DAILY triamterene-hydrochlorothiazid 75-50 mg Tablet 1 tab PO DAILY nystatin [Nystop] 100,000 unit/gram powder 1 applic TOPICAL BID PRN (Reason: redness) Rx Instructions: USE TWICE DAILY EXTERNALLY niacin 500 mg tablet 500 mg PO QHS potassium chloride [Klor-Con M20] 20 mEq tablet,ER particles/crystals 20 meq PO DAILY acetaminophen [Arthritis Pain Relief (acetam)] 650 mg tablet extended release 1,300 mg PO HS albuterol sulfate [ProAir HFA] 90 mcg/actuation HFA aerosol inhaler 2 puff INHALATION Q4HR PRN (Reason: Shortness Of Breath Or Wheezing) Qty: 8.511RF omeprazole 40 mg capsule,delayed release(DR/EC) 40 mg PO .COMPLEX Rx Instructions: 40 mg orally TAKE 1 CAPSULE DAILY 30 MINUTES BEFORE A MEAL; ferrous sulfate 325 mg (65 mg iron) tablet 325 mg PO .QOD calcium carbonate-vitamin D3 600 mg-20 mcg (800 unit) tablet 1 tab PO DAILY Complete MV Adult 50 Plus 0.4 mg-300 mcg- 250 mcg tablet 1 tab PO DAILY levothyroxine [Synthroid] 25 mcg tablet 25 mcg PO DAILY albuterol sulfate 2.5 mg /3 mL (0.083 %) solution for nebulization 2.5 mg inhalation TID PRN (Reason: shortness of breath or wheezing) Qty: 75 11RF Rx Instructions: USE 1 VIAL IN NEBULIZER THREE TIMES DAILY cyanocobalamin (vitamin B-12) 1,000 mcg/mL solution 1,000 mcg IM QMONTH Qty: 1 3RF Rx Instructions: INJECT 1 ML ONCE EVERY MONTH (DME) 3 ml syringe 0 .Route .MEDSUPPLY (DME) 25 g x 1 needle See Rx Instructions .ROUTE .MEDSUPPLY Qty: 4 0RF Rx Instructions: As directed Other Ambulatory Orders: Initiate Home Health (Routine) Timeframe: 1 Day Location: Determined by Patient Ordered By: Marin Whitman Follow Up: Justyna Hanson DO [Primary Care Provider] - (Dr. Hanson will review your hospital records and call you to arrange outpatient follow-up. Recommend follow-up within 5-7 days of discharge. ) Continuity of Care Document Health Concerns: A [facility] screening has identified you as FRAIL or AT RISK FOR FRAILTY. This puts you at a higher risk for infection, illness, falls,and other injuries. Here are four ways to help you reduce your risk of frailty: 1. IDENTIFY EARLY SIGNS OF FRAILTY ? Discuss contributing factors and concerns with your doctor 2. BE ACTIVE ? Walking and light strengthening exercises will help reduce weakness 3. EAT WELL ? Aim for three healthy meals a day that are high in protein 4. THINKPOSITIVE ? Keep your mind active by being sociable and continuing to learn References: Stay Strong:Four Ways to Beat the Frailty [email or web address]://[email or web address]/[email or web address]-myg-rmswahfitw/sta x-wjzafh-iivw-kffa-hk-ydbm-acc-adeogpt-dkrs Exam Physical Exam Vital Signs: Temp Pulse Resp BP Pulse Ox O2 Del Method 98.3 F 85 18 121/75 100 Room Air 08/31/24 09:00 08/31/24 09:00 08/31/24 09:00 08/31/24 09:00 08/31/24 09:00 08/31/24 09:51 Narrative: General: Awake alert, no acute distress HEENT: head atraumatic, normocephalic, moist mucous membranes Neck: supple no masses, no lymphadenopathy CVS: regular rate and rhythm, no murmurs or gallops Respiratory: Respiratory rate normal, expiratory wheezes noted. GI: soft, nondistended, nontender, positive bowel sounds with no organomegaly Back: She has bilateral pressure ulcers on her buttocks Extremity: moves all extremities, no restrictions of movements, bilateral nonpitting edema, right lower extremity has right weeping ulcer. No signs of any infection. Chronic venous stasis dermatitis is noted. Neuro: AOx3, CN II-VII intact. Moves all extremities in all planes of motion. Skin: dry, intact no rashes or lesions Diagnostic Studies Completed and Pending Studies Pending studies at discharge: 08/28/24 15:05 Blood Culture Stat Preliminary micro results at discharge 08/28/24 15:05 Blood Culture - Preliminary Blood - Left Forearm No Growth 3 Days 08/28/24 14:21 Blood Culture - Preliminary Blood - Left Antecubital No Growth 3 Days Labs on day of discharge: 08/31/24 07:18: Corrected WBC 9.2, RBC 3.45 L, Hgb 7.7 L, Hct 25.2 L, MCV 73.2 L, MCH 22.2 L, MCHC 30.3 L, RDW 22.3 H, Plt Count 293, MPV 7.5, PHA Creatinine Clear 29.96, Sodium 137, Potassium 4.3, Chloride 101, Carbon Dioxide 27.9, AnionGap 12.4, BUN 34 H, Creatinine 1.80 H, Est GFR (CKD-EPI) 27.439, Glucose 98, Calcium 8.4 L, Magnesium 1.7 L, Iron 43 L, TIBC 281, Iron Saturation 15.3 L, Transferrin 201 L Documented By: Marin Whitman, 08/31/242126 Signed By: <Electronically signed by Marin Whitman, DO> 08/31/242132 [facility] Work Phone: [email or web address] noteNo InformationNort [employer] Other Evaluation noteNoBigString Other Evaluation noteNo assessment information available [facility] Work Phone: [email or web address] noteNoSah[employer] Other Evaluation note* Diagnosis Shortness of breath Pulmonary hypertension (CMS/HCC) Other chronic pulmonary heart diseases documented in this encounter [facility] Work Phone: Evaluation note* Diagnosis Shortness of breath Pulmonary hypertension (CMS/HCC) Other chronic pulmonary heart diseases documented in this encounter [facility] Work Phone: Evaluation note* Diagnosis Onset Date Resolution Status Anxiety acute [facility] Work Phone: Evaluation note* Diagnosis Onset Date Resolution Status Anemia of renal disease acuteAnxietyacuteAtrial fibrillationacuteChronic kidney diseaseacuteCongestive heart failureacuteCOPD (chronic obstructive pulmonary disease)acuteCutaneous hornacuteDysphagiaacuteGoutacuteHyperglycemiaacuteHyperkalemiaacute HyperlipidemiaacuteHypothyroidacuteMacrocytosisacuteSeborrheic keratosesacute Shortness of breathacute [facility] Work Phone: Evaluation note* Diagnosis Permanent atrial fibrillation (Multi)- Primary Atrial fibrillation Essential hypertension, benign Pulmonary hypertension (Multi) Other chronic pulmonary heart diseases Anticoagulated Encounter for long-term (current) use of anticoagulants Stage 3a chronic kidney disease (Multi) Morbid obesity with BMI of 50.0-59.9, adult (Multi) Difficulty breathing Other dyspnea and respiratory abnormality Obstructive sleep apnea syndrome Obstructive sleep apnea (adult) (pediatric) CHAPMAN (dyspnea on exertion) Other dyspnea and respiratory abnormality documented in this encounter [facility] Work Phone: Evaluation note* Author Justyna Hanson [facility] CenterAuthoredFebruary 2024 1:15pmThe above note written by ___Cristobal Johnston____ acting as human recorder, note dictated by Dr. Adorno .I performed the above HPI, ROS, and Examination. I formulated and dictated the treatment plan and was present for entire encounter. Justyna Hanson D.O. [facility] Work Phone: Evaluation note* Diagnosis Other iron deficiency anemia- Primary [facility] Diagnosis Iron deficiency anemia, unspecified iron deficiency anemia type- Primary [facility] Diagnosis Other iron deficiency anemia- Primary [facility]* Diagnosis Iron deficiency anemia, unspecified iron deficiency anemia type- Primary [facility] Diagnosis Other iron deficiency anemia- Primary [facility] Diagnosis Iron deficiency anemia, unspecified iron deficiency anemia type- Primary [facility] Diagnosis Permanent atrial fibrillation (Multi)- Primary Atrial fibrillation Essential (primary) hypertension Unspecified essential hypertension Difficulty breathing Other dyspnea and respiratory abnormality Pulmonary hypertension (Multi) Other chronic pulmonary heart diseases Anticoagulated Encounter for long-term (current) use of anticoagulants Obstructive sleep apnea syndrome Obstructive sleep apnea (adult) (pediatric) Stage 3a chronic kidney disease (Multi) At risk for falling Personal history of fall BMI 45.0-49.9, adult (Multi) Former smoker Personal history of tobacco use, presenting hazards to health documented in this encounter [facility] Work Phone: Evaluation note* Diagnosis Iron deficiency anemia, unspecified iron deficiency anemia type- Primary [facility]* Diagnosis Other iron deficiency anemia- Primary [facility]* Diagnosis Onset Date Resolution Status Admit Date Acute cough acuteOctober 2024 2:31pmEdemaacuteOct2024 2:31pmTineaacute February 25, 2025 2:31pm [facility] Work Phone: History and physical note Author Marin Whitman [facility] CenterNote Date/TimeApril 2024 7:49pm[place] [address] Hospitalist H&P Signed Patient: Shanta Ferrer MR#: [id number] : 1940 Acct:[id number] Age/Sex: 84 / F Adm Date: 5 Loc: Room: [address] [place] [address] Type: ADM IN Attending Dr: Marin Whitman DO Copies to: DO Marin Mckeon, ~ HPI DATE OF EXAMINATION: 08/28/24 CHIEF COMPLAINT: shortness of breath HISTORY OF PRESENT ILLNESS: Miss Ferrer is a 4-year-old female with a plethora of medical problems most significant for anemia secondary to CKD, incontinence, atrial fibrillation, hypothyroidism, and COPD who presents to hospital today at the request of her primary care physician for anemia.She has been having issues with her anemia forsome time now, she recently had outpatient labs on yesterday August 27 which showed her hemoglobin to be 6.4 and she was subsequently called today when these results were reviewed and told tocome to emergency room. The patient has been feeling more short of breath for quite some time now, it sounds like this all started around April the patient had a significant hemorrhoidal bleed which the family describes as a war zone , the bleeding resolved somewhat however they went then went to [place] and the patient was apprehensive to be examined. The family now endorses that there is only a few spots of blood after a bowel movement and that the bleeding has improved significantly. Sheis on iron supplementation every other day. Of note, her legs do have weeping edema and her primarycare physician has recently increased her Lasix from 40 mg once a day to twice a day, her kidneys are tolerating this well and the family feels her edema is better. Review of Systems Review of Systems All other systems reviewed & are negative unless noted below or in HPI [facility] Medical History History of chicken pox Measles, Rubella Encounter for long-term (current) use of other medications Anemia Hx of fracture finger,toe Nocturnal hypoxemia Macrocytosis History of cellulitis staff celulitis - 01/29/15 Incontinence Depression Asthma Arthritis Vitamin D deficiency Venous insufficiency Stasis dermatitis of both legs Osteoarthritis Neuropathy Iron deficiency anemia History of cardioversion 10-04-17 for A-fib- Dr. Jackson () Dr. Jackson CKD (chronic kidney disease) stage 4, GFR 15-29 ml/min PAF (paroxysmal atrial fibrillation) Gout MATHEW (obstructive sleep apnea) PHT (pulmonary hypertension) Hypothyroid COPD (chronic obstructive pulmonary disease) Surgical History H/O arthroscopic knee surgery left History of tonsillectomy History of colonoscopy (11-28-2013) Dr. Mi (11/13/2008) Dr Lombardo- Normal Hx of appendectomy Hx of hysterectomy Family History Brother Heart disease Legacy FamHx Relation: Brother(s) Legacy FamHx Relation: Brother(s) Hypertension Legacy FamHx Relation: Brother(s) Father Heart disease Cancer Legacy FamHx Problem: Diagnosed with Cancer Lung cancer Family/Other Legacy FamHx Problem: 3 BROTHER :3 SISTERS Grandparent Legacy FamHx Relation: Maternal Grand Father Grandparent Legacy FamHx Relation: Maternal Grand Mother Grandparent Legacy FamHx Relation: Paternal Grand Father Grandparent Legacy FamHx Relation: Paternal Grand Mother Mother Heart disease History of stroke Legacy FamHx Problem: Diagnosed with Stroke Hypertension Sister Diabetes Cancer Legacy FamHx Problem: Diagnosed with Cancer Hypertension Breast cancer Social History Smoking Status: Former smoker Tobacco Type: cigarettes Substance Use Type: None Meds Medications and Allergies Allergies fenofibrate (Tricor) Allergy (Unknown, Verified 08/28/24 13:02) stomach upset ibuprofen Allergy (Unknown, Verified 08/28/24 13:02) Hives Iodinated Contrast Media Allergy (Unknown, Verified 08/28/24 13:02) Unresponsive, shock/ simvastatin (From Zocor) Allergy (Verified 08/28/24 13:02) Flushing Home Medications dabigatran etexilate 75 mg capsule (Pradaxa) 75 mg PO BID 01/16/20 [History Confirmed 08/28/24] magnesium 250 mg tablet 500 mg PO DAILY 12/01/20 [History Confirmed 08/28/24] triamterene 75 mg-hydrochlorothiazide 50 mg tablet 1 tab PO DAILY 12/01/20 [History Confirmed 08/28/24] albuterol sulfate 90 mcg/actuation aerosol inhaler (ProAir HFA) 2 puff inhalation Q4HR PRN Shortness Of Breath Or Wheezing #8.5 grams 12/19/23 [Rx Confirmed 08/28/24] calcium 600 mg (as carbonate)-vitamin D3 20 mcg (800 unit) tablet 1 tab PO DAILY12/19/23 [History Confirmed 08/28/24] ferrous sulfate 325 mg (65 mg iron) tablet 325 mg PO .QOD 12/19/23 [History Confirmed 08/28/24] omeprazole 40 mg capsule,delayed release 40 mg PO .COMPLEX 12/19/23 [History Confirmed 08/28/24] niacin 500 mg tablet 500 mg PO QHS 12/27/23 [History Confirmed 08/28/24] nystatin 100,000 unit/gram topical powder (Nystop) 1 applic topical BID PRN redness 12/27/23 [History Confirmed 08/28/24] 3 ml syringe 06/12/24 [History Confirmed 06/12/24] 25 g x 1 needle #4 ea 06/12/24 [Rx Confirmed 06/12/24] albuterol sulfate 2.5 mg/3 mL (0.083 %) solution for nebulization 2.5 mg (3 mL) inhalation TID PRN shortness of breath or wheezing #75 mL 06/12/24 [Rx Confirmed 08/28/24] cyanocobalamin (vitamin B-12) 1,000 mcg/mL injection solution 1,000 mcg IM QMONTH #1 mL 06/12/24 [Rx Confirmed 08/28/24] levothyroxine 25 mcg tablet (Synthroid) 25 mcg PO DAILY 06/12/24 [History Confirmed 08/28/24] kcovssuq-cha-plmcz acid 0.4 mg-lycopene 300 mcg-lutein 250 mcg tablet (Complete Multivitamin Adult 50 Plus) 1 tab PO DAILY 06/12/24 [History Confirmed 08/28/24] allopurinol 300 mg tablet 300 mg PO DAILY #90 tabs 07/03/24 [Rx Confirmed 08/28/24] metoprolol succinate 50 mg tablet,extended release 24 hr 50 mg PO DAILY #90 tabs07/03/24 [Rx Confirmed 08/28/24] sertraline 100 mg tablet 100 mg PO DAILY #90 tabs 07/03/24 [Rx Confirmed 08/28/24] spironolactone 25 mg tablet 25 mg PO BID #180 tabs 07/03/24 [Rx Confirmed 08/28/24] furosemide 40 mg tablet (Lasix) 40 mg PO BID 30 days #60 tabs 08/01/24 [Rx Confirmed 08/28/24] ipratropium 0.5 mg-albuterol 3 mg (2.5 mg base)/3 mL nebulization soln 3 ml inhalation QID PRN shortness of breath or wheezing #90 mL 08/01/24 [Rx Confirmed 08/28/24] lorazepam 0.5 mg tablet (Ativan) 0.5 mg PO DAILY PRN Anxiety 30 days #30 tabs 08/15/24 [Rx Confirmed 08/28/24] acetaminophen 650 mg tablet,extended release (Arthritis Pain Relief (acetaminophen) ER) 1,300 mg POHS 08/28/24 [History Confirmed 08/28/24] potassium chloride 20 mEq tablet,extended release(part/cryst) (Klor-Con M) 20 meq PO DAILY 08/28/24[History Confirmed 08/28/24] Exam Physical Exam Vital Signs: Temp Pulse Resp BP Pulse Ox O2 Del Method 97.7 F 84 18 154/70 H 100 Room Air 08/28/24 18:58 08/28/24 19:36 08/28/24 19:36 08/28/24 19:36 08/28/24 19:36 08/28/24 19:36 Narrative: General: Awake alert, no acute distress HEENT: head atraumatic, normocephalic, moist mucous membranes Neck: supple no masses, no lymphadenopathy CVS: regular rate and rhythm, no murmurs or gallops Respiratory: Tachypneic, the lungs appear to be clear to auscultation bilaterally though this is difficult to truthfully auscultate secondary to her body habitus GI: soft, nondistended, nontender, positive bowel sounds with no organomegaly Back: She has bilateral pressure ulcers on her buttocks Extremity: moves all extremities, no restrictions of movements, bilateral nonpitting edema, the right lower extremity has an Unna boot. Chronic venous stasis dermatitis is noted. Neuro: AOx3, CN II-VII intact. Moves all extremities in all planes of motion. Skin: dry, intact no rashes or lesions Results - Hospitalist H&P Lab Results Labs: Laboratory Last Values Corrected WBC 10.5 X10E3/uL (3.8-11.6) 08/28/24 14:21 Uncorrected WBC Count 10.5 x10E3/uL (3.8-11.6) 08/28/24 14:21 RBC 3.39 x10E6/uL (3.60-5.00) L 08/28/24 14:21 Hgb 7.0 g/dL (11.8-15.4) L 08/28/24 14:21 Hct 24.1 % (34.0-46.4) L 08/28/24 14:21 MCV 71.1 fl (80-100) L 08/28/24 14:21 MCH 20.5 pg (24.7-34.3) L 08/28/24 14:21 MCHC 28.9 g/dL (32.0-35.0) L 08/28/24 14:21 RDW 21.8 % (11.9-15.3) H 08/28/24 14:21 Plt Count 398 x10E3/uL (150-450) 08/28/24 14:21 MPV 7.4 fl (6.3-10.7) 08/28/24 14:21 Neut % (Auto) N/A 08/28/24 14:21 Lymph % (Auto) N/A 08/28/24 14:21 Payette % (Auto) N/A 08/28/24 14:21 Eos % (Auto) N/A 08/28/24 14:21 Baso % (Auto) N/A 08/28/24 14:21 Nucleat RBC Rel Count N/A 08/28/24 14:21 Neut # (Auto) N/A 08/28/24 14:21 Lymph # (Auto) N/A 08/28/24 14:21 Payette # (Auto) N/A 08/28/24 14:21 Eos # (Auto) N/A 08/28/24 14:21 Baso # (Auto) N/A 08/28/24 14:21 Lymphocytes % 18 % (18-42) 08/28/24 14:21 Monocytes % 4 % (2-11) 08/28/24 14:21 Eosinophils % 2 % (1-3) 08/28/24 14:21 Basophils % 1 % (0-2) 08/28/24 14:21 Myelocytes % 2 % (0-0) H 08/28/24 14:21 Segmented Neutrophils 75 % (50-70) H 08/28/24 14:21 Monocyte Dist Width 20.85 % (0.00-20.00) H 08/28/24 14:21 Nucleated RBCs/100 WBC 1 /100 WBC (0-0) H 08/28/24 14:21 Platelet Estimate Normal (Normal) 08/28/24 14:21 Plt Morphology Comment Normal (Normal) 08/28/24 14:21 RBC Morphology N/A 08/28/24 14:21 Polychromasia Slight 08/28/24 14:21 Hypochromasia Moderate 08/28/24 14:21 Poikilocytosis Slight 08/28/24 14:21 Anisocytosis Marked 08/28/24 14:21 Microcytosis Marked 08/28/24 14:21 Stomatocytes Moderate 08/28/24 14:21 Schistocytes Slight 08/28/24 14:21 PT 14.5 Seconds (9.0-12.9) H 08/28/24 14:21 INR 1.3 08/28/24 14:21 APTT 35.9 Seconds (25.1-36.5) 08/28/24 14:21 PHA Creatinine Clear 33.71 08/28/24 14:21 Sodium 136 mmol/L (136-145) 08/28/24 14:21 Potassium 4.8 mmol/L (3.5-5.1) 08/28/24 14:21 Chloride 103 mmol/L (98-107) 08/28/24 14:21 Carbon Dioxide 24.3 mmol/L (21.0-31.0) 08/28/24 14:21 Anion Gap 13.5 mEq/L (6.0-15.0) 08/28/24 14:21 BUN 44 mg/dL (7-25) H 08/28/24 14:21 Creatinine 1.62 mg/dL (0.60-1.20) H 08/28/24 14:21 Est GFR (CKD-EPI) 31.137 mL/Min 08/28/24 14:21 Glucose 109 mg/dL (70-100) H 08/28/24 14:21 Calcium 9.1 mg/dL (8.6-10.3) 08/28/24 14:21 Magnesium 1.5 mg/dL (1.9-2.7) L 08/28/24 14:21 Total Bilirubin 0.5 mg/dl (0.3-1.0) 08/28/24 14:21 AST 13 U/L (13-39) 08/28/24 14:21 ALT 6 U/L (7-52) L 08/28/24 14:21 Alkaline Phosphatase 124 U/L (34-104) H 08/28/24 14:21 Total Protein 6.8 gm/dL (6.4-8.9) 08/28/24 14:21 Albumin 3.0 gm/dL (3.5-5.7) L 08/28/24 14:21 Globulin 3.8 gm/dL 08/28/24 14:21 Albumin/Globulin Ratio 0.8 08/28/24 14:21 Blood Type O Positive 08/28/24 14:21 Blood Type Recheck O Positive 08/28/24 15:05 Antibody Screen Negative 08/28/24 14:21 Crossmatch (AHG) See Detail 08/28/24 14:21 Microbiology Results Micro: Microbiology - Results from entire visit 08/28/24 16:36 Stool Stool Occult Blood (HARSHAD) - Final Assessment & Plan Assessment/Plan (1) Acute on chronic anemia: Plan: ? She was 6.4 on outpatient labs yesterday ? She will receive 1 unit of PRBC today ? Her iron studies also ordered yesterday in the outpatient setting shows an undetectable iron level, her TIBC is normal and her iron saturation ? Checking reticulocyte count in the morning, this will likely be extremely low as well given her low iron stores ? She is already on p.o. iron supplementation however she is also having quite abit of constipationwith issues of hemorrhoidal bleeding, at this point it wouldbe extreme beneficial to give her IV iron while she was admitted. Will plan to initiate this tomorrow morning. ? Metamucil daily, hold her p.o. iron supplementation ?Will initiate IV Lasix starting tomorrow morning given she is already fluid overload and after receiving blood she will likely accumulate more fluid (2) Pressure ulcer: Plan: Present on admission, family is already working on getting a hospital bed set upat home for her (3) CKD stage 3b, GFR 30-44 ml/min: Plan: Stable and at baseline (4) Iron deficiency: Plan: See above Plan ? DVT prophylaxis addressed ? DNR CCA without intubation ? Full code IP vs OBS Justification Based on differential dx, clinical care plan, and risk of adverse events, if untreated, in my clinical judgement this patient requires an acute care setting as: INPATIENT because of an expectation ofan over 2 midnight stay. Estimated length of stay (# of days): 3 Documented By: Marin Whitman DO 08/28/241936 Signed By: <Electronically signed by Marin Whitman DO> 08/28/241948 [facility] Work Phone: History general Narrative - Reported* Type Description Date Medical History arthritis Medical HistoryChickenpox, Measles, RubellaMedical Historyfracture(finger,toe) Medical Historyknee problemsMedical Historydepression/anxietyMedical History TachycardiaMedical Historystaff celulitis - 01/29/15Medical [id number] Cardioversion for A-fib- Dr. GarciassiMedical HistoryCOPDMedical HistoryCHF Surgical Historycolonoscopy Dr Lombardo- Normal11/13/2008Surgical History hysterectomy abdominalSurgical HistorytonsillectomySurgical Historymultilpe neromas removedSurgical HistoryCardioversion; Dr. [id number] HistoryPulmonary testingSurgical HistoryEKG Danyeli09/2016Surgical HistoryPFT [id number]//Surgical HistoryPFT Dr Elias//urgical HistoryDR Felter rt knee inj01/03/urgical HistoryColonoscopy, Dr. [id number] HistoryHysterectomyHospitalization HistoryKnee surgeryHospitalization History CONGESTIVE HEART FAILURE01/2020 [facility] Other History general Narrative - ReportedNowestern [facility] [employer] Other Hisloep general Narrative - ReportedNoBigString Other Hisoeia general Narrative - ReportedSahara Media Holdings [employer] Other History of Present illness Narrative* Patient is here for follow-up to the management for permanent atrial fibrillation, long-term anticoagulation, history of sleep apnea and right heart failure. Since last time I saw her she denies any change in cardiac status or symptoms. She reported that her is undergoing surgery for gastric cancer and she is under a lot of stress. She denies any cardiac complaint. Recent laboratory data noted and reviewed with her. She had described compliance with her medication. * ASSESSMENT: * 1. Permanent atrial fibrillation. Failed long-term amiodarone therapy. During last office visit we elected for heart rate control on long-term anticoagulation * 2. Long-term anticoagulation with Pradaxa with appropriate dose based on renal function. * 3. High-risk medication in the form of Pradaxa ranging that well * 4. Right heart failure appears to be stable * 5. Sleep apnea, noncompliant with CPAP. * 6. Shortness of breath, related to above factors and COPD. * 7. Remote history of gastrointestinal bleed with no recurrence. * 8. Moderate pulmonary hypertension due to sleep apnea obesity and cor pulmonale * 9. Chronic kidney disease probably stage III * RECOMMENDATION: * 1. We discussed treatment option for atrial fibrillation and continue to recommend heart rate control strategy and long-term anticoagulation * 2. The patient was counseled regarding losing weight, exercise, and risk factor adjustment, and I did advise her to consider seeing her sleep specialist for consideration for other alternative for treatment for her CPAP * 3. Advised the patient to restrict her salt intake * 4. We will see her back in the office in 9-month in follow-up for. * 5. We discussed ischemic evaluation for the time being the patient want to continue with conservative management -[facility]-Farzad Streeter DO Work Phone: History of Present illness Narrative* Patient is here for follow-up continue management for permanent atrial fibrillation, long-term anticoagulation and shortness of breath. Since last time I saw her she report a fall resulted in knee fracture. She reports using in the wheelchair for almost 3 months. She described worsening shortness of breath and unspecified weight gain. She could not stand up to get her weight. She has not been taking her Lasix regularly. She denies chest pain. * Recent laboratory data noted and reviewed with her. * ASSESSMENT: * 1. Permanent atrial fibrillation. Failed long-term amiodarone therapy. During last office visit we elected for heart rate control on long-term anticoagulation * 2. Long-term anticoagulation with Pradaxa reduced dose chosen because of previous history of severeanemia and chronic kidney disease. We discussed Watchman device but the patient like to remain on current therapy * 3. Worsening shortness of breath and increased weight gain with evidence of volume overload * 4. Right heart failure * 5. Sleep apnea, noncompliant with CPAP. * 6. Shortness of breath, related to above factors and COPD. * 7. Remote history of gastrointestinal bleed with no recurrence. * 8. Moderate pulmonary hypertension due to sleep apnea obesity and cor pulmonale * 9. Chronic kidney disease probably stage III * 10. Recent fall with knee fracture * RECOMMENDATION: * 1. I recommended to increase Lasix to 40 mg daily and continue potassium and to have a basic metabolic profile, BNP and echocardiogram in few weeks. If symptoms does not improve I discussed with her the possibility of ischemic evaluation but she for the time being declined * 2. The patient was counseled regarding losing weight, exercise, and risk factor adjustment, and I did advise her to consider seeing her sleep specialist for consideration for other alternative for treatment for her CPAP * 3. Advised the patient to restrict her salt intake * 4. We will see her back in the office in 4 month in follow-up for. * 5. We discussed ischemic evaluation for the time being the patient want to continue with conservative management -[facility]-Farzad 250 DO Work Phone: Hospital Discharge instructionsAmbulatory Orders* Initiate Home Health Time Frame: 1 Day, Location: Determined By Patient Additional Instructions Home Health to manage care: - DNRCCA without intubation - PT/OT eval and treat - Routine vital signs - Medication management and education - Theraworx protect foam to bilateral breast, abdomen, and groin fold redness. BID and prn - BLE ulcers- Clean with Vashe. Unna paste, Calcium Alginate, ABD pad, coban. 2x per weekHigh[facility] Work Phone: Relcia for referral (narrative)* Consultation (Routine) - AuthorizedSpecialtyDiagnoses / ProceduresReferred By Contact Referred To ContactCardiology Diagnoses Essential hypertension, benign Difficulty breathing Procedures Follow Up In Cardiology Tressa Jackson MD [address] [place] [id number] Tressa Jackson MD [address] [place] [address], [address] [address] Referral IDStatusReasonStart DateExpiration DateVisits RequestedVisits [id number] [facility] Work Phone: Reason for referral (narrative)No reason for referral information availableHighland District Hospital Ctr Work Phone: Repynd for visit Narrativereview labs, discuss multiple issues see treatment [facility] [employer] Other Reason for visit Narrative* [place] Prior Authorization (Routine) - AuthorizedSpecialtyDiagnoses / ProceduresReferred By Contact Referred To Contact Diagnoses Iron deficiency anemia, unspecified iron deficiency anemia type Procedures IRON SUCROSE INJECTION PER 1 MG Keyon Palomino MD [address] [place] [address] [place] [address] Phone: tel: fax: Keyon Palomino MD [address] [place] [address] [place] [address] Phone: tel: fax: Referral IDStatusReasonStart DateExpiration DateVisits RequestedVisits [id number] [facility] Summary Purpose Family History No Family History Records Found Relationship Condition Age at Onset Recorded Date/T michael Not Specified Chronic kidney disease Unknown Unknown Family Member Name Dates Details Family history of arterioscl erotic cardiovascular disease: Mother, Father, Brother(V17.49, Z82.49) Status:ActiveFamily history of myocardial infarction: Brother(V17.3, Z82.49) Status:Active Unknown Family Member Name Dates Details Family history of arterioscl erotic cardiovascular disease: Mother, Father, Brother(V17.49, Z82.49) Status:ActiveFamily history of myocardial infarction: Brother(V17.3, Z82.49) Status:Active Unknown Family Member Name Dates Details Family history of arterioscl erotic cardiovascular disease: Mother, Father, Brother(V17.49, Z82.49) Status:ActiveFamily history of myocardial infarction: Brother(V17.3, Z82.49) Status:Active Unknown Family Member Name Dates Details Family history of arterioscl erotic cardiovascular disease: Mother, Father, Brother(V17.49, Z82.49) Status:ActiveFamily history of myocardial infarction: Brother(V17.3, Z82.49) Status:Active Relationship Condition Age at Onset Recorded Date/T michael Not Specified Chronic kidney disease Unknown brotherHeart diseaseUnknownDeceasedUnknownHypertensionUnknownfatherHeart disease UnknownMalignant neoplasmUnknownfamily memberDeceasedUnknowngrandparentDeceased UnknownNot SpecifiedHistory of strokeUnknownHeart diseaseUnknownsisterMalignant neoplasmUnknownDiabetes mellitusUnknown Relationship Condition Age at Onset Recorded Date/T michael Not Specified Chronic kidney disease Unknown brotherHeart diseaseUnknownDeceasedUnknownHypertensionUnknownfatherHeart disease UnknownMalignant neoplasmUnknownfamily memberDeceasedUnknowngrandparentDeceased UnknownmotherHistory of strokeUnknownHeart diseaseUnknownsisterMalignant neoplasmUnknownDiabetes mellitusUnknown Relationship Condition Age at Onset Recorded Date/T michael brother Heart disease Unknown DeceasedUnknownHypertensionUnknownfatherHeart diseaseUnknownMalignant neoplasm UnknownMalignant neoplasm of lungUnknownfamily memberDeceasedUnknowngrandparent DeceasedUnknownmotherHeart diseaseUnknownHistory of strokeUnknownsisterDiabetes mellitusUnknownMalignant neoplasm of breastUnknown Advance Directives No Advanced Directives Records Found Advance Directive Response Recorded Date/ Time Advance Directives No January 1:42pm Advance Directive Response Recorded Date/ Time Advance Directives No January 2:42pm Advance Directive Response Recorded Date/ Time Advance Directives No March 09, 2024 12:22pm Advance Directive Response Recorded Date/ Time Advance Directives No June 12, 2024 1:08pm Advance Directive Response Recorded Date/ Time Advance Directives No June 12, 2024 2:08pm Chief Complaint and Reason for Visit Chief Complaint E87.70 E87.70 N18.4 D63.1 R7.26 See order Chief Complaint n18.832 e87.70 n25.8 1 e55.9 e87.6 i48.0 Chief Complaint m25.562 Chief Complaint m25.562 m25.561 Chief Complaint m25.562 m25.561 S82.141D Chief Complaint S82.141D E03.9/R73.9/E78.5/Z79.899 Chief Complaint Renal 3 Month Follow Up Chief Complaint telephone/med refill Ativan Reason for Visit Anxiety Chief Complaint telephone/med refill Ativan Amb DocumentationReason for VisitAnxiety Chief Complaint Amb Documentation R06.89,R06.09,E03.9,D50.9,R73.9,E78.5,M10.9 D75.89 review labsReason for VisitAnemia of renal disease Anxiety Atrial fibrillation Chronic kidney disease Congestive heart failure COPD (chronic obstructive pulmonary disease) Cutaneous horn Dysphagia Gout Hyperglycemia Hyperkalemia Hyperlipidemia Hypothyroid Macrocytosis Seborrheic keratoses Shortness of breath Chief Complaint Amb Documentation R06.89,R06.09,E03.9,D50.9,R73.9,E78.5,M10.9 D75.89 review labs Chronic kidney disease Hyperkalemia Shortness of bReason for VisitAnemia of renal disease Anxiety Atrial fibrillation Chronic kidney disease Congestive heart failure COPD (chronic obstructive pulmonary disease) Cutaneous horn Dysphagia Gout Hyperglycemia Hyperkalemia Hyperlipidemia Hypothyroid Macrocytosis Seborrheic keratoses Shortness of breath Chief Complaint Amb Documentation R06.89,R06.09,E03.9,D50.9,R73.9,E78.5,M10.9 D75. review labs Chronic kidney disease Hyperkalemia Shortness of b Anemia of renal disease Hyperkalemia Shortness ofReason for VisitAnemia of renal disease Anxiety Atrial fibrillation Chronic kidney disease Congestive heart failure COPD (chronic obstructive pulmonary disease) Cutaneous horn Dysphagia Gout Hyperglycemia Hyperkalemia Hyperlipidemia Hypothyroid Macrocytosis Seborrheic keratoses Shortness of breath Chief Complaint Amb Documentation R06.89,R06.09,E03.9,D50.9,R73.9,E78.5,M10.9 D75.89 review labs Chronic kidney disease Hyperkalemia Shortness of b Dysphagia CHF CKD N18.9 D63.1 R06.02 I50.9Reason for VisitAnemia of renal disease Anxiety Atrial fibrillation Chronic kidney disease Congestive heart failure COPD (chronic obstructive pulmonary disease) Cutaneous horn Dysphagia Gout Hyperglycemia Hyperkalemia Hyperlipidemia Hypothyroid Macrocytosis Seborrheic keratoses Shortness of breath Chief Complaint R06.89,R06.09,E03.9, D50.9,R73.9,E78.5,M10.9 D75.89 review labs Chronic kidney disease Hyperkalemia Shortness of b Dysphagia CHF CKD N18.9 D63.1 R06.02 I50.9 discuss HH/legs seepingReason for VisitAnemia of renal disease Anxiety Atrial fibrillation Chronic kidney disease Congestive heart failure COPD (chronic obstructive pulmonary disease) Cutaneous horn Dysphagia Gout Hyperglycemia Hyperkalemia Hyperlipidemia Hypothyroid Macrocytosis Seborrheic keratoses Shortness of breath Anxiety Congestive heart failure Edema Chief Complaint Admit Date Congestive Heart Failure April 09 024 11:44am med refill June 12, 2024 1 2:49pm Reason for Visit Admit Date Anxiety June 12, 2024 1 2:49pm COPD (chronic obstructive pulmonary dise ase) June 12, 2024 12:49pm Fall June 12, 2024 1 2:49pm Macrocytosis June 12, 2024 1 2:49pm Chief Complaint Admit Date med refill June 12, 2024 1 2:49pm lower leg edema/possible cellulitis Apri l 2024 3:54pm Reason for Visit Admit Date Anxiety June 12, 2024 1 2:49pm COPD (chronic obstructive pulmonary dise ase) June 12, 2024 12:49pm Fall June 12, 2024 1 2:49pm Macrocytosis June 12, 2024 1 2:49pm Cellulitis August 22, 2024 3:5 4pm Chronic kidney disease August 22, 2024 3:54pm COPD (chronic obstructive pulmonary dise ase) August 22, 2024 3:54pm Edema August 22, 2024 3:5 4pm Chief Complaint Admit Date med refill June 12, 2024 1 2:49pm lower leg edema/possible cellulitis Apri l 2024 3:54pm abnormal labs August 28, 2024 6:1 3pm Reason for Visit Admit Date Anxiety June 12, 2024 1 2:49pm COPD (chronic obstructive pulmonary dise ase) June 12, 2024 12:49pm Fall June 12, 2024 1 2:49pm Macrocytosis June 12, 2024 1 2:49pm Cellulitis August 22, 2024 3:5 4pm Chronic kidney disease August 22, 2024 3:54pm COPD (chronic obstructive pulmonary dise ase) August 22, 2024 3:54pm Edema August 22, 2024 3:5 4pm Acute on chronic anemia August 28, 2024 6:13pm Anemia August 28, 2024 6:1 3pm CKD stage 3b, GFR 30-44 ml/min August 6:13pm Iron deficiency August 28, 2024 6:1 3pm Pressure ulcer August 28, 2024 6:1 3pm Volume overload August 28, 2024 6:1 3pm Chief Complaint Admit Date med refill June 12, 2024 1 2:49pm lower leg edema/possible cellulitis Apri l 2024 3:54pm COPD , CHF, CKD August 27, 2024 2:0 0pm abnormal labs August 28, 2024 6:1 3pm Chief Complaint Admit Date lower leg edema/possible cellulitis Apri l 2024 3:54pm COPD , CHF, CKD August 27, 2024 2:0 0pm abnormal labs August 28, 2024 6:1 3pm Amb Documentation September 03, 2024 12: 59pm Reason for Visit Admit Date Cellulitis August 22, 2024 3:5 4pm Chronic kidney disease August 22, 2024 3:54pm COPD (chronic obstructive pulmonary dise ase) August 22, 2024 3:54pm Edema August 22, 2024 3:5 4pm Acute on chronic anemia August 28, 2024 6:13pm Anemia August 28, 2024 6:1 3pm CKD stage 3b, GFR 30-44 ml/min August 6:13pm Iron deficiency August 28, 2024 6:1 3pm Pressure ulcer August 28, 2024 6:1 3pm Volume overload August 28, 2024 6:1 3pm Chief Complaint Admit Date lower leg edema/possible cellulitis Apri l 2024 3:54pm COPD , CHF, CKD August 27, 2024 2:0 0pm abnormal labs August 28, 2024 6:1 3pm Amb Documentation September 03, 2024 12: 59pm Z79.899 September 10, 2024 12:35p m hosp f/u anemia September 12, 2024 2:14pm Reason for Visit Admit Date Cellulitis August 22, 2024 3:5 4pm Chronic kidney disease August 22, 2024 3:54pm COPD (chronic obstructive pulmonary dise ase) August 22, 2024 3:54pm Edema August 22, 2024 3:5 4pm Iron deficiency August 28, 2024 6:1 3pm Pressure ulcer August 28, 2024 6:1 3pm Acute on chronic anemia August 28, 2024 6:13pm Anemia August 28, 2024 6:1 3pm CKD stage 3b, GFR 30-44 ml/min August 6:13pm Volume overload August 28, 2024 6:1 3pm Anemia of renal disease September 12, 2024 2: 14pm Body mass index [BMI] 50.0-59.9, adult M ay 2024 2:14pm Congestive heart failure September 12, 2024 2 :14pm Hyperglycemia September 12, 2024 2:14pm Iron deficiency September 12, 2024 2:14pm PAF (paroxysmal atrial fibrillation) September 12, 2024 2:14pm Pressure ulcer September 12, 2024 2:14pm Chief Complaint Admit Date N30.90 December 28, 2024 1: 53pm Chief Complaint Admit Date N30.90 December 28, 2024 1: 53pm N30.9 January 09, 2025 2:18pm Chief Complaint Admit Date N30.90 December 28, 2024 1: 53pm N30.9 January 09, 2025 2:18pm z79.899 January 14, 2025 1:00pm telephone/cough February 25, 2025 2 :31pm Reason for Visit Admit Date Acute cough February 25, 2025 2 :31pm Edema February 25, 2025 2 :31pm Tinea February 25, 2025 2 :31pm Assessments No Assessments Information Available Chief Complaint SHANTA FERRER is being seen for a 6 month follow-up of.SHANTA FERRER is being seen for a 9 month follow-up of. Reason for Referral SpecialtyDiagnoses / ProceduresReferred By ContactReferred To ContactCardiology Diagnoses Shortness of breath Pulmonary hypertension (CMS/HCC) Procedures Transthoracic Echo (TTE) Complete CO ECHO TRANSTHORC R-T 2D W/WO M-MODE REC F-UP/LMTD CO DOP ECHOCARD COLOR FLOW VELOCITY MAPPING CO DOP ECHOCARD PULSE WAVE W/SPECTRAL F-UP/LMTD STD Tressa Jackson MD [address] [address], [address] [address] Referral IDStatusReasonStart DateExpiration DateVisits RequestedVisits [id number] Perform Procedure / Reason appt consult for q uestionalbe fx of medial tibial plateau seen on rt knee xray (CT scan has been ordered) Diagnosis 1 Knee pain, right (M2 5.561) Referral Organization [facility] Family Medicin e Ho Referring Provider First Name Justyna Referring Provider Last Name Vaishnavi Referring Provider Specialty Family Prac norma Referred Organization [facility] Referred Provider Margarito Allen Referred Address [address] [place], [place],[address] Referred Provider Specialty Orthopedic S urgery Referral Priority Urgent General Notes Pao Mckinney 08/23/2022 05:42:20 PM > referral sent p2p. daughter and pt understands they will be contacted to schedule this appt. Additional Source Comments INFORMATION SOURCE (unrecogn ized section and content) DATE CREATED AUTHOR 04/25/2019 [facility] DATE CREATED AUTHOR AUTHOR'S ORGANIZ ATION 06/07/2022 [facility] DATE CREATED AUTHOR AUTHOR'S ORGANIZ ATION 11/16/2022 [facility] DATE CREATED AUTHOR AUTHOR'S ORGANIZ ATION 11/16/2022 [facility] DATE CREATED AUTHOR AUTHOR'S ORGANIZ ATION 12/19/2023 [facility] DATE CREATED AUTHOR AUTHOR'S ORGANIZ ATION 11/15/2024 [facility] DATE CREATED AUTHOR AUTHOR'S ORGANIZ ATION 02/21/2025 [facility] DATE CREATED AUTHOR AUTHOR'S ORGANIZ ATION 03/13/2025 [facility] REASON FOR VISIT (unrecogniz ed section and content) SpecialtyDiagnoses / ProceduresReferred By ContactReferred To ContactCardiology Diagnoses Shortness of breath Pulmonary hypertension (CMS/HCC) Procedures Transthoracic Echo (TTE) Complete CO ECHO TRANSTHORC R-T 2D W/WO M-MODE REC F-UP/LMTD CO DOP ECHOCARD COLOR FLOW VELOCITY MAPPING CO DOP ECHOCARD PULSE WAVE W/SPECTRAL F-UP/LMTD STD Tressa Jackson MD [address] [facility] [address] [place] [address] Referral IDStatusReasonStart DateExpiration DateVisits RequestedVisits [id number] Perform Procedure /[id number]-ar3xHvdnsweyuExiliglmm / Procedures Referred By ContactReferred To ContactCardiology Diagnoses Permanent atrial fibrillation (Multi) Essential hypertension, benign Pulmonary hypertension (Multi) Procedures Follow Up In Cardiology Tressa Jackson MD [address] [place] [address], [place] [id number] Tressa Jackson MD [address] [place] [address], [place] [phone] Referral IDStatusReasonStart DateExpiration DateVisits RequestedVisits [id number] CommentsTreatment PlanningVenofer x 5ReasonCommentsLab OrdersReasonComments Anemia4 week follow upReasonCommentsFollow-up6 month Follow up for Atrial FibrillationSpecialtyDiagnoses / ProceduresReferred By ContactReferred To ContactCardiology Diagnoses Essential hypertension, benign Difficulty breathing Procedures Follow Up In Cardiology Tressa Jackson MD [address] [place] [address] 2, [place] [phone] Phone: tel: fax: Tressa Jackson MD [address] [place] [address] 2, [place] [phone] Phone: tel: fax: Referral IDStatusReasonStart DateExpiration DateVisits RequestedVisits [id number]/20247/[id number]ak up ReasonCommentsResults Care Teams (unrecognized sec tion and content) Team Status: Active Member Role Status Dates Cristobal Johnston LPN Care Manager Active Team Status: Active Member Role Status Dates Justyna Hymanvin , DO Primary Care Provider Active S tart: October 18, 2024 Clarisa Gary DRIVER LICENSE TECHNICIAN-CAttending ProviderActiveStart: October 18, 2024 Team Status: Inactive Member Role Status Gloria Hanson DO Primary Care Provider Active S tart: December 28, 2024 End: December 28, 2024Justyna Hanson DOAttending ProviderActiveStart: December 28, 2024 End: December 28, 2024 Team Status: Inactive Member Role Status Gloria Hanson DO Primary Care Provider Active S tart: January 09, 2025 End: January 09, 2025Justyna Hanson DOAttending ProviderActiveStart: January 09, 2025 End: January 09, 2025 Team Status: Active Member Role Status Gloria Hanson DO Primary Care Provider Active S tart: January 09, 2025 Clarisa Gary DRIVER LICENSE TECHNICIAN-CAttending ProviderActiveStart: January 09, 2025 Team Status: Inactive Member Role Status Gloria Hanson DO Attending Provider Active Star t: January 14, 2025 End: January 14, 2025 Team Status: Inactive Member Role Status Gloria Hanson DO Primary Care Provide r, Attending Provider Active Start: June 12, 2024 End: June 12, 2024 Team Status: Inactive Member Role Status Gloria Hanson DO Primary Care Provide r, Attending Provider Active Start: August 22, 2024 End: August 22, 2024 Team Status: Inactive Member Role Status Gloria Hanson DO Attending Provider Active Star t: August 27, 2024 End: August 27, 2024 Team Status: Active Member Role Status Gloria Hanson DO Primary Care Provider Active S tart: December 09, 2023 Cristobal Johnston LPNAttenclyde ProviderActiveStart: December 09, 2023 Team Status: Inactive Member Role Status Gloria Hanson DO Primary Care Provide r, Attending Provider Active Start: December 12, 2023 End: December 12, 2023 Team Status: Inactive Member Role Status Gloria Hanson DO Primary Care Provide r, Attending Provider Active Start: December 19, 2023 End: December 19, 2023 Team Status: Inactive Member Role Status Gloria Hanson DO Attending Provider Active Star t: December 26, 2023 End: December 26, 2023 Team Status: Inactive Member Role Status Gloria Hanson DO Primary Care Provider Active Leonela Sorensen ProviderActive Team Status: Active Member Role Status Dates Justyna Hanson , Primary Care Provider Active Team Status: Inactive Member Role Status Dates Justyna Hanson , Primary Care Provider, Attending Pro vider Active Team Status: Inactive Member Role Status Dates Justyna Hanson , Primary Care Provider Active Margarito Allen DOAttending ProviderActive Team Status: Inactive Member Role Status Dates Justyna Hanson , Attending Provider Active Team Status: Active Member Role Status Dates NON STAFF Primary Care Provider Active Team Status: Inactive Member Role Status Dates Justyna Hanson , Attending Provider Active NON STAFFPrimary Care ProviderActive Team Status: Inactive Member Role Status Dates NON STAFF Primary Care Provider Active Margarito Allen DOAttriya ProviderActiveTeam MemberRelationshipSpecialty Start DateEnd Date YenniJustyna padron [address] [place] [id number] PCP General05/09/14Team MemberRelationshipSpecialtyStart DateEnd Date YenniJustyna padron [address] [place] [address] PCP General05/09/14 Team Status: Inactive Member Role Status Dates NON STAFF Primary Care Provider Active Start: May 25, 2023 End: May 25jose de jesus Hanson DOAttriya ProviderActiveStart: May 25, 2023 End: May 25, 2023 Team Status: Inactive Member Role Status Dates Tori Wheatley MD Attending Provider Active Star t: March 30, 2023 End: March 30, 2023 Team Status: Inactive Member Role Status Dates Justyna Hanson DO Primary Care Provide r, Attending Provider Active Start: May 26, 2023 End: May 26, 2023 Team Status: Inactive Member Role Status Dates NON STAFF Primary Care Provider Active Start: May 30, 2023 End: May 30jose de jesus Hanson DOAttending ProviderActiveStart: May 30, 2023 End: May 30, 2023 Team Status: Active Member Role Status Dates Cristobal Johnston LPN Care Manager Active EBONY Leperimary Care ProviderActive Team Status: Inactive Member Role Status Gloria Hanson DO Primary Care Provide r, Attending Provider Active Start: September 19, 2023 End: September 19, 2023 Team Status: Inactive Member Role Status Gloria Hanson DO Attending Provider Active Star t: January 02, 2024 End: January 02, 2024 Team Status: Active Member Role Status Gloria Johnston LPN Care Manager Active PHYSICIAN NO FAMILYPrimary Care ProviderActive Team Status: Inactive Member Role Status Gloria Hanson DO Primary Care Provider Active S tart: December 27, 2023 End: December 26atherine L Ly , DOAttending ProviderActiveStart: December 27, 2023 End: December 27, 2023 Team Status: Inactive Member Role Status Gloria Hanson DO Attending Provider Active Star t: January 02, 2024 End: January 01HYSICIAN NO FAMILYPrimary Care ProviderActiveStart: January 02, 2024 End: January 02, 2024 Team Status: Active Member Role Status Gloria PHYSICIAN NO FAMILY Primary Care Provider Active Start: January 16, 2024 Justyna Hanson DOAttending ProviderActiveStart: January 16, 2024 Team Status: Inactive Member Role Status Gloria Hanson DO Primary Care Provide r, Attending Provider Active Start: March 09, 2024 End: March 09, 2024Team MemberRelationshipSpecialtyStart DateEnd Justyna Barbosa DO [address] [place] [phone] PCP - General05/09/14 Team Status: Inactive Member Role Status Gloria Hanson DO Primary Care Provide r, Attending Provider Active Start: April 09, 2024 End: April 09, 2024 Team Status: Active Member Role Status Gloria Hanson DO Primary Care Provider Active S tart: August 28, 2024 Justin Grissom ProviderActiveStart: August 28, 2024 Marin Whitman , Admit Provider, Attending ProviderActiveStart: August 28, 2024 Team Status: Inactive Member Role Status Gloria Hanson DO Primary Care Provider Active S tart: August 28, 2024 End: August 31Justin Infante ProviderActiveStart: August 28, 2024 End: August 31, 2024Marin Whitman DOAdmit Provider, Attending ProviderActive Start: August 28, 2024 End: August 31, 2024 Team Status: Active Member Role Status Dates Justyna Hanson DO Primary Care Provider Active S tart: September 03, 2024 SUZETTE McmahonAAtca ProviderActiveStart: September 03, 2024 Team Status: Inactive Member Role Status Dates Justyna Hanson DO Primary Care Provide r, Attending Provider Active Start: September 10, 2024 End: September 10, 2024 Team Status: Inactive Member Role Status Dates Justyna Hanson DO Primary Care Provide r, Attending Provider Active Start: September 12, 2024 End: September 12, 2024Team MemberRelationshipSpecialtyStart DateEnd Date Justyna Hanson, DO [address] [place] [phone] PCP - Generalmily Medicine10/31/14Team MemberRelationshipSpecialtyStart DateEnd Date Justyna Hanson, DO [address] [place] [address] PCP - GeneralFamily Medicine10/31/14Team MemberRelationshipSpecialtyStart DateEnd Date Justyna Hanson, DO [address] [place] [address] PCP - GeneralFamily Medicine10/31/14Team MemberRelationshipSpecialtyStart DateEnd Date Justyna Hanson, DO [address] [place] [address] PCP - Generalmily Medicine10/31/14Team MemberRelationshipSpecialtyStart DateEnd Date Justyna Hanson, DO [address] [place] [address] PCP - GeneralFamily Medicine10/31/14Team MemberRelationshipSpecialtyStart DateEnd Date Justyna Hanson, DO [address] [place] [address] PCP - GeneralFamily Medicine10/31/14Team MemberRelationshipSpecialtyStart DateEnd Date Justyna Hanson, DO [address] [place] [address] PCP - GeneralFamily Medicine10/31/14Team MemberRelationshipSpecialtyStart DateEnd Date Justyna Hanson, DO [address] [place] [address] PCP - GeneralFamily Medicine10/31/14Team MemberRelationshipSpecialtyStart DateEnd Date Justyna Hanson, DO [address] [place] [address] PCP - GeneralFamily Medicine10/31/14Team MemberRelationshipSpecialtyStart DateEnd Date Justyna Hanson, DO PCP - General05/09/14Team MemberRelationshipSpecialtyStart DateEnd Date Justyna Hanson, DO [address] [place] [address] PCP - GeneralFamily Medicine10/31/14Team MemberRelationshipSpecialtyStart DateEnd Date Justyna Hanson, DO [address] [place] [address] PCP - [facility] Medicine10/31/14Team MemberRelationshipSpecialtyStart DateEnd Date Justyna Hanson DO [address] [place] [address] PCP - [facility] Medicine10/31/14 Keyon Palomino MD [address] [place] [address] Hematology/Oncology01/09/25Team MemberRelationshipSpecialtyStart DateEnd Date Justyna Hanson DO [address] [place] [address] PCP - [facility] Medicine10/31/14 Keyon Palomino MD [address] [place] [place] [address] Hematology/Oncology01/09/25 Team Status: Active Member Role/Relationship Status Dates Cristobal Johnston LPN Care Manager Active Emery Lepe Care ProviderActive Team Status: Inactive Member Role/Relationship Status Dates Justyna Hanson DO Primary Care Provider Active S tart: December 28, 2024 End: December 28, 2024Dachong Hanson DOAttriya ProviderActiveStart: December 28, 2024 End: December 28, 2024 Team Status: Inactive Member Role/Relationship Status Dates Justyna Hanson DO Primary Care Provider Active S tart: January 09, 2025 End: January 09, 2025DaKaterina Madrigal ProviderActiveStart: January 09, 2025 End: January 09, 2025 Team Status: Active Member Role/Relationship Status Dates Justyna Hanson DO Primary Care Provider Active S tart: January 09, 2025 Clarisa Gary NP-CAttending ProviderActiveStart: January 09, 2025 Team Status: Inactive Member Role/Relationship Status Dates Justyna Hanson DO Attending Provider Active Star t: January 14, 2025 End: January 14, 2025 Team Status: Inactive Member Role/Relationship Status Dates Justyna Hanson DO Primary Care Provider Active S tart: February 25, 2025 End: February 25, 2025Dadevorahkhari Hanson DOAttending ProviderActiveStart: February 25, 2025 End: February 25, 2025 Goals (unrecognized section and content) Goals may be documented in a n alternate section Source Comments (unrecognize d section and content) In the event this informatio n is protected by the Federal Confidentiality of Alcohol and Drug Abuse Patient Records regulations: The Federal rules restrict any use of the information to criminally investigate or prosecute any alcohol or drug abuse patient.[facility] SystemIn the event this information is protected by the Federal Confidentiality of Alcohol and Drug Abuse Patient Records regulations: The Federal rules restrict any use of the information to criminally investigate or prosecute any alcohol or drug abuse patient.[facility] SystemIn the event this information is protected by the Federal Confidentiality of Alcohol and Drug Abuse Patient Records regulations: The Federal rules restrict any use of the information to criminally investigate or prosecute any alcohol or drug abuse patient.[facility] SystemIn the event this information is protected by the Federal Confidentiality of Alcohol and Drug Abuse Patient Records regulations: The Federal rules restrict any use of the information to criminally investigate or prosecute any alcohol or drug abuse patient.[facility] SystemIn the event this information is protected by the Federal Confidentiality of Alcohol and Drug Abuse Patient Records regulations: The Federal rules restrict any use of the information to criminally investigate or prosecute any alcohol or drug abuse patient.[facility] SystemIn the event this information is protected by the Federal Confidentiality of Alcohol and Drug Abuse Patient Records regulations: The Federal rules restrict any use of the information to criminally investigate or prosecute any alcohol or drug abuse patient.[facility] SystemIn the event this information is protected by the Federal Confidentiality of Alcohol and Drug Abuse Patient Records regulations: The Federal rules restrict any use of the information to criminally investigate or prosecute any alcohol or drug abuse patient.[facility] SystemIn the event this information is protected by the Federal Confidentiality of Alcohol and Drug Abuse Patient Records regulations: The Federal rules restrict any use of the information to criminally investigate or prosecute any alcohol or drug abuse patient.[facility] SystemIn the event this information is protected by the Federal Confidentiality of Alcohol and Drug Abuse Patient Records regulations: The Federal rules restrict any use of the information to criminally investigate or prosecute any alcohol or drug abuse patient.[facility] SystemIn the event this information is protected by the Federal Confidentiality of Alcohol and Drug Abuse Patient Records regulations: The Federal rules restrict any use of the information to criminally investigate or prosecute any alcohol or drug abuse patient.[facility] SystemIn the event this information is protected by the Federal Confidentiality of Alcohol and Drug Abuse Patient Records regulations: The Federal rules restrict any use of the information to criminally investigate or prosecute any alcohol or drug abuse patient.[facility] SystemIn the event this information is protected by the Federal Confidentiality of Alcohol and Drug Abuse Patient Records regulations: The Federal rules restrict any use of the information to criminally investigate or prosecute any alcohol or drug abuse patient.[facility] SystemIn the event this information is protected by the Federal Confidentiality of Alcohol and Drug Abuse Patient Records regulations: The Federal rules restrict any use of the information to criminally investigate or prosecute any alcohol or drug abuse patient.[facility] SystemIn the event this information is protected by the Federal Confidentiality of Alcohol and Drug Abuse Patient Records regulations: The Federal rules restrict any use of the information to criminally investigate or prosecute any alcohol or drug abuse patient.[facility] FOR RECORDS PERTAINING TO PATIENTS WHO ARE OR HAVE BEEN ENROLLED IN A CHEMICAL DEPENDENCY/SUBSTANCEABUSE PROGRAM, SOME INFORMATION MAY BE OMITTED. This clinical summary was aggregated from multiple sources. Caution should be exercised in using it in the provision of clinical care. This summary normalizes information from multiple sources, and as a consequence, information in this document may materially change the coding, format and clinical context of patient data. In addition, data may be omitted in some cases. CLINICAL DECISIONS SHOULD BE BASED ON THE PRIMARY CLINICAL RECORDS. [facility]. provides no warranty or guarantee of the accuracy or completeness of information in this document.
== END 2025-04-17 14:33 | disposition home or self-care (01) ==
LOC: LAB 14:32
PROVIDERS: PCP Family Medicine; Visit Provider Family Medicine
DX: N39.0 Urinary tract infection, site not specified (principal)
CPT/HCPCS: 81003; 87086